=== PATIENT | female | born 1970 | race Caucasian/White ===

== ENCOUNTER 2017-07-04 11:46 | Inpatient (IN) | payer MEDICAID ==
[2017-07-04] MEDS ORDERED: HYDROmorphone 1 MG/ML Syringe IVPUSH ONE (12:55)
[2017-07-04] MEDS ORDERED: Lactated Ringers 1,000 ML IV ONE (12:56)
--- NOTE | 2017-07-04 12:59 | EDM.PDOC ---
ED HPI GENERAL MEDICAL PROBLEM - General Chief Complaint: General Stated Complaint: RAPID HEART RATE Time Seen by Provider: 07/04/17 12:45 Source of Information: Reports: Patient, Family, RN Notes Reviewed History Limitations: Reports: No Limitations - History of Present Illness INITIAL COMMENTS - FREE TEXT/NARRATIVE: 46-year-old female presents emergency department day complaint of fever and chills, she has a history of spinal cord injury T10 as well as suprapubic catheter colostomy bag and decubitus ulcer gluteal area, she was recently treated for urinary tract infection by report culture was sensitive to all medications except for Macrobid she completed a ten-day course. She states over the last 24-36 hrs. she's developed fever chills ill feeling Generalized Pain Score (Numeric/FACES): 10 - Related Data Allergies Allergy/AdvReac Type Severity Reaction Status Date / Time clindamycin Allergy Cannot Verified 07/04/17 12:24 Remember Penicillins Allergy Cannot Verified 07/04/17 12:24 Remember Home Meds: Home Meds Albuterol [Ventolin HFA] 1 puff IH QID 12/16/14 [History] Baclofen 20 mg PO TID 12/16/14 [History] Ibuprofen 200 mg PO Q4H PRN 12/16/14 [History] Levothyroxine 25 mcg PO QAM 12/16/14 [History] Methadone 15 mg PO BID 12/16/14 [History] Methadone 20 mg PO QAM 12/16/14 [History] Multivitamins/Iron/Folic Acid [Cerovite Advanced Formula] 1 tab PO DAILY [History] Pregabalin [Lyrica] 200 mg PO TID 12/16/14 [History] Triamcinolone Acetonide [Kenalog 0.1% Crm] 1 dose TOP ASDIRECTED 12/16/14 [ History] Venlafaxine [Effexor] 75 mg PO BID 12/16/14 [History] Budesonide/Formoterol [Symbicort 80-4.5 MCG] 1 puff INH DAILY 02/23/15 [History] oxyCODONE HCl/Acetaminophen [Endocet 7.5-325 mg Tablet] 2 tab PO Q8H PRN [History] Lisinopril [Lisinopril] 10 mg PO DAILY 07/04/17 [History] hydrOXYzine HCl [hydrOXYzine] 25 mg PO TID PRN 07/04/17 [History] Past Medical History Cardiovascular History: Reports: Hypertension Respiratory History: Reports: SOB Gastrointestinal History: Reports: Other (See Below) Other Gastrointestinal History: ostomy Genitourinary History: Reports: UTI, Recurrent Other Genitourinary History: Olivas Cath Musculoskeletal History: Reports: Other (See Below) Other Musculoskeletal History: spasms Psychiatric History: Reports: Depression Endocrine/Metabolic History: Reports: Hypothyroidism Dermatologic History: Reports: Decubitus Ulcer, Eczema Other Dermatologic History: rt buttock ulcer 2013 on going care by palliative care nurse - Infectious Disease History Infectious Disease History: Reports: MRSA Other Infectious Disease History: 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 and palliative care nurse state nolonger the case - Past Surgical History GI Surgical History: Reports: Small Bowel Female Surgical History: Reports: Suprapubic Catheter Placement Social & Family History - Family History Family Medical History: Noncontributory - Tobacco Use Smoking Status *Q: Current Every Day Smoker Years of Tobacco use: 18 Packs/Tins Daily: 0.3 Second Hand Smoke Exposure: Yes - Caffeine Use Caffeine Use: Reports: Coffee Other Caffeine Use: 1 cup a day - Alcohol Use Days Per Week of Alcohol Use: 0 - Recreational Drug Use Recreational Drug Use: No ED ROS GENERAL - Review of Systems Review Of Systems: See Below Constitutional: Reports: Fever, Chills HEENT: Reports: No Symptoms Respiratory: Reports: No Symptoms Cardiovascular: Reports: No Symptoms GI/Abdominal: Reports: No Symptoms : Reports: No Symptoms Musculoskeletal: Reports: Other (Spasms) Skin: Reports: No Symptoms Neurological: Reports: No Symptoms ED EXAM, GENERAL - Physical Exam Exam: See Below Free Text/Narrative:: General: Female moderate discomfort secondary to pain, alert and oriented x3 HEENT: head is atraumatic normocephalic, eyes pupils equal round reactive to light, sclera clear no conjunctivitis appreciated. Ears tympanic membranes clear and khan landmarks and light reflex are present bilaterally canals are clear. Nose no septal deviation, nares are clear, no blood present. Mouth mucosa is dry and pink no erythema or exudate noted in soft palate, tongue is midline uvula is midline, dentition is intact. Neck: Supple no thyromegaly no tracheal deviation. Nodes: Cervical nodes subclavicular nodes nontender no palpable lymphadenopathy noted. Lungs: clear to auscultation bilaterally with symmetrical respirations, no adventitious noise appreciated. CV: Regular rate and rhythm S1 and S2 appreciated no murmurs rubs or gallops noted. Abdomen: Soft, nontender, no palpable masses or organomegaly appreciated, no distention no guarding bowel sounds are present, . Neuro: Cranial nerves II through XII grossly intact Skin: Decubitus ulcer gluteal area Extremities: No lower extremity edema appreciated, atrophy and no movement of lower extremities Course - Vital Signs Last Recorded V/S: Last Vital Signs Temp 101.4 F H 07/04/17 14:31 Pulse 116 H 07/04/17 14:31 Resp 18 07/04/17 12:33 BP 149/87 H 07/04/17 14:31 Pulse Ox 93 L 07/04/17 14:31 - Orders/Labs/Meds Orders: Active Orders 24 hr Category Date Time Status Peripheral IV Care [RC] . DIRECTED Care 07/04/17 12:56 Active Vital Signs [RC] Q1H Care 07/04/17 12:54 Active CULTURE BLOOD [BC] Urgent Lab 07/04/17 13:00 Received CULTURE BLOOD [BC] Urgent Lab 07/04/17 13:05 Received CULTURE URINE [RM] Urgent Lab 07/04/17 14:32 Received Levofloxacin/Dextrose 5%-Water [Levaquin in D5W 750 MG/ Med 07/04/17 13:00 Active 150 ML] 750 mg Premix Bag 1 bag IV Q24H Sodium Chloride 0.9% [Saline Flush] Med 07/04/17 12:56 Active 10 ml FLUSH ASDIRECTED PRN Blood Culture x2 Reflex Set [OM.PC] Urgent Oth 07/04/17 12:54 Ordered Peripheral IV Insertion Adult [OM.PC] Urgent Oth 07/04/17 12:56 Ordered Medication Orders Levofloxacin/Dextrose 750 mg/ (Premix) 150 mls @ 100 mls/hr IV Q24H [facility] Last Admin: 07/04/17 13:17 Dose: 100 mls/hr Sodium Chloride (Saline Flush) 10 ml FLUSH ASDIRECTED PRN PRN Reason: Keep Vein Open Last Admin: 07/04/17 13:24 Dose: 10 ml Labs: Laboratory Tests 07/04/17 07/04/17 07/04/17 Range/Units 13:11 13:11 13:11 WBC 33.2 H* (4.5-11.0) K/uL RBC 5.37 (3.30-5.50) M/uL Hgb 15.7 H (12.0-15.0) g/dL Hct 48.3 H (36.0-48.0) % MCV 90 (80-98) fL MCH 29 (27-31) pg MCHC 33 (32-36) % Plt Count 336 (150-400) K/uL Add Manual Diff Yes Neutrophils % (Manual) 75 H (36-66) % Band Neutrophils % 9 (5-11) % Lymphocytes % (Manual) 13 L (24-44) % Monocytes % (Manual) 2 (2-6) % Eosinophils % (Manual) 1 L (2-4) % Sodium 140 (140-148) mmol/L Potassium 3.5 L (3.6-5.2) mmol/L Chloride 103 (100-108) mmol/L Carbon Dioxide 26 (21-32) mmol/L Anion Gap 14.5 H (5.0-14.0) mmol/L BUN 7 (7-18) mg/dL Creatinine 1.0 (0.6-1.0) mg/dL Est Cr Clr Drug Dosing 73.46 mL/min Estimated GFR (MDRD) 60 (>60) Glucose 103 (74-106) mg/dL Lactic Acid 1.7 (0.4-2.0) mmol/L Calcium 8.3 L (8.5-10.1) mg/dL Total Bilirubin 0.6 D (0.2-1.0) mg/dL AST 32 D (15-37) U/L ALT 20 (12-78) U/L Alkaline Phosphatase 126 H (46-116) U/L C-Reactive Protein 18.44 H (0.0-0.3) mg/dL Total Protein 8.0 (6.4-8.2) g/dL Albumin 2.7 L (3.4-5.0) g/dL Globulin 5.3 H (2.3-3.5) g/dL Albumin/Globulin Ratio 0.5 L (1.2-2.2) Urine Color Urine Appearance Urine pH (4.5-8.0) Ur Specific Alexis (1.008-1.030) Urine Protein (NEGATIVE) mg/dL Urine Glucose (UA) (NEGATIVE) mg/dL Urine Ketones (NEGATIVE) mg/dL Urine Occult Blood (NEGATIVE) Urine Nitrite (NEGATIVE) Urine Bilirubin (NEGATIVE) Urine Urobilinogen (NORMAL) mg/dL Ur Leukocyte Esterase (NEGATIVE) Urine RBC (0-5) Urine WBC (0-5) Ur Epithelial Cells Amorphous Sediment Urine Bacteria Urine Mucus 07/04/17 Range/Units 14:06 WBC (4.5-11.0) K/uL RBC (3.30-5.50) M/uL Hgb (12.0-15.0) g/dL Hct (36.0-48.0) % MCV (80-98) fL MCH (27-31) pg MCHC (32-36) % Plt Count (150-400) K/uL Add Manual Diff Neutrophils % (Manual) (36-66) % Band Neutrophils % (5-11) % Lymphocytes % (Manual) (24-44) % Monocytes % (Manual) (2-6) % Eosinophils % (Manual) (2-4) % Sodium (140-148) mmol/L Potassium (3.6-5.2) mmol/L Chloride (100-108) mmol/L Carbon Dioxide (21-32) mmol/L Anion Gap (5.0-14.0) mmol/L BUN (7-18) mg/dL Creatinine (0.6-1.0) mg/dL Est Cr Clr Drug Dosing mL/min Estimated GFR (MDRD) (>60) Glucose (74-106) mg/dL Lactic Acid (0.4-2.0) mmol/L Calcium (8.5-10.1) mg/dL Total Bilirubin (0.2-1.0) mg/dL AST (15-37) U/L ALT (12-78) U/L Alkaline Phosphatase (46-116) U/L C-Reactive Protein (0.0-0.3) mg/dL Total Protein (6.4-8.2) g/dL Albumin (3.4-5.0) g/dL Globulin (2.3-3.5) g/dL Albumin/Globulin Ratio (1.2-2.2) Urine Color Yellow Urine Appearance Slightly cloudy Urine pH 5.0 (4.5-8.0) Ur Specific Alexis 1.010 (1.008-1.030) Urine Protein 30 H (NEGATIVE) mg/dL Urine Glucose (UA) Normal (NEGATIVE) mg/dL Urine Ketones Negative (NEGATIVE) mg/dL Urine Occult Blood Moderate (NEGATIVE) Urine Nitrite Positive H (NEGATIVE) Urine Bilirubin Negative (NEGATIVE) Urine Urobilinogen Normal (NORMAL) mg/dL Ur Leukocyte Esterase Moderate (NEGATIVE) Urine RBC 5-10 H (0-5) Urine WBC 5-10 H (0-5) Ur Epithelial Cells Few Amorphous Sediment Many Urine Bacteria Moderate Urine Mucus Not seen Meds: Medications Generic Name Dose Route Start Last Admin Trade Name Freq PRN Reason Stop Dose Admin Levofloxacin/Dextrose 750 mg/ 150 mls @ 100 mls/hr 07/04/17 13:00 07/04/17 13 :17 Premix IV 100 mls/hr Q24H SANDI Administration Sodium Chloride 10 ml 07/04/17 12:56 07/04/17 13:24 Saline Flush FLUSH 10 ml ASDIRECTED PRN Administration Keep Vein Open Discontinued Medications Generic Name Dose Route Start Last Admin Trade Name Freq PRN Reason Stop Dose Admin Fentanyl 100 mcg 07/04/17 14:06 07/04/17 14:23 Sublimaze IVPUSH 07/04/17 14:07 100 mcg ONETIME ONE Administration Hydromorphone HCl 1 mg 07/04/17 12:55 07/04/17 13:10 Dilaudid IVPUSH 07/04/17 12:56 1 mg ONETIME ONE Administration Lactated Ringer's 1,000 mls @ 999 mls/hr 07/04/17 12:56 07/04/17 13:10 Ringers, Lactated IV 07/04/17 13:56 999 mls/hr BOLUS ONE Administration Departure - Departure Time of Disposition: 14:40 Disposition: Admitted As Inpatient 66 Condition: Fair Clinical Impression: Sacral decubitus ulcer, stage IV, Paraplegia following spinal cord injury, Sepsis due to urinary tract infection Bilateral pneumonia Qualifiers: Pneumonia type: due to unspecified organism Lung location: lower lobe of lung Qualified Code(s): J18.9 - Pneumonia, unspecified organism - Discharge Information Referrals: Brigitte Guy MD [Primary Care Provider] - Forms: ED Department Discharge - My Orders Last 24 Hours: My Active Orders 07/04/17 12:54 Vital Signs [RC] Q1H Blood Culture x2 Reflex Set [OM.PC] Urgent 07/04/17 12:56 Peripheral IV Care [RC] . DIRECTED Sodium Chloride 0.9% [Saline Flush] 10 ml FLUSH ASDIRECTED PRN Peripheral IV Insertion Adult [OM.PC] Urgent 07/04/17 13:00 CULTURE BLOOD [BC] Urgent Levofloxacin/Dextrose 5%-Water [Levaquin in D5W 750 MG/150 ML] 750 mg Premix Bag 1 bag IV Q24H 07/04/17 13:05 CULTURE BLOOD [BC] Urgent 07/04/17 14:32 CULTURE URINE [RM] Urgent - Assessment/Plan Last 24 Hours: My Active Orders 07/04/17 12:54 Vital Signs [RC] Q1H Blood Culture x2 Reflex Set [OM.PC] Urgent 07/04/17 12:56 Peripheral IV Care [RC] . DIRECTED Sodium Chloride 0.9% [Saline Flush] 10 ml FLUSH ASDIRECTED PRN Peripheral IV Insertion Adult [OM.PC] Urgent 07/04/17 13:00 CULTURE BLOOD [BC] Urgent Levofloxacin/Dextrose 5%-Water [Levaquin in D5W 750 MG/150 ML] 750 mg Premix Bag 1 bag IV Q24H 07/04/17 13:05 CULTURE BLOOD [BC] Urgent 07/04/17 14:32 CULTURE URINE [RM] Urgent Plan: Assessment Acuity = acute Site and laterality = sepsis with urinary tract infection and bilateral atypical pneumonia complicated in a patient with known history of T10 spinal cord disruption chronic spasm and chronic opioid use Etiology = suspicious for urinary source Manifestations = fever, tachycardia, hypoxia Location of injury = Home Lab values = WBC elevated 33.2 consistent with leukocytosis, potassium low at 3.5 consistent hypokalemia CRP elevated 18.4 albumin low at 2.7 consistent hypoalbuminemia urinalysis reveals 30 of protein consistent proteinuria positive for nitrates 5-10 rbc's and 5-10 WBCs consistent with a hematuria and a pyuria respectively chest x-ray reveals bilateral infiltrates consistent with atypical pneumonia Plan Called and discussed case with hospitalist bonding machine setter he agreed to come and evaluate the patient in the emergency department for admission Patient was in agreement with the plan all questions were answered. This note was dictated using [employer] voice recognition software please call with any questions.
[2017-07-04] MEDS: Levofloxacin/Dextrose 5%-Water 750 MG in Premix Bag 1 BAG IV SCH (13:17)
[2017-07-04] MEDS: Sodium Chloride 0.9% 10 ML Syringe FLUSH PRN (13:24)
--- NOTE | 2017-07-04 13:51 | CR ---
Portable chest Comparison: January 2015. There has been interval placement of a left central venous internal and catheter. The tip descends do wn into the SVC. There are diffuse interstitial nodular infiltrates. The heart and vascular structures are stable. The re are no pleural effusions. Impression: 1. Bilateral interstitial infiltrates. The findings are suggestive of a nontypical pneumonia. Follow- up recommended.
[2017-07-04] MEDS ORDERED: fentaNYL 100 MCG/2 ML SDV IVPUSH ONE (14:06)
[2017-07-04] MEDS ORDERED: Sodium Chloride 0.9% 1,000 ML IV SCH ×2 (15:30→16:43)
--- NOTE | 2017-07-04 15:47 | PCM.HP ---
H&P History of Present Illness - General Date of Service: 07/04/17 Admit Problem/Dx: Admission Diagnosis/Problem Admission Diagnosis/Problem Pneumonia Source of Information: Patient, Provider History Limitations: Reports: No Limitations - History of Present Illness Initial Comments - Free Text/Narative: Aaliyah presents today with several days of subjective fevers at home as well as in occasional dry cough and increased back pain and muscle spasms. She reports that she was treated for a urinary tract infection a couple weeks ago and felt better initially after treatment but has not felt well for the past few days. She has been weak and tired. She has noticed fairly frequent and intense spasms in her lower back. She reports that this is a common occurrence when she is sick area she has been coughing more than usual and has noticed green sputum. She does not feel short of breath but did require supplemental oxygen in the emergency room. She has not had much in the way of abdominal pain or nausea. She has not noticed a change in the color or odor of her urine. No drainage around her suprapubic catheter. No obvious sick contacts. Workup in the emergency room was suggestive of bilateral pneumonia and mild hypoxia as well as high fever. Her laboratory studies reveal a significant white count elevation at 33,000. She was initially mildly tachycardic but has been improving with IV fluids. She will be admitted for pneumonia management. Generalized Pain Score (Numeric/FACES): 10 - Related Data Allergies/Adverse Reactions: Allergies Allergy/AdvReac Type Severity Reaction Status Date / Time clindamycin Allergy Cannot Verified 07/04/17 12:24 Remember Penicillins Allergy Cannot Verified 07/04/17 12:24 Remember Home Medications: Home Meds Albuterol [Ventolin HFA] 1 puff IH QID 12/16/14 [History] Baclofen 20 mg PO TID 12/16/14 [History] Ibuprofen 200 mg PO Q4H PRN 12/16/14 [History] Levothyroxine 25 mcg PO QAM 12/16/14 [History] Methadone 15 mg PO BID 12/16/14 [History] Methadone 20 mg PO QAM 12/16/14 [History] Multivitamins/Iron/Folic Acid [Cerovite Advanced Formula] 1 tab PO DAILY [History] Pregabalin [Lyrica] 200 mg PO TID 12/16/14 [History] Triamcinolone Acetonide [Kenalog 0.1% Crm] 1 dose TOP ASDIRECTED 12/16/14 [ History] Venlafaxine [Effexor] 75 mg PO BID 12/16/14 [History] Budesonide/Formoterol [Symbicort 80-4.5 MCG] 1 puff INH DAILY 02/23/15 [History] oxyCODONE HCl/Acetaminophen [Endocet 7.5-325 mg Tablet] 2 tab PO Q8H PRN [History] Lisinopril [Lisinopril] 10 mg PO DAILY 07/04/17 [History] hydrOXYzine HCl [hydrOXYzine] 25 mg PO TID PRN 07/04/17 [History] Past Medical History Cardiovascular History: Reports: Hypertension Respiratory History: Reports: SOB Gastrointestinal History: Reports: Other (See Below) Other Gastrointestinal History: ostomy Genitourinary History: Reports: UTI, Recurrent Other Genitourinary History: Olivas Cath Musculoskeletal History: Reports: Other (See Below) Other Musculoskeletal History: spasms Psychiatric History: Reports: Depression Endocrine/Metabolic History: Reports: Hypothyroidism Dermatologic History: Reports: Decubitus Ulcer, Eczema Other Dermatologic History: rt buttock ulcer 2013 on going care by healthcare consultant - Infectious Disease History Infectious Disease History: Reports: MRSA Other Infectious Disease History: 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 and healthcare consultant state [place] the case - Past Surgical History GI Surgical History: Reports: Small Bowel Female Surgical History: Reports: Suprapubic Catheter Placement Social & Family History - Family History Family Medical History: Noncontributory - Tobacco Use Smoking Status *Q: Current Every Day Smoker Years of Tobacco use: 18 Packs/Tins Daily: 0.3 Second Hand Smoke Exposure: Yes - Caffeine Use Caffeine Use: Reports: Coffee Other Caffeine Use: 1 cup a day - Alcohol Use Days Per Week of Alcohol Use: 0 - Recreational Drug Use Recreational Drug Use: No H&P Review of Systems - Review of Systems: Review Of Systems: See Below Free Text/Narrative: A complete 12 point review of systems was obtained. Pertinent positives and negatives are noted in the history of present illness. All other systems were reviewed and were negative except as noted. Exam - Exam Exam: See Below - Vital Signs Vital Signs: Last Vital Signs Temp 38.6 C H 07/04/17 14:31 Pulse 116 H 07/04/17 14:31 Resp 18 07/04/17 12:33 BP 149/87 H 07/04/17 14:31 Pulse Ox 93 L 07/04/17 14:31 Weight: 83.915 kg - Exam Quality Assessment: Supplemental Oxygen General: Alert, Oriented, Cooperative. No: Mild Distress HEENT: Conjunctiva Clear. No: Mucosa Moist & [place] (dry), Scleral Icterus Neck: Supple, Trachea Midline. No: Lymphadenopathy Lungs: Normal Respiratory Effort, Rales (diffuse rales upper and lower lobes both lungs) Cardiovascular: Regular Rhythm, Tachycardia GI/Abdominal Exam: Soft, Non-Tender, No Distention, Other (colostomy left lower abdomen with small quantity brown stool. stoma pink) Extremities: No Pedal Edema. No: Increased Warmth Skin: Warm, Dry, Rash (mild excoriation right lower legs) Neuro Extensive - Mental Status: Alert, Oriented x3, Nl Response to Commands Neuro Extensive - Motor, Sensory, Reflexes: CN II-XII Intact. No: Dysarthria, Tremor Psychiatric: Alert, Normal Affect - Patient Data Lab Results Last 24 hrs: Laboratory Results - last 24 hr 07/04/17 07/04/17 07/04/17 Range/Units 13:11 13:11 13:11 WBC 33.2 H* (4.5-11.0) K/uL RBC 5.37 (3.30-5.50) M/uL Hgb 15.7 H (12.0-15.0) g/dL Hct 48.3 H (36.0-48.0) % MCV 90 (80-98) fL MCH 29 (27-31) pg MCHC 33 (32-36) % Plt Count 336 (150-400) K/uL Add Manual Diff Yes Neutrophils % (Manual) 75 H (36-66) % Band Neutrophils % 9 (5-11) % Lymphocytes % (Manual) 13 L (24-44) % Monocytes % (Manual) 2 (2-6) % Eosinophils % (Manual) 1 L (2-4) % Sodium 140 (140-148) mmol/L Potassium 3.5 L (3.6-5.2) mmol/L Chloride 103 (100-108) mmol/L Carbon Dioxide 26 (21-32) mmol/L Anion Gap 14.5 H (5.0-14.0) mmol/L BUN 7 (7-18) mg/dL Creatinine 1.0 (0.6-1.0) mg/dL Est Cr Clr Drug Dosing 73.46 mL/min Estimated GFR (MDRD) 60 (>60) Glucose 103 (74-106) mg/dL Lactic Acid 1.7 (0.4-2.0) mmol/L Calcium 8.3 L (8.5-10.1) mg/dL Total Bilirubin 0.6 D (0.2-1.0) mg/dL AST 32 D (15-37) U/L ALT 20 (12-78) U/L Alkaline Phosphatase 126 H (46-116) U/L C-Reactive Protein 18.44 H (0.0-0.3) mg/dL Total Protein 8.0 (6.4-8.2) g/dL Albumin 2.7 L (3.4-5.0) g/dL Globulin 5.3 H (2.3-3.5) g/dL Albumin/Globulin Ratio 0.5 L (1.2-2.2) Urine Color Urine Appearance Urine pH (4.5-8.0) Ur Specific [place] (1.008-1.030) Urine Protein (NEGATIVE) mg/dL Urine Glucose (UA) (NEGATIVE) mg/dL Urine Ketones (NEGATIVE) mg/dL Urine Occult Blood (NEGATIVE) Urine Nitrite (NEGATIVE) Urine Bilirubin (NEGATIVE) Urine Urobilinogen (NORMAL) mg/dL Ur Leukocyte Esterase (NEGATIVE) Urine RBC (0-5) Urine WBC (0-5) Ur Epithelial Cells Amorphous Sediment Urine Bacteria Urine Mucus 07/04/17 Range/Units 14:06 WBC (4.5-11.0) K/uL RBC (3.30-5.50) M/uL Hgb (12.0-15.0) g/dL Hct (36.0-48.0) % MCV (80-98) fL MCH (27-31) pg MCHC (32-36) % Plt Count (150-400) K/uL Add Manual Diff Neutrophils % (Manual) (36-66) % Band Neutrophils % (5-11) % Lymphocytes % (Manual) (24-44) % Monocytes % (Manual) (2-6) % Eosinophils % (Manual) (2-4) % Sodium (140-148) mmol/L Potassium (3.6-5.2) mmol/L Chloride (100-108) mmol/L Carbon Dioxide (21-32) mmol/L Anion Gap (5.0-14.0) mmol/L BUN (7-18) mg/dL Creatinine (0.6-1.0) mg/dL Est Cr Clr Drug Dosing mL/min Estimated GFR (MDRD) (>60) Glucose (74-106) mg/dL Lactic Acid (0.4-2.0) mmol/L Calcium (8.5-10.1) mg/dL Total Bilirubin (0.2-1.0) mg/dL AST (15-37) U/L ALT (12-78) U/L Alkaline Phosphatase (46-116) U/L C-Reactive Protein (0.0-0.3) mg/dL Total Protein (6.4-8.2) g/dL Albumin (3.4-5.0) g/dL Globulin (2.3-3.5) g/dL Albumin/Globulin Ratio (1.2-2.2) Urine Color Yellow Urine Appearance Slightly cloudy Urine pH 5.0 (4.5-8.0) Ur Specific [place] 1.010 (1.008-1.030) Urine Protein 30 H (NEGATIVE) mg/dL Urine Glucose (UA) Normal (NEGATIVE) mg/dL Urine Ketones Negative (NEGATIVE) mg/dL Urine Occult Blood Moderate (NEGATIVE) Urine Nitrite Positive H (NEGATIVE) Urine Bilirubin Negative (NEGATIVE) Urine Urobilinogen Normal (NORMAL) mg/dL Ur Leukocyte Esterase Moderate (NEGATIVE) Urine RBC 5-10 H (0-5) Urine WBC 5-10 H (0-5) Ur Epithelial Cells Few Amorphous Sediment Many Urine Bacteria Moderate Urine Mucus Not seen Result Diagrams: 07/04/17 13:11 07/04/17 13:11 Imaging Impressions Last 24 hrs: CXR - images personally reviewed - diffuse bilateral interstitial opacities noted. No mass or focal infiltrate. Heart size is normal. *Q Meaningful Use (ADM) - VTE *Q VTE Criteria *Q: - VTE Risk Assess *Q Each Risk Factor Represents 1 Point: Age 41 - 59 years, Abnormal Pulmonary Function (COPD) Total Score 1 Point Risk Factors: 2 Each Risk Factor Represents 2 Points: None Total Score 2 Point Risk Factors: 0 Each Risk Factor Represents 3 Points: None Total Score 3 Point Risk Factors: 0 Each Risk Factor Represents 5 Points: None Total Score 5 Point Risk Factors: 0 Venous Thromboembolism Risk Factor Score *Q: 2 - Stroke *Q Stroke Criteria *Q: - AMI *Q AMI Criteria *Q: - Problem List (1) Bilateral pneumonia SNOMED Code(s): 358102946 ICD Code: J18.9 - PNEUMONIA, UNSPECIFIED ORGANISM Status: Acute Current Visit: Yes Qualifiers: Pneumonia type: due to unspecified organism Lung location: lower lobe of lung Qualified Code(s): J18.9 - Pneumonia, unspecified organism (2) Decubitus ulcer SNOMED Code(s): 857404381 ICD Code: L89.90 - PRESSURE ULCER OF UNSPECIFIED SITE, UNSPECIFIED STAGE Status: Acute Current Visit: Yes Qualifiers: Pressure ulcer location: sacral region Pressure ulcer stage: unspecified pressure ulcer stage Qualified Code(s): L89.159 - Pressure ulcer of sacral region, unspecified stage (3) Paraplegia following spinal cord injury SNOMED Code(s): 55108614 ICD Code: G82.20 - PARAPLEGIA, UNSPECIFIED Status: Chronic Current Visit : Yes (4) Tobacco dependence SNOMED Code(s): 63338759 ICD Code: F17.200 - NICOTINE DEPENDENCE, UNSPECIFIED, UNCOMPLICATED Status : Chronic Current Visit: Yes Problem List Initiated/Reviewed/Updated: Yes Orders Last 24hrs: Active Orders 24 hr Category Date Time Status Patient Status Manage Transfer [TRANSFER] Routine ADT 07/04/17 15:27 Ordered Peripheral IV Care [RC] . DIRECTED Care 07/04/17 12:56 Active Vital Signs [RC] Q1H Care 07/04/17 12:54 Active CULTURE BLOOD [BC] Urgent Lab 07/04/17 13:00 Received CULTURE BLOOD [BC] Urgent Lab 07/04/17 13:05 Received CULTURE URINE [RM] Urgent Lab 07/04/17 14:32 Received Levofloxacin/Dextrose 5%-Water [Levaquin in D5W 750 MG/ Med 07/04/17 13:00 Active 150 ML] 750 mg Premix Bag 1 bag IV Q24H Sodium Chloride 0.9% [Normal Saline] 1,000 ml Med 07/04/17 15:30 Active IV ASDIRECTED Sodium Chloride 0.9% [Saline Flush] Med 07/04/17 12:56 Active 10 ml FLUSH ASDIRECTED PRN Blood Culture x2 Reflex Set [OM.PC] Urgent Oth 07/04/17 12:54 Ordered Peripheral IV Insertion Adult [OM.PC] Urgent Oth 07/04/17 12:56 Ordered Resuscitation Status Routine Resus Stat 07/04/17 15:30 Ordered Medication Orders Levofloxacin/Dextrose 750 mg/ (Premix) 150 mls @ 100 mls/hr IV Q24H SANDI Last Admin: 07/04/17 13:17 Dose: 100 mls/hr Sodium Chloride (Normal Saline) 1,000 mls @ 999 mls/hr IV ASDIRECTED SANDI Stop: 07/04/17 16:31 Last Admin: 07/04/17 15:42 Dose: 999 mls/hr Sodium Chloride (Saline Flush) 10 ml FLUSH ASDIRECTED PRN PRN Reason: Keep Vein Open Last Admin: 07/04/17 13:24 Dose: 10 ml Assessment/Plan Comment:: Assessment and plan - Bilateral pneumonia with mild hypoxic respiratory failure - atypical appearing pneumonia with diffuse interstitial infiltrates. Bedside examination very similar to appearance on chest x-ray with diffuse crackles. No obvious sick contacts. Significant white blood cell count elevation. She does have a history of MRSA. Urine culture mildly suggestive of infection but I suspect the pneumonia is the most likely source of infection. -Broad-spectrum antibiotic coverage with vancomycin, ceftazidime and levofloxacin -Follow-up blood cultures -Sputum culture if able -Follow-up urine culture -Fluid boluses until heart rate improves -Nebulizers History of spinal cord injury with paraplegia - Complicated by neurogenic bladder requiring a suprapubic catheter as well as a colostomy. She has increased pain from baseline as well as some muscle spasms. -Continue usual home medications -Diazepam as needed for spasms Tobacco dependence - Patient will be offered cessation recommendations once condition stabilizes during the hospital stay. -Nicotine patch as needed -Cessation recommendations Maintenance issues - - DVT prophylaxis - enoxaparin - GI prophylaxis - not indicated - Nutrition - regular - Olivas catheter - chronic suprapubic catheter CODE STATUS - full code Admission justification - This patient will be admitted for inpatient services and is medically appropriate meeting medical necessity for inpatient admission as outlined in my documentation. I reasonably expect the patient will require inpatient services that span a period time over 2 midnights. I reasonably expect this patient to be discharged or transferred within 96 hours after admission to the [facility]. Disposition - anticipate discharge to home after the hospital stay Primary care physician - NICO Sahu M.D.
[2017-07-04] MEDS ORDERED: Acetaminophen 325 MG Tab PO PRN (16:43)
[2017-07-04] MEDS ORDERED: Albuterol 0.083% 2.5 MG/3 ML Neb Soln NEB PRN (16:43)
[2017-07-04] MEDS ORDERED: Ondansetron 4 MG Tab.DIS PO PRN (16:43)
[2017-07-04] MEDS ORDERED: Nicotine 14 MG/24 Hr Patch TRDERM PRN (16:43)
[2017-07-04] MEDS ORDERED: Polyethylene Glycol 3350 Powder 17 GM Packet PO PRN (16:43)
[2017-07-04] MEDS ORDERED: Magnesium Hydroxide 400 MG/5 ML Susp 30 ML Cup PO PRN (16:43)
[2017-07-04] MEDS ORDERED: Diazepam 5 MG Tab PO PRN (16:55)
[2017-07-04] MEDS ORDERED: Albuterol/Ipratropium 3.0-0.5 MG/3 ML Neb Soln NEB ONE (17:00)
[2017-07-04] MEDS: Pregabalin 100 MG Cap PO SCH ×2 (17:11→20:32)
[2017-07-04] MEDS: Baclofen 10 MG Tab PO SCH ×2 (17:11→20:31)
[2017-07-04] MEDS: Acetaminophen/oxyCODONE 325-7.5 MG Tab PO PRN (17:11)
[2017-07-04] MEDS: HYDROmorphone 1 MG/ML Syringe IVPUSH PRN ×2 (18:21→20:24)
[2017-07-04] MEDS: Ibuprofen 600 MG Tab PO PRN (19:35)
[2017-07-04] MEDS: Venlafaxine 75 MG Tab PO SCH (20:31)
[2017-07-04] MEDS: Albuterol/Ipratropium 3.0-0.5 MG/3 ML Neb Soln NEB SCH (20:31)
[2017-07-04] MEDS ORDERED: Methadone 5 MG Tab PO SCH (21:00)
[2017-07-04] MEDS: Diazepam 5 MG Tab PO PRN (21:04)
[2017-07-04] MEDS: cefTAZidime 1 GM in Sodium Chloride 0.9% 50 ML IV SCH (22:34)
[2017-07-04] MEDS: Nystatin Crm 30 GM Tube TOP SCH (22:40)
[2017-07-05] MEDS: Acetaminophen/oxyCODONE 325-7.5 MG Tab PO PRN ×5 (01:02→21:02)
[2017-07-05] MEDS: Diazepam 5 MG Tab PO PRN ×3 (01:35→09:18)
[2017-07-05] MEDS: HYDROmorphone 1 MG/ML Syringe IVPUSH PRN ×6 (02:53→13:44)
[2017-07-05] MEDS: Ibuprofen 600 MG Tab PO PRN ×3 (03:41→19:23)
[2017-07-05] MEDS: hydrOXYzine HCl 25 MG Tab PO PRN ×3 (04:22→23:16)
[2017-07-05] MEDS: cefTAZidime 1 GM in Sodium Chloride 0.9% 50 ML IV SCH ×3 (06:09→21:40)
[2017-07-05] MEDS: Formoterol/Mometasone 100-5 MCG 8.8 GM Inhaler IH SCH (07:28)
[2017-07-05] MEDS: Albuterol/Ipratropium 3.0-0.5 MG/3 ML Neb Soln NEB SCH ×4 (07:29→20:49)
[2017-07-05] MEDS: Levothyroxine 25 MCG Tab PO SCH (07:33)
[2017-07-05] MEDS: Pregabalin 100 MG Cap PO SCH ×2 (08:48→13:41)
[2017-07-05] MEDS: Baclofen 10 MG Tab PO SCH ×3 (08:49→20:51)
[2017-07-05] MEDS: Lisinopril 10 MG Tab PO SCH (08:49)
[2017-07-05] MEDS: Enoxaparin 40 MG/0.4 ML Syringe SUBCUT SCH (08:49)
[2017-07-05] MEDS: Venlafaxine 75 MG Tab PO SCH ×2 (08:50→20:51)
[2017-07-05] MEDS ORDERED: Methadone 10 MG Tab PO SCH (09:00)
[2017-07-05] MEDS: Nystatin Crm 30 GM Tube TOP SCH ×2 (09:19→20:51)
[2017-07-05] MEDS ORDERED: fentaNYL 100 MCG/2 ML SDV IVPUSH ONE (12:49)
[2017-07-05] MEDS: Levofloxacin/Dextrose 5%-Water 750 MG in Premix Bag 1 BAG IV SCH (13:05)
[2017-07-05] MEDS ORDERED: Sodium Chloride 0.9% 1,000 ML IV SCH (14:00)
[2017-07-05] MEDS: fentaNYL 100 MCG/2 ML SDV IVPUSH PRN ×4 (14:31→23:16)
[2017-07-05] MEDS: LORazepam 2 MG/ML MDV IVPUSH PRN ×2 (14:39→19:25)
--- NOTE | 2017-07-05 15:05 | PCM.PN ---
- General Info Date of Service: 07/05/17 Functional Status: Reports: Tolerating Diet. Denies: Pain Controlled - Review of Systems General: Reports: Weakness. Denies: Fever Pulmonary: Reports: Shortness of Breath Systems Review Comment:: No acute events overnight but she she has had some difficulty with spasms in both of her legs. Initially were okay early this morning but have worsened as the day has progressed. She reports severe 10 out of 10 pain that starts in the buttocks area and then radiates down the leg and up into her lower back. Minimal pain relief from pain medications and muscle relaxers at this time. Fever curve has improved. White blood cell count is trending down. She does not feel short of breath but does continue to require supplemental oxygen. - Patient Data Vitals - Most Recent: Last Vital Signs Temp 36.4 C 07/05/17 10:57 Pulse 80 07/05/17 11:13 Resp 18 07/05/17 10:57 BP 90/65 07/05/17 10:57 Pulse Ox 93 L 07/05/17 10:57 Weight - Most Recent: 83.915 kg I&O - Last 24 Hours: Intake & Output 07/05/17 07/05/17 07/05/17 06:59 14:59 22:59 Intake Total 3352 510 Output Total 950 Balance 2402 510 Lab Results Last 24 Hours: Laboratory Results - last 24 hr 07/05/17 07/05/17 Range/Units 05:11 05:11 WBC 25.0 H (4.5-11.0) K/uL RBC 4.89 (3.30-5.50) M/uL Hgb 14.2 (12.0-15.0) g/dL Hct 45.0 (36.0-48.0) % MCV 92 (80-98) fL MCH 29 (27-31) pg MCHC 32 (32-36) % Plt Count 250 (150-400) K/uL Sodium 140 (140-148) mmol/L Potassium 3.3 L (3.6-5.2) mmol/L Chloride 106 (100-108) mmol/L Carbon Dioxide 27 (21-32) mmol/L Anion Gap 10.3 (5.0-14.0) mmol/L BUN 7 (7-18) mg/dL Creatinine 0.9 (0.6-1.0) mg/dL Est Cr Clr Drug Dosing 81.63 mL/min Estimated GFR (MDRD) > 60 (>60) Glucose 98 (74-106) mg/dL Calcium 8.0 L (8.5-10.1) mg/dL Ignacio Results Last 24 Hours: Microbiology 07/05/17 01:39 Gram Stain - Final Sputum - Expectorated Med Orders - Current: Current Medications Acetaminophen (Tylenol) 650 mg PO Q4H PRN PRN Reason: Pain (Mild 1-3)/fever Albuterol (Proventil Neb Soln) 2.5 mg NEB Q4H PRN PRN Reason: Shortness Of Breath/wheezing Albuterol/Ipratropium (Duoneb 3.0-0.5 Mg/3 Ml) 3 ml NEB QIDRT [facility] Last Admin: 07/05/17 11:13 Dose: 3 ml Baclofen (Lioresal) 20 mg PO TID [facility] Last Admin: 07/05/17 13:42 Dose: 20 mg Enoxaparin Sodium (Lovenox) 40 mg SUBCUT DAILY [facility] Last Admin: 07/05/17 08:49 Dose: 40 mg Fentanyl (Sublimaze) 50 - 100 mcg IVPUSH Q2H PRN PRN Reason: Pain (severe 7-10) Last Admin: 07/05/17 14:31 Dose: 100 mcg Hydroxyzine HCl (Atarax) 25 mg PO TID PRN PRN Reason: Anxiety Last Admin: 07/05/17 10:47 Dose: 25 mg Levofloxacin/Dextrose 750 mg/ (Premix) 150 mls @ 100 mls/hr IV Q24H [facility] Last Admin: 07/05/17 13:05 Dose: 100 mls/hr Ceftazidime 1 gm/ Sodium (Chloride) 50 mls @ 100 mls/hr IV Q8HR [facility] Last Admin: 07/05/17 14:32 Dose: 100 mls/hr Vancomycin HCl 1.25 gm/ Sodium (Chloride) 250 mls @ 167 mls/hr IV Q12H [facility] Last Admin: 07/05/17 03:02 Dose: 167 mls/hr Sodium Chloride (Normal Saline) 1,000 mls @ 25 mls/hr IV ASDIRECTED [facility] Ibuprofen (Motrin) 600 mg PO Q4H PRN PRN Reason: Pain/Fever Last Admin: 07/05/17 10:47 Dose: 600 mg Levothyroxine Sodium (Levothyroxine) 25 mcg PO DAILY@0730 [facility] Last Admin: 07/05/17 07:33 Dose: 25 mcg Lisinopril (Prinivil) 10 mg PO DAILY [facility] Last Admin: 07/05/17 08:49 Dose: 10 mg Lorazepam (Ativan) 1 mg IVPUSH Q4H PRN PRN Reason: Muscle Spasm Last Admin: 07/05/17 14:39 Dose: 1 mg Magnesium Hydroxide (Milk Of Magnesia) 30 ml PO Q12H PRN PRN Reason: Constipation Methadone HCl (Methadone) 20 mg PO DAILY@0500 [facility] Methadone HCl 10 mg/ Methadone (HCl 5 mg) 15 mg PO BID@1000,1700 [facility] Mometasone Furoate/Formoterol Fumar (Dulera 100-5 Mcg) 1 puff IH DAILY@0700 [facility] Last Admin: 07/05/17 07:28 Dose: 1 puff Nicotine (Habitrol) 14 mg TRDERM DAILY PRN PRN Reason: Nicotine craving Nystatin (Nystatin Crm) 1 gm TOP BID [facility] Last Admin: 07/05/17 09:19 Dose: 1 gm Ondansetron HCl (Zofran Odt) 4 mg PO Q6H PRN PRN Reason: Nausea able to take PO Oxycodone/Acetaminophen (Percocet 325-7.5 Mg) 1 - 2 tab PO Q4H PRN PRN Reason: Pain Last Admin: 07/05/17 13:04 Dose: 2 tab Polyethylene Glycol (Miralax) 17 gm PO DAILY PRN PRN Reason: Constipation Pregabalin (Lyrica) 400 mg PO DAILY@1400 [facility] Pregabalin (Lyrica) 200 mg PO DAILY@0600 [facility] Sodium Chloride (Saline Flush) 10 ml FLUSH ASDIRECTED PRN PRN Reason: Keep Vein Open Last Admin: 07/04/17 13:24 Dose: 10 ml Venlafaxine HCl (Effexor) 75 mg PO BID [facility] Last Admin: 07/05/17 08:50 Dose: 75 mg Discontinued Medications Albuterol/Ipratropium (Duoneb 3.0-0.5 Mg/3 Ml) 3 ml NEB ONETIME ONE Stop: 07/04/17 17:01 Last Admin: 07/04/17 17:15 Dose: 3 ml Diazepam (Valium) 5 mg IVPUSH Q4H PRN PRN Reason: Muscle Spasm Stop: 07/04/17 17:15 Last Admin: 07/04/17 16:58 Dose: 5 mg Diazepam (Valium.) 5 mg PO Q4H PRN PRN Reason: Muscle Spasm Diazepam (Valium.) 10 mg PO Q4H PRN PRN Reason: Muscle Spasm Last Admin: 07/05/17 09:18 Dose: 10 mg Fentanyl (Sublimaze) 100 mcg IVPUSH ONETIME ONE Stop: 07/04/17 14:07 Last Admin: 07/04/17 14:23 Dose: 100 mcg Fentanyl (Sublimaze) 50 mcg IVPUSH ONETIME ONE Stop: 07/05/17 12:50 Last Admin: 07/05/17 13:03 Dose: 50 mcg Hydromorphone HCl (Dilaudid) 1 mg IVPUSH ONETIME ONE Stop: 07/04/17 12:56 Last Admin: 07/04/17 13:10 Dose: 1 mg Hydromorphone HCl (Dilaudid) 1 mg IVPUSH Q2H PRN PRN Reason: Pain (severe 7-10) Last Admin: 07/05/17 13:44 Dose: 1 mg Lactated Ringer's (Ringers, Lactated) 1,000 mls @ 999 mls/hr IV BOLUS ONE Stop: 07/04/17 13:56 Last Admin: 07/04/17 13:10 Dose: 999 mls/hr Sodium Chloride (Normal Saline) 1,000 mls @ 999 mls/hr IV ASDIRECTED [facility] Stop: 07/04/17 16:31 Last Admin: 07/04/17 15:42 Dose: 999 mls/hr Sodium Chloride (Normal Saline) 1,000 mls @ 125 mls/hr IV ASDIRECTED [facility] Last Admin: 07/05/17 02:52 Dose: 125 mls/hr Vancomycin HCl 1.5 gm/ Sodium (Chloride) 250 mls @ 150 mls/hr IV ONETIME ONE Stop: 07/04/17 18:39 Last Admin: 07/04/17 17:37 Dose: 150 mls/hr Methadone HCl (Methadone) 20 mg PO DAILY [facility] Last Admin: 07/05/17 08:49 Dose: 20 mg Methadone HCl 10 mg/ Methadone (HCl 5 mg) 15 mg PO BID@1400,2100 [facility] Last Admin: 07/05/17 13:41 Dose: 15 mg Oxycodone/Acetaminophen (Percocet 325-7.5 Mg) 1 - 2 tab PO Q6H PRN PRN Reason: Pain Last Admin: 07/05/17 07:27 Dose: 2 tab Pregabalin (Lyrica) 200 mg PO TID [facility] Last Admin: 07/05/17 13:41 Dose: 200 mg - Exam Quality Assessment: Supplemental Oxygen General: Alert, Oriented, Cooperative, Mild Distress Neck: Supple Lungs: Normal Respiratory Effort, Crackles (Diffuse crackles in all lung chaparro , slightly improved) Cardiovascular: Regular Rate, Regular Rhythm GI/Abdominal Exam: Soft, No Distention Back Exam: Other (Large cratered mostly chronic decubitus ulcer with very mild drainage involving the right gluteus and sacral area. No significant erythema or induration to suggest infection.) Extremities: No Pedal Edema. No: Increased Warmth Skin: Warm, Dry Psy/Mental Status: Alert, Normal Affect - Problem List & Annotations (1) Bilateral pneumonia SNOMED Code(s): 185369219 Code(s): J18.9 - PNEUMONIA, UNSPECIFIED ORGANISM Status: Acute Current Visit: Yes Qualifiers: Pneumonia type: due to unspecified organism Lung location: lower lobe of lung Qualified Code(s): J18.9 - Pneumonia, unspecified organism (2) Decubitus ulcer SNOMED Code(s): 951711879 Code(s): L89.90 - PRESSURE ULCER OF UNSPECIFIED SITE, UNSPECIFIED STAGE Status: Acute Current Visit: Yes Qualifiers: Pressure ulcer location: sacral region Pressure ulcer stage: unspecified pressure ulcer stage Qualified Code(s): L89.159 - Pressure ulcer of sacral region, unspecified stage (3) Paraplegia following spinal cord injury SNOMED Code(s): 01738868 Code(s): G82.20 - PARAPLEGIA, UNSPECIFIED Status: Chronic Current Visit: Yes (4) Tobacco dependence SNOMED Code(s): 03534959 Code(s): F17.200 - NICOTINE DEPENDENCE, UNSPECIFIED, UNCOMPLICATED Status: Chronic Current Visit: Yes - Problem List Review Problem List Initiated/Reviewed/Updated: Yes - My Orders Last 24 Hours: My Active Orders 07/04/17 15:30 Resuscitation Status Routine 07/04/17 16:43 Patient Status [ADT] Routine Cardiac Monitoring [RC] CONTINUOUS Intake and Output [RC] QSHIFT Notify Provider Vital Signs [RC] ASDIRECTED Oxygen Therapy [RC] PRN RT Aerosol Therapy [RC] ASDIRECTED Up With Assistance [RC] ASDIRECTED VTE/DVT Education [RC] Per Unit Routine Vital Signs [RC] Q4H Acetaminophen [Tylenol] 650 mg PO Q4H PRN Albuterol [Proventil Neb Soln] 2.5 mg NEB Q4H PRN Magnesium Hydroxide [Milk of Magnesia] 30 ml PO Q12H PRN Nicotine [Habitrol] 14 mg TRDERM DAILY PRN Ondansetron [Zofran ODT] 4 mg PO Q6H PRN Polyethylene Glycol 3350 [MiraLAX] 17 gm PO DAILY PRN 07/04/17 21:00 Albuterol/Ipratropium [DuoNeb 3.0-0.5 MG/3 ML] 3 ml NEB QIDRT Nystatin [Nystatin Crm] 1 gm TOP BID 07/04/17 22:00 cefTAZidime [Fortaz] 1 gm Sodium Chloride 0.9% [Normal Saline] 50 ml IV Q8HR 07/04/17 Dinner Regular Diet [DIET] 07/05/17 01:39 CULTURE RESPIRATORY + SMEAR [RM] Routine 07/05/17 04:00 Vancomycin 1.25 gm Sodium Chloride 0.9% [Normal Saline] 250 ml IV Q12H 07/05/17 09:00 Enoxaparin [Lovenox] 40 mg SUBCUT DAILY 07/05/17 09:43 Consult to Physical Therapy [PT Evaluation and Treatment] [CONS] Routine 07/05/17 12:50 Acetaminophen/oxyCODONE [Percocet 325-7.5 MG] 1 - 2 tab PO Q4H PRN 07/05/17 13:34 Dietary Supplements [RC] BIDAC 07/05/17 13:49 fentaNYL [Sublimaze] 50 - 100 mcg IVPUSH Q2H PRN 07/05/17 13:57 LORazepam [Ativan] 1 mg IVPUSH Q4H PRN 07/05/17 14:00 Sodium Chloride 0.9% [Normal Saline] 1,000 ml IV ASDIRECTED 07/05/17 17:00 Methadone 15 mg PO BID@1000,1700 07/06/17 05:00 BASIC METABOLIC PANEL,BMP [CHEM] Timed CBC W/O DIFF,HEMOGRAM [HEME] Timed (1) Methadone 20 mg PO DAILY@0500 07/06/17 06:00 Pregabalin [Lyrica] 200 mg PO DAILY@0600 07/06/17 14:00 Pregabalin [Lyrica] 400 mg PO DAILY@1400 07/06/17 15:30 VANCOMYCIN TROUGH [CHEM] Routine - Plan Plan:: Assessment and plan - Bilateral pneumonia with mild hypoxic respiratory failure - atypical appearing pneumonia with diffuse interstitial infiltrates. Clinically better today but still requiring oxygen. Respiratory culture with gram-positive cocci and a few yeast noted on Gram stain and cultures pending. -Broad-spectrum antibiotic coverage with vancomycin, ceftazidime and levofloxacin -Follow-up cultures -Supplement oxygen as needed -Nebulizers Possible urinary tract infection - urine culture is growing a gram-negative viji but identification is pending. -Antibiotics as above -Follow-up urine culture History of spinal cord injury with paraplegia - Complicated by neurogenic bladder requiring a suprapubic catheter as well as a colostomy. She has increased pain with severe muscle spasms. -Continue usual home medications with increase in oxycodone dosing -As needed increased pain medication -Muscle relaxers Tobacco dependence - Patient will be offered cessation recommendations once condition stabilizes during the hospital stay. -Nicotine patch as needed -Cessation recommendations Maintenance issues - - DVT prophylaxis - enoxaparin - GI prophylaxis - not indicated - Nutrition - regular - Olivas catheter - chronic suprapubic catheter Disposition - anticipate discharge to home after the hospital stay Omari Fink M.D.
[2017-07-06] MEDS: LORazepam 2 MG/ML MDV IVPUSH PRN ×3 (01:05→16:07)
[2017-07-06] MEDS: Sodium Chloride 0.9% 10 ML Syringe FLUSH PRN ×2 (01:05→05:07)
[2017-07-06] MEDS: Acetaminophen/oxyCODONE 325-7.5 MG Tab PO PRN ×5 (02:38→20:42)
[2017-07-06] MEDS: Ibuprofen 600 MG Tab PO PRN ×5 (02:39→22:57)
[2017-07-06] MEDS: fentaNYL 100 MCG/2 ML SDV IVPUSH PRN ×3 (02:39→23:12)
[2017-07-06] MEDS: Methadone 10 MG Tab PO SCH (05:08)
[2017-07-06] MEDS: cefTAZidime 1 GM in Sodium Chloride 0.9% 50 ML IV SCH ×3 (05:09→22:58)
[2017-07-06] MEDS: Pregabalin 100 MG Cap PO SCH ×2 (05:09→14:37)
[2017-07-06] MEDS: Albuterol/Ipratropium 3.0-0.5 MG/3 ML Neb Soln NEB SCH ×4 (07:21→20:41)
[2017-07-06] MEDS: Formoterol/Mometasone 100-5 MCG 8.8 GM Inhaler IH SCH (07:21)
[2017-07-06] MEDS: Levothyroxine 25 MCG Tab PO SCH (08:04)
[2017-07-06] MEDS: hydrOXYzine HCl 25 MG Tab PO PRN ×2 (09:11→20:41)
[2017-07-06] MEDS: Lisinopril 10 MG Tab PO SCH (09:12)
[2017-07-06] MEDS: Nystatin Crm 30 GM Tube TOP SCH ×2 (09:13→20:41)
[2017-07-06] MEDS: Enoxaparin 40 MG/0.4 ML Syringe SUBCUT SCH (09:13)
[2017-07-06] MEDS: Baclofen 10 MG Tab PO SCH ×3 (09:14→20:41)
[2017-07-06] MEDS: Venlafaxine 75 MG Tab PO SCH ×2 (09:14→20:41)
[2017-07-06] MEDS: Potassium Chloride 20 MEQ Tab.ER PO SCH ×2 (09:16→18:20)
--- NOTE | 2017-07-06 11:01 | PCM.PN ---
- General Info Date of Service: 07/06/17 Functional Status: Reports: Pain Controlled, Tolerating Diet - Review of Systems Pulmonary: Reports: Cough Musculoskeletal: Reports: Other (muscle spasms) Systems Review Comment:: No acute events overnight. Gluteal and hamstring spasms have improved overnight but have not resolved. Still requiring supplemental oxygen requirement has decreased slightly. She has not been having any fevers. She has a loose cough and feels like she has been wheezing today. Pain control much better today. - Patient Data Vitals - Most Recent: Last Vital Signs Temp 33.3 C L 07/06/17 07:17 Pulse 78 07/06/17 10:57 Resp 16 07/06/17 07:17 BP 115/65 07/06/17 09:12 Pulse Ox 98 07/06/17 07:17 Weight - Most Recent: 83.915 kg I&O - Last 24 Hours: Intake & Output 07/05/17 07/06/17 07/06/17 22:59 06:59 14:59 Intake Total 1828 1558 Output Total 1000 900 Balance 828 658 Lab Results Last 24 Hours: Laboratory Results - last 24 hr 07/06/17 07/06/17 Range/Units 04:50 04:50 WBC 17.4 H (4.5-11.0) K/uL RBC 4.36 (3.30-5.50) M/uL Hgb 12.4 (12.0-15.0) g/dL Hct 39.9 (36.0-48.0) % MCV 92 (80-98) fL MCH 28 (27-31) pg MCHC 31 L (32-36) % Plt Count 242 (150-400) K/uL Sodium 143 (140-148) mmol/L Potassium 3.3 L (3.6-5.2) mmol/L Chloride 107 (100-108) mmol/L Carbon Dioxide 28 (21-32) mmol/L Anion Gap 11.3 (5.0-14.0) mmol/L BUN 7 (7-18) mg/dL Creatinine 0.7 (0.6-1.0) mg/dL Est Cr Clr Drug Dosing 104.57 mL/min Estimated GFR (MDRD) > 60 (>60) Glucose 89 (74-106) mg/dL Calcium 8.0 L (8.5-10.1) mg/dL Ignacio Results Last 24 Hours: Microbiology 07/05/17 01:39 Gram Stain - Final Sputum - Expectorated Respiratory Culture - Preliminary Med Orders - Current: Current Medications Acetaminophen (Tylenol) 650 mg PO Q4H PRN PRN Reason: Pain (Mild 1-3)/fever Albuterol (Proventil Neb Soln) 2.5 mg NEB Q4H PRN PRN Reason: Shortness Of Breath/wheezing Albuterol/Ipratropium (Duoneb 3.0-0.5 Mg/3 Ml) 3 ml NEB QIDRT [facility] Last Admin: 07/06/17 10:57 Dose: 3 ml Baclofen (Lioresal) 20 mg PO TID [facility] Last Admin: 07/06/17 09:14 Dose: 20 mg Enoxaparin Sodium (Lovenox) 40 mg SUBCUT DAILY [facility] Last Admin: 07/06/17 09:13 Dose: 40 mg Fentanyl (Sublimaze) 50 - 100 mcg IVPUSH Q2H PRN PRN Reason: Pain (severe 7-10) Last Admin: 07/06/17 02:39 Dose: 100 mcg Hydroxyzine HCl (Atarax) 25 mg PO TID PRN PRN Reason: Anxiety Last Admin: 07/06/17 09:11 Dose: 25 mg Levofloxacin/Dextrose 750 mg/ (Premix) 150 mls @ 100 mls/hr IV Q24H [facility] Last Admin: 07/05/17 13:05 Dose: 100 mls/hr Ceftazidime 1 gm/ Sodium (Chloride) 50 mls @ 100 mls/hr IV Q8HR [facility] Last Admin: 07/06/17 05:09 Dose: 100 mls/hr Vancomycin HCl 1.25 gm/ Sodium (Chloride) 250 mls @ 167 mls/hr IV Q12H [facility] Last Admin: 07/06/17 03:24 Dose: 167 mls/hr Sodium Chloride (Normal Saline) 1,000 mls @ 25 mls/hr IV ASDIRECTED [facility] Ibuprofen (Motrin) 600 mg PO Q4H PRN PRN Reason: Pain/Fever Last Admin: 07/06/17 09:11 Dose: 600 mg Influenza Virus Vaccine (Fluzone Quad 6002-5497) 60 mcg IM ONETIME ONE Stop: 07/07/17 09:01 Levothyroxine Sodium (Levothyroxine) 25 mcg PO DAILY@0730 [facility] Last Admin: 07/06/17 08:04 Dose: 25 mcg Lisinopril (Prinivil) 10 mg PO DAILY [facility] Last Admin: 07/06/17 09:12 Dose: 10 mg Lorazepam (Ativan) 1 mg IVPUSH Q4H PRN PRN Reason: Muscle Spasm Last Admin: 07/06/17 05:07 Dose: 1 mg Magnesium Hydroxide (Milk Of Magnesia) 30 ml PO Q12H PRN PRN Reason: Constipation Methadone HCl (Methadone) 20 mg PO DAILY@0500 [facility] Last Admin: 07/06/17 05:08 Dose: 20 mg Methadone HCl 10 mg/ Methadone (HCl 5 mg) 15 mg PO BID@1000,1700 [facility] Last Admin: 07/06/17 10:22 Dose: 15 mg Mometasone Furoate/Formoterol Fumar (Dulera 100-5 Mcg) 1 puff IH DAILY@0700 [facility] Last Admin: 07/06/17 07:21 Dose: 1 puff Nicotine (Habitrol) 14 mg TRDERM DAILY PRN PRN Reason: Nicotine craving Nystatin (Nystatin Crm) 1 gm TOP BID [facility] Last Admin: 07/06/17 09:13 Dose: 1 gm Ondansetron HCl (Zofran Odt) 4 mg PO Q6H PRN PRN Reason: Nausea able to take PO Oxycodone/Acetaminophen (Percocet 325-7.5 Mg) 1 - 2 tab PO Q4H PRN PRN Reason: Pain Last Admin: 07/06/17 08:03 Dose: 2 tab Polyethylene Glycol (Miralax) 17 gm PO DAILY PRN PRN Reason: Constipation Potassium Chloride (Klor-Con M20) 40 meq PO BIDMEALS [facility] Stop: 07/06/17 17:01 Last Admin: 07/06/17 09:16 Dose: 40 meq Prednisone (Prednisone) 40 mg PO ONETIME ONE Stop: 07/06/17 10:58 Pregabalin (Lyrica) 400 mg PO DAILY@1400 [facility] Pregabalin (Lyrica) 200 mg PO DAILY@0600 [facility] Last Admin: 07/06/17 05:09 Dose: 200 mg Sodium Chloride (Saline Flush) 10 ml FLUSH ASDIRECTED PRN PRN Reason: Keep Vein Open Last Admin: 07/06/17 05:07 Dose: 10 ml Venlafaxine HCl (Effexor) 75 mg PO BID [facility] Last Admin: 07/06/17 09:14 Dose: 75 mg Discontinued Medications Albuterol/Ipratropium (Duoneb 3.0-0.5 Mg/3 Ml) 3 ml NEB ONETIME ONE Stop: 07/04/17 17:01 Last Admin: 07/04/17 17:15 Dose: 3 ml Diazepam (Valium) 5 mg IVPUSH Q4H PRN PRN Reason: Muscle Spasm Stop: 07/04/17 17:15 Last Admin: 07/04/17 16:58 Dose: 5 mg Diazepam (Valium.) 5 mg PO Q4H PRN PRN Reason: Muscle Spasm Diazepam (Valium.) 10 mg PO Q4H PRN PRN Reason: Muscle Spasm Last Admin: 07/05/17 09:18 Dose: 10 mg Fentanyl (Sublimaze) 100 mcg IVPUSH ONETIME ONE Stop: 07/04/17 14:07 Last Admin: 07/04/17 14:23 Dose: 100 mcg Fentanyl (Sublimaze) 50 mcg IVPUSH ONETIME ONE Stop: 07/05/17 12:50 Last Admin: 07/05/17 13:03 Dose: 50 mcg Hydromorphone HCl (Dilaudid) 1 mg IVPUSH ONETIME ONE Stop: 07/04/17 12:56 Last Admin: 07/04/17 13:10 Dose: 1 mg Hydromorphone HCl (Dilaudid) 1 mg IVPUSH Q2H PRN PRN Reason: Pain (severe 7-10) Last Admin: 07/05/17 13:44 Dose: 1 mg Lactated Ringer's (Ringers, Lactated) 1,000 mls @ 999 mls/hr IV BOLUS ONE Stop: 07/04/17 13:56 Last Admin: 07/04/17 13:10 Dose: 999 mls/hr Sodium Chloride (Normal Saline) 1,000 mls @ 999 mls/hr IV ASDIRECTED [facility] Stop: 07/04/17 16:31 Last Admin: 07/04/17 15:42 Dose: 999 mls/hr Sodium Chloride (Normal Saline) 1,000 mls @ 125 mls/hr IV ASDIRECTED [facility] Last Admin: 07/05/17 02:52 Dose: 125 mls/hr Vancomycin HCl 1.5 gm/ Sodium (Chloride) 250 mls @ 150 mls/hr IV ONETIME ONE Stop: 07/04/17 18:39 Last Admin: 07/04/17 17:37 Dose: 150 mls/hr Methadone HCl (Methadone) 20 mg PO DAILY [facility] Last Admin: 07/05/17 08:49 Dose: 20 mg Methadone HCl 10 mg/ Methadone (HCl 5 mg) 15 mg PO BID@1400,2100 [facility] Last Admin: 07/05/17 13:41 Dose: 15 mg Oxycodone/Acetaminophen (Percocet 325-7.5 Mg) 1 - 2 tab PO Q6H PRN PRN Reason: Pain Last Admin: 07/05/17 07:27 Dose: 2 tab Pregabalin (Lyrica) 200 mg PO TID [facility] Last Admin: 07/05/17 13:41 Dose: 200 mg - Exam Quality Assessment: Supplemental Oxygen General: Alert, Oriented, Cooperative, No Acute Distress Neck: Supple Lungs: Rales (diffuse throughout upper and lower lung chaparro), Wheezing ( moderate exp wheezing ) Cardiovascular: Regular Rate, Regular Rhythm GI/Abdominal Exam: Soft, No Distention Extremities: No Pedal Edema. No: Increased Warmth Psy/Mental Status: Alert, Normal Affect - Problem List & Annotations (1) Bilateral pneumonia SNOMED Code(s): 400558698 Code(s): J18.9 - PNEUMONIA, UNSPECIFIED ORGANISM Status: Acute Current Visit: Yes Qualifiers: Pneumonia type: due to unspecified organism Lung location: lower lobe of lung Qualified Code(s): J18.9 - Pneumonia, unspecified organism (2) Decubitus ulcer SNOMED Code(s): 134716475 Code(s): L89.90 - PRESSURE ULCER OF UNSPECIFIED SITE, UNSPECIFIED STAGE Status: Acute Current Visit: Yes Qualifiers: Pressure ulcer location: sacral region Pressure ulcer stage: stage 4 Qualified Code(s): L89.154 - Pressure ulcer of sacral region, stage 4 Annotation/Comment:: Chronic (3) Paraplegia following spinal cord injury SNOMED Code(s): 95744443 Code(s): G82.20 - PARAPLEGIA, UNSPECIFIED Status: Chronic Current Visit: Yes (4) Tobacco dependence SNOMED Code(s): 01288905 Code(s): F17.200 - NICOTINE DEPENDENCE, UNSPECIFIED, UNCOMPLICATED Status: Chronic Current Visit: Yes (5) Hypokalemia SNOMED Code(s): 57745933 Code(s): E87.6 - HYPOKALEMIA Status: Acute Current Visit: Yes - Problem List Review Problem List Initiated/Reviewed/Updated: Yes - My Orders Last 24 Hours: My Active Orders 07/05/17 12:50 Acetaminophen/oxyCODONE [Percocet 325-7.5 MG] 1 - 2 tab PO Q4H PRN 07/05/17 13:34 Dietary Supplements [RC] BIDAC 07/05/17 13:49 fentaNYL [Sublimaze] 50 - 100 mcg IVPUSH Q2H PRN 07/05/17 13:57 LORazepam [Ativan] 1 mg IVPUSH Q4H PRN 07/05/17 14:00 Sodium Chloride 0.9% [Normal Saline] 1,000 ml IV ASDIRECTED 07/05/17 17:00 Methadone 15 mg PO BID@1000,1700 07/06/17 05:00 Methadone 20 mg PO DAILY@0500 07/06/17 06:00 Pregabalin [Lyrica] 200 mg PO DAILY@0600 07/06/17 09:00 Potassium Chloride [Klor-Con M20] 40 meq PO BIDMEALS 07/06/17 10:57 predniSONE 40 mg PO ONETIME ONE 07/06/17 14:00 Pregabalin [Lyrica] 400 mg PO DAILY@1400 07/06/17 15:30 VANCOMYCIN TROUGH [CHEM] Routine 07/07/17 05:00 BASIC METABOLIC PANEL,BMP [CHEM] Timed CBC W/O DIFF,HEMOGRAM [HEME] Timed (1) 07/07/17 07:30 predniSONE 20 mg PO BIDAC 07/07/17 09:00 FLU Vacc [id number] 36Mos UP/PF [Fluzone Quad [id number]] 60 mcg IM ONETIME ONE - Plan Plan:: Assessment and plan - Bilateral pneumonia with mild hypoxic respiratory failure - atypical appearing pneumonia with diffuse interstitial infiltrates. Ongoing improvement but still requiring oxygen. Respiratory culture growing a gram-positive cocci but identification is pending. Clinically better but still not safe for outpatient management. -Broad-spectrum antibiotic coverage with vancomycin, ceftazidime and levofloxacin -Follow-up cultures -Supplement oxygen as needed -Nebulizers Urinary tract infection - urine culture is growing moderately resistant Escherichia coli but fortunately the ceftazidime covers the bacteria. -Antibiotics as above, de-escalate tomorrow based on sputum culture results History of spinal cord injury with paraplegia - Complicated by neurogenic bladder requiring a suprapubic catheter as well as a colostomy. Her spasms have improved but not resolved. -Continue usual home medications with increase in oxycodone dosing -As needed increased pain medication -Muscle relaxers Tobacco dependence - Patient will be offered cessation recommendations once condition stabilizes during the hospital stay. -Nicotine patch as needed -Cessation recommendations Maintenance issues - - DVT prophylaxis - enoxaparin - GI prophylaxis - not indicated - Nutrition - regular - Olivas catheter - chronic suprapubic catheter Disposition - anticipate discharge to home after the hospital stay Omari Fink M.D.
[2017-07-06] MEDS ORDERED: predniSONE 20 MG Tab PO ONE (12:00)
[2017-07-06] MEDS: Levofloxacin/Dextrose 5%-Water 750 MG in Premix Bag 1 BAG IV SCH (13:10)
[2017-07-07] MEDS: Acetaminophen/oxyCODONE 325-7.5 MG Tab PO PRN ×5 (01:03→20:50)
[2017-07-07] MEDS: LORazepam 2 MG/ML MDV IVPUSH PRN ×5 (01:07→21:53)
[2017-07-07] MEDS: fentaNYL 100 MCG/2 ML SDV IVPUSH PRN ×6 (04:00→21:54)
[2017-07-07] MEDS: Methadone 10 MG Tab PO SCH (05:01)
[2017-07-07] MEDS: cefTAZidime 1 GM in Sodium Chloride 0.9% 50 ML IV SCH ×2 (05:03→07:45)
[2017-07-07] MEDS: Pregabalin 100 MG Cap PO SCH ×2 (05:56→13:32)
[2017-07-07] MEDS: Albuterol/Ipratropium 3.0-0.5 MG/3 ML Neb Soln NEB SCH ×4 (07:25→21:43)
[2017-07-07] MEDS: Formoterol/Mometasone 100-5 MCG 8.8 GM Inhaler IH SCH (07:26)
[2017-07-07] MEDS: predniSONE 20 MG Tab PO SCH ×2 (07:46→16:01)
[2017-07-07] MEDS: Levothyroxine 25 MCG Tab PO SCH (07:47)
[2017-07-07] MEDS ORDERED: FLU Vacc QS 2017-18 (36mos UP)/PF 60 MCG/0.5 ML Syringe IM ONE ×2 (08:00→09:00)
[2017-07-07] MEDS: Venlafaxine 75 MG Tab PO SCH ×2 (08:48→20:53)
[2017-07-07] MEDS: Baclofen 10 MG Tab PO SCH ×3 (08:48→20:53)
[2017-07-07] MEDS: Lisinopril 10 MG Tab PO SCH (08:48)
[2017-07-07] MEDS: Enoxaparin 40 MG/0.4 ML Syringe SUBCUT SCH (08:48)
[2017-07-07] MEDS: Nystatin Crm 30 GM Tube TOP SCH ×2 (08:49→20:51)
--- NOTE | 2017-07-07 10:09 | PCM.PN ---
- General Info Date of Service: 07/07/17 Functional Status: Reports: Pain Controlled, Tolerating Diet - Review of Systems General: Reports: Weakness Pulmonary: Reports: Cough Musculoskeletal: Reports: Other (muscle spasms) Systems Review Comment:: No acute events overnight. Some ongoing difficulty with muscle spasms but these have been improving. Still requiring supplemental oxygen but this appears to be improving some. No significant shortness of breath. She is not having any fevers. White count continues to trend down. Sputum culture growing MRSA. - Patient Data Vitals - Most Recent: Last Vital Signs Temp 36.4 C 07/07/17 08:00 Pulse 79 07/07/17 08:00 Resp 18 07/07/17 08:00 BP 104/66 07/07/17 08:48 Pulse Ox 96 07/07/17 08:00 Weight - Most Recent: 83.915 kg I&O - Last 24 Hours: Intake & Output 07/06/17 07/07/17 07/07/17 22:59 06:59 14:59 Intake Total 536 50 Output Total 1400 700 Balance -1400 536 -650 Lab Results Last 24 Hours: Laboratory Results - last 24 hr 07/06/17 07/07/17 07/07/17 Range/Units 15:32 05:25 05:25 WBC 15.2 H (4.5-11.0) K/uL RBC 4.33 (3.30-5.50) M/uL Hgb 12.5 (12.0-15.0) g/dL Hct 39.3 (36.0-48.0) % MCV 91 (80-98) fL MCH 29 (27-31) pg MCHC 32 (32-36) % Plt Count 273 (150-400) K/uL Sodium 143 (140-148) mmol/L Potassium 4.2 (3.6-5.2) mmol/L Chloride 108 (100-108) mmol/L Carbon Dioxide 28 (21-32) mmol/L Anion Gap 7.5 (5.0-14.0) mmol/L BUN 11 D (7-18) mg/dL Creatinine 0.8 (0.6-1.0) mg/dL Est Cr Clr Drug Dosing 91.50 mL/min Estimated GFR (MDRD) > 60 (>60) Glucose 104 (74-106) mg/dL Calcium 8.7 (8.5-10.1) mg/dL Vancomycin Trough 15.4 (10.0-20.0) ug/mL Ignacio Results Last 24 Hours: Microbiology 07/05/17 01:39 Gram Stain - Final Sputum - Expectorated Respiratory Culture - Final (Mrsa) Staphylococcus Aureus Med Orders - Current: Current Medications Acetaminophen (Tylenol) 650 mg PO Q4H PRN PRN Reason: Pain (Mild 1-3)/fever Albuterol (Proventil Neb Soln) 2.5 mg NEB Q4H PRN PRN Reason: Shortness Of Breath/wheezing Albuterol/Ipratropium (Duoneb 3.0-0.5 Mg/3 Ml) 3 ml NEB QIDRT [facility] Last Admin: 07/07/17 07:25 Dose: 3 ml Baclofen (Lioresal) 20 mg PO TID [facility] Last Admin: 07/07/17 08:48 Dose: 20 mg Cephalexin (Keflex) 500 mg PO TID [facility] Doxycycline Hyclate (Vibramycin) 100 mg PO Q12H [facility] Enoxaparin Sodium (Lovenox) 40 mg SUBCUT DAILY [facility] Last Admin: 07/07/17 08:48 Dose: 40 mg Fentanyl (Sublimaze) 50 - 100 mcg IVPUSH Q2H PRN PRN Reason: Pain (severe 7-10) Last Admin: 07/07/17 07:47 Dose: 100 mcg Hydroxyzine HCl (Atarax) 25 mg PO TID PRN PRN Reason: Anxiety Last Admin: 07/06/17 20:41 Dose: 25 mg Ibuprofen (Motrin) 600 mg PO Q4H PRN PRN Reason: Pain/Fever Last Admin: 07/06/17 22:57 Dose: 600 mg Levothyroxine Sodium (Levothyroxine) 25 mcg PO DAILY@0730 [facility] Last Admin: 07/07/17 07:47 Dose: 25 mcg Lisinopril (Prinivil) 10 mg PO DAILY [facility] Last Admin: 07/07/17 08:48 Dose: 10 mg Lorazepam (Ativan) 1 mg IVPUSH Q4H PRN PRN Reason: Muscle Spasm Last Admin: 07/07/17 09:52 Dose: 1 mg Magnesium Hydroxide (Milk Of Magnesia) 30 ml PO Q12H PRN PRN Reason: Constipation Methadone HCl (Methadone) 20 mg PO DAILY@0500 [facility] Last Admin: 07/07/17 05:01 Dose: 20 mg Methadone HCl 10 mg/ Methadone (HCl 5 mg) 15 mg PO BID@1000,1700 [facility] Last Admin: 07/07/17 09:03 Dose: 15 mg Mometasone Furoate/Formoterol Fumar (Dulera 100-5 Mcg) 1 puff IH DAILY@0700 [facility] Last Admin: 07/07/17 07:26 Dose: 1 puff Nicotine (Habitrol) 14 mg TRDERM DAILY PRN PRN Reason: Nicotine craving Nystatin (Nystatin Crm) 1 gm TOP BID [facility] Last Admin: 07/07/17 08:49 Dose: 1 gm Ondansetron HCl (Zofran Odt) 4 mg PO Q6H PRN PRN Reason: Nausea able to take PO Oxycodone/Acetaminophen (Percocet 325-7.5 Mg) 1 - 2 tab PO Q4H PRN PRN Reason: Pain Last Admin: 07/07/17 05:02 Dose: 2 tab Polyethylene Glycol (Miralax) 17 gm PO DAILY PRN PRN Reason: Constipation Prednisone (Prednisone) 20 mg PO BIDMEALS [facility] Last Admin: 07/07/17 07:46 Dose: 20 mg Pregabalin (Lyrica) 400 mg PO DAILY@1400 [facility] Last Admin: 07/06/17 14:37 Dose: 400 mg Pregabalin (Lyrica) 200 mg PO DAILY@0600 [facility] Last Admin: 07/07/17 05:56 Dose: 200 mg Sodium Chloride (Saline Flush) 10 ml FLUSH ASDIRECTED PRN PRN Reason: Keep Vein Open Last Admin: 07/06/17 05:07 Dose: 10 ml Venlafaxine HCl (Effexor) 75 mg PO BID [facility] Last Admin: 07/07/17 08:48 Dose: 75 mg Discontinued Medications Albuterol/Ipratropium (Duoneb 3.0-0.5 Mg/3 Ml) 3 ml NEB ONETIME ONE Stop: 07/04/17 17:01 Last Admin: 07/04/17 17:15 Dose: 3 ml Diazepam (Valium) 5 mg IVPUSH Q4H PRN PRN Reason: Muscle Spasm Stop: 07/04/17 17:15 Last Admin: 07/04/17 16:58 Dose: 5 mg Diazepam (Valium.) 5 mg PO Q4H PRN PRN Reason: Muscle Spasm Diazepam (Valium.) 10 mg PO Q4H PRN PRN Reason: Muscle Spasm Last Admin: 07/05/17 09:18 Dose: 10 mg Fentanyl (Sublimaze) 100 mcg IVPUSH ONETIME ONE Stop: 07/04/17 14:07 Last Admin: 07/04/17 14:23 Dose: 100 mcg Fentanyl (Sublimaze) 50 mcg IVPUSH ONETIME ONE Stop: 07/05/17 12:50 Last Admin: 07/05/17 13:03 Dose: 50 mcg Hydromorphone HCl (Dilaudid) 1 mg IVPUSH ONETIME ONE Stop: 07/04/17 12:56 Last Admin: 07/04/17 13:10 Dose: 1 mg Hydromorphone HCl (Dilaudid) 1 mg IVPUSH Q2H PRN PRN Reason: Pain (severe 7-10) Last Admin: 07/05/17 13:44 Dose: 1 mg Lactated Ringer's (Ringers, Lactated) 1,000 mls @ 999 mls/hr IV BOLUS ONE Stop: 07/04/17 13:56 Last Admin: 07/04/17 13:10 Dose: 999 mls/hr Levofloxacin/Dextrose 750 mg/ (Premix) 150 mls @ 100 mls/hr IV Q24H [facility] Last Admin: 07/06/17 13:10 Dose: 100 mls/hr Sodium Chloride (Normal Saline) 1,000 mls @ 999 mls/hr IV ASDIRECTED [facility] Stop: 07/04/17 16:31 Last Admin: 07/04/17 15:42 Dose: 999 mls/hr Ceftazidime 1 gm/ Sodium (Chloride) 50 mls @ 100 mls/hr IV Q8HR [facility] Last Admin: 07/07/17 07:45 Dose: 100 mls/hr Sodium Chloride (Normal Saline) 1,000 mls @ 125 mls/hr IV ASDIRECTED [facility] Last Admin: 07/05/17 02:52 Dose: 125 mls/hr Vancomycin HCl 1.5 gm/ Sodium (Chloride) 250 mls @ 150 mls/hr IV ONETIME ONE Stop: 07/04/17 18:39 Last Admin: 07/04/17 17:37 Dose: 150 mls/hr Vancomycin HCl 1.25 gm/ Sodium (Chloride) 250 mls @ 167 mls/hr IV Q12H [facility] Last Admin: 07/06/17 18:21 Dose: Not Given Sodium Chloride (Normal Saline) 1,000 mls @ 25 mls/hr IV ASDIRECTED [facility] Last Admin: 07/07/17 08:01 Dose: 25 mls/hr Vancomycin HCl 1.25 gm/ Sodium (Chloride) 250 mls @ 167 mls/hr IV Q12H [facility] Last Admin: 07/07/17 05:03 Dose: 167 mls/hr Influenza Virus Vaccine (Fluzone Quad [id number]) 60 mcg IM ONETIME ONE Stop: 07/07/17 09:01 Last Admin: 07/07/17 09:04 Dose: 60 mcg Methadone HCl (Methadone) 20 mg PO DAILY [facility] Last Admin: 07/05/17 08:49 Dose: 20 mg Methadone HCl 10 mg/ Methadone (HCl 5 mg) 15 mg PO BID@1400,2100 [facility] Last Admin: 07/05/17 13:41 Dose: 15 mg Oxycodone/Acetaminophen (Percocet 325-7.5 Mg) 1 - 2 tab PO Q6H PRN PRN Reason: Pain Last Admin: 07/05/17 07:27 Dose: 2 tab Potassium Chloride (Klor-Con M20) 40 meq PO BIDMEALS [facility] Stop: 07/06/17 17:01 Last Admin: 07/06/17 18:20 Dose: 40 meq Prednisone (Prednisone) 40 mg PO ONETIME ONE Stop: 07/06/17 12:01 Last Admin: 07/06/17 11:58 Dose: 40 mg Pregabalin (Lyrica) 200 mg PO TID [facility] Last Admin: 07/05/17 13:41 Dose: 200 mg - Exam Quality Assessment: Supplemental Oxygen General: Alert, Oriented, Cooperative, No Acute Distress Neck: Supple Lungs: Normal Respiratory Effort, Crackles (mild difffuse throughout all lung chaparro). No: Wheezing Cardiovascular: Regular Rate, Regular Rhythm GI/Abdominal Exam: Soft, No Distention Extremities: No Pedal Edema. No: Increased Warmth Skin: Warm, Dry Psy/Mental Status: Alert, Normal Affect - Problem List & Annotations (1) Bilateral pneumonia SNOMED Code(s): 033562390 Code(s): J18.9 - PNEUMONIA, UNSPECIFIED ORGANISM Status: Acute Current Visit: Yes Qualifiers: Pneumonia type: due to unspecified organism Lung location: lower lobe of lung Qualified Code(s): J18.9 - Pneumonia, unspecified organism (2) Decubitus ulcer SNOMED Code(s): 485755261 Code(s): L89.90 - PRESSURE ULCER OF UNSPECIFIED SITE, UNSPECIFIED STAGE Status: Acute Current Visit: Yes Qualifiers: Pressure ulcer location: sacral region Pressure ulcer stage: stage 4 Qualified Code(s): L89.154 - Pressure ulcer of sacral region, stage 4 Annotation/Comment:: Chronic (3) Paraplegia following spinal cord injury SNOMED Code(s): 39575689 Code(s): G82.20 - PARAPLEGIA, UNSPECIFIED Status: Chronic Current Visit: Yes (4) Tobacco dependence SNOMED Code(s): 67569339 Code(s): F17.200 - NICOTINE DEPENDENCE, UNSPECIFIED, UNCOMPLICATED Status: Chronic Current Visit: Yes (5) Hypokalemia SNOMED Code(s): 33103898 Code(s): E87.6 - HYPOKALEMIA Status: Acute Current Visit: Yes - Problem List Review Problem List Initiated/Reviewed/Updated: Yes - My Orders Last 24 Hours: My Active Orders 07/06/17 11:01 RT Acapella [RESPCARE] Routine 07/06/17 14:00 Pregabalin [Lyrica] 400 mg PO DAILY@1400 07/06/17 16:59 Suprapubic Catheter Management [OM.PC] Routine 07/07/17 08:00 predniSONE 20 mg PO BIDMEALS 07/07/17 08:13 Convert IV to Saline Lock [OM.PC] Routine 07/07/17 14:00 Cephalexin [Keflex] 500 mg PO TID 07/07/17 18:00 Doxycycline [Vibramycin] 100 mg PO Q12H 07/08/17 05:00 BASIC METABOLIC PANEL,BMP [CHEM] Timed CBC W/O DIFF,HEMOGRAM [HEME] Timed (1) - Plan Plan:: Assessment and plan - Bilateral pneumonia with mild hypoxic respiratory failure secondary to MRSA - atypical appearing pneumonia with diffuse interstitial infiltrates. Ongoing improvement but still requiring oxygen. Respiratory culture growing MRSA. -Transition antibiotics to doxycycline -Supplement oxygen as needed -Nebulizers Urinary tract infection - urine culture is growing moderately resistant Escherichia coli. -Transition antibiotics to cephalexin History of spinal cord injury with paraplegia - Complicated by neurogenic bladder requiring a suprapubic catheter as well as a colostomy. Her spasms continue to improve but have not resolved. -Continue usual home medications with increase in oxycodone dosing -As needed increased pain medication -Muscle relaxers Tobacco dependence - Patient will be offered cessation recommendations once condition stabilizes during the hospital stay. -Nicotine patch as needed -Cessation recommendations Maintenance issues - - DVT prophylaxis - enoxaparin - GI prophylaxis - not indicated - Nutrition - regular - Olivas catheter - chronic suprapubic catheter Disposition - anticipate discharge to home after the hospital stay, hopefully a day or 2 Omari Fink M.D.
[2017-07-07] MEDS: hydrOXYzine HCl 25 MG Tab PO PRN ×2 (11:38→20:50)
[2017-07-07] MEDS: Cephalexin 250 MG Cap PO SCH ×2 (13:32→20:54)
[2017-07-07] MEDS: Doxycycline 100 MG Cap PO SCH (17:54)
[2017-07-07] MEDS: Sodium Chloride 0.9% 10 ML Syringe FLUSH PRN (18:01)
[2017-07-08] MEDS: hydrOXYzine HCl 25 MG Tab PO PRN (02:50)
[2017-07-08] MEDS: Acetaminophen/oxyCODONE 325-7.5 MG Tab PO PRN ×3 (02:50→11:35)
[2017-07-08] MEDS: fentaNYL 100 MCG/2 ML SDV IVPUSH PRN ×2 (03:06→06:01)
[2017-07-08] MEDS: LORazepam 2 MG/ML MDV IVPUSH PRN (04:08)
[2017-07-08] MEDS: Doxycycline 100 MG Cap PO SCH (05:08)
[2017-07-08] MEDS: Methadone 10 MG Tab PO SCH (05:08)
[2017-07-08] MEDS: Pregabalin 100 MG Cap PO SCH (05:08)
[2017-07-08 07:29] VITALS: BP 155/83
[2017-07-08] MEDS: predniSONE 20 MG Tab PO SCH (07:29)
[2017-07-08] MEDS: Levothyroxine 25 MCG Tab PO SCH (07:29)
[2017-07-08] MEDS: Albuterol/Ipratropium 3.0-0.5 MG/3 ML Neb Soln NEB SCH ×2 (07:35→10:48)
[2017-07-08] MEDS: Formoterol/Mometasone 100-5 MCG 8.8 GM Inhaler IH SCH (07:36)
[2017-07-08] MEDS: Cephalexin 250 MG Cap PO SCH (08:54)
[2017-07-08] MEDS: Lisinopril 10 MG Tab PO SCH (08:55)
[2017-07-08] MEDS: Baclofen 10 MG Tab PO SCH (08:56)
[2017-07-08] MEDS: Venlafaxine 75 MG Tab PO SCH (08:56)
[2017-07-08] MEDS: Enoxaparin 40 MG/0.4 ML Syringe SUBCUT SCH (08:56)
[2017-07-08] MEDS: Nystatin Crm 30 GM Tube TOP SCH (08:57)
[2017-07-08] MEDS: Ibuprofen 600 MG Tab PO PRN (09:31)
--- NOTE | 2017-07-08 11:32 | PCM.DCSUM1 ---
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 She was admitted for management of community-acquired pneumonia and probable urinary tract infection. - Discharge Data Discharge Date: 07/08/17 Discharge Disposition: Home, [facility] [facility] Condition: Good - Discharge Diagnosis/Problem(s) (1) Bilateral pneumonia SNOMED Code(s): 785235375 ICD Code: J18.9 - PNEUMONIA, UNSPECIFIED ORGANISM Status: Acute Qualifiers: Pneumonia type: due to methicillin-resistant Staphylococcus aureus (MRSA) Lung location: lower lobe of lung Qualified Code(s): J15.212 - Pneumonia due to Methicillin resistant Staphylococcus aureus (2) Acute respiratory failure with hypoxia SNOMED Code(s): 61444481 ICD Code: J96.01 - ACUTE RESPIRATORY FAILURE WITH HYPOXIA Status: Acute (3) Complicated UTI (urinary tract infection) SNOMED Code(s): 85796058 ICD Code: N39.0 - URINARY TRACT INFECTION, SITE NOT SPECIFIED Status: Acute Problem Details: Moderately resistant E coli (4) Decubitus ulcer SNOMED Code(s): 776728405 ICD Code: L89.90 - PRESSURE ULCER OF UNSPECIFIED SITE, UNSPECIFIED STAGE Status: Chronic Problem Details: Chronic Qualifiers: Pressure ulcer location: sacral region Pressure ulcer stage: stage 4 Qualified Code(s): L89.154 - Pressure ulcer of sacral region, stage 4 (5) Paraplegia following spinal cord injury SNOMED Code(s): 08731874 ICD Code: G82.20 - PARAPLEGIA, UNSPECIFIED Status: Chronic (6) Tobacco dependence SNOMED Code(s): 98727797 ICD Code: F17.200 - NICOTINE DEPENDENCE, UNSPECIFIED, UNCOMPLICATED Status : Chronic (7) Hypokalemia SNOMED Code(s): 46462903 ICD Code: E87.6 - HYPOKALEMIA Status: Acute - Patient Summary/Data Consults: Consultations 07/05/17 09:43 Consult to Physical Therapy [PT Evaluation and Treatment] [CONS] Routine Please Evaluate and Treat. PT Reason for Consult: muscle spasms, hx parapalegic This query below is only for informational purposes and is not editable. Admission Diagnosis/Problem: Pneumonia Hospital Course: Aaliyah presented to the emergency room with fever and weakness as well as a cough. Workup in the emergency room suggested a diffuse bilateral pneumonia as well as possible urinary tract infection. She was admitted to the hospital and empirically started on broad-spectrum antibiotic coverage given her history of MRSA and previous resistant organisms. She was hypoxic and required supplemental oxygen because of the bilateral pneumonia. The early part of the hospital stay was complicated by severe spasms involving both lower extremities. She reported that because of her paraplegia when she gets sick she often has these. The spasms were severe and required quite heavy doses of medications to calm them down. Fortunately over the next couple of days we were able to make some improvements in the spasms before near resolution of prior to discharge. Her sputum culture did eventually grow out MRSA and at this point we elected to transition to oral doxycycline given she has been afebrile and respiratory status has been slowly improving. Her urine culture had grown out Escherichia coli that was moderately resistant and once the sputum culture was available antibiotics were transitioned to cephalexin to cover her complicated urinary tract infection in addition to the doxycycline. Because of the resistance patterns we were not able to utilize one antibiotic to cover both organisms. She continued to show slow but steady improvement throughout the course of the hospital stay. We were finally able to wean her off the supplemental oxygen the night before discharge. Her lower extremity spasms have improved significantly and have nearly resolved. She feels mildly weak but otherwise nearly back to her baseline. She feels safe for management at home at this time. She will need additional management for both the complicated urinary tract infection as well as the MRSA pneumonia. She will resume her previous home health care orders which include wound care and port flushing. She will follow-up if symptoms do not continue to get better or they get worse. - Patient Instructions Diet: Regular Diet as Tolerated Activity: As Tolerated Showering/Bathing: May Shower Notify Provider of: Fever, Increased Pain, Nausea and/or Vomiting Other/Special Instructions: 1. You were in the hospital for management of community-acquired pneumonia caused by methicillin-resistant staph aureus (MRSA) . Based on sensitivities from the laboratory culture I recommend 13 additional doses of doxycycline to be taken twice daily with food. Your next dose is due tonight. 2. We discovered that you had a urinary tract infection and we cultured Escherichia coli from the urine sample. I recommend 7 additional doses of cephalexin (Keflex) to be taken twice daily with food. Your next dose is due tonight. 3. Because of increased pain related to the infections I have provided a temporary prescription so that you can take your pain medications every 4 hours as needed rather than previously prescribed every 8 hours. 4. Resume previous home health services including wound care and routine flushing of the port. 5. Please seek medical attention if you develop fever greater than 101, you have sudden worsening of your breathing, you develop chest pain/ tightness or you have severe muscle spasms. - Discharge Plan Prescriptions/Med Rec: Cephalexin [Keflex] 500 mg PO BID #7 capsule Doxycycline Calcium [IMW: Doxycycline] 100 mg PO Q12H #13 capsule oxyCODONE HCl/Acetaminophen [Endocet 7.5-325 mg Tablet] 2 tab PO Q8H PRN #24 tablet PRN Reason: Pain Prednisone [IJD: predniSONE] 20 mg PO BIDMEALS #7 tablet Home Medications: Home Meds Albuterol [Ventolin HFA] 1 puff IH QID 12/16/14 [History] Baclofen 20 mg PO TID 12/16/14 [History] Ibuprofen 200 mg PO Q4H PRN 12/16/14 [History] Levothyroxine 25 mcg PO QAM 12/16/14 [History] Methadone 15 mg PO BID 12/16/14 [History] Methadone 20 mg PO QAM 12/16/14 [History] Multivitamins/Iron/Folic Acid [Cerovite Advanced Formula] 1 tab PO DAILY [History] Pregabalin [Lyrica] 200 mg PO TID 12/16/14 [History] Triamcinolone Acetonide [Kenalog 0.1% Crm] 1 dose TOP ASDIRECTED 12/16/14 [ History] Venlafaxine [Effexor] 75 mg PO BID 12/16/14 [History] Budesonide/Formoterol [Symbicort 80-4.5 MCG] 1 puff INH DAILY 02/23/15 [History] Lisinopril 10 mg PO DAILY 07/04/17 [History] hydrOXYzine HCl [hydrOXYzine] 25 mg PO TID PRN 07/04/17 [History] Cephalexin [Keflex] 500 mg PO BID #7 capsule 07/08/17 [Rx] Doxycycline Calcium [IMW: Doxycycline] 100 mg PO Q12H #13 capsule 10/13/17 [Rx] Prednisone [IJD: predniSONE] 20 mg PO BIDMEALS #7 tablet 07/08/17 [Rx] oxyCODONE HCl/Acetaminophen [Endocet 7.5-325 mg Tablet] 2 tab PO Q8H PRN #24 tablet 07/08/17 [Rx] Patient Handouts: Doxycycline tablets or capsules, Prednisone tablets, Community-Acquired Pneumonia, Adult Referrals: Brigitte Guy MD [Primary Care Provider] - (f/u as needed after the hospital stay ) - Discharge Summary/Plan Comment DC Time >30 min.: Yes (40 - coordinating home health care f/u) - Patient Data Vitals - Most Recent: Last Vital Signs Temp 36.8 C 07/08/17 07:28 Pulse 67 07/08/17 10:49 Resp 16 07/08/17 07:28 BP 155/83 H 07/08/17 08:55 Pulse Ox 95 07/08/17 10:49 Weight - Most Recent: 83.915 kg I&O - Last 24 hours: Intake & Output 07/07/17 07/08/17 07/08/17 22:59 06:59 14:59 Intake Total 1120 400 740 Output Total 1350 1000 550 Balance -230 -600 190 Lab Results - Last 24 hrs: Laboratory Results - last 24 hr 07/08/17 07/08/17 Range/Units 04:44 04:44 WBC 13.6 H (4.5-11.0) K/uL RBC 4.40 (3.30-5.50) M/uL Hgb 12.7 (12.0-15.0) g/dL Hct 40.0 (36.0-48.0) % MCV 91 (80-98) fL MCH 29 (27-31) pg MCHC 32 (32-36) % Plt Count 301 (150-400) K/uL Sodium 142 (140-148) mmol/L Potassium 3.8 (3.6-5.2) mmol/L Chloride 106 (100-108) mmol/L Carbon Dioxide 29 (21-32) mmol/L Anion Gap 7.0 (5.0-14.0) mmol/L BUN 14 (7-18) mg/dL Creatinine 0.8 (0.6-1.0) mg/dL Est Cr Clr Drug Dosing 91.50 mL/min Estimated GFR (MDRD) > 60 (>60) Glucose 134 H (74-106) mg/dL Calcium 8.6 (8.5-10.1) mg/dL Med Orders - Current: Current Medications Acetaminophen (Tylenol) 650 mg PO Q4H PRN PRN Reason: Pain (Mild 1-3)/fever Albuterol (Proventil Neb Soln) 2.5 mg NEB Q4H PRN PRN Reason: Shortness Of Breath/wheezing Albuterol/Ipratropium (Duoneb 3.0-0.5 Mg/3 Ml) 3 ml NEB QIDRT [facility] Last Admin: 07/08/17 10:48 Dose: 3 ml Baclofen (Lioresal) 20 mg PO TID [facility] Last Admin: 07/08/17 08:56 Dose: 20 mg Cephalexin (Keflex) 500 mg PO TID [facility] Last Admin: 07/08/17 08:54 Dose: 500 mg Doxycycline Hyclate (Vibramycin) 100 mg PO Q12H [facility] Last Admin: 07/08/17 05:08 Dose: 100 mg Enoxaparin Sodium (Lovenox) 40 mg SUBCUT DAILY [facility] Last Admin: 07/08/17 08:56 Dose: 40 mg Fentanyl (Sublimaze) 50 - 100 mcg IVPUSH Q2H PRN PRN Reason: Pain (severe 7-10) Last Admin: 07/08/17 06:01 Dose: 100 mcg Hydroxyzine HCl (Atarax) 25 mg PO TID PRN PRN Reason: Anxiety Last Admin: 07/08/17 02:50 Dose: 25 mg Ibuprofen (Motrin) 600 mg PO Q4H PRN PRN Reason: Pain/Fever Last Admin: 07/08/17 09:31 Dose: 600 mg Levothyroxine Sodium (Levothyroxine) 25 mcg PO DAILY@0730 [facility] Last Admin: 07/08/17 07:29 Dose: 25 mcg Lisinopril (Prinivil) 10 mg PO DAILY [facility] Last Admin: 07/08/17 08:55 Dose: 10 mg Lorazepam (Ativan) 1 mg IVPUSH Q4H PRN PRN Reason: Muscle Spasm Last Admin: 07/08/17 04:08 Dose: 1 mg Magnesium Hydroxide (Milk Of Magnesia) 30 ml PO Q12H PRN PRN Reason: Constipation Methadone HCl (Methadone) 20 mg PO DAILY@0500 [facility] Last Admin: 07/08/17 05:08 Dose: 20 mg Methadone HCl 10 mg/ Methadone (HCl 5 mg) 15 mg PO BID@1000,1700 [facility] Last Admin: 07/08/17 09:04 Dose: 15 mg Mometasone Furoate/Formoterol Fumar (Dulera 100-5 Mcg) 1 puff IH DAILY@0700 [facility] Last Admin: 07/08/17 07:36 Dose: 1 puff Nicotine (Habitrol) 14 mg TRDERM DAILY PRN PRN Reason: Nicotine craving Nystatin (Nystatin Crm) 1 gm TOP BID [facility] Last Admin: 07/08/17 08:57 Dose: 1 gm Ondansetron HCl (Zofran Odt) 4 mg PO Q6H PRN PRN Reason: Nausea able to take PO Oxycodone/Acetaminophen (Percocet 325-7.5 Mg) 1 - 2 tab PO Q4H PRN PRN Reason: Pain Last Admin: 07/08/17 07:29 Dose: 2 tab Polyethylene Glycol (Miralax) 17 gm PO DAILY PRN PRN Reason: Constipation Prednisone (Prednisone) 20 mg PO BIDMEALS [facility] Last Admin: 07/08/17 07:29 Dose: 20 mg Pregabalin (Lyrica) 400 mg PO DAILY@1400 [facility] Last Admin: 07/07/17 13:32 Dose: 400 mg Pregabalin (Lyrica) 200 mg PO DAILY@0600 [facility] Last Admin: 07/08/17 05:08 Dose: 200 mg Sodium Chloride (Saline Flush) 10 ml FLUSH ASDIRECTED PRN PRN Reason: Keep Vein Open Last Admin: 07/07/17 18:01 Dose: 10 ml Venlafaxine HCl (Effexor) 75 mg PO BID [facility] Last Admin: 07/08/17 08:56 Dose: 75 mg Discontinued Medications Albuterol/Ipratropium (Duoneb 3.0-0.5 Mg/3 Ml) 3 ml NEB ONETIME ONE Stop: 07/04/17 17:01 Last Admin: 07/04/17 17:15 Dose: 3 ml Diazepam (Valium) 5 mg IVPUSH Q4H PRN PRN Reason: Muscle Spasm Stop: 07/04/17 17:15 Last Admin: 07/04/17 16:58 Dose: 5 mg Diazepam (Valium.) 5 mg PO Q4H PRN PRN Reason: Muscle Spasm Diazepam (Valium.) 10 mg PO Q4H PRN PRN Reason: Muscle Spasm Last Admin: 07/05/17 09:18 Dose: 10 mg Fentanyl (Sublimaze) 100 mcg IVPUSH ONETIME ONE Stop: 07/04/17 14:07 Last Admin: 07/04/17 14:23 Dose: 100 mcg Fentanyl (Sublimaze) 50 mcg IVPUSH ONETIME ONE Stop: 07/05/17 12:50 Last Admin: 07/05/17 13:03 Dose: 50 mcg Hydromorphone HCl (Dilaudid) 1 mg IVPUSH ONETIME ONE Stop: 07/04/17 12:56 Last Admin: 07/04/17 13:10 Dose: 1 mg Hydromorphone HCl (Dilaudid) 1 mg IVPUSH Q2H PRN PRN Reason: Pain (severe 7-10) Last Admin: 07/05/17 13:44 Dose: 1 mg Lactated Ringer's (Ringers, Lactated) 1,000 mls @ 999 mls/hr IV BOLUS ONE Stop: 07/04/17 13:56 Last Admin: 07/04/17 13:10 Dose: 999 mls/hr Levofloxacin/Dextrose 750 mg/ (Premix) 150 mls @ 100 mls/hr IV Q24H [facility] Last Admin: 07/06/17 13:10 Dose: 100 mls/hr Sodium Chloride (Normal Saline) 1,000 mls @ 999 mls/hr IV ASDIRECTED [facility] Stop: 07/04/17 16:31 Last Admin: 07/04/17 15:42 Dose: 999 mls/hr Ceftazidime 1 gm/ Sodium (Chloride) 50 mls @ 100 mls/hr IV Q8HR [facility] Last Admin: 07/07/17 07:45 Dose: 100 mls/hr Sodium Chloride (Normal Saline) 1,000 mls @ 125 mls/hr IV ASDIRECTED [facility] Last Admin: 07/05/17 02:52 Dose: 125 mls/hr Vancomycin HCl 1.5 gm/ Sodium (Chloride) 250 mls @ 150 mls/hr IV ONETIME ONE Stop: 07/04/17 18:39 Last Admin: 07/04/17 17:37 Dose: 150 mls/hr Vancomycin HCl 1.25 gm/ Sodium (Chloride) 250 mls @ 167 mls/hr IV Q12H [facility] Last Admin: 07/06/17 18:21 Dose: Not Given Sodium Chloride (Normal Saline) 1,000 mls @ 25 mls/hr IV ASDIRECTED [facility] Last Admin: 07/07/17 08:01 Dose: 25 mls/hr Vancomycin HCl 1.25 gm/ Sodium (Chloride) 250 mls @ 167 mls/hr IV Q12H [facility] Last Admin: 07/07/17 05:03 Dose: 167 mls/hr Influenza Virus Vaccine (Fluzone Quad [id number]) 60 mcg IM ONETIME ONE Stop: 07/07/17 09:01 Last Admin: 07/07/17 09:04 Dose: 60 mcg Methadone HCl (Methadone) 20 mg PO DAILY [facility] Last Admin: 07/05/17 08:49 Dose: 20 mg Methadone HCl 10 mg/ Methadone (HCl 5 mg) 15 mg PO BID@1400,2100 [facility] Last Admin: 07/05/17 13:41 Dose: 15 mg Oxycodone/Acetaminophen (Percocet 325-7.5 Mg) 1 - 2 tab PO Q6H PRN PRN Reason: Pain Last Admin: 07/05/17 07:27 Dose: 2 tab Potassium Chloride (Klor-Con M20) 40 meq PO BIDMEALS [facility] Stop: 07/06/17 17:01 Last Admin: 07/06/17 18:20 Dose: 40 meq Prednisone (Prednisone) 40 mg PO ONETIME ONE Stop: 07/06/17 12:01 Last Admin: 07/06/17 11:58 Dose: 40 mg Pregabalin (Lyrica) 200 mg PO TID [facility] Last Admin: 07/05/17 13:41 Dose: 200 mg - Exam Quality Assessment: Denies: Supplemental Oxygen General: Reports: Alert, Oriented, Cooperative, No Acute Distress Lungs: Reports: Normal Respiratory Effort. Denies: Wheezing Cardiovascular: Reports: Regular Rate, Regular Rhythm GI/Abdominal Exam: Soft, No Distention Extremities: No Pedal Edema Psy/Mental Status: Reports: Alert, Normal Affect *Q Meaningful Use (DIS) - VTE *Q VTE Criteria *Q: - Stroke *Q Stroke Criteria *Q: - AMI *Q AMI Criteria *Q:
== END 2017-07-08 12:45 | disposition home health service (06) | DRG 871 ==
LOC: JP.ED 11:46 → JP.MS 15:27
PROVIDERS: ADMIT Internal Medicine; ATTEND Internal Medicine
DX: A41.9 Sepsis, unspecified organism (principal); J15.212 Pneumonia due to Methicillin resistant Staphylococcus aureus; J96.91 Respiratory failure, unspecified with hypoxia; L89.154 Pressure ulcer of sacral region, stage 4; N39.0 Urinary tract infection, site not specified; G82.20 Paraplegia, unspecified; F17.210 Nicotine dependence, cigarettes, uncomplicated; B96.20 Unspecified Escherichia coli [E. coli] as the cause of diseases classified elsewhere; I10 Essential (primary) hypertension; Z87.440 Personal history of urinary (tract) infections; Z93.3 Colostomy status; Z23 Encounter for immunization; E03.9 Hypothyroidism, unspecified; F32.9 Major depressive disorder, single episode, unspecified; Z86.14 Personal history of Methicillin resistant Staphylococcus aureus infection; S24.103S Unspecified injury at T7-T10 level of thoracic spinal cord, sequela; X58.XXXS Exposure to other specified factors, sequela; N31.9 Neuromuscular dysfunction of bladder, unspecified; M62.838 Other muscle spasm; Z79.52 Long term (current) use of systemic steroids; Z88.1 Allergy status to other antibiotic agents; Z88.0 Allergy status to penicillin; E87.6 Hypokalemia; Z79.2 Long term (current) use of antibiotics
CPT/HCPCS: 36415; 71010; 71010-26; 80048; 80053; 80202; 81001; 83605; 85025; 85027; 86140; 87040; 87070; 87086; 87088; 87186; 87205; 90686; 94640; 94640-76; 94664; 94667; 94668; 96361; 96365; 96372; 96375; 97110-GP; 97140-GP; 97162-GP; 97530-GP; 99285-25; A9270-GY; J0713; J1170; J1650; J1956; J2060; J3010; J3360; J3370; J7040; J7050; J7120; J7620

== ENCOUNTER 2018-02-05 09:00 | Emergency (ER) | payer MEDICAID ==
[2018-02-05] MEDS ORDERED: fentaNYL 100 MCG/2 ML SDV IM ONE (09:44)
[2018-02-05] MEDS ORDERED: Baclofen 10 MG Tab PO ONE ×2 (09:44→17:05)
--- NOTE | 2018-02-05 09:49 | EDM.PDOC ---
ED HPI GENERAL MEDICAL PROBLEM - General Chief Complaint: Back Pain or Injury Stated Complaint: BACK PAIN Time Seen by Provider: 02/05/18 09:39 Source of Information: Reports: Patient, RN Notes Reviewed History Limitations: Reports: No Limitations - History of Present Illness INITIAL COMMENTS - FREE TEXT/NARRATIVE: 47-year-old female presents emergency department today via EMS services, with complaint of increasing back spasms she has known history of spinal trauma lumbar region has a suprapubic catheter as well as a colostomy bag. She states the pain has been developing over the last 5 days mainly with spasms and has progressively gotten worse. Back Pain Score (Numeric/FACES): 10 - Related Data Allergies Allergy/AdvReac Type Severity Reaction Status Date / Time clindamycin Allergy Cannot Verified 02/05/18 09:06 Remember Penicillins Allergy Cannot Verified 02/05/18 09:06 Remember Home Meds: Home Meds Albuterol [Ventolin HFA] 1 puff IH QID 12/16/14 [History] Baclofen 20 mg PO TID 12/16/14 [History] Ibuprofen 200 mg PO Q4H PRN 12/16/14 [History] Levothyroxine 75 mcg PO QAM 12/16/14 [History] Methadone 15 mg PO BID 12/16/14 [History] Methadone 20 mg PO QAM 12/16/14 [History] Multivitamins/Iron/Folic Acid [Cerovite Advanced Formula] 1 tab PO DAILY [History] Pregabalin [Lyrica] 200 mg PO TID 12/16/14 [History] Triamcinolone Acetonide [Kenalog 0.1% Crm] 1 dose TOP ASDIRECTED 12/16/14 [ History] Venlafaxine [Effexor] 75 mg PO BID 12/16/14 [History] Budesonide/Formoterol [Symbicort 80-4.5 MCG] 1 puff INH DAILY 02/23/15 [History] Lisinopril 10 mg PO DAILY 07/04/17 [History] hydrOXYzine HCl [hydrOXYzine] 25 mg PO TID PRN 07/04/17 [History] Prednisone [IJD: predniSONE] 20 mg PO BIDMEALS #7 tablet 07/08/17 [Rx] Oxybutynin Chloride [Ditropan Xl] 10 mg PO DAILY 02/05/18 [History] buPROPion HCl [Zyban] 150 mg PO BID 02/05/18 [History] oxyCODONE HCl/Acetaminophen [Endocet 7.5-325 mg Tablet] 3 tab PO Q8H PRN [History] Past Medical History Cardiovascular History: Reports: Hypertension Respiratory History: Reports: SOB Gastrointestinal History: Reports: Other (See Below) Other Gastrointestinal History: ostomy Genitourinary History: Reports: UTI, Recurrent Other Genitourinary History: [place] Cath Musculoskeletal History: Reports: Other (See Below) Other Musculoskeletal History: spasms Neurological History: Reports: Other (See Below) Other Neuro History: L-4 spinal cord injury Psychiatric History: Reports: Depression, Suicide Attempt Endocrine/Metabolic History: Reports: Hypothyroidism Dermatologic History: Reports: Decubitus Ulcer, Eczema Other Dermatologic History: rt buttock ulcer 2013 on going care by intensive care unit registered nurse - Infectious Disease History Infectious Disease History: Reports: MRSA Other Infectious Disease History: 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 and intensive care unit registered nurse state nolonger the case - Past Surgical History GI Surgical History: Reports: Small Bowel Female Surgical History: Reports: Suprapubic Catheter Placement Musculoskeletal Surgical History: Reports: Other (See Below) Other Musculoskeletal Surgeries/Procedures:: ankle Social & Family History - Family History Family Medical History: Noncontributory - Tobacco Use Smoking Status *Q: Current Every Day Smoker Years of Tobacco use: 20 Packs/Tins Daily: 0.5 - Caffeine Use Caffeine Use: Reports: Coffee Other Caffeine Use: 1 cup a day - Recreational Drug Use Recreational Drug Use: No ED ROS GENERAL - Review of Systems Review Of Systems: See Below Constitutional: Denies: Fever, Chills HEENT: Reports: No Symptoms Respiratory: Reports: No Symptoms Cardiovascular: Reports: No Symptoms GI/Abdominal: Reports: No Symptoms : Reports: No Symptoms Musculoskeletal: Reports: Back Pain Skin: Reports: No Symptoms Neurological: Reports: No Symptoms ED EXAM,LOWER BACK PAIN/INJURY - Physical Exam Exam: See Below Exam Limited By: No Limitations General Appearance: Alert, Moderate Distress Head: Normocephalic, Facial Swelling, Facial Tenderness, Other (Has a healing abrasion over the right eyebrow) Neck: Normal Inspection, Supple, Non-Tender, Full Range of Motion Respiratory/Chest: No Respiratory Distress, Lungs Clear, Normal Breath Sounds, No Accessory Muscle Use Cardiovascular: Regular Rate, Rhythm, No Murmur GI/Abdominal: Soft, Non-Tender, Other (Ostomy bag in place suprapubic catheter in place) Back Exam: Decreased Range of Motion, Muscle Spasm, Paraspinal Tenderness. No: CVA Tenderness (R), CVA Tenderness (L), Vertebral Tenderness Extremities: Non-Tender, No Pedal Edema Course - Vital Signs Last Recorded V/S: Last Vital Signs Temp 98.2 F 02/05/18 15:22 Pulse 66 02/05/18 17:20 Resp 17 02/05/18 17:20 BP 117/69 02/05/18 17:20 Pulse Ox 97 02/05/18 17:20 - Orders/Labs/Meds Orders: Active Orders 24 hr Category Date Time Status Vital Signs [RC] Q1H Care 02/05/18 12:40 Active Abdomen Pelvis w Cont [CT] Stat Exams 02/05/18 13:56 Taken Chest 1V Frontal [CR] Urgent Exams 02/05/18 18:08 Taken CULTURE BLOOD [BC] Urgent Lab 02/05/18 12:55 Received CULTURE BLOOD [BC] Urgent Lab 02/05/18 13:05 Received CULTURE URINE [RM] Urgent Lab 02/05/18 13:41 Received DRUG SCREEN, URINE [URCHEM] Stat Lab 02/05/18 15:56 Ordered UA W/MICROSCOPIC [URIN] Urgent Lab 02/05/18 10:16 Ordered Acetaminophen/oxyCODONE [Percocet 325-7.5 MG] Med 02/05/18 16:54 Active 2 tab PO ONETIME PRN LORazepam [Ativan] Med 02/05/18 10:39 Active 2 mg IM ONETIME PRN Lactated Ringers [Ringers, Lactated] 1,000 ml Med 02/05/18 12:45 Active IV ASDIRECTED Sodium Chloride 0.9% [Normal Saline] 100 ml Med 02/05/18 14:00 Active IV ASDIRECTED Blood Culture x2 Reflex Set [OM.PC] Urgent Oth 02/05/18 12:40 Ordered Medication Orders Lactated Ringer's (Ringers, Lactated) 1,000 mls @ 999 mls/hr IV ASDIRECTED SANDI Last Admin: 02/05/18 13:25 Dose: 999 mls/hr Sodium Chloride (Normal Saline) 100 mls @ 3 mls/sec IV ASDIRECTED SANDI Last Admin: 02/05/18 14:45 Dose: 3 mls/sec Lorazepam (Ativan) 2 mg IM ONETIME PRN PRN Reason: Spasms Last Admin: 02/05/18 10:47 Dose: 2 mg Oxycodone/Acetaminophen (Percocet 325-7.5 Mg) 2 tab PO ONETIME PRN PRN Reason: Pain Last Admin: 02/05/18 17:06 Dose: 2 tab Labs: Laboratory Tests 02/05/18 02/05/18 02/05/18 Range/Units 10:16 13:05 13:05 WBC 21.5 H (4.5-11.0) K/uL RBC 5.14 (3.30-5.50) M/uL Hgb 14.7 D (12.0-15.0) g/dL Hct 45.5 (36.0-48.0) % MCV 89 (80-98) fL MCH 29 (27-31) pg MCHC 32 (32-36) % Plt Count 373 (150-400) K/uL Neut % (Auto) 79 H (36-66) % Lymph % (Auto) 16 L (24-44) % [place] % (Auto) 5 (2-6) % Eos % (Auto) 0 L (2-4) % Baso % (Auto) 0 (0-1) % Sodium 141 (140-148) mmol/L Potassium 3.7 (3.6-5.2) mmol/L Chloride 103 (100-108) mmol/L Carbon Dioxide 28 (21-32) mmol/L Anion Gap 10.0 (5.0-14.0) mmol/L BUN 11 (7-18) mg/dL Creatinine 0.9 (0.6-1.0) mg/dL Est Cr Clr Drug Dosing 77.95 mL/min Estimated GFR (MDRD) > 60 (>60) Glucose 99 (74-106) mg/dL Lactic Acid (0.4-2.0) mmol/L Calcium 8.5 (8.5-10.1) mg/dL Total Bilirubin 0.4 (0.2-1.0) mg/dL AST 21 (15-37) U/L ALT 14 (12-78) U/L Alkaline Phosphatase 122 H (46-116) U/L C-Reactive Protein 9.38 H (0.0-0.3) mg/dL Total Protein 7.6 (6.4-8.2) g/dL Albumin 2.8 L (3.4-5.0) g/dL Globulin 4.8 H (2.3-3.5) g/dL Albumin/Globulin Ratio 0.6 L (1.2-2.2) Urine Color Yellow Urine Appearance Cloudy Urine pH 5.0 (4.5-8.0) Ur Specific [place] 1.025 (1.008-1.030) Urine Protein Negative (NEGATIVE) mg/dL Urine Glucose (UA) Normal (NEGATIVE) mg/dL Urine Ketones Negative (NEGATIVE) mg/dL Urine Occult Blood Moderate (NEGATIVE) Urine Nitrite Negative (NEGATIVE) Urine Bilirubin Negative (NEGATIVE) Urine Urobilinogen Normal (NORMAL) mg/dL Ur Leukocyte Esterase Negative (NEGATIVE) Urine RBC 0-5 (0-5) Urine WBC Not seen (0-5) Ur Epithelial Cells Not seen Amorphous Sediment Packed Urine Bacteria Rare Urine Mucus Not seen Urine Opiates Screen (NEGATIVE) Ur Oxycodone Screen (NEGATIVE) Urine Methadone Screen (NEGATIVE) Ur Propoxyphene Screen (NEGATIVE) Ur Barbiturates Screen (NEGATIVE) Ur Tricyclics Screen (NEGATIVE) Ur Phencyclidine Scrn (NEGATIVE) Ur Amphetamine Screen (NEGATIVE) U Methamphetamines Scrn (NEGATIVE) Urine MDMA Screen (NEGATIVE) U Benzodiazepines Scrn (NEGATIVE) U Cocaine Metab Screen (NEGATIVE) U Marijuana (THC) Screen (NEGATIVE) 02/05/18 02/05/18 Range/Units 13:05 15:56 WBC (4.5-11.0) K/uL RBC (3.30-5.50) M/uL Hgb (12.0-15.0) g/dL Hct (36.0-48.0) % MCV (80-98) fL MCH (27-31) pg MCHC (32-36) % Plt Count (150-400) K/uL Neut % (Auto) (36-66) % Lymph % (Auto) (24-44) % [place] % (Auto) (2-6) % Eos % (Auto) (2-4) % Baso % (Auto) (0-1) % Sodium (140-148) mmol/L Potassium (3.6-5.2) mmol/L Chloride (100-108) mmol/L Carbon Dioxide (21-32) mmol/L Anion Gap (5.0-14.0) mmol/L BUN (7-18) mg/dL Creatinine (0.6-1.0) mg/dL Est Cr Clr Drug Dosing mL/min Estimated GFR (MDRD) (>60) Glucose (74-106) mg/dL Lactic Acid 1.3 (0.4-2.0) mmol/L Calcium (8.5-10.1) mg/dL Total Bilirubin (0.2-1.0) mg/dL AST (15-37) U/L ALT (12-78) U/L Alkaline Phosphatase (46-116) U/L C-Reactive Protein (0.0-0.3) mg/dL Total Protein (6.4-8.2) g/dL Albumin (3.4-5.0) g/dL Globulin (2.3-3.5) g/dL Albumin/Globulin Ratio (1.2-2.2) Urine Color Urine Appearance Urine pH (4.5-8.0) Ur Specific [place] (1.008-1.030) Urine Protein (NEGATIVE) mg/dL Urine Glucose (UA) (NEGATIVE) mg/dL Urine Ketones (NEGATIVE) mg/dL Urine Occult Blood (NEGATIVE) Urine Nitrite (NEGATIVE) Urine Bilirubin (NEGATIVE) Urine Urobilinogen (NORMAL) mg/dL Ur Leukocyte Esterase (NEGATIVE) Urine RBC (0-5) Urine WBC (0-5) Ur Epithelial Cells Amorphous Sediment Urine Bacteria Urine Mucus Urine Opiates Screen Negative (NEGATIVE) Ur Oxycodone Screen Positive H (NEGATIVE) Urine Methadone Screen Positive H (NEGATIVE) Ur Propoxyphene Screen Negative (NEGATIVE) Ur Barbiturates Screen Negative (NEGATIVE) Ur Tricyclics Screen Negative (NEGATIVE) Ur Phencyclidine Scrn Negative (NEGATIVE) Ur Amphetamine Screen Negative (NEGATIVE) U Methamphetamines Scrn Negative (NEGATIVE) Urine MDMA Screen Negative (NEGATIVE) U Benzodiazepines Scrn Negative (NEGATIVE) U Cocaine Metab Screen Negative (NEGATIVE) U Marijuana (THC) Screen Negative (NEGATIVE) Meds: Medications Generic Name Dose Route Start Last Admin Trade Name Freq PRN Reason Stop Dose Admin Lactated Ringer's 1,000 mls @ 999 mls/hr 02/05/18 12:45 02/05/18 13:25 Ringers, Lactated IV 999 mls/hr ASDIRECTED SANDI Administration Sodium Chloride 100 mls @ 3 mls/sec 02/05/18 14:00 02/05/18 14:45 Normal Saline IV 3 mls/sec ASDIRECTED SANDI Administration Lorazepam 2 mg 02/05/18 10:39 02/05/18 10:47 Ativan IM 2 mg ONETIME PRN Administration Spasms Oxycodone/Acetaminophen 2 tab 02/05/18 16:54 02/05/18 17:06 Percocet 325-7.5 Mg PO 2 tab ONETIME PRN Administration Pain Discontinued Medications Generic Name Dose Route Start Last Admin Trade Name Freq PRN Reason Stop Dose Admin Baclofen 10 mg 02/05/18 09:44 02/05/18 10:10 Lioresal PO 02/05/18 09:45 10 mg ONETIME ONE Administration Baclofen 10 mg 02/05/18 17:05 02/05/18 17:12 Lioresal PO 02/05/18 17:06 10 mg ONETIME ONE Administration Fentanyl 100 mcg 02/05/18 09:44 02/05/18 10:10 Sublimaze IM 02/05/18 09:45 100 mcg ONETIME ONE Administration Hydromorphone HCl 1 mg 02/05/18 11:11 02/05/18 11:21 Dilaudid IM 02/05/18 11:12 1 mg ONETIME ONE Administration Iopamidol 100 ml 02/05/18 14:00 Isovue-300 (61%) IV . DIRECTED SANDI Iopamidol 135 ml 02/05/18 14:45 02/05/18 14:45 Isovue-300 (61%) IV 150 ml . DIRECTED SANDI Administration Ketorolac Tromethamine 30 mg 02/05/18 13:56 02/05/18 15:56 Toradol IVPUSH 02/05/18 13:57 30 mg ONETIME ONE Administration Oxycodone/Acetaminophen 2 tab 02/05/18 11:35 02/05/18 12:02 Percocet 325-7.5 Mg PO 02/05/18 11:36 2 tab NOW ONE Administration Tizanidine HCl 4 mg 02/05/18 15:39 02/05/18 15:56 Zanaflex PO 02/05/18 15:40 4 mg NOW STA Administration Departure - Departure Time of Disposition: 18:35 Disposition: Home, Self-Care 01 Condition: Fair Clinical Impression: Back spasm - Discharge Information Referrals: PCP,None [Primary Care Provider] - Forms: ED Department Discharge Additional Instructions: Resume your regular medications, please follow-up with your primary care provider in the next 3-5 days for reevaluation - My Orders Last 24 Hours: My Active Orders 02/05/18 10:16 UA W/MICROSCOPIC [URIN] Urgent 02/05/18 10:39 LORazepam [Ativan] 2 mg IM ONETIME PRN 02/05/18 12:40 Vital Signs [RC] Q1H Blood Culture x2 Reflex Set [OM.PC] Urgent 02/05/18 12:45 Lactated Ringers [Ringers, Lactated] 1,000 ml IV ASDIRECTED 02/05/18 12:55 CULTURE BLOOD [BC] Urgent 02/05/18 13:05 CULTURE BLOOD [BC] Urgent 02/05/18 13:41 CULTURE URINE [RM] Urgent 02/05/18 13:56 Abdomen Pelvis w Cont [CT] Stat 02/05/18 14:00 Sodium Chloride 0.9% [Normal Saline] 100 ml IV ASDIRECTED 02/05/18 15:56 DRUG SCREEN, URINE [URCHEM] Stat 02/05/18 16:54 Acetaminophen/oxyCODONE [Percocet 325-7.5 MG] 2 tab PO ONETIME PRN 02/05/18 18:08 Chest 1V Frontal [CR] Urgent - Assessment/Plan Last 24 Hours: My Active Orders 02/05/18 10:16 UA W/MICROSCOPIC [URIN] Urgent 02/05/18 10:39 LORazepam [Ativan] 2 mg IM ONETIME PRN 02/05/18 12:40 Vital Signs [RC] Q1H Blood Culture x2 Reflex Set [OM.PC] Urgent 02/05/18 12:45 Lactated Ringers [Ringers, Lactated] 1,000 ml IV ASDIRECTED 02/05/18 12:55 CULTURE BLOOD [BC] Urgent 02/05/18 13:05 CULTURE BLOOD [BC] Urgent 02/05/18 13:41 CULTURE URINE [RM] Urgent 02/05/18 13:56 Abdomen Pelvis w Cont [CT] Stat 02/05/18 14:00 Sodium Chloride 0.9% [Normal Saline] 100 ml IV ASDIRECTED 02/05/18 15:56 DRUG SCREEN, URINE [URCHEM] Stat 02/05/18 16:54 Acetaminophen/oxyCODONE [Percocet 325-7.5 MG] 2 tab PO ONETIME PRN 02/05/18 18:08 Chest 1V Frontal [CR] Urgent Plan: Assessment Acuity = acute Site and laterality = back spasms complicated in a patient with known history of lumbar fusion Etiology = unclear etiology Manifestations = none Location of injury = Home Lab values = WBC elevated 21.5 consistent leukocytosis unclear etiology CRP elevated 9.38, urinalysis unremarkable CMP unremarkable urine drug screen positive for methadone and opiates, chest x-ray I did review films myself I cannot appreciate any acute process, the official read from radiology is pending , CT scan of the abdomen shows no acute process Plan I did review lab work and x-ray results with her she finally was able to get some improvement in her back spasms of the variety medications reviewed provide to her she will be discharged home resume her regular medications follow-up with primary care in 3-5 days for reevaluation This note was dictated using [employer] voice recognition software please call with any questions on syntax or grammar.
[2018-02-05] MEDS ORDERED: LORazepam 2 MG/ML SDV IM PRN (10:39)
[2018-02-05] MEDS ORDERED: HYDROmorphone 1 MG/ML Syringe IM ONE (11:11)
[2018-02-05] MEDS ORDERED: Acetaminophen/oxyCODONE 325-7.5 MG Tab PO ONE (11:35)
[2018-02-05] MEDS ORDERED: Lactated Ringers 1,000 ML IV SCH (12:45)
[2018-02-05] MEDS ORDERED: Ketorolac 30 MG/ML SDV IVPUSH ONE (13:56)
[2018-02-05] MEDS ORDERED: Iopamidol 612 MG/ML 100 ML Bottle IV SCH (14:00)
[2018-02-05] MEDS ORDERED: Sodium Chloride 0.9% 100 ML IV SCH (14:00)
[2018-02-05] MEDS ORDERED: Iopamidol 612 MG/ML 150 ML Bottle IV SCH (14:45)
[2018-02-05] MEDS ORDERED: tiZANidine 4 MG Tab PO STA (15:39)
[2018-02-05] MEDS ORDERED: Acetaminophen/oxyCODONE 325-7.5 MG Tab PO PRN (16:54)
[2018-02-05 17:22] VITALS: BP 117/69
--- NOTE | 2018-02-06 09:10 | CR ---
Portable chest Comparison: June 2017. Findings: There is a left [id number]-[id number] catheter unchanged. There is improved aeration since the prio r exam. There continues to be prominence of interstitial markings bilaterally. The finding may reflec t fibrosis. The interstitial markings appear mildly diminished. There are no alveolar infiltrates or effusions. Impression: 1. Chronic bilateral increased interstitial markings consistent with fibrosis or ongoing interstitial pneumonitis. Clinical correlation recommended.
== END 2018-02-05 19:00 | disposition home or self-care (01) ==
LOC: JP.ED 09:00
DX: M62.830 Muscle spasm of back (principal); F17.210 Nicotine dependence, cigarettes, uncomplicated; E03.9 Hypothyroidism, unspecified; I10 Essential (primary) hypertension; Z88.1 Allergy status to other antibiotic agents; Z88.0 Allergy status to penicillin
CPT/HCPCS: 36415; 71045; 74177; 80053; 80305; 81001; 83605; 85025; 86140; 87040; 87086; 87088; 87186; 96361; 96372; 96374; 99284; A9270; J1170; J1885; J2060; J3010; J7030; J7120

== ENCOUNTER 2018-10-23 22:49 | Inpatient (IN) | payer MEDICAID ==
--- NOTE | 2018-10-23 23:15 | EDM.PDOC ---
ED HPI GENERAL MEDICAL PROBLEM - General Chief Complaint: General Stated Complaint: ILLNESS Time Seen by Provider: 10/23/18 23:00 Source of Information: Reports: EMS, Old Records, RN History Limitations: Reports: Uncooperative, Other (patient not able to provide any useful information.) - History of Present Illness INITIAL COMMENTS - FREE TEXT/NARRATIVE: 47 yo female with many serious mental and physical problems was sent into the ER via EMS from the home where she lives with her mother who is her primary care provider. Apparently Aaliyah fell out of bed tonight without any apparent injuries, but was noted at that time by family not to be acting normally and there was possibly acetaminophen/oxycodone pills missing. A bottle of #180 7.5/ 325 was filled last on 10/12/18 and there are 2.5 tablets left. Has a colostomy and an indwelling moreno catheter. Reportedly saw her provider, Dr. Moscoso, earlier today and was given azithromycin for "pharyngitis". Onset: Today Onset Date: 10/23/18 Duration: Hour(s): Location: Reports: Generalized Severity: Moderate Improves with: Reports: None Worsens with: Reports: Other (uncertain, ? overdose) Context: Reports: Other (See HPI) Associated Symptoms: Reports: Other (decreased LOC) Treatments ONLINE JOURNALIST: Reports: Other (see below) (none) - Related Data Allergies Allergy/AdvReac Type Severity Reaction Status Date / Time clindamycin Allergy Cannot Verified 08/20/18 20:22 Remember Penicillins Allergy Cannot Verified 08/20/18 20:22 Remember Home Meds: Home Meds Albuterol [Ventolin HFA] 1 puff IH QID 12/16/14 [History] Baclofen 20 mg PO TID 12/16/14 [History] Ibuprofen 200 mg PO Q4H PRN 12/16/14 [History] Levothyroxine 75 mcg PO QAM 12/16/14 [History] Methadone 15 mg PO BID 12/16/14 [History] Methadone 20 mg PO QAM 12/16/14 [History] Multivitamins/Iron/Folic Acid [Cerovite Advanced Formula] 1 tab PO DAILY [History] Pregabalin [Lyrica] 200 mg PO TID 12/16/14 [History] Triamcinolone Acetonide [Kenalog 0.1% Crm] 1 dose TOP ASDIRECTED 12/16/14 [ History] Venlafaxine [Effexor] 75 - 150 mg PO BID 12/16/14 [History] Budesonide/Formoterol [Symbicort 80-4.5 MCG] 1 puff INH DAILY 02/23/15 [History] Lisinopril 20 mg PO DAILY 07/04/17 [History] hydrOXYzine HCl [hydrOXYzine] 25 mg PO TID PRN 07/04/17 [History] Oxybutynin Chloride [Ditropan Xl] 10 mg PO DAILY 02/05/18 [History] oxyCODONE HCl/Acetaminophen [Endocet 7.5-325 mg Tablet] 2 tab PO Q6H PRN [History] Lactobacillus Rhamnosus GG [Culturelle] 1 cap PO BID #60 cap 08/24/18 [Rx] predniSONE 40 mg PO WITHBREAKFAST #4 tablet 08/24/18 [Rx] buPROPion [Wellbutrin SR] 1 tab PO BID 10/23/18 [History] Past Medical History HEENT History: Reports: Impaired Vision Cardiovascular History: Reports: Hypertension Respiratory History: Reports: SOB Other Respiratory History: PNA 6 months ago Gastrointestinal History: Reports: Other (See Below) Other Gastrointestinal History: ostomy Genitourinary History: Reports: UTI, Recurrent Other Genitourinary History: Moreno Cath STUDENT COUNSELLOR History: Reports: Musculoskeletal History: Reports: Other (See Below) Other Musculoskeletal History: spasms Neurological History: Reports: Other (See Below) Other Neuro History: L-4 spinal cord injury Psychiatric History: Reports: Depression, Suicide Attempt Endocrine/Metabolic History: Reports: Hypothyroidism Hematologic History: Reports: Blood Transfusion(s) Dermatologic History: Reports: Decubitus Ulcer, Eczema Other Dermatologic History: rt buttock ulcer 2013 on going care by care tech - Infectious Disease History Infectious Disease History: Reports: MRSA Other Infectious Disease History: 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 and care tech state nolonger the case - Past Surgical History GI Surgical History: Reports: Small Bowel Female Surgical History: Reports: Suprapubic Catheter Placement Musculoskeletal Surgical History: Reports: Other (See Below) Other Musculoskeletal Surgeries/Procedures:: ankle Social & Family History - Family History Family Medical History: Noncontributory - Caffeine Use Caffeine Use: Reports: Coffee Other Caffeine Use: 1 cup a day ED ROS GENERAL - Review of Systems Review Of Systems: Unable To Obtain ED EXAM, GENERAL - Physical Exam Exam: See Below Exam Limited By: Uncooperative General Appearance: WD/WN, No Apparent Distress, Lethargic Eye Exam: Bilateral Eye: Normal Inspection, PERRL, Other (pupils do not appear to be constricted excessively) Ears: Normal External Exam, Normal Canal, Hearing Grossly Normal, Normal TMs Ear Exam: Bilateral Ear: Auricle Normal, Canal Normal, TM normal Nose: Normal Inspection, Normal Mucosa, No Blood Throat/Mouth: Normal Inspection, Normal Lips, Normal Voice, No Airway Compromise Head: Atraumatic, Normocephalic. No: Facial Swelling, Facial Tenderness Neck: Normal Inspection Respiratory/Chest: No Respiratory Distress, Lungs Clear, Normal Breath Sounds, No Accessory Muscle Use Cardiovascular: Regular Rate, Rhythm, No Edema GI/Abdominal: Normal Bowel Sounds, Soft, Other (colostomy present) Rectal (Female) Exam: Other (entire buttocks area if red, chronic, and scarred. Looks more chronic than acute. ) Back Exam: Normal Inspection Extremities: Normal Inspection, Normal Range of Motion, Non-Tender, No Pedal Edema. No: Arm Pain, Leg Pain, Limited Range of Motion, Increased Warmth Neurological: CN II-XII Intact, No Motor/Sensory Deficits. No: Normal Cognition Skin Exam: Warm, Dry, Intact, Normal Color, No Rash Course - Vital Signs Last Recorded V/S: Last Vital Signs Temp 36.8 C 10/23/18 23:50 Pulse 95 10/24/18 00:58 Resp 18 10/24/18 00:58 BP 94/55 L 10/24/18 00:58 Pulse Ox 95 10/24/18 00:58 - Orders/Labs/Meds Orders: Active Orders 24 hr Category Date Time Status Dietary Supplements [RC] BIDMEALS Care 10/24/18 01:13 Ordered Abdomen 1V Decubitis [CR] Stat Exams 10/24/18 00:20 Taken Chest 1V Frontal [CR] Stat Exams 10/23/18 23:20 Taken Head wo Cont [CT] Stat Exams 10/24/18 00:16 Taken CULTURE BLOOD [BC] Stat Lab 10/23/18 23:25 Received CULTURE BLOOD [BC] Stat Lab 10/23/18 23:30 Received CULTURE URINE [RM] Stat Lab 10/24/18 00:01 Received NS + KCl 20mEq/L [Normal Saline with 20 mEq KCl] 1,000 Med 10/24/18 00:00 Active ml IV ASDIRECTED cefTRIAXone [Rocephin] 1 gm Med 10/24/18 01:12 Ordered Sodium Chloride 0.9% [Normal Saline] 50 ml IV ONETIME Medication Orders Potassium Chloride/Sodium Chloride (Normal Saline With 20 Meq Kcl) 1,000 mls @ 150 mls/hr IV ASDIRECTED SANDI Last Admin: 10/24/18 00:16 Dose: 150 mls/hr Ceftriaxone Sodium 1 gm/ (Sodium Chloride) 50 mls @ 100 mls/hr IV ONETIME ONE Stop: 10/24/18 01:41 Last Admin: 10/24/18 01:22 Dose: 100 mls/hr Labs: Laboratory Tests 10/23/18 10/23/18 10/23/18 Range/Units 23:10 23:10 23:10 WBC 27.4 H (4.5-11.0) K/uL RBC 4.97 (3.30-5.50) M/uL Hgb 12.3 (12.0-15.0) g/dL Hct 39.8 (36.0-48.0) % MCV 80 (80-98) fL MCH 25 L (27-31) pg MCHC 31 L (32-36) % Plt Count 502 H (150-400) K/uL Sodium 140 (140-148) mmol/L Potassium 3.4 L (3.6-5.2) mmol/L Chloride 102 (100-108) mmol/L Carbon Dioxide 25 (21-32) mmol/L Anion Gap 16.4 H (5.0-14.0) mmol/L BUN 9 (7-18) mg/dL Creatinine 1.5 H (0.6-1.0) mg/dL Est Cr Clr Drug Dosing 43.40 mL/min Estimated GFR (MDRD) 37 L (>60) Glucose 102 (74-106) mg/dL Lactic Acid (0.4-2.0) mmol/L Calcium 9.3 (8.5-10.1) mg/dL Troponin I (0.000-0.056) ng/mL Urine Color Urine Appearance Urine pH (4.5-8.0) Ur Specific [place] (1.008-1.030) Urine Protein (NEGATIVE) mg/dL Urine Glucose (UA) (NEGATIVE) mg/dL Urine Ketones (NEGATIVE) mg/dL Urine Occult Blood (NEGATIVE) Urine Nitrite (NEGATIVE) Urine Bilirubin (NEGATIVE) Urine Urobilinogen (NORMAL) mg/dL Ur Leukocyte Esterase (NEGATIVE) Urine RBC (0-5) Urine WBC (0-5) Ur Epithelial Cells Amorphous Sediment Urine Bacteria Urine Mucus Urine Other Acetaminophen < 2.0 L (10.0-30.0) ug/mL 10/23/18 10/23/18 10/23/18 Range/Units 23:13 23:19 23:30 WBC (4.5-11.0) K/uL RBC (3.30-5.50) M/uL Hgb (12.0-15.0) g/dL Hct (36.0-48.0) % MCV (80-98) fL MCH (27-31) pg MCHC (32-36) % Plt Count (150-400) K/uL Sodium (140-148) mmol/L Potassium (3.6-5.2) mmol/L Chloride (100-108) mmol/L Carbon Dioxide (21-32) mmol/L Anion Gap (5.0-14.0) mmol/L BUN (7-18) mg/dL Creatinine (0.6-1.0) mg/dL Est Cr Clr Drug Dosing mL/min Estimated GFR (MDRD) (>60) Glucose (74-106) mg/dL Lactic Acid 1.6 (0.4-2.0) mmol/L Calcium (8.5-10.1) mg/dL Troponin I < 0.017 (0.000-0.056) ng/mL Urine Color Yellow Urine Appearance Cloudy Urine pH 5.0 (4.5-8.0) Ur Specific [place] 1.020 (1.008-1.030) Urine Protein 30 H (NEGATIVE) mg/dL Urine Glucose (UA) Normal (NEGATIVE) mg/dL Urine Ketones Negative (NEGATIVE) mg/dL Urine Occult Blood Moderate (NEGATIVE) Urine Nitrite Negative (NEGATIVE) Urine Bilirubin Negative (NEGATIVE) Urine Urobilinogen Normal (NORMAL) mg/dL Ur Leukocyte Esterase Moderate (NEGATIVE) Urine RBC 10-20 H (0-5) Urine WBC 20-30 H (0-5) Ur Epithelial Cells Moderate Amorphous Sediment Many Urine Bacteria Many Urine Mucus Not seen Urine Other Acetaminophen (10.0-30.0) ug/mL Meds: Medications Generic Name Dose Route Start Last Admin Trade Name Freq PRN Reason Stop Dose Admin Potassium Chloride/Sodium Chloride 1,000 mls @ 150 mls/hr 10/24/18 00:00 00:16 Normal Saline With 20 Meq Kcl IV 150 mls/hr ASDIRECTED SANDI Administration Ceftriaxone Sodium 1 gm/ 50 mls @ 100 mls/hr 10/24/18 01:12 10/24/18 01:22 Sodium Chloride IV 10/24/18 01:41 100 mls/hr ONETIME ONE Administration - Radiology Interpretation Free Text/Narrative:: CXR-blurring of L heart border Head CT- lateral decubitus abd X-ray-neg CT Results Date: 10/24/18 Departure - Departure Time of Disposition: 01:45 Disposition: Refer to Observation Condition: Fair Clinical Impression: Altered level of consciousness, Hypokalemia Elevated WBC count Qualifiers: Leukocytosis type: other Qualified Code(s): D72.828 - Other elevated white blood cell count UTI (urinary tract infection) Qualifiers: Urinary tract infection type: catheter-associated UTI Indwelling urinary catheter type: indwelling urethral catheter Encounter type: initial encounter Qualified Code(s): T83.511A - Infection and inflammatory reaction due to indwelling urethral catheter, initial encounter; N39.0 - Urinary tract infection , site not specified Decubitus skin ulcer Qualifiers: Pressure injury location: buttock Pressure injury stage: unspecified pressure injury stage Laterality: unspecified laterality Qualified Code(s): L89.309 - Pressure ulcer of unspecified buttock, unspecified stage - Discharge Information *PRESCRIPTION DRUG MONITORING PROGRAM REVIEWED*: No *COPY OF PRESCRIPTION DRUG MONITORING REPORT IN PATIENT VICTOR MANUEL: No Referrals: PCP,None [Primary Care Provider] - Forms: ED Department Discharge - My Orders Last 24 Hours: My Active Orders 10/23/18 23:20 Chest 1V Frontal [CR] Stat 10/23/18 23:25 CULTURE BLOOD [BC] Stat 10/23/18 23:30 CULTURE BLOOD [BC] Stat 10/24/18 00:00 NS + KCl 20mEq/L [Normal Saline with 20 mEq KCl] 1,000 ml IV ASDIRECTED 10/24/18 00:01 CULTURE URINE [RM] Stat 10/24/18 00:16 Head wo Cont [CT] Stat 10/24/18 00:20 Abdomen 1V Decubitis [CR] Stat 10/24/18 01:12 cefTRIAXone [Rocephin] 1 gm Sodium Chloride 0.9% [Normal Saline] 50 ml IV ONETIME 10/24/18 01:13 Dietary Supplements [RC] BIDMEALS - Assessment/Plan Last 24 Hours: My Active Orders 10/23/18 23:20 Chest 1V Frontal [CR] Stat 10/23/18 23:25 CULTURE BLOOD [BC] Stat 10/23/18 23:30 CULTURE BLOOD [BC] Stat 10/24/18 00:00 NS + KCl 20mEq/L [Normal Saline with 20 mEq KCl] 1,000 ml IV ASDIRECTED 10/24/18 00:01 CULTURE URINE [RM] Stat 10/24/18 00:16 Head wo Cont [CT] Stat 10/24/18 00:20 Abdomen 1V Decubitis [CR] Stat 10/24/18 01:12 cefTRIAXone [Rocephin] 1 gm Sodium Chloride 0.9% [Normal Saline] 50 ml IV ONETIME 10/24/18 01:13 Dietary Supplements [RC] BIDMEALS
[2018-10-24] MEDS ORDERED: NS + KCl 20mEq/L 1,000 ML IV SCH
[2018-10-24] MEDS ORDERED: cefTRIAXone 1 GM in Sodium Chloride 0.9% 50 ML IV ONE (01:12)
[2018-10-24] MEDS ORDERED: HYDROmorphone 0.5 MG/0.5 ML Syringe IVPUSH ONE ×2 (01:42→02:03)
[2018-10-24] MEDS ORDERED: Sodium Chloride 0.9% 1,000 ML IV SCH ×2 (02:15→06:30)
[2018-10-24] MEDS ORDERED: Methadone 10 MG Tab PO STA (02:16)
[2018-10-24] MEDS: Acetaminophen/oxyCODONE 325-7.5 MG Tab PO PRN ×4 (03:12→17:42)
--- NOTE | 2018-10-24 03:25 | HP ---
CHIEF COMPLAINT: Lethargy. HISTORY OF PRESENT ILLNESS: A 47-year-old who apparently has had a previous L4 spinal injury. She has an ostomy and also suprapubic catheter long-term. Apparently, fell out of bed this evening and was found by a family member. Apparently, they called the police to try to get her back into bed, but apparently she was more lethargic than she normally is. She had lethargy with hypoxia this last fall and was admitted for pneumonia. The patient was brought in by ambulance for further evaluation. The patient really not responding initially, no family members came with. Workup in the ER, CT scan of the head apparently was unremarkable. Abdominal x-ray was unremarkable. Urinalysis did show some white cells, but she does have the chronic indwelling Olivas catheter. White count was elevated, but otherwise really no other specific findings were identified and I was asked to admit the patient for further evaluation and treatment. By the time I arrived, she started to wake up a little bit more, but was writhing in pain with her legs, which apparently she has had in the past from her spinal cord injury and is on chronic narcotics for this. Urine drug screen was positive for her narcotics, but there was no pain medicine in her pill bottles. Apparently, she hides them from other people. Apparently, she was seen by Dr. Moscoso today in the clinic for pharyngitis and was started on azithromycin. I could not look at her mouth. PAST MEDICAL HISTORY: L4 spinal injury. Apparently, there was some bridge injury. Since then, has had bowel surgery with ostomy. She has suprapubic Olivas catheter chronically. She has chronic decubitus ulcers, history of eczema, history of MRSA, history of essential hypertension. She has had a history of pneumonia. She has a history of depression with suicide, history of hypothyroidism. CURRENT MEDICATIONS: There is a lot of confusion as far as what medicines she is on between med list and her pill bottles that she had present today. She has albuterol inhaler one puff q.i.d., bupropion 150 mg b.i.d., ibuprofen 200 mg q.4 hours p.r.n., levothyroxine 75 mcg daily, lisinopril 20 mg daily, methadone 15 mg b.i.d. and 20 mg in the morning, multivitamin, iron, folic acid, oxybutynin 10 mg daily extended release, Endocet 7.5/325 two tablets q.6 hours p.r.n., Lyrica 200 mg t.i.d., Effexor 75 to 150 mg p.o. b.i.d. and we will need to clarify that. ALLERGIES: CLINDAMYCIN AND PENICILLINS. SOCIAL HISTORY: I believe she lives with her mother, but other than that I do not know. FAMILY HISTORY: Unknown. Unable to obtain from her. REVIEW OF SYSTEMS: Other than her leg pain, no report of any other complaints. OBJECTIVE: VITAL SIGNS: Temp 36.5, pulse 102, blood pressure 143/123, now it is 94/55, respirations 15 to 22, O2 saturation 95% on room air. NECK: Supple. No adenopathy or thyromegaly. LUNGS: Sound clear. HEART: Regular without murmurs. ABDOMEN: Seemed to be a little bit bloated, not overly distended. There is no mass or organomegaly palpated and denied any pain in her abdomen with palpation. Her ostomy in the left side of her abdomen looked unremarkable. There was no stool in her bag. She does have a suprapubic catheter. EXTREMITIES: No edema. Did writhe in pain with even just light touch. There was no erythema there. She does have chronic significant decubitus ulcers to her bottom. LABORATORY DATA: White count 75527, hemoglobin 12.3, platelets 502,000. Sodium 140, potassium 3.4, BUN is 9, creatinine 1.5, glucose 102. Urine showed 20-30 white cells, 10-20 red cells. Cultures pending. Urine drug screen presumed positive to opiates, oxycodone, methadone, which she does take. CMS level was less than 2, that was done because of her Endocet bottle being empty and I thought that she would take an extra. We will check another one a few hours just to make sure that it does go up. Chest x-ray revealed definite pneumonia, but await radiology interpretation. CT scan of her head, preliminary report was unremarkable and abdominal x-ray was unremarkable. ASSESSMENT: 1. Lethargy. Although she has awakened slightly, she is now writhing in pain with leg cramps. We do not know if she had her methadone or not. Nursing did attempt to get a hold of her mother, whom she lives with, but there was no answer. They did already give her Dilaudid, so the ER doctor did order for 10 mg of methadone. Apparently, she has had these leg spasms in the past with her spinal cord injury. We will admit her to inpatient, anticipate more than 2 midnight stays. 2. History of pneumonia in the past, but I do not see any sign of it. 3. Possible urinary tract infection. The patient has been started on IV Rocephin already in the emergency room. 4. Severe decubitus ulcers, which she has had in the past. We will transfer care to the hospitalist service and Dr. Fink has actually seen these when she was in for pneumonia in July. 5. Spinal cord injury. 6. Depression, suicide ideation in the past. 7. Hypothyroidism. 8. Essential hypertension. Otherwise, we will continue with her current medications. Jerad Alegre MD /[id number]
[2018-10-24] MEDS: HYDROmorphone 1 MG/ML Syringe IVPUSH PRN ×3 (05:51→12:23)
[2018-10-24] MEDS: Ibuprofen 200 MG Tab PO PRN (07:42)
[2018-10-24] MEDS ORDERED: Non-Formulary Medication 1 Each (Oxybutynin Chloride [Ditropan Xl] 10 MG) PO SCH (09:00)
[2018-10-24] MEDS ORDERED: Venlafaxine 75 MG Tab PO SCH ×2 (09:00→21:00)
--- NOTE | 2018-10-24 09:04 | CR ---
CHEST: Vertebral CLINICAL HISTORY:Leukocytosis, loss of consciousness COMPARISON:08/20/2018 FINDINGS: Left subclavian [id number] catheter remains in place. There is diffuse bilateral predominantly interstitial infiltrate or fibrosis. There is some superimposed nodularity. This is similar or slightly diminished when compared to prior study. Impression: Persistent diffuse bilateral predominantly interstitial pulmonary infiltrates with some decrease in nodularity when compared to prior study
[2018-10-24] MEDS: Albuterol 8 GM Inhaler INH SCH ×4 (09:09→22:08)
[2018-10-24] MEDS: Levothyroxine 25 MCG Tab PO SCH (09:10)
[2018-10-24] MEDS: Multivitamins with Iron/Calcium/Folic Acid/Minerals Tab PO SCH (09:11)
[2018-10-24] MEDS: buPROPion 150 MG Tab.SR PO SCH ×2 (09:12→22:07)
[2018-10-24] MEDS: Oxybutynin 5 MG Tab PO SCH ×2 (09:12→22:06)
[2018-10-24] MEDS: Lisinopril 20 MG Tab PO SCH (09:12)
[2018-10-24] MEDS: Venlafaxine 75 MG Tab PO SCH (09:12)
[2018-10-24] MEDS: Pregabalin 100 MG Cap PO SCH ×3 (09:14→22:06)
[2018-10-24] MEDS: Methadone 10 MG Tab PO SCH (09:14)
--- NOTE | 2018-10-24 10:55 | CR ---
Abdomen 1V Decubitis CLINICAL HISTORY: Abdominal distention FINDINGS: Left lateral decubitus views of the abdomen show no free intraperitoneal air. There is some gaseous distention of small bowel. Patient has had previous lumbar fixation IMPRESSION: Limited study No free air. Small bowel distention in a nonspecific pattern
--- NOTE | 2018-10-24 12:09 | PCM.PN ---
- General Info Date of Service: 10/24/18 Subjective Update: No acute events overnight following admission. Patient did have increased pain in her lower extremities this morning but it has improved with the use of pain medications. She is much more alert and interactive and seems to be back to her baseline. She does not complain of any abdominal pain. She did have a low-grade fever overnight. Vital signs are otherwise stable. White blood cell count is trending down. Functional Status: Reports: Pain Controlled, Tolerating Diet - Review of Systems General: Reports: Fever - Patient Data Vitals - Most Recent: Last Vital Signs Temp 36.7 C 10/24/18 11:29 Pulse 86 10/24/18 11:29 Resp 16 10/24/18 11:29 BP 109/62 10/24/18 11:29 Pulse Ox 92 L 10/24/18 11:29 Weight - Most Recent: 72.03 kg I&O - Last 24 Hours: Intake & Output 10/23/18 10/24/18 10/24/18 22:59 06:59 14:59 Intake Total 600 Output Total 250 250 Balance -250 350 Lab Results Last 24 Hours: Laboratory Results - last 24 hr 10/23/18 10/23/18 10/23/18 Range/Units 23:10 23:10 23:10 WBC 27.4 H (4.5-11.0) K/uL RBC 4.97 (3.30-5.50) M/uL Hgb 12.3 (12.0-15.0) g/dL Hct 39.8 (36.0-48.0) % MCV 80 (80-98) fL MCH 25 L (27-31) pg MCHC 31 L (32-36) % Plt Count 502 H (150-400) K/uL Sodium 140 (140-148) mmol/L Potassium 3.4 L (3.6-5.2) mmol/L Chloride 102 (100-108) mmol/L Carbon Dioxide 25 (21-32) mmol/L Anion Gap 16.4 H (5.0-14.0) mmol/L BUN 9 (7-18) mg/dL Creatinine 1.5 H (0.6-1.0) mg/dL Est Cr Clr Drug Dosing 43.40 mL/min Estimated GFR (MDRD) 37 L (>60) Glucose 102 (74-106) mg/dL Lactic Acid (0.4-2.0) mmol/L Calcium 9.3 (8.5-10.1) mg/dL Troponin I (0.000-0.056) ng/mL Urine Color Urine Appearance Urine pH (4.5-8.0) Ur Specific [place] (1.008-1.030) Urine Protein (NEGATIVE) mg/dL Urine Glucose (UA) (NEGATIVE) mg/dL Urine Ketones (NEGATIVE) mg/dL Urine Occult Blood (NEGATIVE) Urine Nitrite (NEGATIVE) Urine Bilirubin (NEGATIVE) Urine Urobilinogen (NORMAL) mg/dL Ur Leukocyte Esterase (NEGATIVE) Urine RBC (0-5) Urine WBC (0-5) Ur Epithelial Cells Amorphous Sediment Urine Bacteria Urine Mucus Urine Other Urine Opiates Screen (NEGATIVE) Ur Oxycodone Screen (NEGATIVE) Urine Methadone Screen (NEGATIVE) Ur Propoxyphene Screen (NEGATIVE) Acetaminophen < 2.0 L (10.0-30.0) ug/mL Ur Barbiturates Screen (NEGATIVE) Ur Tricyclics Screen (NEGATIVE) Ur Phencyclidine Scrn (NEGATIVE) Ur Amphetamine Screen (NEGATIVE) U Methamphetamines Scrn (NEGATIVE) Urine MDMA Screen (NEGATIVE) U Benzodiazepines Scrn (NEGATIVE) U Cocaine Metab Screen (NEGATIVE) U Marijuana (THC) Screen (NEGATIVE) 10/23/18 10/23/18 10/23/18 Range/Units 23:13 23:19 23:30 WBC (4.5-11.0) K/uL RBC (3.30-5.50) M/uL Hgb (12.0-15.0) g/dL Hct (36.0-48.0) % MCV (80-98) fL MCH (27-31) pg MCHC (32-36) % Plt Count (150-400) K/uL Sodium (140-148) mmol/L Potassium (3.6-5.2) mmol/L Chloride (100-108) mmol/L Carbon Dioxide (21-32) mmol/L Anion Gap (5.0-14.0) mmol/L BUN (7-18) mg/dL Creatinine (0.6-1.0) mg/dL Est Cr Clr Drug Dosing mL/min Estimated GFR (MDRD) (>60) Glucose (74-106) mg/dL Lactic Acid 1.6 (0.4-2.0) mmol/L Calcium (8.5-10.1) mg/dL Troponin I < 0.017 (0.000-0.056) ng/mL Urine Color Yellow Urine Appearance Cloudy Urine pH 5.0 (4.5-8.0) Ur Specific [place] 1.020 (1.008-1.030) Urine Protein 30 H (NEGATIVE) mg/dL Urine Glucose (UA) Normal (NEGATIVE) mg/dL Urine Ketones Negative (NEGATIVE) mg/dL Urine Occult Blood Moderate (NEGATIVE) Urine Nitrite Negative (NEGATIVE) Urine Bilirubin Negative (NEGATIVE) Urine Urobilinogen Normal (NORMAL) mg/dL Ur Leukocyte Esterase Moderate (NEGATIVE) Urine RBC 10-20 H (0-5) Urine WBC 20-30 H (0-5) Ur Epithelial Cells Moderate Amorphous Sediment Many Urine Bacteria Many Urine Mucus Not seen Urine Other Urine Opiates Screen (NEGATIVE) Ur Oxycodone Screen (NEGATIVE) Urine Methadone Screen (NEGATIVE) Ur Propoxyphene Screen (NEGATIVE) Acetaminophen (10.0-30.0) ug/mL Ur Barbiturates Screen (NEGATIVE) Ur Tricyclics Screen (NEGATIVE) Ur Phencyclidine Scrn (NEGATIVE) Ur Amphetamine Screen (NEGATIVE) U Methamphetamines Scrn (NEGATIVE) Urine MDMA Screen (NEGATIVE) U Benzodiazepines Scrn (NEGATIVE) U Cocaine Metab Screen (NEGATIVE) U Marijuana (THC) Screen (NEGATIVE) 10/24/18 10/24/18 10/24/18 Range/Units 01:00 05:15 05:15 WBC 21.5 H (4.5-11.0) K/uL RBC 4.71 (3.30-5.50) M/uL Hgb 11.6 L (12.0-15.0) g/dL Hct 37.4 (36.0-48.0) % MCV 79 L (80-98) fL MCH 25 L (27-31) pg MCHC 31 L (32-36) % Plt Count 489 H (150-400) K/uL Sodium 140 (140-148) mmol/L Potassium 3.4 L (3.6-5.2) mmol/L Chloride 105 (100-108) mmol/L Carbon Dioxide 24 (21-32) mmol/L Anion Gap 14.4 H (5.0-14.0) mmol/L BUN 10 (7-18) mg/dL Creatinine 1.2 H (0.6-1.0) mg/dL Est Cr Clr Drug Dosing 54.25 mL/min Estimated GFR (MDRD) 48 L (>60) Glucose 99 (74-106) mg/dL Lactic Acid (0.4-2.0) mmol/L Calcium 8.7 (8.5-10.1) mg/dL Troponin I (0.000-0.056) ng/mL Urine Color Urine Appearance Urine pH (4.5-8.0) Ur Specific [place] (1.008-1.030) Urine Protein (NEGATIVE) mg/dL Urine Glucose (UA) (NEGATIVE) mg/dL Urine Ketones (NEGATIVE) mg/dL Urine Occult Blood (NEGATIVE) Urine Nitrite (NEGATIVE) Urine Bilirubin (NEGATIVE) Urine Urobilinogen (NORMAL) mg/dL Ur Leukocyte Esterase (NEGATIVE) Urine RBC (0-5) Urine WBC (0-5) Ur Epithelial Cells Amorphous Sediment Urine Bacteria Urine Mucus Urine Other Urine Opiates Screen Presumptive positive H (NEGATIVE) Ur Oxycodone Screen Presumptive positive H (NEGATIVE) Urine Methadone Screen Presumptive positive H (NEGATIVE) Ur Propoxyphene Screen Negative (NEGATIVE) Acetaminophen (10.0-30.0) ug/mL Ur Barbiturates Screen Negative (NEGATIVE) Ur Tricyclics Screen Negative (NEGATIVE) Ur Phencyclidine Scrn Negative (NEGATIVE) Ur Amphetamine Screen Negative (NEGATIVE) U Methamphetamines Scrn Negative (NEGATIVE) Urine MDMA Screen Negative (NEGATIVE) U Benzodiazepines Scrn Negative (NEGATIVE) U Cocaine Metab Screen Negative (NEGATIVE) U Marijuana (THC) Screen Negative (NEGATIVE) 10/24/18 Range/Units 05:15 WBC (4.5-11.0) K/uL RBC (3.30-5.50) M/uL Hgb (12.0-15.0) g/dL Hct (36.0-48.0) % MCV (80-98) fL MCH (27-31) pg MCHC (32-36) % Plt Count (150-400) K/uL Sodium (140-148) mmol/L Potassium (3.6-5.2) mmol/L Chloride (100-108) mmol/L Carbon Dioxide (21-32) mmol/L Anion Gap (5.0-14.0) mmol/L BUN (7-18) mg/dL Creatinine (0.6-1.0) mg/dL Est Cr Clr Drug Dosing mL/min Estimated GFR (MDRD) (>60) Glucose (74-106) mg/dL Lactic Acid (0.4-2.0) mmol/L Calcium (8.5-10.1) mg/dL Troponin I (0.000-0.056) ng/mL Urine Color Urine Appearance Urine pH (4.5-8.0) Ur Specific [place] (1.008-1.030) Urine Protein (NEGATIVE) mg/dL Urine Glucose (UA) (NEGATIVE) mg/dL Urine Ketones (NEGATIVE) mg/dL Urine Occult Blood (NEGATIVE) Urine Nitrite (NEGATIVE) Urine Bilirubin (NEGATIVE) Urine Urobilinogen (NORMAL) mg/dL Ur Leukocyte Esterase (NEGATIVE) Urine RBC (0-5) Urine WBC (0-5) Ur Epithelial Cells Amorphous Sediment Urine Bacteria Urine Mucus Urine Other Urine Opiates Screen (NEGATIVE) Ur Oxycodone Screen (NEGATIVE) Urine Methadone Screen (NEGATIVE) Ur Propoxyphene Screen (NEGATIVE) Acetaminophen < 2.0 L (10.0-30.0) ug/mL Ur Barbiturates Screen (NEGATIVE) Ur Tricyclics Screen (NEGATIVE) Ur Phencyclidine Scrn (NEGATIVE) Ur Amphetamine Screen (NEGATIVE) U Methamphetamines Scrn (NEGATIVE) Urine MDMA Screen (NEGATIVE) U Benzodiazepines Scrn (NEGATIVE) U Cocaine Metab Screen (NEGATIVE) U Marijuana (THC) Screen (NEGATIVE) Med Orders - Current: Current Medications Albuterol (Ventolin Hfa) 0 gm INH QIDRT [facility] Last Admin: 10/24/18 11:55 Dose: 1 puff Bupropion HCl (Wellbutrin Sr) 150 mg PO BID [facility] Last Admin: 10/24/18 09:12 Dose: 150 mg Hydromorphone HCl (Dilaudid) 1 mg IVPUSH Q1H PRN PRN Reason: Pain Last Admin: 10/24/18 07:43 Dose: 1 mg Ibuprofen (Motrin) 200 mg PO Q4H PRN PRN Reason: Pain Last Admin: 10/24/18 07:42 Dose: 200 mg Levothyroxine Sodium (Levothyroxine) 75 mcg PO ACBREAKFAST [facility] Last Admin: 10/24/18 09:10 Dose: 75 mcg Lisinopril (Prinivil) 20 mg PO DAILY [facility] Last Admin: 10/24/18 09:12 Dose: 20 mg Methadone HCl (Methadone) 15 mg PO BID@1300,2100 [facility] Methadone HCl (Methadone) 20 mg PO QAM [facility] Last Admin: 10/24/18 09:14 Dose: 20 mg Multivitamins/Minerals (Thera M Plus) 1 tab PO DAILY [facility] Last Admin: 10/24/18 09:11 Dose: 1 tab Oxybutynin Chloride (Oxybutynin) 5 mg PO BID [facility] Last Admin: 10/24/18 09:12 Dose: 5 mg Pregabalin (Lyrica) 200 mg PO TID [facility] Last Admin: 10/24/18 09:14 Dose: 200 mg Venlafaxine HCl (Effexor) 150 mg PO DAILY [facility] Last Admin: 10/24/18 09:12 Dose: 150 mg Venlafaxine HCl (Effexor) 75 mg PO BEDTIME [facility] Discontinued Medications Hydromorphone HCl (Dilaudid) 0.5 mg IVPUSH ONETIME ONE Stop: 10/24/18 01:43 Last Admin: 10/24/18 01:49 Dose: 0.5 mg Hydromorphone HCl (Dilaudid) 0.5 mg IVPUSH ONETIME ONE Stop: 10/24/18 02:04 Last Admin: 10/24/18 02:09 Dose: 0.5 mg Potassium Chloride/Sodium Chloride (Normal Saline With 20 Meq Kcl) 1,000 mls @ 150 mls/hr IV ASDIRECTED [facility] Stop: 10/24/18 06:30 Last Admin: 10/24/18 00:16 Dose: 150 mls/hr Ceftriaxone Sodium 1 gm/ (Sodium Chloride) 50 mls @ 100 mls/hr IV ONETIME ONE Stop: 10/24/18 01:41 Last Admin: 10/24/18 01:22 Dose: 100 mls/hr Sodium Chloride (Normal Saline) 1,000 mls @ 125 mls/hr IV ASDIRECTED SANDI Sodium Chloride (Normal Saline) 1,000 mls @ 125 mls/hr IV ASDIRECTED [facility] Last Admin: 10/24/18 08:24 Dose: 125 mls/hr Methadone HCl (Methadone) 10 mg PO NOW STA Stop: 10/24/18 02:17 Last Admin: 10/24/18 02:21 Dose: 10 mg Oxycodone/Acetaminophen (Percocet 325-7.5 Mg) 2 tab PO Q6H PRN PRN Reason: Pain Last Admin: 10/24/18 09:13 Dose: 2 tab - Exam Quality Assessment: No: Supplemental Oxygen General: Alert, Oriented, Cooperative, No Acute Distress Lungs: Normal Respiratory Effort GI/Abdominal Exam: Soft, No Distention Extremities: No Pedal Edema Psy/Mental Status: Alert, Normal Affect - Problem List Review Problem List Initiated/Reviewed/Updated: Yes - My Orders Last 24 Hours: My Active Orders 10/24/18 12:07 Communication Order [RC] ROUTINE 10/24/18 12:15 Acetaminophen/oxyCODONE [Percocet 325-7.5 MG] 2 tab PO Q4H PRN 10/24/18 12:30 Sodium Chloride 0.9% [Normal Saline] 1,000 ml IV ASDIRECTED 10/24/18 21:00 cefTRIAXone [Rocephin] 2 gm Sodium Chloride 0.9% [Normal Saline] 50 ml IV Q24H 10/25/18 05:00 BASIC METABOLIC PANEL,BMP [CHEM] Timed CBC W/O DIFF,HEMOGRAM [HEME] Timed (1) - Plan Plan:: ASSESSMENT AND PLAN - Complicated urinary tract infection - chronic suprapubic catheter. I suspect this infection which seems to be in early stages led to her confusion and lethargy. Much more alert and interactive today. She is having some spasms in her legs which is normal when she has an infection. -Continue ceftriaxone -Follow-up urine culture -Gentle IV fluids to further flush the bladder -Pain control Hypokalemia - mild and will be replaced this morning. History of spinal cord injury with paraplegia - seems to be back to baseline at this time. She does have a colostomy as well as a chronic indwelling catheter. -Continue home medications Stage IV decubitus ulcer - long history with slow healing process. Her mother has been doing dressing changes at home for some time. -Continue dressing changes per home schedule Tobacco dependence - encourage cessation Maintenance issues - - DVT prophylaxis - SCD - GI prophylaxis - not indicated - Nutrition - regular diet - Olivas catheter - chronic suprapubic catheter Disposition - I would anticipate discharged home tomorrow if she is stable overnight Omari Fink M.D.
[2018-10-24] MEDS: Methadone 5 MG Tab PO SCH ×2 (13:15→22:11)
--- NOTE | 2018-10-24 14:49 | CONS ---
DATE OF SERVICE: 10/24/2018 REFERRING PHYSICIAN: CONSULTING PHYSICIAN: Roel Weems MD REASON FOR CONSULTATION: Decubitus ulcer. HISTORY OF PRESENT ILLNESS: This is a pleasant 47-year-old female who was admitted to the hospital due to a traumatic fall. This is all related to an L4 spinal injury. She also has some concerns for pneumonia. In addition, the patient had a positive drug screen for narcotics. PAST MEDICAL HISTORY: Notable for spinal injury, as described above; anemia, urinary tract infections, depression, hypothyroidism, recurrent pneumonia, hypertension, vision changes, shortness of breath, and ongoing wound issues. SOCIAL HISTORY: She does not smoke. FAMILY HISTORY: Noncontributory. REVIEW OF SYSTEMS: GENERAL: No specific changes. HEENT: No symptoms. RESPIRATORY: Recurrent pneumonia symptoms, which is being worked up by the hospitalist service. CARDIOVASCULAR: No current chest pain. MUSCULOSKELETAL: Paraplegia as described above. NEUROLOGIC: No changes. PSYCH: No changes. PHYSICAL EXAMINATION: VITAL SIGNS: Temperature 98.1, blood pressure 109/62, pulse 86, respirations 16, and 92% on room air. GENERAL: The patient is resting comfortably. HEENT: Pupils are equal. NECK: Supple. LUNGS: Poor inspiratory effort bilaterally. SKIN: Shows a healing decubitus ulcer, right buttocks, improved since last reported visit. EXTREMITIES: Upper shows debridement. NEUROLOGIC: She is oriented. PSYCH: No gross depression. LABORATORY STUDIES: White blood cell count of 21,000 and hemoglobin of 11.6. IMAGING: I did review the chest x-ray, which shows pulmonary infiltrates. ASSESSMENT: Decubitus ulcer. PLAN: The patient and family have essentially pretty good cleansed with DuoDerm and Aquacel Ag. It is recommended that they add Cavilon skin barrier to this and then decrease the frequency from t.i.d. to every 3 to 4 days p.r.n. for saturation. We did offer them to follow up with our [facility] as needed. The patient understands and wishes to proceed. This was all explained to the family members present in the room. Roel Weems MD /[phone]
[2018-10-24] MEDS ORDERED: cefTRIAXone 2 GM in Sodium Chloride 0.9% 50 ML IV SCH (21:00)
[2018-10-24] MEDS: Sodium Chloride 0.9% 1,000 ML IV SCH (22:06)
[2018-10-24] MEDS ORDERED: Benzocaine/Cetylpyridinium/Menthol Lozenge MUCMEM PRN (23:21)
[2018-10-25] MEDS: Acetaminophen/oxyCODONE 325-7.5 MG Tab PO PRN ×3 (01:13→11:05)
[2018-10-25] MEDS: Levothyroxine 25 MCG Tab PO SCH (07:25)
[2018-10-25] MEDS: buPROPion 150 MG Tab.SR PO SCH (09:06)
[2018-10-25] MEDS: Albuterol 8 GM Inhaler INH SCH ×3 (09:06→14:46)
[2018-10-25] MEDS: Multivitamins with Iron/Calcium/Folic Acid/Minerals Tab PO SCH (09:06)
[2018-10-25] MEDS: Venlafaxine 75 MG Tab PO SCH (09:07)
[2018-10-25] MEDS: Oxybutynin 5 MG Tab PO SCH (09:07)
[2018-10-25] MEDS: Methadone 10 MG Tab PO SCH (09:11)
[2018-10-25] MEDS: Pregabalin 100 MG Cap PO SCH ×2 (09:12→13:30)
[2018-10-25] MEDS: Lisinopril 20 MG Tab PO SCH (09:13)
[2018-10-25] MEDS: Sodium Chloride 0.9% 1,000 ML IV SCH (09:13)
[2018-10-25] MEDS ORDERED: Potassium Chloride 20 MEQ Tab.ER PO SCH (11:00)
--- NOTE | 2018-10-25 11:49 | PCM.PN ---
- General Info Date of Service: 10/25/18 Functional Status: Reports: Pain Controlled, Tolerating Diet - Review of Systems General: Denies: Fever Gastrointestinal: Denies: Abdominal Pain - Patient Data Vitals - Most Recent: Last Vital Signs Temp 36.5 C 10/25/18 11:00 Pulse 82 10/25/18 11:00 Resp 18 10/25/18 11:00 BP 122/66 10/25/18 11:00 Pulse Ox 94 L 10/25/18 11:00 Weight - Most Recent: 72.03 kg I&O - Last 24 Hours: Intake & Output 10/24/18 10/25/18 10/25/18 22:59 06:59 14:59 Intake Total 751 800 Output Total 360 600 550 Balance 391 200 -550 Lab Results Last 24 Hours: Laboratory Results - last 24 hr 10/25/18 10/25/18 Range/Units 05:07 05:07 WBC 11.5 H (4.5-11.0) K/uL RBC 3.36 (3.30-5.50) M/uL Hgb 10.0 L (12.0-15.0) g/dL Hct 30.6 L (36.0-48.0) % MCV 91 (80-98) fL MCH 30 (27-31) pg MCHC 33 (32-36) % Plt Count 233 (150-400) K/uL Sodium 141 (140-148) mmol/L Potassium 3.1 L (3.6-5.2) mmol/L Chloride 106 (100-108) mmol/L Carbon Dioxide 27 (21-32) mmol/L Anion Gap 11.1 (5.0-14.0) mmol/L BUN 9 (7-18) mg/dL Creatinine 0.9 (0.6-1.0) mg/dL Est Cr Clr Drug Dosing 72.74 mL/min Estimated GFR (MDRD) > 60 (>60) Glucose 77 (74-106) mg/dL Calcium 8.5 (8.5-10.1) mg/dL Ignacio Results Last 24 Hours: Microbiology 10/23/18 23:25 Aerobic Blood Culture - Preliminary Blood - Arm, Right NO GROWTH AFTER 1 DAY Anaerobic Blood Culture - Preliminary 10/24/18 00:01 Urine Culture - Preliminary Urine, Olivas Cath (Indwelling) 10/23/18 23:30 Aerobic Blood Culture - Preliminary Blood - Arm, Right NO GROWTH AFTER 1 DAY Anaerobic Blood Culture - Preliminary NO GROWTH AFTER 1 DAY Med Orders - Current: Current Medications Albuterol (Ventolin Hfa) 0 gm INH QIDRT [facility] Last Admin: 10/25/18 10:56 Dose: 1 puff Benzocaine/Menthol (Cepacol Sore Throat) 1 lozenge MUCMEM ASDIRECTED PRN PRN Reason: Sore Throat Bupropion HCl (Wellbutrin Sr) 150 mg PO BID [facility] Last Admin: 10/25/18 09:06 Dose: 150 mg Hydromorphone HCl (Dilaudid) 1 mg IVPUSH Q1H PRN PRN Reason: Pain Last Admin: 10/24/18 12:23 Dose: 1 mg Ceftriaxone Sodium 2 gm/ (Sodium Chloride) 50 mls @ 100 mls/hr IV Q24H [facility] Last Admin: 10/24/18 22:06 Dose: 100 mls/hr Sodium Chloride (Normal Saline) 1,000 mls @ 75 mls/hr IV ASDIRECTED [facility] Last Admin: 10/25/18 09:13 Dose: 75 mls/hr Ibuprofen (Motrin) 200 mg PO Q4H PRN PRN Reason: Pain Last Admin: 10/24/18 07:42 Dose: 200 mg Levothyroxine Sodium (Levothyroxine) 75 mcg PO ACBREAKFAST [facility] Last Admin: 10/25/18 07:25 Dose: 75 mcg Lisinopril (Prinivil) 20 mg PO DAILY [facility] Last Admin: 10/25/18 09:13 Dose: 20 mg Methadone HCl (Methadone) 15 mg PO BID@1300,2100 [facility] Last Admin: 10/24/18 22:11 Dose: 15 mg Methadone HCl (Methadone) 20 mg PO QAM [facility] Last Admin: 10/25/18 09:11 Dose: 20 mg Multivitamins/Minerals (Thera M Plus) 1 tab PO DAILY [facility] Last Admin: 10/25/18 09:06 Dose: 1 tab Oxybutynin Chloride (Oxybutynin) 5 mg PO BID [facility] Last Admin: 10/25/18 09:07 Dose: 5 mg Oxycodone/Acetaminophen (Percocet 325-7.5 Mg) 2 tab PO Q4H PRN PRN Reason: Pain (moderate 4-6) Last Admin: 10/25/18 11:05 Dose: 2 tab Potassium Chloride (Klor-Con M20) 40 meq PO BID [facility] Stop: 10/25/18 21:01 Pregabalin (Lyrica) 200 mg PO TID [facility] Last Admin: 10/25/18 09:12 Dose: 200 mg Venlafaxine HCl (Effexor) 150 mg PO DAILY [facility] Last Admin: 10/25/18 09:07 Dose: 150 mg Venlafaxine HCl (Effexor) 75 mg PO BEDTIME [facility] Last Admin: 10/24/18 22:07 Dose: 75 mg Discontinued Medications Hydromorphone HCl (Dilaudid) 0.5 mg IVPUSH ONETIME ONE Stop: 10/24/18 01:43 Last Admin: 10/24/18 01:49 Dose: 0.5 mg Hydromorphone HCl (Dilaudid) 0.5 mg IVPUSH ONETIME ONE Stop: 10/24/18 02:04 Last Admin: 10/24/18 02:09 Dose: 0.5 mg Potassium Chloride/Sodium Chloride (Normal Saline With 20 Meq Kcl) 1,000 mls @ 150 mls/hr IV ASDIRECTED [facility] Stop: 10/24/18 06:30 Last Admin: 10/24/18 00:16 Dose: 150 mls/hr Ceftriaxone Sodium 1 gm/ (Sodium Chloride) 50 mls @ 100 mls/hr IV ONETIME ONE Stop: 10/24/18 01:41 Last Admin: 10/24/18 01:22 Dose: 100 mls/hr Sodium Chloride (Normal Saline) 1,000 mls @ 125 mls/hr IV ASDIRECTED [facility] Sodium Chloride (Normal Saline) 1,000 mls @ 125 mls/hr IV ASDIRECTED [facility] Last Admin: 10/24/18 08:24 Dose: 125 mls/hr Methadone HCl (Methadone) 10 mg PO NOW STA Stop: 10/24/18 02:17 Last Admin: 10/24/18 02:21 Dose: 10 mg Oxycodone/Acetaminophen (Percocet 325-7.5 Mg) 2 tab PO Q6H PRN PRN Reason: Pain Last Admin: 10/24/18 09:13 Dose: 2 tab - Exam Quality Assessment: No: Supplemental Oxygen General: Alert, Oriented, Cooperative, No Acute Distress Lungs: Normal Respiratory Effort GI/Abdominal Exam: Soft, No Distention (Female) Exam: Other (clear urine in the leg bag) Extremities: No Pedal Edema Psy/Mental Status: Alert, Normal Affect - My Orders Last 24 Hours: My Active Orders 10/24/18 12:07 Communication Order [RC] ROUTINE 10/24/18 12:15 Acetaminophen/oxyCODONE [Percocet 325-7.5 MG] 2 tab PO Q4H PRN 10/24/18 12:30 Sodium Chloride 0.9% [Normal Saline] 1,000 ml IV ASDIRECTED 10/24/18 21:00 cefTRIAXone [Rocephin] 2 gm Sodium Chloride 0.9% [Normal Saline] 50 ml IV Q24H 10/24/18 23:21 Benzocaine/Cetylpyrd/Menthol [Cepacol Sore Throat] 1 lozenge MUCMEM ASDIRECTED PRN 10/25/18 11:00 Potassium Chloride [Klor-Con M20] 40 meq PO BID 10/25/18 11:47 Convert IV to Saline Lock [OM.PC] Routine 10/26/18 05:00 BASIC METABOLIC PANEL,BMP [CHEM] Timed CBC W/O DIFF,HEMOGRAM [HEME] Timed (1) - Plan Plan:: ASSESSMENT AND PLAN - Complicated urinary tract infection - chronic suprapubic catheter. I suspect this infection which seems to be in early stages led to her confusion and lethargy. Much more alert and interactive today. She is having some spasms in her legs which is normal when she has an infection. -Continue ceftriaxone -Follow-up urine culture -Gentle IV fluids to further flush the bladder -Pain control Hypokalemia - mild and will be replaced this morning. History of spinal cord injury with paraplegia - seems to be back to baseline at this time. She does have a colostomy as well as a chronic indwelling catheter. -Continue home medications Stage IV decubitus ulcer - long history with slow healing process. Her mother has been doing dressing changes at home for some time. -Continue dressing changes per home schedule Tobacco dependence - encourage cessation Maintenance issues - - DVT prophylaxis - SCD - GI prophylaxis - not indicated - Nutrition - regular diet - Olivas catheter - chronic suprapubic catheter Disposition - I would anticipate discharged home tomorrow if she is stable overnight Omari Fink M.D.
[2018-10-25] MEDS: Ibuprofen 200 MG Tab PO PRN (12:45)
[2018-10-25] MEDS: Methadone 5 MG Tab PO SCH (12:52)
--- NOTE | 2018-10-25 14:00 | PCM.DCSUM1 ---
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 She was admitted for management of a complicated urinary tract infection. Diagnosis: Stroke: No - Discharge Data Discharge Date: 10/25/18 Discharge Disposition: Home, [facility] Condition: Good - Discharge Diagnosis/Problem(s) (1) Complicated urinary tract infection SNOMED Code(s): 27113204 ICD Code: N39.0 - URINARY TRACT INFECTION, SITE NOT SPECIFIED Status: Acute Current Visit: Yes Problem Details: chronic suprapubic catheter in place (2) Decubitus skin ulcer SNOMED Code(s): 786298479 ICD Code: L89.90 - PRESSURE ULCER OF UNSPECIFIED SITE, UNSPECIFIED STAGE Status: Acute Current Visit: No Qualifiers: Pressure injury location: buttock Pressure injury stage: stage 4 Laterality: unspecified laterality Qualified Code(s): L89.304 - Pressure ulcer of unspecified buttock, stage 4 (3) Hypokalemia SNOMED Code(s): 15942957 ICD Code: E87.6 - HYPOKALEMIA Status: Acute Current Visit: Yes (4) Paraplegia following spinal cord injury SNOMED Code(s): 77904438, 55577241 ICD Code: G82.20 - PARAPLEGIA, UNSPECIFIED Status: Chronic Current Visit : No (5) Tobacco dependence SNOMED Code(s): 47360405 ICD Code: F17.200 - NICOTINE DEPENDENCE, UNSPECIFIED, UNCOMPLICATED Status : Chronic Current Visit: No - Patient Summary/Data Hospital Course: Aaliyah presented to the emergency room with weakness and lethargy. She had an extensive workup in the emergency room with the most impressive findings being leukocytosis of 27,000 and possible urinary tract infection. She was mildly tachycardic but blood pressure was stable. Chest x-ray did not suggest significant pneumonia. Her large a chronic decubitus ulcer was not thought to be infected. She had seen her primary care earlier in the day and was diagnosed with strep pharyngitis and started on a azithromycin. After some fluids and a dose of antibiotics in the emergency room she did start to perk up and mental status improved. She was admitted to the hospital for management of probable urinary tract infection. Ceftriaxone was continued along with IV fluids overnight. By the morning after admission she was feeling a fair amount better. She had some mild spastic pain in her lower extremities but in general was feeling better. Antibiotics and IV fluids were continued throughout the next 24 hours of the hospital stay. By the morning of discharge she was feeling pretty much back to her usual self. No significant difficulties with spasticity. her white blood cell count has nearly normalized. She has not had any fevers. Urine culture is growing a gram-positive cocci but identification is pending. She has one anaerobic bottle from the blood cultures growing a gram-positive cocci which I suspect will be contamination. Initially she was planning on staying one more day but in the afternoon of discharge felt well and wanted to go home. She has done very well with ceftriaxone and I suspect the transition to cefdinir will go just fine. She will have oral antibiotic to complete an eight day course. I will contact her tomorrow if the urine culture returns with a resistant organism or if the blood culture is significant. - Patient Instructions Diet: Regular Diet as Tolerated Activity: As Tolerated Showering/Bathing: May Shower Notify Provider of: Fever, Increased Pain, Nausea and/or Vomiting Other/Special Instructions: 1. You were in the hospital for management of a complicated urinary tract infection. We have not yet identified the specific bacteria causing the trouble but you have been improving with current antibiotic therapy. I would recommend that you take cefdinir ( Omnicef ) 300 mg twice daily for 12 more doses. Your next dose is due tonight at bedtime. I will contact you tomorrow if the urine culture returns with an organism that is resistant to the prescribed antibiotics. 2. Continue your other home medications as previously prescribed including the azithromycin which was prescribed by Dr. Moscoso on Tuesday. This will provide additional antibiotic coverage for pneumonia and strep throat. 3. Please call the [facility] clinic in [place] tomorrow to schedule an appointment for a one-week follow-up after your hospital stay. You may call the clinic in [place] and schedule an appointment with Dr. Weems if you have wound care needs. 4. Resume previous home health care orders. 5. Seek medical attention if you have fever greater than 101, severe abdominal pain or significant weakness/lethargy. - Discharge Plan *PRESCRIPTION DRUG MONITORING PROGRAM REVIEWED*: No *COPY OF PRESCRIPTION DRUG MONITORING REPORT IN PATIENT VICTOR MANUEL: No Prescriptions/Med Rec: Cefdinir 300 mg PO BID #12 capsule Home Medications: Home Meds Albuterol [Ventolin HFA] 1 puff IH QID 12/16/14 [History] Ibuprofen 200 mg PO Q4H PRN 12/16/14 [History] Levothyroxine 75 mcg PO QAM 12/16/14 [History] Methadone 15 mg PO BID 12/16/14 [History] Methadone 20 mg PO QAM 12/16/14 [History] Multivitamins/Iron/Folic Acid [Cerovite Advanced Formula] 1 tab PO DAILY [History] Pregabalin [Lyrica] 200 mg PO TID 12/16/14 [History] Venlafaxine [Effexor] 75 - 150 mg PO BID 12/16/14 [History] Lisinopril 20 mg PO DAILY 07/04/17 [History] Oxybutynin Chloride [Ditropan Xl] 10 mg PO DAILY 02/05/18 [History] oxyCODONE HCl/Acetaminophen [Endocet 7.5-325 mg Tablet] 2 tab PO Q6H PRN [History] buPROPion [Wellbutrin SR] 1 tab PO BID 10/23/18 [History] Cefdinir 300 mg PO BID #12 capsule 10/25/18 [Rx] Oxygen Therapy Mode: Room Air Patient Handouts: Cefdinir capsules, Protein Content in Foods, Protein Supplement Powders-SportsMed, Urinary Tract Infection, Adult Referrals: Juan Moscoso MD [Physician] - (f/u in 1 week - f/u hospital stay for UTI and f/u strep throat) - Discharge Summary/Plan Comment DC Time >30 min.: No - Patient Data Vitals - Most Recent: Last Vital Signs Temp 36.5 C 10/25/18 11:00 Pulse 82 10/25/18 11:00 Resp 18 10/25/18 11:00 BP 122/66 10/25/18 11:00 Pulse Ox 94 L 10/25/18 11:00 Weight - Most Recent: 72.03 kg I&O - Last 24 hours: Intake & Output 10/24/18 10/25/18 10/25/18 22:59 06:59 14:59 Intake Total 751 800 Output Total 973 042 3490 Balance 391 200 -1150 Lab Results - Last 24 hrs: Laboratory Results - last 24 hr 10/25/18 10/25/18 Range/Units 05:07 05:07 WBC 11.5 H (4.5-11.0) K/uL RBC 3.36 (3.30-5.50) M/uL Hgb 10.0 L (12.0-15.0) g/dL Hct 30.6 L (36.0-48.0) % MCV 91 (80-98) fL MCH 30 (27-31) pg MCHC 33 (32-36) % Plt Count 233 (150-400) K/uL Sodium 141 (140-148) mmol/L Potassium 3.1 L (3.6-5.2) mmol/L Chloride 106 (100-108) mmol/L Carbon Dioxide 27 (21-32) mmol/L Anion Gap 11.1 (5.0-14.0) mmol/L BUN 9 (7-18) mg/dL Creatinine 0.9 (0.6-1.0) mg/dL Est Cr Clr Drug Dosing 72.74 mL/min Estimated GFR (MDRD) > 60 (>60) Glucose 77 (74-106) mg/dL Calcium 8.5 (8.5-10.1) mg/dL [id number] Results - Last 24 hrs: Microbiology 10/23/18 23:25 Aerobic Blood Culture - Preliminary Blood - Arm, Right NO GROWTH AFTER 1 DAY Anaerobic Blood Culture - Preliminary 10/24/18 00:01 Urine Culture - Preliminary Urine, Olivas Cath (Indwelling) 10/23/18 23:30 Aerobic Blood Culture - Preliminary Blood - Arm, Right NO GROWTH AFTER 1 DAY Anaerobic Blood Culture - Preliminary NO GROWTH AFTER 1 DAY Med Orders - Current: Current Medications Albuterol (Ventolin Hfa) 0 gm INH QIDRT [facility] Last Admin: 10/25/18 10:56 Dose: 1 puff Benzocaine/Menthol (Cepacol Sore Throat) 1 lozenge MUCMEM ASDIRECTED PRN PRN Reason: Sore Throat Bupropion HCl (Wellbutrin Sr) 150 mg PO BID [facility] Last Admin: 10/25/18 09:06 Dose: 150 mg Hydromorphone HCl (Dilaudid) 1 mg IVPUSH Q1H PRN PRN Reason: Pain Last Admin: 10/24/18 12:23 Dose: 1 mg Ceftriaxone Sodium 2 gm/ (Sodium Chloride) 50 mls @ 100 mls/hr IV Q24H [facility] Last Admin: 10/24/18 22:06 Dose: 100 mls/hr Ibuprofen (Motrin) 200 mg PO Q4H PRN PRN Reason: Pain Last Admin: 10/25/18 12:45 Dose: 200 mg Levothyroxine Sodium (Levothyroxine) 75 mcg PO ACBREAKFAST [facility] Last Admin: 10/25/18 07:25 Dose: 75 mcg Lisinopril (Prinivil) 20 mg PO DAILY [facility] Last Admin: 10/25/18 09:13 Dose: 20 mg Methadone HCl (Methadone) 15 mg PO BID@1300,2100 [facility] Last Admin: 10/25/18 12:52 Dose: 15 mg Methadone HCl (Methadone) 20 mg PO QAM [facility] Last Admin: 10/25/18 09:11 Dose: 20 mg Multivitamins/Minerals (Thera M Plus) 1 tab PO DAILY [facility] Last Admin: 10/25/18 09:06 Dose: 1 tab Oxybutynin Chloride (Oxybutynin) 5 mg PO BID [facility] Last Admin: 10/25/18 09:07 Dose: 5 mg Oxycodone/Acetaminophen (Percocet 325-7.5 Mg) 2 tab PO Q4H PRN PRN Reason: Pain (moderate 4-6) Last Admin: 10/25/18 11:05 Dose: 2 tab Potassium Chloride (Klor-Con M20) 40 meq PO BID [facility] Stop: 10/25/18 21:01 Last Admin: 10/25/18 12:45 Dose: 40 meq Pregabalin (Lyrica) 200 mg PO TID [facility] Last Admin: 10/25/18 13:30 Dose: 200 mg Venlafaxine HCl (Effexor) 150 mg PO DAILY [facility] Last Admin: 10/25/18 09:07 Dose: 150 mg Venlafaxine HCl (Effexor) 75 mg PO BEDTIME [facility] Last Admin: 10/24/18 22:07 Dose: 75 mg Discontinued Medications Hydromorphone HCl (Dilaudid) 0.5 mg IVPUSH ONETIME ONE Stop: 10/24/18 01:43 Last Admin: 10/24/18 01:49 Dose: 0.5 mg Hydromorphone HCl (Dilaudid) 0.5 mg IVPUSH ONETIME ONE Stop: 10/24/18 02:04 Last Admin: 10/24/18 02:09 Dose: 0.5 mg Potassium Chloride/Sodium Chloride (Normal Saline With 20 Meq Kcl) 1,000 mls @ 150 mls/hr IV ASDIRECTED SANDI Stop: 10/24/18 06:30 Last Admin: 10/24/18 00:16 Dose: 150 mls/hr Ceftriaxone Sodium 1 gm/ (Sodium Chloride) 50 mls @ 100 mls/hr IV ONETIME ONE Stop: 10/24/18 01:41 Last Admin: 10/24/18 01:22 Dose: 100 mls/hr Sodium Chloride (Normal Saline) 1,000 mls @ 125 mls/hr IV ASDIRECTED SANDI Sodium Chloride (Normal Saline) 1,000 mls @ 125 mls/hr IV ASDIRECTED SANDI Last Admin: 10/24/18 08:24 Dose: 125 mls/hr Sodium Chloride (Normal Saline) 1,000 mls @ 75 mls/hr IV ASDIRECTED SANDI Last Admin: 10/25/18 09:13 Dose: 75 mls/hr Methadone HCl (Methadone) 10 mg PO NOW STA Stop: 10/24/18 02:17 Last Admin: 10/24/18 02:21 Dose: 10 mg Oxycodone/Acetaminophen (Percocet 325-7.5 Mg) 2 tab PO Q6H PRN PRN Reason: Pain Last Admin: 10/24/18 09:13 Dose: 2 tab - Exam Quality Assessment: Denies: Supplemental Oxygen General: Reports: Alert, Oriented, Cooperative, No Acute Distress Lungs: Reports: Normal Respiratory Effort GI/Abdominal Exam: Soft, No Distention Extremities: No Pedal Edema Psy/Mental Status: Reports: Alert, Normal Affect
[2018-10-25 14:36] VITALS: BP 117/79
[2018-10-25] MEDS ORDERED: Baclofen 10 MG Tab PO ONE (16:04)
== END 2018-10-25 16:10 | disposition home health service (06) | DRG 698 ==
LOC: JP.ED 22:49 → JP.MS 10-24 02:13
PROVIDERS: ADMIT Family Medicine; ATTEND Internal Medicine
DX: T83.511A Infection and inflammatory reaction due to indwelling urethral catheter, initial encounter (principal); L89.314 Pressure ulcer of right buttock, stage 4; G82.20 Paraplegia, unspecified; N34.2 Other urethritis; N31.8 Other neuromuscular dysfunction of bladder; S34.104S Unspecified injury to L4 level of lumbar spinal cord, sequela; F17.200 Nicotine dependence, unspecified, uncomplicated; E03.9 Hypothyroidism, unspecified; I10 Essential (primary) hypertension; F32.9 Major depressive disorder, single episode, unspecified; J02.0 Streptococcal pharyngitis; E87.6 Hypokalemia; R25.2 Cramp and spasm; Z79.891 Long term (current) use of opiate analgesic; Z86.14 Personal history of Methicillin resistant Staphylococcus aureus infection; Z87.440 Personal history of urinary (tract) infections; Z87.01 Personal history of pneumonia (recurrent); H54.7 Unspecified visual loss; W06.XXXA Fall from bed, initial encounter; Y92.003 Bedroom of unspecified non-institutional (private) residence as the place of occurrence of the external cause; Z93.3 Colostomy status; Z87.828 Personal history of other (healed) physical injury and trauma; Z91.5 Personal history of self-harm; Z79.52 Long term (current) use of systemic steroids; Z88.1 Allergy status to other antibiotic agents; Z88.0 Allergy status to penicillin
CPT/HCPCS: 36415; 70450; 71045; 71045-26; 74018; 74018-26; 80048; 80305-QW; 81001; 83605; 84484; 85027; 87040; 87077; 87086; 87088; 87186; 94640; 96365; 96366; 96368; 96375; 99285-25; A9270-GY; G0480; J0696; J1170; J3480; J7030; J7050

== ENCOUNTER 2019-01-02 08:22 | Inpatient (IN) | payer MEDICAID ==
[2019-01-02] MEDS ORDERED: Sodium Chloride 0.9% 1,000 ML IV SCH ×2 (08:45→10:00)
--- NOTE | 2019-01-02 09:56 | EDM.PDOC ---
ED HPI GENERAL MEDICAL PROBLEM - General Chief Complaint: General Stated Complaint: MEDICAL COMING WITH [facility] Time Seen by Provider: 01/02/19 08:50 Source of Information: Reports: Patient History Limitations: Reports: No Limitations - History of Present Illness INITIAL COMMENTS - FREE TEXT/NARRATIVE: pt arrived by ambulance from home. Her mother who is her rn care manager noted that she was more lethargic combined with being restless last nite. She did not spike a temp. She normally takes care of her own meds and this am her meds were scattered all over the bed. Her mother could not be sure what she had taken. Onset: Other ( started last nite. ) Duration: Hour(s): Location: Reports: Generalized Associated Symptoms: Reports: Other (lethargic and poor coordination. ) - Related Data Allergies Allergy/AdvReac Type Severity Reaction Status Date / Time clindamycin Allergy Cannot Verified 08/20/18 20:22 Remember Penicillins Allergy Cannot Verified 08/20/18 20:22 Remember Home Meds: Home Meds Albuterol [Ventolin HFA] 1 puff IH QID 12/16/14 [History] Ibuprofen 200 mg PO Q4H PRN 12/16/14 [History] Methadone 15 mg PO BID 12/16/14 [History] Methadone 20 mg PO QAM 12/16/14 [History] Multivitamins/Iron/Folic Acid [Cerovite Advanced Formula] 1 tab PO DAILY [History] Pregabalin [Lyrica] 200 mg PO TID 12/16/14 [History] Venlafaxine [Effexor] 75 - 150 mg PO BID 12/16/14 [History] Lisinopril 20 mg PO DAILY 07/04/17 [History] Oxybutynin Chloride [Ditropan Xl] 10 mg PO DAILY 02/05/18 [History] oxyCODONE HCl/Acetaminophen [Endocet 7.5-325 mg Tablet] 1 tab PO Q6H PRN [History] buPROPion [Wellbutrin SR] 1 tab PO BID 10/23/18 [History] Baclofen 20 mg PO TID 01/02/19 [History] Levothyroxine 75 mcg PO ACBREAKFAST 01/02/19 [History] Naloxone HCl [Narcan] 4 mg MIGUEL ASDIRECTED PRN 01/02/19 [History] Pregabalin [Lyrica] 200 mg PO TID 01/02/19 [History] hydrOXYzine pamoate [Hydroxyzine Pamoate] 25 mg PO Q6HR PRN 01/02/19 [History] Past Medical History HEENT History: Reports: Impaired Vision Cardiovascular History: Reports: Hypertension Respiratory History: Reports: SOB Other Respiratory History: PNA 6 months ago Gastrointestinal History: Reports: Other (See Below) Other Gastrointestinal History: ostomy Genitourinary History: Reports: UTI, Recurrent Other Genitourinary History: 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: Musculoskeletal History: Reports: Other (See Below) Other Musculoskeletal History: spasms Neurological History: Reports: Other (See Below) Other Neuro History: L-4 spinal cord injury Psychiatric History: Reports: Depression, Suicide Attempt Endocrine/Metabolic History: Reports: Hypothyroidism Hematologic History: Reports: Blood Transfusion(s) Dermatologic History: Reports: Decubitus Ulcer, Eczema Other Dermatologic History: rt buttock ulcer 2012 on going care by rn care manager - Infectious Disease History Infectious Disease History: Reports: MRSA Other Infectious Disease History: 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 and rn care manager state nolonger the case - Past Surgical History GI Surgical History: Reports: Small Bowel Female Surgical History: Reports: Suprapubic Catheter Placement Musculoskeletal Surgical History: Reports: Other (See Below) Other Musculoskeletal Surgeries/Procedures:: ankle Social & Family History - Family History Family Medical History: Noncontributory - Tobacco Use Smoking Status *Q: Current Every Day Smoker Years of Tobacco use: 28 Packs/Tins Daily: 1 - Caffeine Use Caffeine Use: Reports: Soda Other Caffeine Use: 1 cup a day Caffeine Use Comment: unknown - Recreational Drug Use Recreational Drug Use: No ED ROS GENERAL - Review of Systems Review Of Systems: See Below Constitutional: Reports: Malaise, Weakness HEENT: Reports: No Symptoms Respiratory: Reports: No Symptoms Cardiovascular: Reports: No Symptoms Endocrine: Reports: No Symptoms GI/Abdominal: Reports: No Symptoms : Reports: No Symptoms Musculoskeletal: Reports: No Symptoms ED EXAM, GENERAL - Physical Exam Exam: See Below Free Text/Narrative:: Pt appeared poorly coordinated and more lethargic this AM. She had a very restless nite. Exam Limited By: No Limitations General Appearance: Alert, Anxious, Other ( very restless. ) Ears: Normal TMs Nose: Normal Inspection Throat/Mouth: Normal Inspection Head: Atraumatic Neck: Normal Inspection Respiratory/Chest: No Respiratory Distress Cardiovascular: Regular Rate, Rhythm, Tachycardia (Female) Exam: Other (pt has a supra pubic cath.) Rectal (Female) Exam: Deferred Extremities: Other (pt has a massive decubus ulcer which does look fairly clean ) Neurological: Alert, Oriented Psychiatric: Anxious Course - Vital Signs Last Recorded V/S: Last Vital Signs Temp 36 C 01/02/19 09:56 Pulse 73 01/02/19 09:56 Resp 14 01/02/19 09:56 BP 125/69 01/02/19 09:56 Pulse Ox 96 01/02/19 09:56 - Orders/Labs/Meds Orders: Active Orders 24 hr Category Date Time Status CULTURE BLOOD [BC] Urgent Lab 01/02/19 08:40 Received CULTURE BLOOD [BC] Urgent Lab 01/02/19 08:50 Received CULTURE URINE [RM] Stat Lab 01/02/19 09:58 Received Sodium Chloride 0.9% [Normal Saline] 1,000 ml Med 01/02/19 08:45 Active IV ASDIRECTED Sodium Chloride 0.9% [Normal Saline] 1,000 ml Med 01/02/19 10:00 Active IV ASDIRECTED Blood Culture x2 Reflex Set [OM.PC] Urgent Oth 01/02/19 08:32 Ordered Medication Orders Sodium Chloride (Normal Saline) 1,000 mls @ 999 mls/hr IV ASDIRECTED SANDI Last Admin: 01/02/19 09:08 Dose: 999 mls/hr Sodium Chloride (Normal Saline) 1,000 mls @ 999 mls/hr IV ASDIRECTED SANDI Last Admin: 01/02/19 10:06 Dose: 999 mls/hr Labs: Laboratory Tests 01/02/19 01/02/19 01/02/19 Range/Units 08:45 08:45 08:45 WBC 15.8 H (4.5-11.0) K/uL RBC 5.79 H (3.30-5.50) M/uL Hgb 14.9 D (12.0-15.0) g/dL Hct 47.0 (36.0-48.0) % MCV 81 (80-98) fL MCH 26 L (27-31) pg MCHC 32 (32-36) % Plt Count 413 H (150-400) K/uL Neut % (Auto) 73 H (36-66) % Lymph % (Auto) 21 L (24-44) % Nolan % (Auto) 4 (2-6) % Eos % (Auto) 1 L (2-4) % Baso % (Auto) 1 (0-1) % Sodium 134 L (140-148) mmol/L Potassium 5.1 (3.6-5.2) mmol/L Chloride 98 L (100-108) mmol/L Carbon Dioxide 28 (21-32) mmol/L Anion Gap 13.1 (5.0-14.0) mmol/L BUN 12 (7-18) mg/dL Creatinine 0.9 (0.6-1.0) mg/dL Est Cr Clr Drug Dosing 66.01 mL/min Estimated GFR (MDRD) > 60 (>60) Glucose 100 (74-106) mg/dL Lactic Acid 1.6 (0.4-2.0) mmol/L Calcium 9.4 (8.5-10.1) mg/dL Total Bilirubin 0.3 (0.2-1.0) mg/dL AST 18 (15-37) U/L ALT 20 (12-78) U/L Alkaline Phosphatase 182 H (46-116) U/L Total Protein 8.3 H (6.4-8.2) g/dL Albumin 2.7 L (3.4-5.0) g/dL Globulin 5.6 H (2.3-3.5) g/dL Albumin/Globulin Ratio 0.5 L (1.2-2.2) Urine Color Urine Appearance Urine pH (4.5-8.0) Ur Specific [place] (1.008-1.030) Urine Protein (NEGATIVE) mg/dL Urine Glucose (UA) (NEGATIVE) mg/dL Urine Ketones (NEGATIVE) mg/dL Urine Occult Blood (NEGATIVE) Urine Nitrite (NEGATIVE) Urine Bilirubin (NEGATIVE) Urine Urobilinogen (NORMAL) mg/dL Ur Leukocyte Esterase (NEGATIVE) Urine RBC (0-5) Urine WBC (0-5) Ur Epithelial Cells Amorphous Sediment Urine Bacteria Urine Mucus 01/02/19 Range/Units 09:25 WBC (4.5-11.0) K/uL RBC (3.30-5.50) M/uL Hgb (12.0-15.0) g/dL Hct (36.0-48.0) % MCV (80-98) fL MCH (27-31) pg MCHC (32-36) % Plt Count (150-400) K/uL Neut % (Auto) (36-66) % Lymph % (Auto) (24-44) % Nolan % (Auto) (2-6) % Eos % (Auto) (2-4) % Baso % (Auto) (0-1) % Sodium (140-148) mmol/L Potassium (3.6-5.2) mmol/L Chloride (100-108) mmol/L Carbon Dioxide (21-32) mmol/L Anion Gap (5.0-14.0) mmol/L BUN (7-18) mg/dL Creatinine (0.6-1.0) mg/dL Est Cr Clr Drug Dosing mL/min Estimated GFR (MDRD) (>60) Glucose (74-106) mg/dL Lactic Acid (0.4-2.0) mmol/L Calcium (8.5-10.1) mg/dL Total Bilirubin (0.2-1.0) mg/dL AST (15-37) U/L ALT (12-78) U/L Alkaline Phosphatase (46-116) U/L Total Protein (6.4-8.2) g/dL Albumin (3.4-5.0) g/dL Globulin (2.3-3.5) g/dL Albumin/Globulin Ratio (1.2-2.2) Urine Color Yellow Urine Appearance Clear Urine pH 6.0 (4.5-8.0) Ur Specific [place] 1.010 (1.008-1.030) Urine Protein Negative (NEGATIVE) mg/dL Urine Glucose (UA) Normal (NEGATIVE) mg/dL Urine Ketones Negative (NEGATIVE) mg/dL Urine Occult Blood Trace (NEGATIVE) Urine Nitrite Positive H (NEGATIVE) Urine Bilirubin Negative (NEGATIVE) Urine Urobilinogen Normal (NORMAL) mg/dL Ur Leukocyte Esterase Moderate (NEGATIVE) Urine RBC 0-5 (0-5) Urine WBC 5-10 H (0-5) Ur Epithelial Cells Not seen Amorphous Sediment Not seen Urine Bacteria Few Urine Mucus Not seen Meds: Medications Generic Name Dose Route Start Last Admin Trade Name Freq PRN Reason Stop Dose Admin Sodium Chloride 1,000 mls @ 999 mls/hr 01/02/19 08:45 01/02/19 09:08 Normal Saline IV 999 mls/hr ASDIRECTED SANDI Administration Sodium Chloride 1,000 mls @ 999 mls/hr 01/02/19 10:00 01/02/19 10:06 Normal Saline IV 999 mls/hr ASDIRECTED SANDI Administration - Re-Assessments/Exams Free Text/Narrative Re-Assessment/Exam: 01/02/19 10:21 wbc is elevated at 15,000. Her urine is definitely infected. She has a normal lactic acid. 01/02/19 10:41 19 10:41 Departure - Departure Time of Disposition: 10:22 Disposition: Admitted As Inpatient 66 Condition: Fair Clinical Impression: UTI (urinary tract infection) - Discharge Information Referrals: PCP,None [Primary Care Provider] - Forms: ED Department Discharge Care Plan Goals: admit to Dr Fink - My Orders Last 24 Hours: My Active Orders 01/02/19 08:32 Blood Culture x2 Reflex Set [OM.PC] Urgent 01/02/19 08:40 CULTURE BLOOD [BC] Urgent 01/02/19 08:45 Sodium Chloride 0.9% [Normal Saline] 1,000 ml IV ASDIRECTED 01/02/19 08:50 CULTURE BLOOD [BC] Urgent 01/02/19 09:58 CULTURE URINE [RM] Stat 01/02/19 10:00 Sodium Chloride 0.9% [Normal Saline] 1,000 ml IV ASDIRECTED - Assessment/Plan Last 24 Hours: My Active Orders 01/02/19 08:32 Blood Culture x2 Reflex Set [OM.PC] Urgent 01/02/19 08:40 CULTURE BLOOD [BC] Urgent 01/02/19 08:45 Sodium Chloride 0.9% [Normal Saline] 1,000 ml IV ASDIRECTED 01/02/19 08:50 CULTURE BLOOD [BC] Urgent 01/02/19 09:58 CULTURE URINE [RM] Stat 01/02/19 10:00 Sodium Chloride 0.9% [Normal Saline] 1,000 ml IV ASDIRECTED
[2019-01-02] MEDS ORDERED: Doxycycline 100 MG in Sodium Chloride 0.9% 100 ML IV ONE (10:59)
--- NOTE | 2019-01-02 11:37 | PCM.HP ---
H&P History of Present Illness - General Date of Service: 01/02/19 Admit Problem/Dx: Admission Diagnosis/Problem Admission Diagnosis/Problem Complicated urinary tract infection Source of Information: Family. No: Patient History Limitations: Reports: Altered Mental Status - History of Present Illness Initial Comments - Free Text/Narative: Aaliyah presents to the emergency room today by ambulance after her mother noted increased lethargy and confusion. Aaliyah is very somnolent and does not answer most of the questions. History is gathered from her mother. Per report the patient was weaker and had a slight change in her mental status that raised concern for infection yesterday. She seemed a little bit confused and was clumsy when trying take her medications. She did not have an appetite yesterday and did not eat any supper last night. Her mother was worried about her but she seemed to be stable throughout the night. This morning she was very lethargic and difficult to arouse. She was not able to get out of bed like usual for breakfast. Her mom has not noticed any fevers. She has not noticed any change in bowel habits. She does think maybe her urine looks a little darker than usual in the catheter bag. They have been doing daily dressing changes on her large decubitus ulcer and it has been slowly healing. She has not noticed any drainage or had any concerns. She is not taking any new medications. Workup in the emergency room was concerning for urinary tract infection. She is lethargic but there is no other evidence for sepsis at this time. Cultures have been obtained. Antibiotics were initiated in the emergency room. She will be admitted for further management. General All over pain Pain Score (Numeric/FACES): 5 - Related Data Allergies/Adverse Reactions: Allergies Allergy/AdvReac Type Severity Reaction Status Date / Time clindamycin Allergy Cannot Verified 08/20/18 20:22 Remember Penicillins Allergy Cannot Verified 08/20/18 20:22 Remember Home Medications: Home Meds Albuterol [Ventolin HFA] 1 puff IH QID 12/16/14 [History] Ibuprofen 200 mg PO Q4H PRN 12/16/14 [History] Methadone 15 mg PO BID 12/16/14 [History] Methadone 20 mg PO QAM 12/16/14 [History] Multivitamins/Iron/Folic Acid [Cerovite Advanced Formula] 1 tab PO DAILY [History] Pregabalin [Lyrica] 200 mg PO TID 12/16/14 [History] Venlafaxine [Effexor] 75 mg PO BEDTIME 12/16/14 [History] Lisinopril 20 mg PO DAILY 07/04/17 [History] Oxybutynin Chloride [Ditropan Xl] 10 mg PO DAILY 02/05/18 [History] oxyCODONE HCl/Acetaminophen [Endocet 7.5-325 mg Tablet] 1 tab PO Q6H PRN [History] buPROPion [Wellbutrin SR] 1 tab PO BID 10/23/18 [History] Baclofen 20 mg PO TID 01/02/19 [History] Levothyroxine 75 mcg PO ACBREAKFAST 01/02/19 [History] Naloxone HCl [Narcan] 4 mg MIGUEL ASDIRECTED PRN 01/02/19 [History] Pregabalin [Lyrica] 200 mg PO TID 01/02/19 [History] Venlafaxine [Effexor] 150 mg PO DAILY 01/02/19 [History] hydrOXYzine pamoate [Hydroxyzine Pamoate] 25 mg PO Q6HR PRN 01/02/19 [History] Past Medical History HEENT History: Reports: Impaired Vision Cardiovascular History: Reports: Hypertension Respiratory History: Reports: SOB Other Respiratory History: PNA 6 months ago Gastrointestinal History: Reports: Other (See Below) Other Gastrointestinal History: ostomy Genitourinary History: Reports: UTI, Recurrent Other Genitourinary History: suprapubic Cath 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: Musculoskeletal History: Reports: Other (See Below) Other Musculoskeletal History: spasms Neurological History: Reports: Other (See Below) Other Neuro History: L-4 spinal cord injury Psychiatric History: Reports: Depression, Suicide Attempt Endocrine/Metabolic History: Reports: Hypothyroidism Hematologic History: Reports: Blood Transfusion(s) Dermatologic History: Reports: Decubitus Ulcer, Eczema Other Dermatologic History: rt buttock ulcer 2013 on going care by childcare center director - Infectious Disease History Infectious Disease History: Reports: MRSA Other Infectious Disease History: 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 and childcare center director state nolonger the case - Past Surgical History GI Surgical History: Reports: Small Bowel Female Surgical History: Reports: Suprapubic Catheter Placement Musculoskeletal Surgical History: Reports: Other (See Below) Other Musculoskeletal Surgeries/Procedures:: ankle Social & Family History - Family History Family Medical History: Noncontributory - Tobacco Use Smoking Status *Q: Current Every Day Smoker Years of Tobacco use: 28 Packs/Tins Daily: 1 - Caffeine Use Caffeine Use: Reports: Soda Other Caffeine Use: 1 cup a day Caffeine Use Comment: unknown - Alcohol Use Alcohol Use History: No - Recreational Drug Use Recreational Drug Use: No H&P Review of Systems - Review of Systems: Review Of Systems: See Below Free Text/Narrative: A complete 12 point review of systems was obtained. Pertinent positives and negatives are noted in the history of present illness. All other systems were reviewed and were negative except as noted. Exam - Exam Exam: See Below - Vital Signs Vital Signs: Last Vital Signs Temp 36 C 01/02/19 09:56 Pulse 73 01/02/19 09:56 Resp 14 01/02/19 09:56 BP 125/69 01/02/19 09:56 Pulse Ox 96 01/02/19 09:56 Weight: 78 kg - Exam Quality Assessment: No: Supplemental Oxygen General: Alert, Cooperative, Mild Distress, Lethargic. No: Oriented HEENT: No: Mucosa Moist & [place] (dry), Scleral Icterus Neck: Supple, Trachea Midline. No: Lymphadenopathy Lungs: Clear to Auscultation, Normal Respiratory Effort Cardiovascular: Regular Rate, Regular Rhythm. No: Systolic Murmur GI/Abdominal Exam: Normal Bowel Sounds, Soft, Non-Tender, No Distention, Other ( colostomy with green/brown stool RLQ. Suprapubic cathteter with clean insertion site ) Back Exam: Other (Large reddened area of sacrum and buttocks. There are two open areas, one is 1 cm and just superior to the sacrum. There other is about 10 cm and is on the right lower buttocks. No drainage from either) Extremities: No Pedal Edema. No: Increased Warmth Peripheral Pulses: 2+: Dorsalis Pedis (L), Dorsalis Pedis (R) Skin: Warm, Dry Neuro Extensive - Mental Status: Alert, Slow Response to Commands. No: Oriented x3 Neuro Extensive - Motor, Sensory, Reflexes: No: Dysarthria, Abnormal Motor, Tremor Psychiatric: Alert, Anxious - Patient Data Lab Results Last 24 hrs: Laboratory Results - last 24 hr 01/02/19 01/02/19 01/02/19 Range/Units 08:45 08:45 08:45 WBC 15.8 H (4.5-11.0) K/uL RBC 5.79 H (3.30-5.50) M/uL Hgb 14.9 D (12.0-15.0) g/dL Hct 47.0 (36.0-48.0) % MCV 81 (80-98) fL MCH 26 L (27-31) pg MCHC 32 (32-36) % Plt Count 413 H (150-400) K/uL Neut % (Auto) 73 H (36-66) % Lymph % (Auto) 21 L (24-44) % [place] % (Auto) 4 (2-6) % Eos % (Auto) 1 L (2-4) % Baso % (Auto) 1 (0-1) % Sodium 134 L (140-148) mmol/L Potassium 5.1 (3.6-5.2) mmol/L Chloride 98 L (100-108) mmol/L Carbon Dioxide 28 (21-32) mmol/L Anion Gap 13.1 (5.0-14.0) mmol/L BUN 12 (7-18) mg/dL Creatinine 0.9 (0.6-1.0) mg/dL Est Cr Clr Drug Dosing 66.01 mL/min Estimated GFR (MDRD) > 60 (>60) Glucose 100 (74-106) mg/dL Lactic Acid 1.6 (0.4-2.0) mmol/L Calcium 9.4 (8.5-10.1) mg/dL Total Bilirubin 0.3 (0.2-1.0) mg/dL AST 18 (15-37) U/L ALT 20 (12-78) U/L Alkaline Phosphatase 182 H (46-116) U/L Total Protein 8.3 H (6.4-8.2) g/dL Albumin 2.7 L (3.4-5.0) g/dL Globulin 5.6 H (2.3-3.5) g/dL Albumin/Globulin Ratio 0.5 L (1.2-2.2) Urine Color Urine Appearance Urine pH (4.5-8.0) Ur Specific Chelsea (1.008-1.030) Urine Protein (NEGATIVE) mg/dL Urine Glucose (UA) (NEGATIVE) mg/dL Urine Ketones (NEGATIVE) mg/dL Urine Occult Blood (NEGATIVE) Urine Nitrite (NEGATIVE) Urine Bilirubin (NEGATIVE) Urine Urobilinogen (NORMAL) mg/dL Ur Leukocyte Esterase (NEGATIVE) Urine RBC (0-5) Urine WBC (0-5) Ur Epithelial Cells Amorphous Sediment Urine Bacteria Urine Mucus 01/02/19 Range/Units 09:25 WBC (4.5-11.0) K/uL RBC (3.30-5.50) M/uL Hgb (12.0-15.0) g/dL Hct (36.0-48.0) % MCV (80-98) fL MCH (27-31) pg MCHC (32-36) % Plt Count (150-400) K/uL Neut % (Auto) (36-66) % Lymph % (Auto) (24-44) % [place] % (Auto) (2-6) % Eos % (Auto) (2-4) % Baso % (Auto) (0-1) % Sodium (140-148) mmol/L Potassium (3.6-5.2) mmol/L Chloride (100-108) mmol/L Carbon Dioxide (21-32) mmol/L Anion Gap (5.0-14.0) mmol/L BUN (7-18) mg/dL Creatinine (0.6-1.0) mg/dL Est Cr Clr Drug Dosing mL/min Estimated GFR (MDRD) (>60) Glucose (74-106) mg/dL Lactic Acid (0.4-2.0) mmol/L Calcium (8.5-10.1) mg/dL Total Bilirubin (0.2-1.0) mg/dL AST (15-37) U/L ALT (12-78) U/L Alkaline Phosphatase (46-116) U/L Total Protein (6.4-8.2) g/dL Albumin (3.4-5.0) g/dL Globulin (2.3-3.5) g/dL Albumin/Globulin Ratio (1.2-2.2) Urine Color Yellow Urine Appearance Clear Urine pH 6.0 (4.5-8.0) Ur Specific [place] 1.010 (1.008-1.030) Urine Protein Negative (NEGATIVE) mg/dL Urine Glucose (UA) Normal (NEGATIVE) mg/dL Urine Ketones Negative (NEGATIVE) mg/dL Urine Occult Blood Trace (NEGATIVE) Urine Nitrite Positive H (NEGATIVE) Urine Bilirubin Negative (NEGATIVE) Urine Urobilinogen Normal (NORMAL) mg/dL Ur Leukocyte Esterase Moderate (NEGATIVE) Urine RBC 0-5 (0-5) Urine WBC 5-10 H (0-5) Ur Epithelial Cells Not seen Amorphous Sediment Not seen Urine Bacteria Few Urine Mucus Not seen Result Diagrams: 01/02/19 08:45 01/02/19 08:45 *Q Meaningful Use (ADM) - VTE Risk Assess *Q Each Risk Factor Represents 1 Point: Age 41 - 59 years, Obesity ( BMI > 25 kg/m2 ) Total Score 1 Point Risk Factors: 2 Each Risk Factor Represents 2 Points: None Total Score 2 Point Risk Factors: 0 Each Risk Factor Represents 3 Points: None Total Score 3 Point Risk Factors: 0 Each Risk Factor Represents 5 Points: None Total Score 5 Point Risk Factors: 0 Venous Thromboembolism Risk Factor Score *Q: 2 - Problem List (1) Complicated urinary tract infection SNOMED Code(s): 18362431 ICD Code: N39.0 - URINARY TRACT INFECTION, SITE NOT SPECIFIED Status: Acute Current Visit: No Problem Details: chronic suprapubic catheter in place (2) Altered level of consciousness SNOMED Code(s): 4149874 ICD Code: R40.4 - TRANSIENT ALTERATION OF AWARENESS Status: Acute Current Visit: No (3) Decubitus skin ulcer SNOMED Code(s): 016237059 ICD Code: L89.90 - PRESSURE ULCER OF UNSPECIFIED SITE, UNSPECIFIED STAGE Status: Acute Current Visit: No Qualifiers: Pressure injury location: buttock Pressure injury stage: stage 4 Laterality: unspecified laterality Qualified Code(s): L89.304 - Pressure ulcer of unspecified buttock, stage 4 (4) Paraplegia following spinal cord injury SNOMED Code(s): 00020388, 66082630 ICD Code: G82.20 - PARAPLEGIA, UNSPECIFIED Status: Chronic Current Visit : No (5) Tobacco dependence SNOMED Code(s): 81450053 ICD Code: F17.200 - NICOTINE DEPENDENCE, UNSPECIFIED, UNCOMPLICATED Status : Chronic Current Visit: No Problem List Initiated/Reviewed/Updated: Yes Orders Last 24hrs: Active Orders 24 hr Category Date Time Status Patient Status Manage Transfer [TRANSFER] Routine ADT 01/02/19 11:23 Active CULTURE BLOOD [BC] Urgent Lab 01/02/19 08:40 Received CULTURE BLOOD [BC] Urgent Lab 01/02/19 08:50 Received CULTURE URINE [RM] Stat Lab 01/02/19 09:58 Received Doxycycline [Vibramycin] 100 mg Med 01/02/19 10:59 Active Sodium Chloride 0.9% [Normal Saline] 100 ml IV ONETIME Sodium Chloride 0.9% [Normal Saline] 1,000 ml Med 01/02/19 08:45 Active IV ASDIRECTED Sodium Chloride 0.9% [Normal Saline] 1,000 ml Med 01/02/19 10:00 Active IV ASDIRECTED Blood Culture x2 Reflex Set [OM.PC] Urgent Oth 01/02/19 08:32 Ordered Resuscitation Status Routine Resus Stat 01/02/19 11:26 Ordered Medication Orders Sodium Chloride (Normal Saline) 1,000 mls @ 999 mls/hr IV ASDIRECTED [facility] Last Admin: 01/02/19 09:08 Dose: 999 mls/hr Sodium Chloride (Normal Saline) 1,000 mls @ 999 mls/hr IV ASDIRECTED [facility] Last Admin: 01/02/19 10:06 Dose: 999 mls/hr Doxycycline Hyclate 100 mg/ (Sodium Chloride) 100 mls @ 100 mls/hr IV ONETIME ONE Stop: 01/02/19 11:58 Last Admin: 01/02/19 11:08 Dose: 100 mls/hr Assessment/Plan Comment:: ASSESSMENT AND PLAN - Compensated urinary tract infection - she has a suprapubic catheter because of a neurogenic bladder. She has had several infections, most recently with MRSA. She is not septic at this time but is lethargic. Vital signs are currently stable. Cultures have been obtained. -IV fluids -Doxycycline and ceftriaxone -Isolation status with history of MRSA -Follow-up cultures Paraplegia secondary to spinal cord injury - no progression of symptoms. She often has difficulty with increased spasticity during infections. -Continue home medications -Pain control Stage IV decubitus ulcer - slowly healing and appears better than last time evaluated at. She has regular dressing changes performed by her mom. She has regular wound care follow-up with Dr. Weems. No current evidence for infection. -Continue daily dressing changes Tobacco dependence - encourage cessation, offered nicotine replacement as needed. Maintenance issues - - DVT prophylaxis - enoxaparin - GI prophylaxis - not indicated - Nutrition - regular - Olivas catheter - chronic suprapubic catheter CODE STATUS - full code Admission justification - This patient will be admitted for inpatient services and is medically appropriate meeting medical necessity for inpatient admission as outlined in my documentation. I reasonably expect the patient will require inpatient services that span a period time over 2 midnights. I reasonably expect this patient to be discharged or transferred within 96 hours after admission to the [facility]. Disposition - I would anticipate discharge home with her mom after the hospital stay Primary care physician - Dr Brooks Fink M.D.
[2019-01-02] MEDS ORDERED: Nicotine 14 MG/24 Hr Patch TRDERM PRN (12:23)
[2019-01-02] MEDS ORDERED: Acetaminophen 325 MG Tab PO PRN (12:23)
[2019-01-02] MEDS ORDERED: Albuterol 0.083% 2.5 MG/3 ML Neb Soln NEB PRN (12:23)
[2019-01-02] MEDS ORDERED: Ondansetron 4 MG/2 ML SDV IV PRN (12:23)
[2019-01-02] MEDS ORDERED: Ondansetron 4 MG Tab.DIS PO PRN (12:23)
[2019-01-02] MEDS ORDERED: hydrOXYzine HCl 25 MG Tab PO PRN (12:23)
[2019-01-02] MEDS ORDERED: Polyethylene Glycol 3350 Powder 17 GM Packet PO PRN (12:23)
[2019-01-02] MEDS: Acetaminophen/oxyCODONE 325-7.5 MG Tab PO PRN ×2 (12:55→17:01)
[2019-01-02] MEDS ORDERED: cefTRIAXone 2 GM in Sodium Chloride 0.9% 50 ML IV SCH (13:00)
[2019-01-02] MEDS: Baclofen 10 MG Tab PO SCH ×2 (13:23→20:04)
[2019-01-02] MEDS: Pregabalin 100 MG Cap PO SCH ×2 (13:23→20:04)
[2019-01-02] MEDS: Sodium Chloride 0.9% 1,000 ML IV SCH (20:03)
[2019-01-02] MEDS: Methadone 5 MG Tab PO SCH (20:04)
[2019-01-02] MEDS: buPROPion 150 MG Tab.SR PO SCH (20:08)
[2019-01-02] MEDS ORDERED: Venlafaxine 75 MG Tab PO SCH (21:00)
[2019-01-03] MEDS: Acetaminophen/oxyCODONE 325-7.5 MG Tab PO PRN ×2 (01:56→07:45)
[2019-01-03] MEDS: HYDROmorphone 1 MG/ML Syringe IVPUSH PRN ×2 (02:33→09:10)
[2019-01-03] MEDS: Sodium Chloride 0.9% 1,000 ML IV SCH (04:36)
[2019-01-03] MEDS: Venlafaxine 75 MG Tab PO SCH ×2 (07:28→08:03)
[2019-01-03] MEDS: Baclofen 10 MG Tab PO SCH ×2 (07:28→08:04)
[2019-01-03] MEDS: Oxybutynin 5 MG Tab PO SCH ×2 (07:29→08:04)
[2019-01-03] MEDS: buPROPion 150 MG Tab.SR PO SCH ×2 (07:29→08:04)
[2019-01-03] MEDS ORDERED: Levothyroxine 25 MCG Tab PO SCH (07:30)
[2019-01-03] MEDS: Methadone 10 MG Tab PO SCH ×2 (07:32→09:04)
[2019-01-03] MEDS: Pregabalin 100 MG Cap PO SCH ×2 (07:33→08:04)
[2019-01-03] MEDS: Lisinopril 20 MG Tab PO SCH ×2 (07:34→09:04)
[2019-01-03 07:59] VITALS: BP 119/64
[2019-01-03] MEDS ORDERED: Enoxaparin 40 MG/0.4 ML Syringe SUBCUT SCH (09:00)
[2019-01-03] MEDS: Methadone 5 MG Tab PO SCH (09:10)
[2019-01-03] MEDS ORDERED: Acetaminophen/oxyCODONE 325-7.5 MG Tab PO PRN (09:25)
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
== END 2019-01-03 11:32 | disposition home or self-care (01) | DRG 689 ==
LOC: JP.ED 08:22 → JP.MS 11:23
PROVIDERS: ADMIT Internal Medicine; ATTEND Internal Medicine
DX: N39.0 Urinary tract infection, site not specified (principal); L89.314 Pressure ulcer of right buttock, stage 4; G82.20 Paraplegia, unspecified; S34.104S Unspecified injury to L4 level of lumbar spinal cord, sequela; Z93.50 Unspecified cystostomy status; R40.4 Transient alteration of awareness; I10 Essential (primary) hypertension; E03.9 Hypothyroidism, unspecified; F32.9 Major depressive disorder, single episode, unspecified; F17.210 Nicotine dependence, cigarettes, uncomplicated; Z86.14 Personal history of Methicillin resistant Staphylococcus aureus infection; Z87.440 Personal history of urinary (tract) infections; H54.7 Unspecified visual loss; Z91.5 Personal history of self-harm; N31.9 Neuromuscular dysfunction of bladder, unspecified; Z88.1 Allergy status to other antibiotic agents; Z88.0 Allergy status to penicillin
CPT/HCPCS: 36415; 80048; 80053; 81001; 83605; 85025; 85027; 87040; 87077; 87086; 87186; 96361; 96365; 99285-25; A9270-GY; C1751; J0696; J1170; J1650; J3490; J7030; J7050

== ENCOUNTER 2019-02-08 13:55 | Emergency (ER) | payer MEDICAID ==
[2019-02-08 14:23] VITALS: BP 124/67
--- NOTE | 2019-02-08 15:05 | EDM.PDOC ---
ED HPI GENERAL MEDICAL PROBLEM - General Chief Complaint: Gastrointestinal Problem Stated Complaint: COLOSTOMY ISSUES Time Seen by Provider: 02/08/19 14:30 Source of Information: Reports: Patient, Family History Limitations: Reports: No Limitations - History of Present Illness INITIAL COMMENTS - FREE TEXT/NARRATIVE: 48-year-old female concerned that she's had decreased production through her colostomy over the past several days with some abdominal distention. No fevers or chills, no nausea or vomiting, she is not on a stool softener. Onset: Unknown/Unsure Duration: Day(s): (At least several days) Associated Symptoms: Reports: No Other Symptoms (Her mother is concerned she is not eating well) genera Pain Score (Numeric/FACES): 4 - Related Data Allergies Allergy/AdvReac Type Severity Reaction Status Date / Time clindamycin Allergy Cannot Verified 02/08/19 14:22 Remember Penicillins Allergy Cannot Verified 02/08/19 14:22 Remember Home Meds: Home Meds Albuterol [Ventolin HFA] 1 puff IH QID 12/16/14 [History] Ibuprofen 200 mg PO Q4H PRN 12/16/14 [History] Methadone 15 mg PO BID 12/16/14 [History] Methadone 20 mg PO QAM 12/16/14 [History] Multivitamins/Iron/Folic Acid [Cerovite Advanced Formula] 1 tab PO DAILY [History] Pregabalin [Lyrica] 200 mg PO TID 12/16/14 [History] Venlafaxine [Effexor] 75 mg PO BEDTIME 12/16/14 [History] Lisinopril 20 mg PO DAILY 07/04/17 [History] Oxybutynin Chloride [Ditropan Xl] 10 mg PO DAILY 02/05/18 [History] oxyCODONE HCl/Acetaminophen [Endocet 7.5-325 mg Tablet] 2 tab PO Q6H PRN [History] buPROPion [Wellbutrin SR] 1 tab PO BID 10/23/18 [History] Baclofen 20 mg PO TID 01/02/19 [History] Levothyroxine 75 mcg PO ACBREAKFAST 01/02/19 [History] Naloxone HCl [Narcan] 4 mg MIGUEL ASDIRECTED PRN 01/02/19 [History] Pregabalin [Lyrica] 200 mg PO TID 01/02/19 [History] Venlafaxine [Effexor] 150 mg PO DAILY 01/02/19 [History] hydrOXYzine pamoate [Hydroxyzine Pamoate] 25 mg PO Q6HR PRN 01/02/19 [History] Sulfamethoxazole/Trimethoprim [Bactrim 400-80 MG] 1 each PO BID #9 tablet [Rx] Past Medical History HEENT History: Reports: Impaired Vision Cardiovascular History: Reports: Hypertension Respiratory History: Reports: SOB Other Respiratory History: PNA 6 months ago Gastrointestinal History: Reports: Other (See Below) Other Gastrointestinal History: ostomy Genitourinary History: Reports: UTI, Recurrent Other Genitourinary History: 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: Musculoskeletal History: Reports: Other (See Below) Other Musculoskeletal History: spasms Neurological History: Reports: Other (See Below) Other Neuro History: L-4 spinal cord injury Psychiatric History: Reports: Depression, Suicide Attempt Endocrine/Metabolic History: Reports: Hypothyroidism Hematologic History: Reports: Blood Transfusion(s) Dermatologic History: Reports: Decubitus Ulcer, Eczema Other Dermatologic History: rt buttock ulcer 2013 on going care by healthcare recruiter - Infectious Disease History Infectious Disease History: Reports: MRSA Other Infectious Disease History: 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 and healthcare recruiter state nolonger the case - Past Surgical History GI Surgical History: Reports: Small Bowel Female Surgical History: Reports: Suprapubic Catheter Placement Musculoskeletal Surgical History: Reports: Other (See Below) Other Musculoskeletal Surgeries/Procedures:: ankle Social & Family History - Family History Family Medical History: Noncontributory - Tobacco Use Smoking Status *Q: Current Every Day Smoker Years of Tobacco use: 15 Packs/Tins Daily: 0.5 - Caffeine Use Caffeine Use: Reports: Soda Other Caffeine Use: 1 cup a day Caffeine Use Comment: unknown - Recreational Drug Use Recreational Drug Use: No ED ROS GENERAL - Review of Systems Review Of Systems: See Below Constitutional: Denies: Fever, Chills Respiratory: Denies: Shortness of Breath GI/Abdominal: Denies: Abdominal Pain, Nausea, Vomiting : Reports: No Symptoms ED EXAM, GI/ABD - Physical Exam Exam: See Below Exam Limited By: No Limitations General Appearance: Alert, No Apparent Distress Eyes: Bilateral: Normal Appearance Respiratory/Chest: No Respiratory Distress, Lungs Clear Cardiovascular: Regular Rate, Rhythm GI/Abdominal Exam: Normal Bowel Sounds, Soft, Other (I do not appreciate distention or soreness to the abdomen. Stool is emptying into the colostomy while in the emergency room.) Course - Vital Signs Last Recorded V/S: Last Vital Signs Temp 96.6 F 02/08/19 14:20 Pulse 92 02/08/19 14:20 Resp 16 02/08/19 14:20 BP 124/67 02/08/19 14:20 Pulse Ox 93 L 02/08/19 14:20 - Re-Assessments/Exams Free Text/Narrative Re-Assessment/Exam: 02/08/19 15:03 Because of the stool production while in the emergency room, the patient decided no workup was needed and she wanted to give it a few days. She'll return if symptoms worsen. I encouraged water and stool softeners on a regular basis. Departure - Departure Time of Disposition: 15:17 Disposition: Home, Self-Care 01 Clinical Impression: Constipation by delayed colonic transit - Discharge Information Instructions: Constipation, Adult, [id number] Referrals: Brigitte Guy MD [Primary Care Provider] - Forms: ED Department Discharge Care Plan Goals: Continue with lots of water and a stool softener would be beneficial. Return in the next 1-2 days if not improving satisfactorily.
== END 2019-02-08 15:17 | disposition home or self-care (01) ==
LOC: JP.ED 13:55
DX: K59.01 Slow transit constipation (principal); F17.210 Nicotine dependence, cigarettes, uncomplicated; I10 Essential (primary) hypertension; E03.9 Hypothyroidism, unspecified; F32.9 Major depressive disorder, single episode, unspecified; Z79.899 Other long term (current) drug therapy
CPT/HCPCS: 99283

== ENCOUNTER 2019-05-08 21:59 | Emergency (ER) | payer MEDICAID ==
--- NOTE | 2019-05-08 22:15 | EDM.PDOC ---
ED HPI GENERAL MEDICAL PROBLEM - General Chief Complaint: Neurological Problem Stated Complaint: MEDICAL Time Seen by Provider: 05/08/19 22:14 Source of Information: Reports: Patient, EMS, Family History Limitations: Reports: Altered Mental Status - History of Present Illness INITIAL COMMENTS - FREE TEXT/NARRATIVE: 48 years old female patient brought in by ambulance for unresponsiveness. History collected from EMS and the patient mother because patient altered mental status. She was difficult to arouse this evening. They called ambulance. She was responsive to painful stimuli. Patient is a chronic pain patient, on methadone and [place]. She was given 0.5 of Narcan and she became responsive. No report of fever or cough. Mother stated that she has a history of recurrent sepsis. No report of head injury. No chest pain shortness breath. No cough. No abdominal pain diarrhea or constipation. No report of any urinary symptom however mother stated that she gets recurrent sepsis from UTI. Patient now is alert she know she is in [facility]. Report per EMS she had pinpoint pupil, hypoxic 88 on room air and blood pressure 120/80, respiratory 16 - Related Data Allergies Allergy/AdvReac Type Severity Reaction Status Date / Time clindamycin Allergy Cannot Verified 05/08/19 22:50 Remember Penicillins Allergy Cannot Verified 05/08/19 22:50 Remember Home Meds: Home Meds Albuterol [Ventolin HFA] 1 puff IH QID 12/16/14 [History] Ibuprofen 200 mg PO Q4H PRN 12/16/14 [History] Methadone 15 mg PO BID 12/16/14 [History] Methadone 20 mg PO QAM 12/16/14 [History] Multivitamins/Iron/Folic Acid [Cerovite Advanced Formula] 1 tab PO DAILY [History] Pregabalin [Lyrica] 200 mg PO TID 12/16/14 [History] Venlafaxine [Effexor] 75 mg PO BEDTIME 12/16/14 [History] Lisinopril 20 mg PO DAILY 07/04/17 [History] Oxybutynin Chloride [Ditropan Xl] 10 mg PO DAILY 02/05/18 [History] oxyCODONE HCl/Acetaminophen [Endocet 7.5-325 mg Tablet] 2 tab PO Q6H PRN [History] buPROPion [Wellbutrin SR] 1 tab PO BID 10/23/18 [History] Baclofen 20 mg PO TID 01/02/19 [History] Levothyroxine 75 mcg PO ACBREAKFAST 01/02/19 [History] Naloxone HCl [Narcan] 4 mg MIGUEL ASDIRECTED PRN 01/02/19 [History] Pregabalin [Lyrica] 200 mg PO TID 01/02/19 [History] Venlafaxine [Effexor] 150 mg PO DAILY 01/02/19 [History] hydrOXYzine pamoate [Hydroxyzine Pamoate] 25 mg PO Q6HR PRN 01/02/19 [History] Sulfamethoxazole/Trimethoprim [Bactrim 400-80 MG] 1 each PO BID #9 tablet [Rx] Past Medical History HEENT History: Reports: Impaired Vision Cardiovascular History: Reports: Hypertension Respiratory History: Reports: SOB Other Respiratory History: PNA 6 months ago Gastrointestinal History: Reports: Other (See Below) Other Gastrointestinal History: ostomy Genitourinary History: Reports: UTI, Recurrent Other Genitourinary History: 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: Musculoskeletal History: Reports: Other (See Below) Other Musculoskeletal History: spasms Neurological History: Reports: Other (See Below) Other Neuro History: L-4 spinal cord injury Psychiatric History: Reports: Depression, Suicide Attempt Endocrine/Metabolic History: Reports: Hypothyroidism Hematologic History: Reports: Blood Transfusion(s) Dermatologic History: Reports: Decubitus Ulcer, Eczema Other Dermatologic History: rt buttock ulcer 2013 on going care by care assistant - Infectious Disease History Infectious Disease History: Reports: MRSA Other Infectious Disease History: 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 and care assistant state nolonger the case - Past Surgical History GI Surgical History: Reports: Small Bowel Female Surgical History: Reports: Suprapubic Catheter Placement Musculoskeletal Surgical History: Reports: Other (See Below) Other Musculoskeletal Surgeries/Procedures:: ankle Social & Family History - Family History Family Medical History: Noncontributory - Caffeine Use Caffeine Use: Reports: Soda Other Caffeine Use: 1 cup a day Caffeine Use Comment: unknown ED ROS GENERAL - Review of Systems Review Of Systems: Unable To Obtain - Physical Exam Exam: See Below Exam Limited By: Altered Mental Status General Appearance: Alert, Mild Distress Ears: Normal External Exam Nose: Normal Inspection Head Exam: Atraumatic, Normocephalic Neck: Normal Inspection, Supple, Non-Tender, Full Range of Motion Respiratory/Chest: No Respiratory Distress, Lungs Clear, Normal Breath Sounds, No Accessory Muscle Use, Chest Non-Tender Cardiovascular: Normal Peripheral Pulses, Regular Rate, Rhythm, No Edema, No Gallop, No JVD, No Murmur, No Rub GI/Abdominal: Normal Bowel Sounds, Soft, Non-Tender, No Organomegaly, No Distention, No Abnormal Bruit, No Mass Neuro Exam (Abbreviated): Alert, Oriented, CN II-XII Intact, Normal Cognition, Normal Gait, Normal Reflexes, No Motor/Sensory Deficits Extremities: Normal Inspection, Normal Range of Motion, Non-Tender, No Pedal Edema, Normal Capillary Refill Skin Exam: Warm, Dry, Intact, Normal Color, No Rash Course - Vital Signs Last Recorded V/S: Last Vital Signs Temp 37.6 C 05/08/19 22:41 Pulse 86 05/08/19 23:26 Resp 15 05/08/19 23:26 BP 108/53 L 05/08/19 23:26 Pulse Ox 96 05/08/19 23:26 - Orders/Labs/Meds Orders: Active Orders 24 hr Category Date Time Status Cardiac Monitoring [RC] .As Directed Care 05/08/19 22:10 Active Head wo Cont [CT] Stat Exams 05/09/19 00:01 Ordered ABG [BLOOD GAS ARTERIAL] [BG] Stat Lab 05/09/19 00:11 Ordered CULTURE BLOOD [BC] Stat Lab 05/08/19 22:40 Received CULTURE BLOOD [BC] Urgent Lab 05/08/19 22:55 Received Levofloxacin/Dextrose 5%-Water [Levaquin in D5W 750 MG/ Med 05/08/19 23:44 Active 150 ML] 750 mg Premix Bag 1 bag IV ONETIME Vancomycin 1 gm Med 05/08/19 23:43 Active Sodium Chloride 0.9% [Normal Saline] 250 ml IV ONETIME Blood Culture x2 Reflex Set [OM.PC] Urgent Oth 05/08/19 22:37 Ordered Medication Orders Vancomycin HCl 1 gm/ Sodium (Chloride) 250 mls @ 150 mls/hr IV ONETIME ONE Stop: 05/09/19 01:22 Levofloxacin/Dextrose 750 mg/ (Premix) 150 mls @ 100 mls/hr IV ONETIME ONE Stop: 05/09/19 01:13 Last Admin: 05/09/19 00:09 Dose: 100 mls/hr Labs: Laboratory Tests 05/08/19 05/08/19 05/08/19 Range/Units 22:20 22:20 22:20 WBC 42.9 H* (4.5-11.0) K/uL RBC 5.40 (3.30-5.50) M/uL Hgb 13.7 (12.0-15.0) g/dL Hct 44.1 (36.0-48.0) % MCV 82 (80-98) fL MCH 25 L (27-31) pg MCHC 31 L (32-36) % Plt Count 499 H (150-400) K/uL Neut % (Auto) 89 H (36-66) % Lymph % (Auto) 8 L (24-44) % [place] % (Auto) 2 (2-6) % Eos % (Auto) 0 L (2-4) % Baso % (Auto) 0 (0-1) % PT 10.7 (9.5-12.0) sec INR 0.99 (0.80-1.20) Sodium 137 L (140-148) mmol/L Potassium 4.2 (3.6-5.2) mmol/L Chloride 99 L (100-108) mmol/L Carbon Dioxide 25 (21-32) mmol/L Anion Gap 17.2 H (5.0-14.0) mmol/L BUN 15 D (7-18) mg/dL Creatinine 1.9 H D (0.6-1.0) mg/dL Est Cr Clr Drug Dosing 36.53 mL/min Estimated GFR (MDRD) 28 L (>60) Glucose 103 (74-106) mg/dL Lactic Acid (0.4-2.0) mmol/L Calcium 9.1 (8.5-10.1) mg/dL Total Bilirubin 0.6 D (0.2-1.0) mg/dL AST 56 H D (15-37) U/L ALT 31 (12-78) U/L Alkaline Phosphatase 163 H (46-116) U/L Troponin I < 0.017 (0.000-0.056) ng/mL C-Reactive Protein 16.70 H (0.0-0.3) mg/dL Total Protein 7.9 (6.4-8.2) g/dL Albumin 2.5 L (3.4-5.0) g/dL Globulin 5.4 H (2.3-3.5) g/dL Albumin/Globulin Ratio 0.5 L (1.2-2.2) Lipase 83 (73-393) U/L Urine Color (YELLOW) Urine Appearance (CLEAR) Urine pH (5.0-8.0) Ur Specific [place] (1.008-1.030) Urine Protein (NEGATIVE) mg/dL Urine Glucose (UA) (NEGATIVE) mg/dL Urine Ketones (NEGATIVE) mg/dL Urine Occult Blood (NEGATIVE) Urine Nitrite (NEGATIVE) Urine Bilirubin (NEGATIVE) Urine Urobilinogen (0.2-1.0) EU/dL Ur Leukocyte Esterase (NEGATIVE) Urine RBC (0-5) Urine WBC (0-5) Ur Epithelial Cells Amorphous Sediment Urine Bacteria Urine Mucus Urine Other Urine HCG, Qual Salicylates (2.0-20.0) mg/dL Urine Opiates Screen (NEGATIVE) Ur Oxycodone Screen (NEGATIVE) Urine Methadone Screen (NEGATIVE) Ur Propoxyphene Screen (NEGATIVE) Acetaminophen (10.0-30.0) ug/mL Ur Barbiturates Screen (NEGATIVE) Ur Tricyclics Screen (NEGATIVE) Ur Phencyclidine Scrn (NEGATIVE) Ur Amphetamine Screen (NEGATIVE) U Methamphetamines Scrn (NEGATIVE) Urine MDMA Screen (NEGATIVE) U Benzodiazepines Scrn (NEGATIVE) U Cocaine Metab Screen (NEGATIVE) U Marijuana (THC) Screen (NEGATIVE) Ethyl Alcohol mg/dL 05/08/19 05/08/19 05/08/19 Range/Units 22:20 22:20 22:20 WBC (4.5-11.0) K/uL RBC (3.30-5.50) M/uL Hgb (12.0-15.0) g/dL Hct (36.0-48.0) % MCV (80-98) fL MCH (27-31) pg MCHC (32-36) % Plt Count (150-400) K/uL Neut % (Auto) (36-66) % Lymph % (Auto) (24-44) % [place] % (Auto) (2-6) % Eos % (Auto) (2-4) % Baso % (Auto) (0-1) % PT (9.5-12.0) sec INR (0.80-1.20) Sodium (140-148) mmol/L Potassium (3.6-5.2) mmol/L Chloride (100-108) mmol/L Carbon Dioxide (21-32) mmol/L Anion Gap (5.0-14.0) mmol/L BUN (7-18) mg/dL Creatinine (0.6-1.0) mg/dL Est Cr Clr Drug Dosing mL/min Estimated GFR (MDRD) (>60) Glucose (74-106) mg/dL Lactic Acid 4.3 H (0.4-2.0) mmol/L Calcium (8.5-10.1) mg/dL Total Bilirubin (0.2-1.0) mg/dL AST (15-37) U/L ALT (12-78) U/L Alkaline Phosphatase (46-116) U/L Troponin I (0.000-0.056) ng/mL C-Reactive Protein (0.0-0.3) mg/dL Total Protein (6.4-8.2) g/dL Albumin (3.4-5.0) g/dL Globulin (2.3-3.5) g/dL Albumin/Globulin Ratio (1.2-2.2) Lipase (73-393) U/L Urine Color (YELLOW) Urine Appearance (CLEAR) Urine pH (5.0-8.0) Ur Specific [place] (1.008-1.030) Urine Protein (NEGATIVE) mg/dL Urine Glucose (UA) (NEGATIVE) mg/dL Urine Ketones (NEGATIVE) mg/dL Urine Occult Blood (NEGATIVE) Urine Nitrite (NEGATIVE) Urine Bilirubin (NEGATIVE) Urine Urobilinogen (0.2-1.0) EU/dL Ur Leukocyte Esterase (NEGATIVE) Urine RBC (0-5) Urine WBC (0-5) Ur Epithelial Cells Amorphous Sediment Urine Bacteria Urine Mucus Urine Other Urine HCG, Qual Salicylates (2.0-20.0) mg/dL Urine Opiates Screen (NEGATIVE) Ur Oxycodone Screen (NEGATIVE) Urine Methadone Screen (NEGATIVE) Ur Propoxyphene Screen (NEGATIVE) Acetaminophen < 2.0 L (10.0-30.0) ug/mL Ur Barbiturates Screen (NEGATIVE) Ur Tricyclics Screen (NEGATIVE) Ur Phencyclidine Scrn (NEGATIVE) Ur Amphetamine Screen (NEGATIVE) U Methamphetamines Scrn (NEGATIVE) Urine MDMA Screen (NEGATIVE) U Benzodiazepines Scrn (NEGATIVE) U Cocaine Metab Screen (NEGATIVE) U Marijuana (THC) Screen (NEGATIVE) Ethyl Alcohol < 3 mg/dL 05/08/19 05/08/19 05/08/19 Range/Units 22:20 23:46 23:46 WBC (4.5-11.0) K/uL RBC (3.30-5.50) M/uL Hgb (12.0-15.0) g/dL Hct (36.0-48.0) % MCV (80-98) fL MCH (27-31) pg MCHC (32-36) % Plt Count (150-400) K/uL Neut % (Auto) (36-66) % Lymph % (Auto) (24-44) % [place] % (Auto) (2-6) % Eos % (Auto) (2-4) % Baso % (Auto) (0-1) % PT (9.5-12.0) sec INR (0.80-1.20) Sodium (140-148) mmol/L Potassium (3.6-5.2) mmol/L Chloride (100-108) mmol/L Carbon Dioxide (21-32) mmol/L Anion Gap (5.0-14.0) mmol/L BUN (7-18) mg/dL Creatinine (0.6-1.0) mg/dL Est Cr Clr Drug Dosing mL/min Estimated GFR (MDRD) (>60) Glucose (74-106) mg/dL Lactic Acid (0.4-2.0) mmol/L Calcium (8.5-10.1) mg/dL Total Bilirubin (0.2-1.0) mg/dL AST (15-37) U/L ALT (12-78) U/L Alkaline Phosphatase (46-116) U/L Troponin I (0.000-0.056) ng/mL C-Reactive Protein (0.0-0.3) mg/dL Total Protein (6.4-8.2) g/dL Albumin (3.4-5.0) g/dL Globulin (2.3-3.5) g/dL Albumin/Globulin Ratio (1.2-2.2) Lipase (73-393) U/L Urine Color Yellow (YELLOW) Urine Appearance Clear (CLEAR) Urine pH 5.5 (5.0-8.0) Ur Specific [place] 1.010 (1.008-1.030) Urine Protein 30 H (NEGATIVE) mg/dL Urine Glucose (UA) Negative (NEGATIVE) mg/dL Urine Ketones Negative (NEGATIVE) mg/dL Urine Occult Blood Trace-lysed H (NEGATIVE) Urine Nitrite Negative (NEGATIVE) Urine Bilirubin Negative (NEGATIVE) Urine Urobilinogen Normal (0.2-1.0) EU/dL Ur Leukocyte Esterase Negative (NEGATIVE) Urine RBC 0-5 (0-5) Urine WBC 0-5 (0-5) Ur Epithelial Cells Few Amorphous Sediment Moderate Urine Bacteria Rare Urine Mucus Few Urine Other See note Urine HCG, Qual Negative Salicylates 7.4 (2.0-20.0) mg/dL Urine Opiates Screen (NEGATIVE) Ur Oxycodone Screen (NEGATIVE) Urine Methadone Screen (NEGATIVE) Ur Propoxyphene Screen (NEGATIVE) Acetaminophen (10.0-30.0) ug/mL Ur Barbiturates Screen (NEGATIVE) Ur Tricyclics Screen (NEGATIVE) Ur Phencyclidine Scrn (NEGATIVE) Ur Amphetamine Screen (NEGATIVE) U Methamphetamines Scrn (NEGATIVE) Urine MDMA Screen (NEGATIVE) U Benzodiazepines Scrn (NEGATIVE) U Cocaine Metab Screen (NEGATIVE) U Marijuana (THC) Screen (NEGATIVE) Ethyl Alcohol mg/dL 05/08/19 Range/Units 23:46 WBC (4.5-11.0) K/uL RBC (3.30-5.50) M/uL Hgb (12.0-15.0) g/dL Hct (36.0-48.0) % MCV (80-98) fL MCH (27-31) pg MCHC (32-36) % Plt Count (150-400) K/uL Neut % (Auto) (36-66) % Lymph % (Auto) (24-44) % [place] % (Auto) (2-6) % Eos % (Auto) (2-4) % Baso % (Auto) (0-1) % PT (9.5-12.0) sec INR (0.80-1.20) Sodium (140-148) mmol/L Potassium (3.6-5.2) mmol/L Chloride (100-108) mmol/L Carbon Dioxide (21-32) mmol/L Anion Gap (5.0-14.0) mmol/L BUN (7-18) mg/dL Creatinine (0.6-1.0) mg/dL Est Cr Clr Drug Dosing mL/min Estimated GFR (MDRD) (>60) Glucose (74-106) mg/dL Lactic Acid (0.4-2.0) mmol/L Calcium (8.5-10.1) mg/dL Total Bilirubin (0.2-1.0) mg/dL AST (15-37) U/L ALT (12-78) U/L Alkaline Phosphatase (46-116) U/L Troponin I (0.000-0.056) ng/mL C-Reactive Protein (0.0-0.3) mg/dL Total Protein (6.4-8.2) g/dL Albumin (3.4-5.0) g/dL Globulin (2.3-3.5) g/dL Albumin/Globulin Ratio (1.2-2.2) Lipase (73-393) U/L Urine Color (YELLOW) Urine Appearance (CLEAR) Urine pH (5.0-8.0) Ur Specific [place] (1.008-1.030) Urine Protein (NEGATIVE) mg/dL Urine Glucose (UA) (NEGATIVE) mg/dL Urine Ketones (NEGATIVE) mg/dL Urine Occult Blood (NEGATIVE) Urine Nitrite (NEGATIVE) Urine Bilirubin (NEGATIVE) Urine Urobilinogen (0.2-1.0) EU/dL Ur Leukocyte Esterase (NEGATIVE) Urine RBC (0-5) Urine WBC (0-5) Ur Epithelial Cells Amorphous Sediment Urine Bacteria Urine Mucus Urine Other Urine HCG, Qual Salicylates (2.0-20.0) mg/dL Urine Opiates Screen Negative (NEGATIVE) Ur Oxycodone Screen Presumptive positive H (NEGATIVE) Urine Methadone Screen Presumptive positive H (NEGATIVE) Ur Propoxyphene Screen Negative (NEGATIVE) Acetaminophen (10.0-30.0) ug/mL Ur Barbiturates Screen Negative (NEGATIVE) Ur Tricyclics Screen Negative (NEGATIVE) Ur Phencyclidine Scrn Negative (NEGATIVE) Ur Amphetamine Screen Negative (NEGATIVE) U Methamphetamines Scrn Negative (NEGATIVE) Urine MDMA Screen Negative (NEGATIVE) U Benzodiazepines Scrn Negative (NEGATIVE) U Cocaine Metab Screen Negative (NEGATIVE) U Marijuana (THC) Screen Negative (NEGATIVE) Ethyl Alcohol mg/dL Meds: Medications Generic Name Dose Route Start Last Admin Trade Name Freq PRN Reason Stop Dose Admin Vancomycin HCl 1 gm/ Sodium 250 mls @ 150 mls/hr 05/08/19 23:43 Chloride IV 05/09/19 01:22 ONETIME ONE Levofloxacin/Dextrose 750 mg/ 150 mls @ 100 mls/hr 05/08/19 23:44 05/09/19 00 :09 Premix IV 05/09/19 01:13 100 mls/hr ONETIME ONE Administration Discontinued Medications Generic Name Dose Route Start Last Admin Trade Name Freq PRN Reason Stop Dose Admin Sodium Chloride 1,000 mls @ 999 mls/hr 05/08/19 22:34 05/08/19 22:44 Normal Saline IV 05/08/19 23:34 999 mls/hr .BOLUS STA Administration Sodium Chloride 1,000 mls @ 999 mls/hr 05/08/19 23:18 05/08/19 23:39 Normal Saline IV 05/09/19 00:18 999 mls/hr .BOLUS STA Administration - Re-Assessments/Exams Free Text/Narrative Re-Assessment/Exam: 05/08/19 22:30 Patient was seen and examined shortly after arrival. Stable. She is now awake, alert and oriented. Started on monitoring specialist. Requiring 6 liter O2 by nasal cannula. Given 1 L normal saline bolus 2. Lab and imaging reviewed. Consistent with sepsis most likely secondary to pneumonia. She received 2 L normal saline bolus, and she will be given the third liter shortly. blood culture drawn, urine is still pending, started on vancomycin and Levaquin. Spoke was our hospitalist Dr. Holguin and he recommended transferring the patient because we do not have ICU.. I did consulted with Dr. Burnette ER physician at [facility] and he accepted the transfer for further management. Patient and her mother agrees with the plan. She is hemodynamically stable. No sign of septic shock. Tachycardia resolved. Blood pressure stable all the time. She is requiring only 6 L of oxygen at this point. Stable for transfer. 05/09/19 00:22 Departure - Departure Time of Disposition: 00:21 Disposition: DC/Tfer to [facility] 02 Condition: Fair Clinical Impression: Sepsis, Pneumonia, DIMAS (acute kidney injury), Lactic acidosis - Discharge Information *PRESCRIPTION DRUG MONITORING PROGRAM REVIEWED*: Not Applicable *COPY OF PRESCRIPTION DRUG MONITORING REPORT IN PATIENT VICTOR MANUEL: Not Applicable Referrals: Brigitte Guy MD [Primary Care Provider] - Forms: ED Department Discharge - My Orders Last 24 Hours: My Active Orders 05/08/19 22:10 Cardiac Monitoring [RC] .As Directed 05/08/19 22:37 Blood Culture x2 Reflex Set [OM.PC] Urgent 05/08/19 22:40 CULTURE BLOOD [BC] Stat 05/08/19 22:55 CULTURE BLOOD [BC] Urgent 05/08/19 23:43 Vancomycin 1 gm Sodium Chloride 0.9% [Normal Saline] 250 ml IV ONETIME 05/08/19 23:44 Levofloxacin/Dextrose 5%-Water [Levaquin in D5W 750 MG/150 ML] 750 mg Premix Bag 1 bag IV ONETIME 05/09/19 00:01 Head wo Cont [CT] Stat 05/09/19 00:11 ABG [BLOOD GAS ARTERIAL] [BG] Stat - Assessment/Plan Last 24 Hours: My Active Orders 05/08/19 22:10 Cardiac Monitoring [RC] .As Directed 05/08/19 22:37 Blood Culture x2 Reflex Set [OM.PC] Urgent 05/08/19 22:40 CULTURE BLOOD [BC] Stat 05/08/19 22:55 CULTURE BLOOD [BC] Urgent 05/08/19 23:43 Vancomycin 1 gm Sodium Chloride 0.9% [Normal Saline] 250 ml IV ONETIME 05/08/19 23:44 Levofloxacin/Dextrose 5%-Water [Levaquin in D5W 750 MG/150 ML] 750 mg Premix Bag 1 bag IV ONETIME 05/09/19 00:01 Head wo Cont [CT] Stat 05/09/19 00:11 ABG [BLOOD GAS ARTERIAL] [BG] Stat Plan: Transferred to [facility]
[2019-05-08] MEDS ORDERED: Sodium Chloride 0.9% 1,000 ML IV STA ×2 (22:34→23:18)
[2019-05-08] MEDS ORDERED: Levofloxacin/Dextrose 5%-Water 750 MG in Premix Bag 1 BAG IV ONE (23:44)
--- NOTE | 2019-05-08 23:46 | CRLCR ---
Indication: Chest pain Technique: Chest 1 view Comparison: October 23, 2018 Findings: Cardiovascular and mediastinum: Heart size and vasculature are normal in caliber and appearance. Mediastinum is within normal limits. Left subclavian Port-A-Cath tip terminates at the level of the distal superior vena cava. Lungs and pleural space: Increased interstitial markings throughout the lungs are unchanged. No sign of pleural effusion. No pneumothorax. Bones and soft tissues: No significant findings. Impression: : Stable increased interstitial markings throughout the lungs. No new focal infiltrate. Dictated by Rebecca Travis MD @ May 08 2019 11:45PM Signed by Dr. Rebecca Travis @ May 08 2019 11:45PM
[2019-05-09 00:43] VITALS: BP 100/65; PULSE 78
== END 2019-05-09 02:00 ==
LOC: JP.ED 21:59
DX: A41.9 Sepsis, unspecified organism (principal); J18.9 Pneumonia, unspecified organism; R65.20 Severe sepsis without septic shock; N17.9 Acute kidney failure, unspecified; E87.2 Acidosis; I10 Essential (primary) hypertension; F32.9 Major depressive disorder, single episode, unspecified; E03.9 Hypothyroidism, unspecified; Z79.899 Other long term (current) drug therapy; Z88.0 Allergy status to penicillin; Z88.1 Allergy status to other antibiotic agents
CPT/HCPCS: 36415; 36600; 71045; 80053; 80305; 81001; 81025; 82803; 83605; 83690; 84484; 85025; 85610; 86140; 87040; 96361; 96365; 96366; 96368; 99285; G0480; J1956; J3370; J7030; J7050

== ENCOUNTER 2019-09-04 17:26 | Inpatient (IN) | payer MEDICAID ==
[2019-09-04] MEDS ORDERED: Levofloxacin/Dextrose 5%-Water 750 MG in Premix Bag 1 BAG IV ONE (17:34)
[2019-09-04] MEDS ORDERED: Sodium Chloride 0.9% 10 ML Syringe FLUSH PRN ×2 (17:35→20:31)
[2019-09-04] MEDS ORDERED: LORazepam 2 MG/ML SDV IVPUSH ONE (17:39)
--- NOTE | 2019-09-04 17:41 | EDM.PDOC ---
ED HPI GENERAL MEDICAL PROBLEM - General Chief Complaint: Fever Stated Complaint: MEDICAL VIA [facility] Time Seen by Provider: 09/04/19 17:30 Source of Information: Reports: Patient, EMS, RN Notes Reviewed History Limitations: Reports: No Limitations - History of Present Illness INITIAL COMMENTS - FREE TEXT/NARRATIVE: 48-year-old female presents to the emergency department with a complaint of fever and increased confusion. She arrives via EMS services. EMS reports initially GCS of 13 was some confusion and combativeness initially had pulled out first IV placement. She has had a fever at home around 102 does have a history of sepsis in the past secondary to urinary tract infection. 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 cha area as well as neurogenic bladder and a colostomy Right Leg Pain Score (Numeric/FACES): 6 - Related Data Allergies Allergy/AdvReac Type Severity Reaction Status Date / Time clindamycin Allergy Cannot Verified 09/04/19 17:33 Remember Penicillins Allergy Cannot Verified 09/04/19 17:33 Remember Home Meds: Home Meds Albuterol [Ventolin HFA] 1 puff IH QID 12/16/14 [History] Ibuprofen 200 mg PO Q4H PRN 12/16/14 [History] Methadone 15 mg PO BID 12/16/14 [History] Methadone 20 mg PO QAM 12/16/14 [History] Multivitamins/Iron/Folic Acid [Cerovite Advanced Formula] 1 tab PO DAILY [History] Venlafaxine [Effexor] 75 mg PO BEDTIME 12/16/14 [History] Lisinopril 20 mg PO DAILY 07/04/17 [History] Oxybutynin Chloride [Ditropan Xl] 10 mg PO DAILY 02/05/18 [History] oxyCODONE HCl/Acetaminophen [Endocet 7.5-325 mg Tablet] 2 tab PO Q6H PRN [History] buPROPion [Wellbutrin SR] 1 tab PO BID 10/23/18 [History] Baclofen 20 mg PO TID 01/02/19 [History] Levothyroxine 75 mcg PO ACBREAKFAST 01/02/19 [History] Naloxone HCl [Narcan] 4 mg MIGUEL ASDIRECTED PRN 01/02/19 [History] Pregabalin [Lyrica] 200 mg PO TID 01/02/19 [History] Venlafaxine [Effexor] 150 mg PO DAILY 01/02/19 [History] hydrOXYzine pamoate [Hydroxyzine Pamoate] 25 mg PO Q6HR PRN 01/02/19 [History] Sulfamethoxazole/Trimethoprim [Bactrim 400-80 MG] 1 each PO BID #9 tablet [Rx] levETIRAcetam [Levetiracetam] 750 mg PO ASDIRECTED 09/04/19 [History] Past Medical History HEENT History: Reports: Impaired Vision Cardiovascular History: Reports: Hypertension Respiratory History: Reports: SOB Other Respiratory History: PNA 6 months ago Gastrointestinal History: Reports: Other (See Below) Other Gastrointestinal History: ostomy Genitourinary History: Reports: UTI, Recurrent Other Genitourinary History: 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: Musculoskeletal History: Reports: Other (See Below) Other Musculoskeletal History: spasms Neurological History: Reports: Other (See Below) Other Neuro History: L-4 spinal cord injury Psychiatric History: Reports: Depression, Suicide Attempt Endocrine/Metabolic History: Reports: Hypothyroidism Hematologic History: Reports: Blood Transfusion(s) Dermatologic History: Reports: Decubitus Ulcer, Eczema Other Dermatologic History: rt buttock ulcer 2013 on going care by healthcare administration intern - Infectious Disease History Infectious Disease History: Reports: MRSA Other Infectious Disease History: 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 and healthcare administration intern state [place] the case - Past Surgical History GI Surgical History: Reports: Small Bowel Female Surgical History: Reports: Suprapubic Catheter Placement Musculoskeletal Surgical History: Reports: Other (See Below) Other Musculoskeletal Surgeries/Procedures:: ankle Social & Family History - Family History Family Medical History: Noncontributory - Caffeine Use Caffeine Use: Reports: Soda Other Caffeine Use: 1 cup a day Caffeine Use Comment: unknown ED ROS GENERAL - Review of Systems Review Of Systems: See Below Constitutional: Reports: Fever, Chills HEENT: Reports: No Symptoms Respiratory: Reports: Cough Cardiovascular: Reports: No Symptoms GI/Abdominal: Reports: No Symptoms : Reports: No Symptoms Musculoskeletal: Reports: Other Skin: Reports: No Symptoms Neurological: Reports: No Symptoms ED EXAM, SEPSIS - Physical Exam Exam: See Below Text/Narrative:: General: Female, moderate discomfort secondary to spasms easily arousable GCS 14 , alert and oriented x3 HEENT: head is atraumatic normocephalic, eyes pupils equal round reactive to light, sclera clear no conjunctivitis appreciated. Ears tympanic membranes clear and khan landmarks and light reflex are present bilaterally canals are clear. Nose no septal deviation, nares are clear, no blood present. Mouth mucosa is dry and pink no erythema or exudate noted in soft palate, tongue is midline uvula is midline, dentition is intact. Neck: Supple no thyromegaly no tracheal deviation. Nodes: Cervical nodes subclavicular nodes nontender no palpable lymphadenopathy noted. Lungs: Coarse breath sounds bilaterally. CV: Regular rate and rhythm S1 and S2 appreciated no murmurs rubs or gallops noted. Abdomen: Soft, nontender, no palpable masses or organomegaly appreciated, no distention no guarding bowel sounds ostomy bag and suprapubic catheter in place Neuro: GCS 14 Skin: Warm and dry, intact Extremities: No lower extremity edema appreciated, Course - Vital Signs Last Recorded V/S: Last Vital Signs Temp 98.8 F 09/04/19 18:25 Pulse 85 09/04/19 18:28 Resp 20 09/04/19 17:28 BP 85/46 L 09/04/19 18:28 Pulse Ox 94 L 09/04/19 17:28 - Orders/Labs/Meds Orders: Active Orders 24 hr Category Date Time Status Peripheral IV Care [RC] . DIRECTED Care 09/04/19 17:35 Active CULTURE BLOOD [BC] Urgent Lab 09/04/19 17:40 Received CULTURE BLOOD [BC] Urgent Lab 09/04/19 17:46 Received CULTURE URINE [RM] Stat Lab 09/04/19 17:52 Received Lactated Ringers [Ringers, Lactated] 1,000 ml Med 09/04/19 17:45 Active IV ASDIRECTED Levofloxacin/Dextrose 5%-Water [Levaquin in D5W 750 MG/ Med 09/04/19 17:34 Active 150 ML] 750 mg Premix Bag 1 bag IV ONETIME Sodium Chloride 0.9% [Saline Flush] Med 09/04/19 17:35 Active 10 ml FLUSH ASDIRECTED PRN Blood Culture x2 Reflex Set [OM.PC] Urgent Oth 09/04/19 17:31 Ordered Peripheral IV Insertion Adult [OM.PC] Urgent Oth 09/04/19 17:35 Ordered Severe Sepsis Onset Time [OM.PC] Stat Oth 09/04/19 17:31 Ordered Medication Orders Lactated Ringer's (Ringers, Lactated) 1,000 mls @ 999 mls/hr IV ASDIRECTED SANDI Last Admin: 09/04/19 18:17 Dose: 999 mls/hr Levofloxacin/Dextrose 750 mg/ (Premix) 150 mls @ 100 mls/hr IV ONETIME ONE Stop: 09/04/19 19:03 Last Admin: 09/04/19 18:18 Dose: 100 mls/hr Sodium Chloride (Saline Flush) 10 ml FLUSH ASDIRECTED PRN PRN Reason: Keep Vein Open Labs: Laboratory Tests 09/04/19 09/04/19 09/04/19 Range/Units 17:40 17:40 17:40 WBC 17.1 H (4.5-11.0) K/uL RBC 5.10 (3.30-5.50) M/uL Hgb 13.1 (12.0-15.0) g/dL Hct 42.6 (36.0-48.0) % MCV 84 (80-98) fL MCH 26 L (27-31) pg MCHC 31 L (32-36) % Plt Count 335 (150-400) K/uL Neut % (Auto) 79 H (36-66) % Lymph % (Auto) 14 L (24-44) % Mclean % (Auto) 6 (2-6) % Eos % (Auto) 1 L (2-4) % Baso % (Auto) 1 (0-1) % Sodium 137 L (140-148) mmol/L Potassium 3.9 (3.6-5.2) mmol/L Chloride 102 (100-108) mmol/L Carbon Dioxide 23 (21-32) mmol/L Anion Gap 15.9 H (5.0-14.0) mmol/L BUN 18 (7-18) mg/dL Creatinine 1.8 H D (0.6-1.0) mg/dL Est Cr Clr Drug Dosing 38.56 mL/min Estimated GFR (MDRD) 30 L (>60) Glucose 117 H (74-106) mg/dL Lactic Acid 1.6 (0.4-2.0) mmol/L Calcium 8.7 (8.5-10.1) mg/dL Total Bilirubin 0.2 D (0.2-1.0) mg/dL AST 15 (15-37) U/L ALT 17 (12-78) U/L Alkaline Phosphatase 136 H (46-116) U/L C-Reactive Protein 12.62 H (0.0-0.3) mg/dL Total Protein 7.7 (6.4-8.2) g/dL Albumin 2.5 L (3.4-5.0) g/dL Globulin 5.2 H (2.3-3.5) g/dL Albumin/Globulin Ratio 0.5 L (1.2-2.2) Procalcitonin ng/mL Urine Color (YELLOW) Urine Appearance (CLEAR) Urine pH (5.0-8.0) Ur Specific [place] (1.008-1.030) Urine Protein (NEGATIVE) mg/dL Urine Glucose (UA) (NEGATIVE) mg/dL Urine Ketones (NEGATIVE) mg/dL Urine Occult Blood (NEGATIVE) Urine Nitrite (NEGATIVE) Urine Bilirubin (NEGATIVE) Urine Urobilinogen (0.2-1.0) EU/dL Ur Leukocyte Esterase (NEGATIVE) Urine RBC (0-5) Urine WBC (0-5) Ur Epithelial Cells Amorphous Sediment Urine Bacteria Urine Mucus Urine Other Urine Opiates Screen (NEGATIVE) Ur Oxycodone Screen (NEGATIVE) Urine Methadone Screen (NEGATIVE) Ur Propoxyphene Screen (NEGATIVE) Ur Barbiturates Screen (NEGATIVE) Ur Tricyclics Screen (NEGATIVE) Ur Phencyclidine Scrn (NEGATIVE) Ur Amphetamine Screen (NEGATIVE) U Methamphetamines Scrn (NEGATIVE) Urine MDMA Screen (NEGATIVE) U Benzodiazepines Scrn (NEGATIVE) U Cocaine Metab Screen (NEGATIVE) U Marijuana (THC) Screen (NEGATIVE) 09/04/19 09/04/19 09/04/19 Range/Units 17:40 17:51 17:52 WBC (4.5-11.0) K/uL RBC (3.30-5.50) M/uL Hgb (12.0-15.0) g/dL Hct (36.0-48.0) % MCV (80-98) fL MCH (27-31) pg MCHC (32-36) % Plt Count (150-400) K/uL Neut % (Auto) (36-66) % Lymph % (Auto) (24-44) % Mclean % (Auto) (2-6) % Eos % (Auto) (2-4) % Baso % (Auto) (0-1) % Sodium (140-148) mmol/L Potassium (3.6-5.2) mmol/L Chloride (100-108) mmol/L Carbon Dioxide (21-32) mmol/L Anion Gap (5.0-14.0) mmol/L BUN (7-18) mg/dL Creatinine (0.6-1.0) mg/dL Est Cr Clr Drug Dosing mL/min Estimated GFR (MDRD) (>60) Glucose (74-106) mg/dL Lactic Acid (0.4-2.0) mmol/L Calcium (8.5-10.1) mg/dL Total Bilirubin (0.2-1.0) mg/dL AST (15-37) U/L ALT (12-78) U/L Alkaline Phosphatase (46-116) U/L C-Reactive Protein (0.0-0.3) mg/dL Total Protein (6.4-8.2) g/dL Albumin (3.4-5.0) g/dL Globulin (2.3-3.5) g/dL Albumin/Globulin Ratio (1.2-2.2) Procalcitonin 0.17 ng/mL Urine Color Yellow (YELLOW) Urine Appearance Slightly cloudy A (CLEAR) Urine pH 5.5 (5.0-8.0) Ur Specific [place] 1.020 (1.008-1.030) Urine Protein 30 H (NEGATIVE) mg/dL Urine Glucose (UA) Negative (NEGATIVE) mg/dL Urine Ketones Negative (NEGATIVE) mg/dL Urine Occult Blood Negative (NEGATIVE) Urine Nitrite Negative (NEGATIVE) Urine Bilirubin Negative (NEGATIVE) Urine Urobilinogen 0.2 (0.2-1.0) EU/dL Ur Leukocyte Esterase Small H (NEGATIVE) Urine RBC 0-5 (0-5) Urine WBC 50-75 H (0-5) Ur Epithelial Cells Few Amorphous Sediment Not seen Urine Bacteria Moderate Urine Mucus Rare Urine Other Urine Opiates Screen Negative (NEGATIVE) Ur Oxycodone Screen Presumptive positive H (NEGATIVE) Urine Methadone Screen Presumptive positive H (NEGATIVE) Ur Propoxyphene Screen Negative (NEGATIVE) Ur Barbiturates Screen Negative (NEGATIVE) Ur Tricyclics Screen Negative (NEGATIVE) Ur Phencyclidine Scrn Negative (NEGATIVE) Ur Amphetamine Screen Negative (NEGATIVE) U Methamphetamines Scrn Negative (NEGATIVE) Urine MDMA Screen Negative (NEGATIVE) U Benzodiazepines Scrn Negative (NEGATIVE) U Cocaine Metab Screen Negative (NEGATIVE) U Marijuana (THC) Screen Negative (NEGATIVE) Meds: Medications Generic Name Dose Route Start Last Admin Trade Name Freq PRN Reason Stop Dose Admin Lactated Ringer's 1,000 mls @ 999 mls/hr 09/04/19 17:45 09/04/19 18:17 Ringers, Lactated IV 999 mls/hr ASDIRECTED SANDI Administration Levofloxacin/Dextrose 750 mg/ 150 mls @ 100 mls/hr 09/04/19 17:34 09/04/19 18 :18 Premix IV 09/04/19 19:03 100 mls/hr ONETIME ONE Administration Sodium Chloride 10 ml 09/04/19 17:35 Saline Flush FLUSH ASDIRECTED PRN Keep Vein Open Discontinued Medications Generic Name Dose Route Start Last Admin Trade Name Freq PRN Reason Stop Dose Admin Acetaminophen 650 mg 09/04/19 17:35 09/04/19 18:25 Tylenol PO 09/04/19 17:36 650 mg NOW ONE Administration Lorazepam 1 mg 09/04/19 17:39 09/04/19 18:19 Ativan IVPUSH 09/04/19 17:40 1 mg ONETIME ONE Administration Departure - Departure Time of Disposition: 18:34 Disposition: Admitted As Inpatient 66 Condition: Poor Clinical Impression: UTI (urinary tract infection) Qualifiers: Urinary tract infection type: acute cystitis Hematuria presence: without hematuria Qualified Code(s): N30.00 - Acute cystitis without hematuria - Discharge Information Referrals: PCP,None [Primary Care Provider] - Forms: ED Department Discharge Sepsis Event Note - Evaluation Sepsis Screening Result: Possible Severe Sepsis Risk - Focused Exam Vital Signs: Vital Signs Temp Temp Pulse Resp BP Pulse Ox 09/04/19 18:28 85 85/46 L 09/04/19 18:25 98.8 F 09/04/19 17:57 80 78/34 L 09/04/19 17:28 98.8 F 96 20 103/61 94 L Date Exam was Performed: 09/04/19 Time Exam was Performed: 18:32 - My Orders Last 24 Hours: My Active Orders 09/04/19 17:31 Blood Culture x2 Reflex Set [OM.PC] Urgent Severe Sepsis Onset Time [OM.PC] Stat 09/04/19 17:34 Levofloxacin/Dextrose 5%-Water [Levaquin in D5W 750 MG/150 ML] 750 mg Premix Bag 1 bag IV ONETIME 09/04/19 17:35 Peripheral IV Care [RC] . DIRECTED Sodium Chloride 0.9% [Saline Flush] 10 ml FLUSH ASDIRECTED PRN Peripheral IV Insertion Adult [OM.PC] Urgent 09/04/19 17:40 CULTURE BLOOD [BC] Urgent 09/04/19 17:45 Lactated Ringers [Ringers, Lactated] 1,000 ml IV ASDIRECTED 09/04/19 17:46 CULTURE BLOOD [BC] Urgent 09/04/19 17:52 CULTURE URINE [RM] Stat - Assessment/Plan Last 24 Hours: My Active Orders 09/04/19 17:31 Blood Culture x2 Reflex Set [OM.PC] Urgent Severe Sepsis Onset Time [OM.PC] Stat 09/04/19 17:34 Levofloxacin/Dextrose 5%-Water [Levaquin in D5W 750 MG/150 ML] 750 mg Premix Bag 1 bag IV ONETIME 09/04/19 17:35 Peripheral IV Care [RC] . DIRECTED Sodium Chloride 0.9% [Saline Flush] 10 ml FLUSH ASDIRECTED PRN Peripheral IV Insertion Adult [OM.PC] Urgent 09/04/19 17:40 CULTURE BLOOD [BC] Urgent 09/04/19 17:45 Lactated Ringers [Ringers, Lactated] 1,000 ml IV ASDIRECTED 09/04/19 17:46 CULTURE BLOOD [BC] Urgent 09/04/19 17:52 CULTURE URINE [RM] Stat Plan: Assessment Acuity = acute Site and laterality = urinary tract infection complicating the patient with known history of spinal cord injury suprapubic catheter and colostomy bag as well as chronic wound Etiology = probable bacteria urinary source Manifestations = fever Location of injury = Home Lab values = WBC elevated 17.1 consistent leukocytosis, creatinine elevated 1.8 consistent with acute renal failure stage G3 B CRP elevated 12.6 procalcitonin 0.17 urinalysis reveals 50-75 WBCs consistent with pyuria and moderate bacteria urine drug screen positive for methamphetamine and opiates both prescription medications urine culture blood culture pending, chest x-ray reveals no acute process Plan Call discussed case with hospitalist on-call at 1830 currently agreed to come evaluate the patient emergency department for admission thus far been given 1 L lactated Ringer's and levofloxacin 750 mg dose initiated in ED This note was dictated using [employer] voice recognition software please call with any questions on syntax or grammar.
[2019-09-04] MEDS ORDERED: Lactated Ringers 1,000 ML IV SCH ×3 (17:45→22:00)
--- NOTE | 2019-09-04 18:18 | CRLCR ---
INDICATION: Fever TECHNIQUE: Chest 1 view. COMPARISON: FINDINGS: Cardiovascular and mediastinum: Heart size and vasculature are normal in caliber and appearance. Mediastinum is within normal limits. Left-sided [id number] tip in the proximal SVC. Lungs and pleural space: Lungs are clear. No sign of infiltrate or mass. No sign of pleural effusion. No pneumothorax. Bones and soft tissues: No significant findings. IMPRESSION: Unremarkable chest. No evidence for pneumonia. Dictated by Jerad Taylor MD @ 09/04/2019 6:16:13 PM Dictated by: Jerad Taylor MD @ 09/04/2019 18:16:19 (Electronically Signed)
[2019-09-04] MEDS: Acetaminophen 325 MG Tab PO ONE ×2 (18:25→19:30)
[2019-09-04] MEDS ORDERED: Norepinephrine 4 MG in Dextrose 5% in Water 246 ML IV SCH ×2 (18:45)
[2019-09-04] MEDS ORDERED: Naloxone 0.4 MG/ML SDV IVPUSH ONE (18:51)
[2019-09-04] MEDS ORDERED: Naloxone 0.4 MG/ML SDV ONE (18:55)
--- NOTE | 2019-09-04 19:26 | PCM.HP.2 ---
H&P History of Present Illness - General Date of Service: 09/04/19 Admit Problem/Dx: Admission Diagnosis/Problem Admission Diagnosis/Problem UTI, Urinary tract infectious disease Source of Information: Family, Old Records, Provider, RN Notes Reviewed History Limitations: Reports: Altered Mental Status (Decreased level of consciousness) - History of Present Illness Initial Comments - Free Text/Narative: Ms. Wilde is a 48-year-old woman who was admitted through the emergency department with urinary tract infection and sepsis. She is experienced decreased level of consciousness and is unable to provide a meaningful history concerning recent symptoms or review of systems. Her mother who was present reports that she was well this morning and ate a good breakfast, after that slept much of the morning. Appetite was not as good for her noon meal and she again slept much of the afternoon and was very difficult to arouse. She was also noted to be weak with a temperature elevation. She was brought into the emergency department and on evaluation was noted to have evidence of urinary tract infection with elevation in her white blood cell count. After arriving in the emergency department she received lorazepam for muscle spasms. Shortly thereafter she developed significant hypotension and required IV fluid boluses. She improved with fluid boluses and also a dose of Narcan. She has a history of chronic pain and is currently treated with methadone as well as oxycodone. Right Leg Pain Score (Numeric/FACES): 6 - Related Data Allergies/Adverse Reactions: Allergies Allergy/AdvReac Type Severity Reaction Status Date / Time clindamycin Allergy Cannot Verified 09/04/19 17:33 Remember Penicillins Allergy Cannot Verified 09/04/19 17:33 Remember Home Medications: Home Meds Albuterol [Ventolin HFA] 1 puff IH QID 12/16/14 [History] Ibuprofen 200 mg PO Q4H PRN 12/16/14 [History] Methadone 15 mg PO BID 12/16/14 [History] Methadone 20 mg PO QAM 12/16/14 [History] Multivitamins/Iron/Folic Acid [Cerovite Advanced Formula] 1 tab PO DAILY [History] Venlafaxine [Effexor] 75 mg PO BEDTIME 12/16/14 [History] Lisinopril 20 mg PO DAILY 07/04/17 [History] Oxybutynin Chloride [Ditropan Xl] 10 mg PO DAILY 02/05/18 [History] oxyCODONE HCl/Acetaminophen [Endocet 7.5-325 mg Tablet] 2 tab PO Q6H PRN [History] buPROPion [Wellbutrin SR] 1 tab PO BID 10/23/18 [History] Baclofen 20 mg PO TID 01/02/19 [History] Levothyroxine 75 mcg PO ACBREAKFAST 01/02/19 [History] Naloxone HCl [Narcan] 4 mg MIGUEL ASDIRECTED PRN 01/02/19 [History] Pregabalin [Lyrica] 200 mg PO TID 01/02/19 [History] Venlafaxine [Effexor] 150 mg PO DAILY 01/02/19 [History] hydrOXYzine pamoate [Hydroxyzine Pamoate] 25 mg PO Q6HR PRN 01/02/19 [History] levETIRAcetam [Levetiracetam] 750 mg PO ASDIRECTED 09/04/19 [History] Past Medical History HEENT History: Reports: Impaired Vision Cardiovascular History: Reports: Hypertension Respiratory History: Reports: SOB Other Respiratory History: PNA 6 months ago Gastrointestinal History: Reports: Other (See Below) Other Gastrointestinal History: ostomy Genitourinary History: Reports: UTI, Recurrent Other Genitourinary History: 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: Musculoskeletal History: Reports: Other (See Below) Other Musculoskeletal History: spasms Neurological History: Reports: Other (See Below) Other Neuro History: L-4 spinal cord injury Psychiatric History: Reports: Depression, Suicide Attempt Endocrine/Metabolic History: Reports: Hypothyroidism Hematologic History: Reports: Blood Transfusion(s) Dermatologic History: Reports: Decubitus Ulcer, Eczema Other Dermatologic History: rt buttock ulcer 2013 on going care by home care liaison - Infectious Disease History Infectious Disease History: Reports: MRSA Other Infectious Disease History: 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 and home care liaison state nolonger the case - Past Surgical History GI Surgical History: Reports: Small Bowel Female Surgical History: Reports: Suprapubic Catheter Placement Musculoskeletal Surgical History: Reports: Other (See Below) Other Musculoskeletal Surgeries/Procedures:: ankle Social & Family History - Family History Family Medical History: Noncontributory - Tobacco Use Smoking Status *Q: Current Every Day Smoker Tobacco Use Comment: current smoker - Caffeine Use Caffeine Use: Reports: Soda Other Caffeine Use: 1 cup a day Caffeine Use Comment: unknown - Recreational Drug Use Recreational Drug Use: No H&P Review of Systems - Review of Systems: Review Of Systems: See Below General: Reports: ROS unobtainable (Patient is currently lethargic and sedated, unable to provide meaningful information) Exam - Exam Exam: See Below - Vital Signs Vital Signs: Last Vital Signs Temp 98.8 F 09/04/19 17:28 Pulse 83 09/04/19 18:55 Resp 20 09/04/19 17:28 BP 103/61 09/04/19 18:55 Pulse Ox 94 L 09/04/19 17:28 Weight: 165 lb - Exam Quality Assessment: Urinary Catheter (Suprapubic catheter), DVT Prophylaxis General: Sedated, Lethargic HEENT: Conjunctiva Clear, Hearing Intact, Mucosa Moist & [place], Normal Nasal Septum, Posterior Pharynx Clear, Pupils Equal Neck: Supple, Trachea Midline, +2 Carotid Pulse wo Bruit Lungs: Clear to Auscultation, Normal Respiratory Effort Cardiovascular: Regular Rate, Regular Rhythm, Normal S1, Normal S2. No: Systolic Murmur, Diastolic Murmur GI/Abdominal Exam: Soft, Non-Tender, No Organomegaly, No Distention Extremities: Non-Tender, No Pedal Edema Skin: Warm, Dry, Intact Neurological: Other (Incomplete paraplegia) - Patient Data Lab Results Last 24 hrs: Laboratory Results - last 24 hr 09/04/19 09/04/19 09/04/19 Range/Units 17:40 17:40 17:40 WBC 17.1 H (4.5-11.0) K/uL RBC 5.10 (3.30-5.50) M/uL Hgb 13.1 (12.0-15.0) g/dL Hct 42.6 (36.0-48.0) % MCV 84 (80-98) fL MCH 26 L (27-31) pg MCHC 31 L (32-36) % Plt Count 335 (150-400) K/uL Neut % (Auto) 79 H (36-66) % Lymph % (Auto) 14 L (24-44) % [place] % (Auto) 6 (2-6) % Eos % (Auto) 1 L (2-4) % Baso % (Auto) 1 (0-1) % Sodium 137 L (140-148) mmol/L Potassium 3.9 (3.6-5.2) mmol/L Chloride 102 (100-108) mmol/L Carbon Dioxide 23 (21-32) mmol/L Anion Gap 15.9 H (5.0-14.0) mmol/L BUN 18 (7-18) mg/dL Creatinine 1.8 H D (0.6-1.0) mg/dL Est Cr Clr Drug Dosing 38.56 mL/min Estimated GFR (MDRD) 30 L (>60) Glucose 117 H (74-106) mg/dL Lactic Acid 1.6 (0.4-2.0) mmol/L Calcium 8.7 (8.5-10.1) mg/dL Total Bilirubin 0.2 D (0.2-1.0) mg/dL AST 15 (15-37) U/L ALT 17 (12-78) U/L Alkaline Phosphatase 136 H (46-116) U/L C-Reactive Protein 12.62 H (0.0-0.3) mg/dL Total Protein 7.7 (6.4-8.2) g/dL Albumin 2.5 L (3.4-5.0) g/dL Globulin 5.2 H (2.3-3.5) g/dL Albumin/Globulin Ratio 0.5 L (1.2-2.2) Procalcitonin ng/mL Urine Color (YELLOW) Urine Appearance (CLEAR) Urine pH (5.0-8.0) Ur Specific Thayer (1.008-1.030) Urine Protein (NEGATIVE) mg/dL Urine Glucose (UA) (NEGATIVE) mg/dL Urine Ketones (NEGATIVE) mg/dL Urine Occult Blood (NEGATIVE) Urine Nitrite (NEGATIVE) Urine Bilirubin (NEGATIVE) Urine Urobilinogen (0.2-1.0) EU/dL Ur Leukocyte Esterase (NEGATIVE) Urine RBC (0-5) Urine WBC (0-5) Ur Epithelial Cells Amorphous Sediment Urine Bacteria Urine Mucus Urine Other Urine Opiates Screen (NEGATIVE) Ur Oxycodone Screen (NEGATIVE) Urine Methadone Screen (NEGATIVE) Ur Propoxyphene Screen (NEGATIVE) Ur Barbiturates Screen (NEGATIVE) Ur Tricyclics Screen (NEGATIVE) Ur Phencyclidine Scrn (NEGATIVE) Ur Amphetamine Screen (NEGATIVE) U Methamphetamines Scrn (NEGATIVE) Urine MDMA Screen (NEGATIVE) U Benzodiazepines Scrn (NEGATIVE) U Cocaine Metab Screen (NEGATIVE) U Marijuana (THC) Screen (NEGATIVE) 09/04/19 09/04/19 09/04/19 Range/Units 17:40 17:51 17:52 WBC (4.5-11.0) K/uL RBC (3.30-5.50) M/uL Hgb (12.0-15.0) g/dL Hct (36.0-48.0) % MCV (80-98) fL MCH (27-31) pg MCHC (32-36) % Plt Count (150-400) K/uL Neut % (Auto) (36-66) % Lymph % (Auto) (24-44) % [place] % (Auto) (2-6) % Eos % (Auto) (2-4) % Baso % (Auto) (0-1) % Sodium (140-148) mmol/L Potassium (3.6-5.2) mmol/L Chloride (100-108) mmol/L Carbon Dioxide (21-32) mmol/L Anion Gap (5.0-14.0) mmol/L BUN (7-18) mg/dL Creatinine (0.6-1.0) mg/dL Est Cr Clr Drug Dosing mL/min Estimated GFR (MDRD) (>60) Glucose (74-106) mg/dL Lactic Acid (0.4-2.0) mmol/L Calcium (8.5-10.1) mg/dL Total Bilirubin (0.2-1.0) mg/dL AST (15-37) U/L ALT (12-78) U/L Alkaline Phosphatase (46-116) U/L C-Reactive Protein (0.0-0.3) mg/dL Total Protein (6.4-8.2) g/dL Albumin (3.4-5.0) g/dL Globulin (2.3-3.5) g/dL Albumin/Globulin Ratio (1.2-2.2) Procalcitonin 0.17 ng/mL Urine Color Yellow (YELLOW) Urine Appearance Slightly cloudy A (CLEAR) Urine pH 5.5 (5.0-8.0) Ur Specific [place]ayer 1.020 (1.008-1.030) Urine Protein 30 H (NEGATIVE) mg/dL Urine Glucose (UA) Negative (NEGATIVE) mg/dL Urine Ketones Negative (NEGATIVE) mg/dL Urine Occult Blood Negative (NEGATIVE) Urine Nitrite Negative (NEGATIVE) Urine Bilirubin Negative (NEGATIVE) Urine Urobilinogen 0.2 (0.2-1.0) EU/dL Ur Leukocyte Esterase Small H (NEGATIVE) Urine RBC 0-5 (0-5) Urine WBC 50-75 H (0-5) Ur Epithelial Cells Few Amorphous Sediment Not seen Urine Bacteria Moderate Urine Mucus Rare Urine Other Urine Opiates Screen Negative (NEGATIVE) Ur Oxycodone Screen Presumptive positive H (NEGATIVE) Urine Methadone Screen Presumptive positive H (NEGATIVE) Ur Propoxyphene Screen Negative (NEGATIVE) Ur Barbiturates Screen Negative (NEGATIVE) Ur Tricyclics Screen Negative (NEGATIVE) Ur Phencyclidine Scrn Negative (NEGATIVE) Ur Amphetamine Screen Negative (NEGATIVE) U Methamphetamines Scrn Negative (NEGATIVE) Urine MDMA Screen Negative (NEGATIVE) U Benzodiazepines Scrn Negative (NEGATIVE) U Cocaine Metab Screen Negative (NEGATIVE) U Marijuana (THC) Screen Negative (NEGATIVE) Result Diagrams: 09/04/19 17:40 09/04/19 17:40 Ignacio Results Last 24 hrs: Microbiology 09/04/19 17:52 Influenza Type A Antigen Screen - Final Nasal Aspirate, Unspecified NEGATIVE INFLUENZA A VIRUS AG REFERENCE RANGE: NEGATIVE Influenza Type B Antigen Screen - Final NEGATIVE INFLUENZA B VIRUS AG REFERENCE RANGE: NEGATIVE Sepsis Event Note - Evaluation Sepsis Screening Result: Possible Severe Sepsis Risk - Focused Exam Vital Signs: Vital Signs Temp Pulse Resp BP Pulse Ox 09/04/19 18:55 83 103/61 09/04/19 18:28 85 85/46 L 09/04/19 17:57 80 78/34 L 09/04/19 17:28 98.8 F 96 20 103/61 94 L Respiratory Effort Without Exertion: Snoring Date Exam was Performed: 09/04/19 Time Exam was Performed: 20:12 Problem List Initiated/Reviewed/Updated: Yes Orders Last 24hrs: Active Orders 24 hr Category Date Time Status Patient Status Manage Transfer [TRANSFER] Routine ADT 09/04/19 19:17 Ordered Peripheral IV Care [RC] . DIRECTED Care 09/04/19 17:35 Active CULTURE BLOOD [BC] Urgent Lab 09/04/19 17:40 Received CULTURE BLOOD [BC] Urgent Lab 09/04/19 17:46 Received CULTURE URINE [RM] Stat Lab 09/04/19 17:52 Received Lactated Ringers [Ringers, Lactated] 1,000 ml Med 09/04/19 17:45 Active IV ASDIRECTED Sodium Chloride 0.9% [Saline Flush] Med 09/04/19 17:35 Active 10 ml FLUSH ASDIRECTED PRN Blood Culture x2 Reflex Set [OM.PC] Urgent Oth 09/04/19 17:31 Ordered Peripheral IV Insertion Adult [OM.PC] Urgent Oth 09/04/19 17:35 Ordered Severe Sepsis Onset Time [OM.PC] Stat Oth 09/04/19 17:31 Ordered Resuscitation Status Routine Resus Stat 09/04/19 19:19 Ordered Medication Orders Lactated Ringer's (Ringers, Lactated) 1,000 mls @ 999 mls/hr IV ASDIRECTED SANDI Last Admin: 09/04/19 18:17 Dose: 999 mls/hr Sodium Chloride (Saline Flush) 10 ml FLUSH ASDIRECTED PRN PRN Reason: Keep Vein Open Assessment/Plan Comment:: ASSESSMENT AND PLAN URINARY TRACT INFECTION/SEPSIS-she has incomplete paraplegia as well as a neurogenic bladder with a suprapubic catheter. The onset of symptoms today with increased lethargy and fever. Evidence of sepsis in the emergency department with hypotension. She has responded to IV fluid boluses and will be admitted to the ICU for monitoring and treatment. -Blood and urine cultures pending -Complete fluid bolus for sepsis -IV norepinephrine as needed for further hypotension -IV levofloxacin and meropenum DECREASED LEVEL OF CONSCIOUSNESS-likely secondary to current infection with sepsis as well as pain medication and lorazepam -Hold pain medications -Monitor in ICU INCOMPLETE PARAPLEGIA-complicated by chronic pain syndrome and muscle spasms ACUTE KIDNEY INJURY-secondary to current infection and sepsis -Closely monitor urine output and renal function MAINTENANCE ISSUES -DVT prophylaxis; Lovenox 30 mg subcutaneous daily -GI prophylaxis; not indicated -Olivas catheter; chronic indwelling suprapubic catheter -Nutrition; regular diet -Nicotine dependence; not required CODE STATUS-FULL CODE ADMISSION STATUS-patient will be admitted to inpatient status, expect at least a 2 night hospital stay for evaluation and management of problems as outlined above. At the time of this admission I do not reasonably expected evaluation and management of this problem will require more than a 96 hour hospital stay. DISPOSITION-anticipate discharge to home after the hospital stay. PRIMARY CARE PROVIDER- - Mortality Measure Prognosis:: Good
[2019-09-04] MEDS ORDERED: levETIRAcetam 250 MG Tab PO SCH (20:00)
[2019-09-04] MEDS ORDERED: Albuterol 0.083% 2.5 MG/3 ML Neb Soln NEB PRN ×2 (20:31)
[2019-09-04] MEDS ORDERED: Ondansetron 4 MG/2 ML SDV IV PRN (20:31)
[2019-09-04] MEDS ORDERED: Polyethylene Glycol 3350 Powder 17 GM Packet PO PRN (20:31)
[2019-09-04] MEDS ORDERED: Enoxaparin 40 MG/0.4 ML Syringe SUBCUT SCH (20:45)
[2019-09-04] MEDS: buPROPion 150 MG Tab.SR PO SCH ×2 (22:24→23:32)
[2019-09-04] MEDS: Pregabalin 100 MG Cap PO SCH ×2 (22:24→23:33)
[2019-09-04] MEDS: Baclofen 10 MG Tab PO SCH ×2 (22:24→23:32)
[2019-09-04] MEDS: Venlafaxine 75 MG Tab PO SCH ×2 (22:24→23:33)
[2019-09-04] MEDS: Acetaminophen 325 MG Tab PO PRN (23:33)
[2019-09-05] MEDS: Acetaminophen 325 MG Tab PO PRN ×2 (03:33→09:16)
[2019-09-05] MEDS: Meropenem 1 GM in Sodium Chloride 0.9% 100 ML IV SCH ×2 (07:56→20:19)
[2019-09-05] MEDS: Levothyroxine 25 MCG Tab PO SCH (08:03)
[2019-09-05] MEDS: Venlafaxine 75 MG Tab PO SCH ×2 (08:04→20:26)
[2019-09-05] MEDS: levETIRAcetam 250 MG Tab PO SCH ×2 (08:04→20:26)
[2019-09-05] MEDS: Baclofen 10 MG Tab PO SCH ×3 (08:05→20:27)
[2019-09-05] MEDS: buPROPion 150 MG Tab.SR PO SCH ×2 (08:05→20:28)
[2019-09-05] MEDS: Oxybutynin 5 MG Tab PO SCH ×2 (08:08→20:27)
[2019-09-05] MEDS: Pregabalin 100 MG Cap PO SCH ×3 (08:08→20:29)
[2019-09-05] MEDS: Magnesium Oxide 400 MG Tab PO SCH ×2 (09:16→20:27)
[2019-09-05] MEDS: Magnesium Sulfate/Water 2 GM in Premix Bag 1 BAG IV SCH ×3 (09:16→20:19)
--- NOTE | 2019-09-05 09:39 | PCM.PN ---
- General Info Date of Service: 09/05/19 Subjective Update: Ms. Wilde stable through the night, maintaining a mean arterial pressure of greater than 65, with IV fluids. This morning she is alert and interactive, no respiratory compromise and she has been afebrile during most of the night. Functional Status: Reports: Tolerating Diet - Review of Systems General: Reports: Fever, Weakness, Chills Pulmonary: Reports: No Symptoms Cardiovascular: Reports: No Symptoms Gastrointestinal: Reports: No Symptoms Musculoskeletal: Reports: Other (Muscle spasms) - Patient Data Vitals - Most Recent: Last Vital Signs Temp 97.8 F 09/05/19 08:00 Pulse 77 09/05/19 08:00 Resp 13 09/05/19 09:00 BP 107/64 09/05/19 09:00 Pulse Ox 96 09/05/19 09:00 Weight - Most Recent: 170 lb 14.4 oz I&O - Last 24 Hours: Intake & Output 09/04/19 09/05/19 09/05/19 22:59 06:59 14:59 Intake Total 1419 Output Total 950 Balance 469 Lab Results Last 24 Hours: Laboratory Results - last 24 hr 09/04/19 09/04/19 09/04/19 Range/Units 17:40 17:40 17:40 WBC 17.1 H (4.5-11.0) K/uL RBC 5.10 (3.30-5.50) M/uL Hgb 13.1 (12.0-15.0) g/dL Hct 42.6 (36.0-48.0) % MCV 84 (80-98) fL MCH 26 L (27-31) pg MCHC 31 L (32-36) % Plt Count 335 (150-400) K/uL Neut % (Auto) 79 H (36-66) % Lymph % (Auto) 14 L (24-44) % [place] % (Auto) 6 (2-6) % Eos % (Auto) 1 L (2-4) % Baso % (Auto) 1 (0-1) % Sodium 137 L (140-148) mmol/L Potassium 3.9 (3.6-5.2) mmol/L Chloride 102 (100-108) mmol/L Carbon Dioxide 23 (21-32) mmol/L Anion Gap 15.9 H (5.0-14.0) mmol/L BUN 18 (7-18) mg/dL Creatinine 1.8 H D (0.6-1.0) mg/dL Est Cr Clr Drug Dosing 38.56 mL/min Estimated GFR (MDRD) 30 L (>60) Glucose 117 H (74-106) mg/dL Lactic Acid 1.6 (0.4-2.0) mmol/L Calcium 8.7 (8.5-10.1) mg/dL Magnesium (1.8-2.4) mg/dL Total Bilirubin 0.2 D (0.2-1.0) mg/dL AST 15 (15-37) U/L ALT 17 (12-78) U/L Alkaline Phosphatase 136 H (46-116) U/L C-Reactive Protein 12.62 H (0.0-0.3) mg/dL Total Protein 7.7 (6.4-8.2) g/dL Albumin 2.5 L (3.4-5.0) g/dL Globulin 5.2 H (2.3-3.5) g/dL Albumin/Globulin Ratio 0.5 L (1.2-2.2) Procalcitonin ng/mL Urine Color (YELLOW) Urine Appearance (CLEAR) Urine pH (5.0-8.0) Ur Specific [place] (1.008-1.030) Urine Protein (NEGATIVE) mg/dL Urine Glucose (UA) (NEGATIVE) mg/dL Urine Ketones (NEGATIVE) mg/dL Urine Occult Blood (NEGATIVE) Urine Nitrite (NEGATIVE) Urine Bilirubin (NEGATIVE) Urine Urobilinogen (0.2-1.0) EU/dL Ur Leukocyte Esterase (NEGATIVE) Urine RBC (0-5) Urine WBC (0-5) Ur Epithelial Cells Amorphous Sediment Urine Bacteria Urine Mucus Urine Other Urine Opiates Screen (NEGATIVE) Ur Oxycodone Screen (NEGATIVE) Urine Methadone Screen (NEGATIVE) Ur Propoxyphene Screen (NEGATIVE) Ur Barbiturates Screen (NEGATIVE) Ur Tricyclics Screen (NEGATIVE) Ur Phencyclidine Scrn (NEGATIVE) Ur Amphetamine Screen (NEGATIVE) U Methamphetamines Scrn (NEGATIVE) Urine MDMA Screen (NEGATIVE) U Benzodiazepines Scrn (NEGATIVE) U Cocaine Metab Screen (NEGATIVE) U Marijuana (THC) Screen (NEGATIVE) 09/04/19 09/04/19 09/04/19 Range/Units 17:40 17:51 17:52 WBC (4.5-11.0) K/uL RBC (3.30-5.50) M/uL Hgb (12.0-15.0) g/dL Hct (36.0-48.0) % MCV (80-98) fL MCH (27-31) pg MCHC (32-36) % Plt Count (150-400) K/uL Neut % (Auto) (36-66) % Lymph % (Auto) (24-44) % [place] % (Auto) (2-6) % Eos % (Auto) (2-4) % Baso % (Auto) (0-1) % Sodium (140-148) mmol/L Potassium (3.6-5.2) mmol/L Chloride (100-108) mmol/L Carbon Dioxide (21-32) mmol/L Anion Gap (5.0-14.0) mmol/L BUN (7-18) mg/dL Creatinine (0.6-1.0) mg/dL Est Cr Clr Drug Dosing mL/min Estimated GFR (MDRD) (>60) Glucose (74-106) mg/dL Lactic Acid (0.4-2.0) mmol/L Calcium (8.5-10.1) mg/dL Magnesium (1.8-2.4) mg/dL Total Bilirubin (0.2-1.0) mg/dL AST (15-37) U/L ALT (12-78) U/L Alkaline Phosphatase (46-116) U/L C-Reactive Protein (0.0-0.3) mg/dL Total Protein (6.4-8.2) g/dL Albumin (3.4-5.0) g/dL Globulin (2.3-3.5) g/dL Albumin/Globulin Ratio (1.2-2.2) Procalcitonin 0.17 ng/mL Urine Color Yellow (YELLOW) Urine Appearance Slightly cloudy A (CLEAR) Urine pH 5.5 (5.0-8.0) Ur Specific [place] 1.020 (1.008-1.030) Urine Protein 30 H (NEGATIVE) mg/dL Urine Glucose (UA) Negative (NEGATIVE) mg/dL Urine Ketones Negative (NEGATIVE) mg/dL Urine Occult Blood Negative (NEGATIVE) Urine Nitrite Negative (NEGATIVE) Urine Bilirubin Negative (NEGATIVE) Urine Urobilinogen 0.2 (0.2-1.0) EU/dL Ur Leukocyte Esterase Small H (NEGATIVE) Urine RBC 0-5 (0-5) Urine WBC 50-75 H (0-5) Ur Epithelial Cells Few Amorphous Sediment Not seen Urine Bacteria Moderate Urine Mucus Rare Urine Other Urine Opiates Screen Negative (NEGATIVE) Ur Oxycodone Screen Presumptive positive H (NEGATIVE) Urine Methadone Screen Presumptive positive H (NEGATIVE) Ur Propoxyphene Screen Negative (NEGATIVE) Ur Barbiturates Screen Negative (NEGATIVE) Ur Tricyclics Screen Negative (NEGATIVE) Ur Phencyclidine Scrn Negative (NEGATIVE) Ur Amphetamine Screen Negative (NEGATIVE) U Methamphetamines Scrn Negative (NEGATIVE) Urine MDMA Screen Negative (NEGATIVE) U Benzodiazepines Scrn Negative (NEGATIVE) U Cocaine Metab Screen Negative (NEGATIVE) U Marijuana (THC) Screen Negative (NEGATIVE) 09/05/19 09/05/19 Range/Units 04:54 05:11 WBC 16.5 H (4.5-11.0) K/uL RBC 4.35 (3.30-5.50) M/uL Hgb 11.5 L (12.0-15.0) g/dL Hct 35.6 L (36.0-48.0) % MCV 82 (80-98) fL MCH 26 L (27-31) pg MCHC 32 (32-36) % Plt Count 311 (150-400) K/uL Neut % (Auto) 78 H (36-66) % Lymph % (Auto) 15 L (24-44) % [place] % (Auto) 7 H (2-6) % Eos % (Auto) 0 L (2-4) % Baso % (Auto) 0 (0-1) % Sodium 137 L (140-148) mmol/L Potassium 4.1 (3.6-5.2) mmol/L Chloride 103 (100-108) mmol/L Carbon Dioxide 23 (21-32) mmol/L Anion Gap 15.1 H (5.0-14.0) mmol/L BUN 15 (7-18) mg/dL Creatinine 1.3 H (0.6-1.0) mg/dL Est Cr Clr Drug Dosing 53.60 mL/min Estimated GFR (MDRD) 44 L (>60) Glucose 107 H (74-106) mg/dL Lactic Acid (0.4-2.0) mmol/L Calcium 8.2 L (8.5-10.1) mg/dL Magnesium 1.6 L D (1.8-2.4) mg/dL Total Bilirubin (0.2-1.0) mg/dL AST (15-37) U/L ALT (12-78) U/L Alkaline Phosphatase (46-116) U/L C-Reactive Protein (0.0-0.3) mg/dL Total Protein (6.4-8.2) g/dL Albumin (3.4-5.0) g/dL Globulin (2.3-3.5) g/dL Albumin/Globulin Ratio (1.2-2.2) Procalcitonin ng/mL Urine Color (YELLOW) Urine Appearance (CLEAR) Urine pH (5.0-8.0) Ur Specific [place] (1.008-1.030) Urine Protein (NEGATIVE) mg/dL Urine Glucose (UA) (NEGATIVE) mg/dL Urine Ketones (NEGATIVE) mg/dL Urine Occult Blood (NEGATIVE) Urine Nitrite (NEGATIVE) Urine Bilirubin (NEGATIVE) Urine Urobilinogen (0.2-1.0) EU/dL Ur Leukocyte Esterase (NEGATIVE) Urine RBC (0-5) Urine WBC (0-5) Ur Epithelial Cells Amorphous Sediment Urine Bacteria Urine Mucus Urine Other Urine Opiates Screen (NEGATIVE) Ur Oxycodone Screen (NEGATIVE) Urine Methadone Screen (NEGATIVE) Ur Propoxyphene Screen (NEGATIVE) Ur Barbiturates Screen (NEGATIVE) Ur Tricyclics Screen (NEGATIVE) Ur Phencyclidine Scrn (NEGATIVE) Ur Amphetamine Screen (NEGATIVE) U Methamphetamines Scrn (NEGATIVE) Urine MDMA Screen (NEGATIVE) U Benzodiazepines Scrn (NEGATIVE) U Cocaine Metab Screen (NEGATIVE) U Marijuana (THC) Screen (NEGATIVE) Ignacio Results Last 24 Hours: Microbiology 09/04/19 17:52 Influenza Type A Antigen Screen - Final Nasal Aspirate, Unspecified NEGATIVE INFLUENZA A VIRUS AG REFERENCE RANGE: NEGATIVE Influenza Type B Antigen Screen - Final NEGATIVE INFLUENZA B VIRUS AG REFERENCE RANGE: NEGATIVE Med Orders - Current: Current Medications Acetaminophen (Tylenol) 650 mg PO Q4H PRN PRN Reason: Pain (Mild 1-3)/fever Last Admin: 09/05/19 09:16 Dose: 650 mg Albuterol (Proventil Neb Soln) 2.5 mg NEB Q4H PRN PRN Reason: Shortness Of Breath/wheezing Albuterol (Proventil Neb Soln) 2.5 mg NEB Q4HRRT PRN PRN Reason: Dyspnea Baclofen (Lioresal) 20 mg PO TID [facility] Last Admin: 09/05/19 08:05 Dose: 20 mg Bupropion HCl (Wellbutrin Sr) 150 mg PO BID [facility] Last Admin: 09/05/19 08:05 Dose: 150 mg Enoxaparin Sodium (Lovenox) 40 mg SUBCUT BEDTIME [facility] Meropenem 1 gm/ Sodium (Chloride) 100 mls @ 200 mls/hr IV Q12H [facility] Last Admin: 09/05/19 07:56 Dose: 200 mls/hr Magnesium Sulfate 2 gm/ Premix 50 mls @ 25 mls/hr IV Q6H [facility] Stop: 09/05/19 22:59 Last Admin: 09/05/19 09:16 Dose: 25 mls/hr Levetiracetam (Keppra) 750 mg PO BID [facility] Last Admin: 09/05/19 08:04 Dose: 750 mg Levothyroxine Sodium (Levothyroxine) 75 mcg PO ACBREAKFAST [facility] Last Admin: 09/05/19 08:03 Dose: 75 mcg Magnesium Oxide (Magnesium Oxide) 400 mg PO BID [facility] Last Admin: 09/05/19 09:16 Dose: 400 mg Methadone HCl (Methadone) 15 mg PO BEDTIME [facility] Methadone HCl (Methadone) 15 mg PO PCLUNCH [facility] Methadone HCl (Methadone) 20 mg PO QAM [facility] Non-Formulary Medication (Aspirin [Aspirin]) 325 mg PO DAILY [facility] Non-Formulary Medication (Budesonide/Formoterol [Symbicort 80-4.5 Mcg]) 6.9 gm INH ASDIRECTED [facility] Ondansetron HCl (Zofran) 4 mg IV Q4H PRN PRN Reason: Nausea/Vomiting Oxybutynin Chloride (Oxybutynin) 5 mg PO BID [facility] Last Admin: 09/05/19 08:08 Dose: Not Given Oxycodone/Acetaminophen (Percocet 325-7.5 Mg) 2 tab PO Q6H PRN PRN Reason: Pain Polyethylene Glycol (Miralax) 17 gm PO DAILY PRN PRN Reason: Constipation Pregabalin (Lyrica) 200 mg PO TID [facility] Last Admin: 09/05/19 08:08 Dose: 200 mg Sodium Chloride (Saline Flush) 10 ml FLUSH ASDIRECTED PRN PRN Reason: Keep Vein Open Venlafaxine HCl (Effexor) 75 mg PO BEDTIME [facility] Last Admin: 09/04/19 23:33 Dose: 75 mg Venlafaxine HCl (Effexor) 150 mg PO DAILY [facility] Last Admin: 09/05/19 08:04 Dose: 150 mg Discontinued Medications Acetaminophen (Tylenol) 650 mg PO NOW ONE Stop: 09/04/19 17:36 Last Admin: 09/04/19 19:30 Dose: Not Given Enoxaparin Sodium (Lovenox) 40 mg SUBCUT DAILY [facility] Last Admin: 09/04/19 22:23 Dose: 40 mg Lactated Ringer's (Ringers, Lactated) 1,000 mls @ 999 mls/hr IV ASDIRECTED [facility] Last Admin: 09/04/19 18:17 Dose: 999 mls/hr Levofloxacin/Dextrose 750 mg/ (Premix) 150 mls @ 100 mls/hr IV ONETIME ONE Stop: 09/04/19 19:03 Last Admin: 09/04/19 18:18 Dose: 100 mls/hr Norepinephrine Bitartrate 4 mg (/ Dextrose/Water) 250 mls @ 7.5 mls/hr IV TITRATE [facility]; Protocol Meropenem 1 gm/ Sodium (Chloride) 50 mls @ 100 mls/hr IV ONETIME ONE Stop: 09/04/19 19:12 Last Admin: 09/04/19 19:10 Dose: 100 mls/hr Lactated Ringer's (Ringers, Lactated) 1,000 mls @ 125 mls/hr IV ASDIRECTED [facility] Last Admin: 09/04/19 22:42 Dose: 125 mls/hr Lactated Ringer's (Ringers, Lactated) 1,000 mls @ 500 mls/hr IV ASDIRECTED [facility] Stop: 09/04/19 22:32 Last Admin: 09/04/19 20:45 Dose: 500 mls/hr Levetiracetam (Keppra) 750 mg PO ASDIRECTED [facility] Lorazepam (Ativan) 1 mg IVPUSH ONETIME ONE Stop: 09/04/19 17:40 Last Admin: 09/04/19 18:19 Dose: 1 mg Naloxone HCl (Narcan) Confirm Administered Dose 0.4 mg .ROUTE .STK-MED ONE Stop: 09/04/19 18:56 Last Admin: 09/04/19 19:30 Dose: Not Given Naloxone HCl (Narcan) 0.4 mg IVPUSH ONETIME ONE Stop: 09/04/19 18:52 Last Admin: 09/04/19 19:09 Dose: 0.4 mg Sodium Chloride (Saline Flush) 10 ml FLUSH ASDIRECTED PRN PRN Reason: Keep Vein Open - Exam Quality Assessment: Urine Catheter, DVT Prophylaxis General: Alert, Oriented, Cooperative, Moderate Distress Lungs: Clear to Auscultation, Normal Respiratory Effort Cardiovascular: Regular Rate, Regular Rhythm, No Murmurs GI/Abdominal Exam: Soft, Non-Tender, No Organomegaly, No Distention Extremities: Normal Range of Motion, Non-Tender Sepsis Event Note - Evaluation Sepsis Screening Result: Severe Sepsis Risk - Focused Exam Vital Signs: Vital Signs Temp Pulse Resp BP Pulse Ox 09/05/19 09:00 13 107/64 96 09/05/19 08:00 97.8 F 77 13 106/61 96 09/05/19 07:00 11 L 94/51 L 97 09/05/19 06:00 73 14 91/48 L 97 09/05/19 05:00 76 12 104/58 L 97 09/05/19 04:00 97.8 F 85 12 100/56 L 97 09/05/19 03:00 97.1 F 81 12 95/54 L 96 09/05/19 02:00 97.9 F 87 15 105/64 95 09/05/19 01:00 88 12 96/53 L 97 09/05/19 00:00 100.1 F 103 H 12 107/56 L 96 09/04/19 23:00 100.1 F 95 18 106/55 L 95 09/04/19 22:00 101.6 F H 94 12 106/59 L 96 Date Exam was Performed: 09/05/19 Time Exam was Performed: 09:33 - Problem List Review Problem List Initiated/Reviewed/Updated: Yes - My Orders Last 24 Hours: My Active Orders 09/04/19 19:19 Resuscitation Status Routine 09/04/19 20:31 Patient Status [ADT] Routine Cardiac Monitoring [RC] .As Directed Height and Weight [RC] DAILY Intake and Output [RC] Q12H Notify Provider Vital Signs [RC] ASDIRECTED Oxygen Therapy [RC] PRN Peripheral IV Care [RC] . DIRECTED Pulse Oximetry [RC] CONTINUOUS RT Aerosol Therapy [RC] ASDIRECTED RT Aerosol Therapy [RC] ASDIRECTED Up With Assistance [RC] ASDIRECTED Up to Chair [RC] QID VTE/DVT Education [RC] Per Unit Routine Vital Signs [RC] Q1H Acetaminophen [Tylenol] 650 mg PO Q4H PRN Albuterol [Proventil Neb Soln] 2.5 mg NEB Q4H PRN Albuterol [Proventil Neb Soln] 2.5 mg NEB Q4HRRT PRN Ondansetron [Zofran] 4 mg IV Q4H PRN Polyethylene Glycol 3350 [MiraLAX] 17 gm PO DAILY PRN Sodium Chloride 0.9% [Saline Flush] 10 ml FLUSH ASDIRECTED PRN Peripheral IV Insertion Adult [OM.PC] Routine 09/04/19 21:00 Baclofen [Lioresal] 20 mg PO TID Pregabalin [Lyrica] 200 mg PO TID Venlafaxine [Effexor] 75 mg PO BEDTIME buPROPion [Wellbutrin SR] 150 mg PO BID 09/04/19 Dinner Regular Diet [DIET] 09/05/19 07:30 Levothyroxine 75 mcg PO ACBREAKFAST 09/05/19 08:00 Meropenem [Merrem] 1 gm Sodium Chloride 0.9% [Normal Saline] 100 ml IV Q12H 09/05/19 09:00 Magnesium Oxide 400 mg PO BID Magnesium Sulfate/Water [Magnesium Sulfate in Water Premix] 2 gm Premix Bag 1 bag IV Q6H Oxybutynin 5 mg PO BID Venlafaxine [Effexor] 150 mg PO DAILY levETIRAcetam [Keppra] 750 mg PO BID 09/05/19 09:30 Convert IV to Saline Lock [OM.PC] Routine 09/05/19 09:31 Acetaminophen/oxyCODONE [Percocet 325-7.5 MG] 2 tab PO Q6H PRN 09/05/19 09:45 Budesonide/Formoterol [Symbicort 80-4.5 MCG] 6.9 gm INH ASDIRECTED 09/05/19 13:00 Methadone 15 mg PO PCLUNCH 09/05/19 21:00 Enoxaparin [Lovenox] 40 mg SUBCUT BEDTIME Methadone 15 mg PO BEDTIME 09/06/19 05:00 BASIC METABOLIC PANEL,BMP [CHEM] Timed CBC WITH AUTO DIFF [HEME] Timed 09/06/19 09:00 Aspirin [Aspirin] 325 mg PO DAILY Methadone 20 mg PO QAM - Plan Plan:: ASSESSMENT AND PLAN URINARY TRACT INFECTION/SEPSIS-she has incomplete paraplegia as well as a neurogenic bladder with a suprapubic catheter. Improved through the night, hemodynamically stable. -Blood and urine cultures pending -Saline lock IV -IV meropenum pending culture results DECREASED LEVEL OF CONSCIOUSNESS-alert and interactive this morning -Resume pain medications -Monitor in ICU INCOMPLETE PARAPLEGIA-complicated by chronic pain syndrome and muscle spasms ACUTE KIDNEY INJURY-renal function improved with fluid replacement -Closely monitor urine output and renal function MAINTENANCE ISSUES -DVT prophylaxis; Lovenox 30 mg subcutaneous daily -GI prophylaxis; not indicated -Olivas catheter; chronic indwelling suprapubic catheter -Nutrition; regular diet -Nicotine dependence; not required CODE STATUS-FULL CODE ADMISSION STATUS-patient will be admitted to inpatient status, expect at least a 2 night hospital stay for evaluation and management of problems as outlined above. At the time of this admission I do not reasonably expected evaluation and management of this problem will require more than a 96 hour hospital stay. DISPOSITION-anticipate discharge to home after the hospital stay. PRIMARY CARE PROVIDER-
[2019-09-05] MEDS ORDERED: BUDESONIDE INH SCH (09:45)
[2019-09-05] MEDS ORDERED: FORMOTEROL INH SCH (09:45)
[2019-09-05] MEDS ORDERED: Methadone 10 MG Tab PO ONE (11:00)
[2019-09-05] MEDS: Acetaminophen/oxyCODONE 325-7.5 MG Tab PO PRN ×3 (11:17→23:25)
[2019-09-05] MEDS ORDERED: Methadone 5 MG Tab PO SCH ×2 (13:00→21:00)
[2019-09-05] MEDS ORDERED: Lactated Ringers 1,000 ML IV SCH (17:00)
[2019-09-05] MEDS: Lactated Ringers 1,000 ML IV SCH (19:00)
[2019-09-05] MEDS ORDERED: Enoxaparin 40 MG/0.4 ML Syringe SUBCUT SCH (21:00)
[2019-09-06] MEDS: Acetaminophen 325 MG Tab PO PRN ×2 (02:47→10:03)
[2019-09-06] MEDS: Lactated Ringers 1,000 ML IV SCH (04:58)
[2019-09-06] MEDS: Acetaminophen/oxyCODONE 325-7.5 MG Tab PO PRN (07:00)
[2019-09-06] MEDS: Levothyroxine 25 MCG Tab PO SCH (07:27)
[2019-09-06] MEDS: Meropenem 1 GM in Sodium Chloride 0.9% 100 ML IV SCH (07:33)
[2019-09-06] MEDS: Venlafaxine 75 MG Tab PO SCH (08:20)
[2019-09-06] MEDS: levETIRAcetam 250 MG Tab PO SCH (08:20)
[2019-09-06] MEDS: Baclofen 10 MG Tab PO SCH (08:20)
[2019-09-06] MEDS: Oxybutynin 5 MG Tab PO SCH (08:20)
[2019-09-06] MEDS: buPROPion 150 MG Tab.SR PO SCH (08:21)
[2019-09-06] MEDS: Magnesium Oxide 400 MG Tab PO SCH (08:21)
[2019-09-06] MEDS: Pregabalin 100 MG Cap PO SCH (08:28)
[2019-09-06] MEDS ORDERED: Methadone 5 MG Tab PO SCH (09:00)
[2019-09-06] MEDS ORDERED: Non-Formulary Medication 1 Each (Aspirin [Aspirin] 325 MG) PO SCH (09:00)
[2019-09-06] MEDS ORDERED: Methadone 10 MG Tab PO SCH ×3 (09:00→21:00)
[2019-09-06] MEDS ORDERED: Aspirin 325 MG Tab.EC PO SCH (09:00)
[2019-09-06 10:39] VITALS: BP 107/64
--- NOTE | 2019-09-06 11:45 | PCM.DCSUM1 ---
Discharge Summary - Hospital Course Brief History: Ms. Wilde is a 48-year-old woman who was admitted through the emergency department with decreased level of consciousness, weakness, fever, secondary to urinary tract infection and sepsis. - Discharge Data Discharge Date: 09/06/19 Discharge Disposition: Home, W Home Health Agency 06 Condition: Fair - Referral to Home Health Date of Face to Face Encounter: 09/06/19 Reason for Homebound Status: Paraplegia Primary Care Physician: PCP None Skilled Need: Weakness - Discharge Diagnosis/Problem(s) (1) UTI (urinary tract infection) SNOMED Code(s): 85638229 ICD Code: N39.0 - URINARY TRACT INFECTION, SITE NOT SPECIFIED Status: Acute Current Visit: Yes Qualifiers: Urinary tract infection type: acute cystitis Hematuria presence: without hematuria Qualified Code(s): N30.00 - Acute cystitis without hematuria (2) Altered level of consciousness SNOMED Code(s): 4540916 ICD Code: R40.4 - TRANSIENT ALTERATION OF AWARENESS Status: Acute Current Visit: No (3) Elevated WBC count SNOMED Code(s): 728988921, 891959352 ICD Code: D72.829 - ELEVATED WHITE BLOOD CELL COUNT, UNSPECIFIED Status: Acute Current Visit: No Qualifiers: Leukocytosis type: other Qualified Code(s): D72.828 - Other elevated white blood cell count (4) Sepsis SNOMED Code(s): 10124559 ICD Code: A41.9 - SEPSIS, UNSPECIFIED ORGANISM Status: Acute Current Visit: No (5) Decubitus ulcer SNOMED Code(s): 716899605 ICD Code: L89.90 - PRESSURE ULCER OF UNSPECIFIED SITE, UNSPECIFIED STAGE Status: Chronic Current Visit: No Problem Details: Chronic, present on admission - Patient Summary/Data Hospital Course: Ms. Wilde is a 48-year-old woman who was admitted through the emergency department with urinary tract infection and sepsis. She is experienced decreased level of consciousness and is unable to provide a meaningful history concerning recent symptoms or review of systems. Her mother who was present reports that she was well this morning and ate a good breakfast, after that slept much of the morning. Appetite was not as good for her noon meal and she again slept much of the afternoon and was very difficult to arouse. She was also noted to be weak with a temperature elevation. She was brought into the emergency department and on evaluation was noted to have evidence of urinary tract infection with elevation in her white blood cell count. After arriving in the emergency department she received lorazepam for muscle spasms. Shortly thereafter she developed significant hypotension and required IV fluid boluses. She improved with fluid boluses and also a dose of Narcan. She has a history of chronic pain and is currently treated with methadone as well as oxycodone. On admission and in the emergency department received vigorous IV fluid replacement for management of sepsis and associated hypotension. Blood and urine cultures were obtained and she was started on broad-spectrum IV antibiotic therapy with meropenem, pending culture results. Proved significantly and by the following morning was hemodynamically stable, alert and interactive. Pain medication including the methadone and oxycodone were held throughout the night. That day she did receive her usual dose of methadone and was very sleepy with borderline blood pressures and decreased respiratory rate. It was felt likely that this was secondary to too much of the pain medication and the following day prior to discharge methadone was decreased to 15 mg in the morning 10 mg at noon and 10 mg at bedtime. Did review these changes with the patient and explained the reasoning for the decrease doses of medication. She will be discharged home on same medications. Blood cultures remain negative throughout her hospital stay, white blood cell count normalized. Urine culture grew out 10,000 100,000 colony units, felt to represent overgrowth and not true infection. She will be discharged home on additional 5 days of oral antibiotic therapy with Omnicef. Activity will be as tolerated and she will resume her usual diet. Home care services will be arranged for ongoing management of her chronic decubitus ulcer with wound VAC. She will continue to follow with Dr. Weems for management of her decubitus ulcer. Follow-up appointment will be scheduled with her primary care provider within one week. - Patient Instructions Diet: Usual Diet as Tolerated Activity: As Tolerated Other/Special Instructions: Home care FU after DC. SHELDON w/ Dr. Alegre w/in 1 week - Discharge Plan *PRESCRIPTION DRUG MONITORING PROGRAM REVIEWED*: No *COPY OF PRESCRIPTION DRUG MONITORING REPORT IN PATIENT VICTOR MANUEL: No Prescriptions/Med Rec: Cefdinir [Omnicef] 300 mg PO BID #10 cap Home Medications: Home Meds Albuterol [Ventolin HFA] 1 puff IH QID 12/16/14 [History] Ibuprofen 200 mg PO Q4H PRN 12/16/14 [History] Multivitamins/Iron/Folic Acid [Cerovite Advanced Formula] 1 tab PO DAILY [History] Venlafaxine [Effexor] 75 mg PO BEDTIME 12/16/14 [History] Lisinopril 20 mg PO DAILY 07/04/17 [History] oxyCODONE HCl/Acetaminophen [Endocet 7.5-325 mg Tablet] 2 tab PO Q6H PRN [History] buPROPion [Wellbutrin SR] 150 tab PO BID 10/23/18 [History] Baclofen 20 mg PO TID 01/02/19 [History] Levothyroxine 75 mcg PO ACBREAKFAST 01/02/19 [History] Naloxone HCl [Narcan] 4 mg MIGUEL ASDIRECTED PRN 01/02/19 [History] Pregabalin [Lyrica] 200 mg PO TID 01/02/19 [History] Venlafaxine [Effexor] 150 mg PO DAILY 01/02/19 [History] hydrOXYzine pamoate [Hydroxyzine Pamoate] 25 mg PO TID PRN 01/02/19 [History] Aspirin 325 mg PO DAILY 09/04/19 [History] Mometasone/Formoterol [Dulera 200 MCG/5 MCG] 1 puff INH ASDIRECTED 09/04/19 [ History] Multivit-Min/FA/Lycopen/Lutein [Certavite Sr-Antioxidant Tab] 1 tab PO DAILY 07/14 [History] levETIRAcetam [Levetiracetam] 750 mg PO BID 09/04/19 [History] Cefdinir [Omnicef] 300 mg PO BID #10 cap 09/06/19 [Rx] Methadone 10 mg PO BEDTIME #0 09/06/19 [Rx] Methadone 10 mg PO PCLUNCH #0 09/06/19 [Rx] Methadone 15 mg PO QAM #0 09/06/19 [Rx] - Discharge Summary/Plan Comment DC Time >30 min.: No - Patient Data Vitals - Most Recent: Last Vital Signs Temp 96.9 F 09/06/19 08:00 Pulse 72 09/06/19 10:00 Resp 12 09/06/19 09:00 BP 107/64 09/06/19 10:00 Pulse Ox 95 09/06/19 09:00 Weight - Most Recent: 185 lb I&O - Last 24 hours: Intake & Output 09/05/19 09/06/19 09/06/19 22:59 06:59 14:59 Intake Total 1387 2759 100 Output Total 1300 1600 Balance 87 1159 100 Lab Results - Last 24 hrs: Laboratory Results - last 24 hr 09/06/19 09/06/19 Range/Units 05:30 05:30 WBC 10.1 (4.5-11.0) K/uL RBC 3.77 (3.30-5.50) M/uL Hgb 9.6 L (12.0-15.0) g/dL Hct 32.0 L (36.0-48.0) % MCV 85 (80-98) fL MCH 26 L (27-31) pg MCHC 30 L (32-36) % Plt Count 300 (150-400) K/uL Neut % (Auto) 55 (36-66) % Lymph % (Auto) 31 (24-44) % Curry % (Auto) 12 H (2-6) % Eos % (Auto) 2 (2-4) % Baso % (Auto) 1 (0-1) % Sodium 137 L (140-148) mmol/L Potassium 4.0 (3.6-5.2) mmol/L Chloride 103 (100-108) mmol/L Carbon Dioxide 28 (21-32) mmol/L Anion Gap 10.0 (5.0-14.0) mmol/L BUN 8 (7-18) mg/dL Creatinine 0.8 (0.6-1.0) mg/dL Est Cr Clr Drug Dosing 86.75 mL/min Estimated GFR (MDRD) > 60 (>60) Glucose 88 (74-106) mg/dL Calcium 8.0 L (8.5-10.1) mg/dL [id number] Results - Last 24 hrs: Microbiology 09/04/19 17:52 Urine Culture - Preliminary Urine, Catheterized YEAST 09/04/19 17:46 Aerobic Blood Culture - Preliminary Blood - Venous - Lab Draw NO GROWTH AFTER 1 DAY Anaerobic Blood Culture - Preliminary NO GROWTH AFTER 1 DAY 09/04/19 17:40 Aerobic Blood Culture - Preliminary Blood - Venous - Iv Start NO GROWTH AFTER 1 DAY Anaerobic Blood Culture - Preliminary NO GROWTH AFTER 1 DAY Med Orders - Current: Current Medications Acetaminophen (Tylenol) 650 mg PO Q4H PRN PRN Reason: Pain (Mild 1-3)/fever Last Admin: 09/06/19 10:03 Dose: 650 mg Albuterol (Proventil Neb Soln) 2.5 mg NEB Q4H PRN PRN Reason: Shortness Of Breath/wheezing Aspirin (Ecotrin) 325 mg PO DAILY [facility] Last Admin: 09/06/19 08:21 Dose: 325 mg Baclofen (Lioresal) 20 mg PO TID [facility] Last Admin: 09/06/19 08:20 Dose: 20 mg Bupropion HCl (Wellbutrin Sr) 150 mg PO BID [facility] Last Admin: 09/06/19 08:21 Dose: 150 mg Enoxaparin Sodium (Lovenox) 40 mg SUBCUT BEDTIME [facility] Last Admin: 09/05/19 20:27 Dose: 40 mg Lactated Ringer's (Ringers, Lactated) 1,000 mls @ 125 mls/hr IV ASDIRECTED [facility] Last Admin: 09/06/19 04:58 Dose: 125 mls/hr Meropenem 1 gm/ Sodium (Chloride) 100 mls @ 200 mls/hr IV Q8H [facility] Levetiracetam (Keppra) 750 mg PO BID [facility] Last Admin: 09/06/19 08:20 Dose: 750 mg Levothyroxine Sodium (Levothyroxine) 75 mcg PO ACBREAKFAST [facility] Last Admin: 09/06/19 07:27 Dose: 75 mcg Magnesium Oxide (Magnesium Oxide) 400 mg PO BID [facility] Last Admin: 09/06/19 08:21 Dose: 400 mg Methadone HCl (Methadone) 15 mg PO QAM [facility] Last Admin: 09/06/19 08:28 Dose: 15 mg Methadone HCl (Methadone) 10 mg PO PCLUNCH [facility] Methadone HCl (Methadone) 10 mg PO BEDTIME [facility] Ondansetron HCl (Zofran) 4 mg IV Q4H PRN PRN Reason: Nausea/Vomiting Oxybutynin Chloride (Oxybutynin) 5 mg PO BID [facility] Last Admin: 09/06/19 08:20 Dose: 5 mg Oxycodone/Acetaminophen (Percocet 325-7.5 Mg) 2 tab PO Q6H PRN PRN Reason: Pain Last Admin: 09/06/19 07:00 Dose: 2 tab Polyethylene Glycol (Miralax) 17 gm PO DAILY PRN PRN Reason: Constipation Pregabalin (Lyrica) 200 mg PO TID [facility] Last Admin: 09/06/19 08:28 Dose: 200 mg Sodium Chloride (Saline Flush) 10 ml FLUSH ASDIRECTED PRN PRN Reason: Keep Vein Open Venlafaxine HCl (Effexor) 75 mg PO BEDTIME [facility] Last Admin: 09/05/19 20:26 Dose: 75 mg Venlafaxine HCl (Effexor) 150 mg PO DAILY [facility] Last Admin: 09/06/19 08:20 Dose: 150 mg Discontinued Medications Acetaminophen (Tylenol) 650 mg PO NOW ONE Stop: 09/04/19 17:36 Last Admin: 09/04/19 19:30 Dose: Not Given Enoxaparin Sodium (Lovenox) 40 mg SUBCUT DAILY [facility] Last Admin: 09/04/19 22:23 Dose: 40 mg Lactated Ringer's (Ringers, Lactated) 1,000 mls @ 999 mls/hr IV ASDIRECTED [facility] Last Admin: 09/04/19 18:17 Dose: 999 mls/hr Levofloxacin/Dextrose 750 mg/ (Premix) 150 mls @ 100 mls/hr IV ONETIME ONE Stop: 09/04/19 19:03 Last Admin: 09/04/19 18:18 Dose: 100 mls/hr Norepinephrine Bitartrate 4 mg (/ Dextrose/Water) 250 mls @ 7.5 mls/hr IV TITRATE [facility]; Protocol Meropenem 1 gm/ Sodium (Chloride) 50 mls @ 100 mls/hr IV ONETIME ONE Stop: 09/04/19 19:12 Last Admin: 09/04/19 19:10 Dose: 100 mls/hr Lactated Ringer's (Ringers, Lactated) 1,000 mls @ 125 mls/hr IV ASDIRECTED [facility] Last Admin: 09/04/19 22:42 Dose: 125 mls/hr Lactated Ringer's (Ringers, Lactated) 1,000 mls @ 500 mls/hr IV ASDIRECTED [facility] Stop: 09/04/19 22:32 Last Admin: 09/04/19 20:45 Dose: 500 mls/hr Meropenem 1 gm/ Sodium (Chloride) 100 mls @ 200 mls/hr IV Q12H [facility] Last Admin: 09/06/19 07:33 Dose: 200 mls/hr Magnesium Sulfate 2 gm/ Premix 50 mls @ 25 mls/hr IV Q6H [facility] Stop: 09/05/19 22:59 Last Admin: 09/05/19 20:19 Dose: 25 mls/hr Lactated Ringer's (Ringers, Lactated) 1,000 mls @ 500 mls/hr IV ASDIRECTED [facility] Stop: 09/05/19 18:59 Last Admin: 09/05/19 17:08 Dose: 500 mls/hr Levetiracetam (Keppra) 750 mg PO ASDIRECTED [facility] Lorazepam (Ativan) 1 mg IVPUSH ONETIME ONE Stop: 09/04/19 17:40 Last Admin: 09/04/19 18:19 Dose: 1 mg Methadone HCl (Methadone) 15 mg PO BEDTIME [facility] Last Admin: 09/05/19 20:25 Dose: 15 mg Methadone HCl (Methadone) 15 mg PO PCLUNCH [facility] Last Admin: 09/05/19 12:52 Dose: 15 mg Methadone HCl (Methadone) 20 mg PO QAM [facility] Methadone HCl (Methadone) 20 mg PO ONETIME ONE Stop: 09/05/19 11:01 Last Admin: 09/05/19 10:21 Dose: 20 mg Naloxone HCl (Narcan) Confirm Administered Dose 0.4 mg .ROUTE .STK-MED ONE Stop: 09/04/19 18:56 Last Admin: 09/04/19 19:30 Dose: Not Given Naloxone HCl (Narcan) 0.4 mg IVPUSH ONETIME ONE Stop: 09/04/19 18:52 Last Admin: 09/04/19 19:09 Dose: 0.4 mg Sodium Chloride (Saline Flush) 10 ml FLUSH ASDIRECTED PRN PRN Reason: Keep Vein Open - Exam General: Reports: Alert, Oriented, Cooperative, No Acute Distress Lungs: Reports: Clear to Auscultation, Normal Respiratory Effort Cardiovascular: Reports: Regular Rate, Regular Rhythm, No Murmurs GI/Abdominal Exam: Soft, Non-Tender, No Organomegaly, No Distention
[2019-09-06 12:00] VITALS: PULSE 60
[2019-09-06] MEDS ORDERED: Meropenem 1 GM in Sodium Chloride 0.9% 100 ML IV SCH (16:00)
== END 2019-09-06 12:35 | disposition home health service (06) | DRG 872 ==
LOC: JP.ED 17:26 → JP.ICU 19:17
PROVIDERS: ADMIT Hospitalist; ATTEND Hospitalist
DX: A41.9 Sepsis, unspecified organism (principal); N30.00 Acute cystitis without hematuria; G82.22 Paraplegia, incomplete; N17.9 Acute kidney failure, unspecified; I10 Essential (primary) hypertension; E03.9 Hypothyroidism, unspecified; F17.200 Nicotine dependence, unspecified, uncomplicated; N31.9 Neuromuscular dysfunction of bladder, unspecified; R40.2412 Glasgow coma scale score 13-15, at arrival to emergency department; G89.29 Other chronic pain; M62.838 Other muscle spasm; Z88.1 Allergy status to other antibiotic agents; Z88.0 Allergy status to penicillin; Z79.890 Hormone replacement therapy; Z79.899 Other long term (current) drug therapy; Z87.01 Personal history of pneumonia (recurrent)
CPT/HCPCS: 36415; 71045; 80048; 80053; 80305-QW; 81001; 83605; 83735; 84145; 85025; 86140; 87040; 87086; 87088; 87804; 87804-59; 96365; 96366; 96368; 96375; 97605; 99284; 99285-25; A9270-GY; J1642; J1650; J1956; J2060; J2185; J2310; J3475; J7050; J7120

== ENCOUNTER 2019-09-22 08:40 | Inpatient (IN) | payer MEDICAID ==
[2019-09-22] MEDS ORDERED: Acetaminophen 500 MG Tab PO ONE (09:10)
[2019-09-22] MEDS ORDERED: Methadone 5 MG Tab PO STA (09:24)
[2019-09-22] MEDS ORDERED: levETIRAcetam 250 MG Tab PO STA (09:25)
[2019-09-22] MEDS ORDERED: buPROPion 150 MG Tab.SR PO ONE (09:26)
--- NOTE | 2019-09-22 09:32 | EDM.PDOC ---
ED HPI GENERAL MEDICAL PROBLEM - General Chief Complaint: General Stated Complaint: MEDICAL VIA TRI Time Seen by Provider: 09/22/19 09:15 Source of Information: Reports: EMS, Old Records, RN History Limitations: Reports: Uncooperative - History of Present Illness INITIAL COMMENTS - FREE TEXT/NARRATIVE: 48 yo female here from her home via EMS for not feeling well. Has had some, but not all her morning meds so far. Has a suprapubic catheter and a colostomy. Lives with her mother in [place], [place]. Dr. Moscoso is her provider. Has a pHx of recurrent UTI's. Is having some apparent muscle spasms. Is not offering any history herself here in the ER but cries out as if in pain intermittently. Onset: Today Onset Date: 09/22/19 Duration: Hour(s):, Constant Location: Reports: Other (? legs) Quality: Reports: Other (? cramping) Severity: Severe Improves with: Reports: Other (unknown, patient not able to tell me or refuses?) Worsens with: Reports: Other (? 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: Reports: Other (see below) (none) - Related Data Allergies Allergy/AdvReac Type Severity Reaction Status Date / Time clindamycin Allergy Cannot Verified 09/04/19 17:33 Remember Penicillins Allergy Cannot Verified 09/04/19 17:33 Remember Home Meds: Home Meds Albuterol [Ventolin HFA] 1 puff IH QID 12/16/14 [History] Ibuprofen 200 mg PO Q4H PRN 12/16/14 [History] Multivitamins/Iron/Folic Acid [Cerovite Advanced Formula] 1 tab PO DAILY [History] Venlafaxine [Effexor] 75 mg PO BEDTIME 12/16/14 [History] Lisinopril 20 mg PO DAILY 07/04/17 [History] oxyCODONE HCl/Acetaminophen [Endocet 7.5-325 mg Tablet] 2 tab PO Q6H PRN [History] buPROPion [Wellbutrin SR] 150 tab PO BID 10/23/18 [History] Baclofen 20 mg PO TID 01/02/19 [History] Levothyroxine 75 mcg PO ACBREAKFAST 01/02/19 [History] Naloxone HCl [Narcan] 4 mg MIGUEL ASDIRECTED PRN 01/02/19 [History] Pregabalin [Lyrica] 200 mg PO TID 01/02/19 [History] Venlafaxine [Effexor] 150 mg PO DAILY 01/02/19 [History] hydrOXYzine pamoate [Hydroxyzine Pamoate] 25 mg PO TID PRN 01/02/19 [History] Aspirin 325 mg PO DAILY 09/04/19 [History] Mometasone/Formoterol [Dulera 200 MCG/5 MCG] 1 puff INH ASDIRECTED 09/04/19 [ History] Multivit-Min/FA/Lycopen/Lutein [Certavite Sr-Antioxidant Tab] 1 tab PO DAILY 07/14 [History] levETIRAcetam [Levetiracetam] 750 mg PO BID 09/04/19 [History] Cefdinir [Omnicef] 300 mg PO BID #10 cap 09/06/19 [Rx] Methadone 10 mg PO BEDTIME #0 09/06/19 [Rx] Methadone 10 mg PO PCLUNCH #0 09/06/19 [Rx] Methadone 15 mg PO QAM #0 09/06/19 [Rx] Past Medical History HEENT History: Reports: Impaired Vision Cardiovascular History: Reports: Hypertension Respiratory History: Reports: SOB Other Respiratory History: PNA 6 months ago Gastrointestinal History: Reports: Other (See Below) Other Gastrointestinal History: ostomy Genitourinary History: Reports: UTI, Recurrent Other Genitourinary History: suprapubic Cath CLINICAL SUPPORT TECH History: Reports: Musculoskeletal History: Reports: Other (See Below) Other Musculoskeletal History: spasms Neurological History: Reports: Other (See Below) Other Neuro History: L-4 spinal cord injury Psychiatric History: Reports: Depression, Suicide Attempt Endocrine/Metabolic History: Reports: Hypothyroidism Hematologic History: Reports: Blood Transfusion(s) Dermatologic History: Reports: Decubitus Ulcer, Eczema Other Dermatologic History: rt buttock ulcer 2013 on going care by healthcare prof - Infectious Disease History Infectious Disease History: Reports: Chicken Pox Other Infectious Disease History: 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 and healthcare prof state nolonger the case - Past Surgical History GI Surgical History: Reports: Small Bowel Female Surgical History: Reports: Suprapubic Catheter Placement Musculoskeletal Surgical History: Reports: Other (See Below) Other Musculoskeletal Surgeries/Procedures:: ankle Social & Family History - Family History Family Medical History: Noncontributory - Tobacco Use Smoking Status *Q: Current Every Day Smoker Years of Tobacco use: 20 Packs/Tins Daily: 0.5 - Caffeine Use Caffeine Use: Reports: Soda Other Caffeine Use: 1 cup a day Caffeine Use Comment: unknown - Recreational Drug Use Recreational Drug Use: No ED ROS GENERAL - Review of Systems Review Of Systems: Unable To Obtain (patient is not communicating with me at this point) Reason Not Obtained: Patient not cooperative Constitutional: Reports: Fever (per ER vitals, not reported to EMS ) ED EXAM, GENERAL - Physical Exam Exam: See Below Exam Limited By: Uncooperative General Appearance: Alert, WD/WN, Mild Distress Eye Exam: Bilateral Eye: Normal Inspection Ears: Normal External Exam, Normal Canal, Hearing Grossly Normal Ear Exam: Bilateral Ear: Auricle Normal, Canal Normal Nose: Normal Inspection, No Blood Throat/Mouth: Normal Inspection, Normal Lips, Normal Oropharynx, Normal Voice, No Airway Compromise Head: Atraumatic, Normocephalic Neck: Normal Inspection Respiratory/Chest: No Respiratory Distress, Lungs Clear, Normal Breath Sounds, No Accessory Muscle Use Cardiovascular: Regular Rate, Rhythm, No Edema, Tachycardia GI/Abdominal: Normal Bowel Sounds, Soft, Non-Tender, No Distention, Other ( colostomy and suprapubic catheters present) Extremities: Normal Inspection, Normal Range of Motion, Non-Tender, No Pedal Edema Neurological: Alert, Oriented, CN II-XII Intact, Normal Cognition, No Motor/ Sensory Deficits Psychiatric: Normal Affect, Normal Mood Skin Exam: Warm, Dry, Intact, Normal Color, No Rash Course - Vital Signs Text/Narrative:: Dr. Russo called @ 1012h Last Recorded V/S: Last Vital Signs Temp 38.2 C H 09/22/19 09:09 Pulse 103 H 09/22/19 09:09 Resp 19 09/22/19 09:09 BP 131/63 09/22/19 09:32 Pulse Ox 90 L 09/22/19 09:09 - Orders/Labs/Meds Orders: Active Orders 24 hr Category Date Time Status CULTURE BLOOD [BC] Stat Lab 09/22/19 09:46 Received Sodium Chloride 0.9% [Normal Saline] 1,000 ml Med 09/22/19 09:38 Active IV .BOLUS Medication Orders Sodium Chloride (Normal Saline) 1,000 mls @ 1,000 mls/hr IV .BOLUS ONE Stop: 09/22/19 10:37 Last Admin: 09/22/19 09:48 Dose: 1,000 mls/hr Labs: Laboratory Tests 09/22/19 09/22/19 09/22/19 Range/Units 09:07 09:14 09:14 WBC 15.2 H (4.5-11.0) K/uL RBC 5.07 (3.30-5.50) M/uL Hgb 13.1 D (12.0-15.0) g/dL Hct 42.2 (36.0-48.0) % MCV 83 (80-98) fL MCH 26 L (27-31) pg MCHC 31 L (32-36) % Plt Count 367 (150-400) K/uL Sodium 125 L (140-148) mmol/L Potassium 4.4 (3.6-5.2) mmol/L Chloride 96 L (100-108) mmol/L Carbon Dioxide 24 (21-32) mmol/L Anion Gap 9.4 (5.0-14.0) mmol/L BUN 10 (7-18) mg/dL Creatinine 0.8 (0.6-1.0) mg/dL Est Cr Clr Drug Dosing 80.51 mL/min Estimated GFR (MDRD) > 60 (>60) Glucose 109 H (74-106) mg/dL Lactic Acid (0.4-2.0) mmol/L Calcium 8.8 (8.5-10.1) mg/dL Urine Color Yellow (YELLOW) Urine Appearance Clear (CLEAR) Urine pH 5.5 (5.0-8.0) Ur Specific [place] 1.025 (1.008-1.030) Urine Protein 100 H (NEGATIVE) mg/dL Urine Glucose (UA) Negative (NEGATIVE) mg/dL Urine Ketones Negative (NEGATIVE) mg/dL Urine Occult Blood Small H (NEGATIVE) Urine Nitrite Negative (NEGATIVE) Urine Bilirubin Negative (NEGATIVE) Urine Urobilinogen 0.2 (0.2-1.0) EU/dL Ur Leukocyte Esterase Negative (NEGATIVE) Urine RBC Not seen (0-5) Urine WBC Not seen (0-5) Ur Epithelial Cells Rare Amorphous Sediment Rare Urine Bacteria Not seen Urine Mucus Rare Urine Other See note 09/22/19 Range/Units 09:14 WBC (4.5-11.0) K/uL RBC (3.30-5.50) M/uL Hgb (12.0-15.0) g/dL Hct (36.0-48.0) % MCV (80-98) fL MCH (27-31) pg MCHC (32-36) % Plt Count (150-400) K/uL Sodium (140-148) mmol/L Potassium (3.6-5.2) mmol/L Chloride (100-108) mmol/L Carbon Dioxide (21-32) mmol/L Anion Gap (5.0-14.0) mmol/L BUN (7-18) mg/dL Creatinine (0.6-1.0) mg/dL Est Cr Clr Drug Dosing mL/min Estimated GFR (MDRD) (>60) Glucose (74-106) mg/dL Lactic Acid 1.1 (0.4-2.0) mmol/L Calcium (8.5-10.1) mg/dL Urine Color (YELLOW) Urine Appearance (CLEAR) Urine pH (5.0-8.0) Ur Specific [place] (1.008-1.030) Urine Protein (NEGATIVE) mg/dL Urine Glucose (UA) (NEGATIVE) mg/dL Urine Ketones (NEGATIVE) mg/dL Urine Occult Blood (NEGATIVE) Urine Nitrite (NEGATIVE) Urine Bilirubin (NEGATIVE) Urine Urobilinogen (0.2-1.0) EU/dL Ur Leukocyte Esterase (NEGATIVE) Urine RBC (0-5) Urine WBC (0-5) Ur Epithelial Cells Amorphous Sediment Urine Bacteria Urine Mucus Urine Other Meds: Medications Generic Name Dose Route Start Last Admin Trade Name Freq PRN Reason Stop Dose Admin Sodium Chloride 1,000 mls @ 1,000 mls/hr 09/22/19 09:38 09/22/19 09:48 Normal Saline IV 09/22/19 10:37 1,000 mls/hr .BOLUS ONE Administration Discontinued Medications Generic Name Dose Route Start Last Admin Trade Name Freq PRN Reason Stop Dose Admin Acetaminophen 1,000 mg 09/22/19 09:10 09/22/19 09:16 Tylenol Extra Strength PO 09/22/19 09:11 1,000 mg ONETIME ONE Administration Bupropion HCl 150 mg 09/22/19 09:26 09/22/19 09:38 Wellbutrin Sr PO 09/22/19 09:27 150 mg ONETIME ONE Administration Levetiracetam 750 mg 09/22/19 09:25 09/22/19 09:38 Keppra PO 09/22/19 09:26 750 mg NOW STA Administration Methadone HCl 15 mg 09/22/19 09:24 09/22/19 09:38 Methadone PO 09/22/19 09:25 15 mg NOW STA Administration - Radiology Interpretation Free Text/Narrative:: CXR- Impression: Bilateral patchy opacities, worrisome for bilateral infiltrates Dictated by Paola Pink MD @ Sep 22 2019 9:54AM Departure - Departure Time of Disposition: 10:25 Disposition: Admitted As Inpatient 66 Condition: Poor Clinical Impression: Hyponatremia Pneumonia Qualifiers: Pneumonia type: due to unspecified organism Laterality: bilateral Lung location : unspecified part of lung Qualified Code(s): J18.9 - Pneumonia, unspecified organism - Discharge Information *PRESCRIPTION DRUG MONITORING PROGRAM REVIEWED*: No *COPY OF PRESCRIPTION DRUG MONITORING REPORT IN PATIENT VICTOR MANUEL: No Referrals: PCP,None [Primary Care Provider] - Forms: ED Department Discharge Sepsis Event Note - Evaluation Sepsis Screening Result: No Definite Risk - Focused Exam Vital Signs: Vital Signs Temp Pulse Resp BP Pulse Ox 09/22/19 09:32 131/63 09/22/19 09:09 38.2 C H 103 H 19 135/80 90 L 09/22/19 08:52 102 H 137/93 H 93 L 09/22/19 08:50 38.2 C H 103 H 19 135/80 90 L Date Exam was Performed: 09/22/19 Time Exam was Performed: 10:09 - My Orders Last 24 Hours: My Active Orders 09/22/19 09:38 Sodium Chloride 0.9% [Normal Saline] 1,000 ml IV .BOLUS 09/22/19 09:46 CULTURE BLOOD [BC] Stat - Assessment/Plan Last 24 Hours: My Active Orders 09/22/19 09:38 Sodium Chloride 0.9% [Normal Saline] 1,000 ml IV .BOLUS 09/22/19 09:46 CULTURE BLOOD [BC] Stat
[2019-09-22] MEDS ORDERED: Sodium Chloride 0.9% 1,000 ML IV ONE (09:38)
--- NOTE | 2019-09-22 09:57 | CRLCR ---
Indication: Hypoxia. Fever. Technique: A single AP portable view of the chest was obtained. Comparison: September 04, 2019. Findings: A left-sided Port-A-Cath is identified. Heart is normal in size. Bilateral patchy opacities are identified. No pleural effusion or pneumothorax is identified. Impression: Bilateral patchy opacities, worrisome for bilateral infiltrates Dictated by Paola Pink MD @ Sep 22 2019 9:54AM Signed by Dr. Paola Pink @ Sep 22 2019 9:54AM
[2019-09-22] MEDS ORDERED: Levofloxacin/Dextrose 5%-Water 750 MG in Premix Bag 1 BAG IV ONE (10:10)
--- NOTE | 2019-09-22 10:35 | PCM.HP.2 ---
H&P History of Present Illness - General Date of Service: 09/22/19 Admit Problem/Dx: Admission Diagnosis/Problem Admission Diagnosis/Problem Pneumonia Source of Information: Old Records, Provider, RN Notes Reviewed. No: Patient, Family History Limitations: Reports: Altered Mental Status (Decreased level of consciousness) - History of Present Illness Initial Comments - Free Text/Narative: Ms. Wilde is a 48-year-old woman who was admitted through the emergency department with weakness, fever, hypoxia, decreased level of consciousness, secondary to bilateral pneumonia. She has a history of partial paraplegia with ongoing pain secondary to muscle spasms and is treated with methadone 3 times daily. She was hospitalized at this facility earlier this month with urinary tract infection and sepsis. Unfortunately her family is not currently available and the patient is experiencing decreased level of consciousness, unable to provide a meaningful history concerning her recent symptoms, events, or review of systems. By history from emergency department staff she was found to be very weak with decreased level of consciousness today by family and was brought into the emergency department by EMS. - Related Data Allergies/Adverse Reactions: Allergies Allergy/AdvReac Type Severity Reaction Status Date / Time clindamycin Allergy Cannot Verified 09/04/19 17:33 Remember Penicillins Allergy Cannot Verified 09/04/19 17:33 Remember Home Medications: Home Meds Albuterol [Ventolin HFA] 1 puff IH QID 12/16/14 [History] Ibuprofen 200 mg PO Q4H PRN 12/16/14 [History] Multivitamins/Iron/Folic Acid [Cerovite Advanced Formula] 1 tab PO DAILY [History] Venlafaxine [Effexor] 75 mg PO BEDTIME 12/16/14 [History] Lisinopril 20 mg PO DAILY 07/04/17 [History] oxyCODONE HCl/Acetaminophen [Endocet 7.5-325 mg Tablet] 2 tab PO Q6H PRN [History] buPROPion [Wellbutrin SR] 150 tab PO BID 10/23/18 [History] Baclofen 20 mg PO TID 01/02/19 [History] Levothyroxine 75 mcg PO ACBREAKFAST 01/02/19 [History] Naloxone HCl [Narcan] 4 mg MIGUEL ASDIRECTED PRN 01/02/19 [History] Pregabalin [Lyrica] 200 mg PO TID 01/02/19 [History] Venlafaxine [Effexor] 150 mg PO DAILY 01/02/19 [History] hydrOXYzine pamoate [Hydroxyzine Pamoate] 25 mg PO TID PRN 01/02/19 [History] Aspirin 325 mg PO DAILY 09/04/19 [History] Mometasone/Formoterol [Dulera 200 MCG/5 MCG] 1 puff INH ASDIRECTED 09/04/19 [ History] Multivit-Min/FA/Lycopen/Lutein [Certavite Sr-Antioxidant Tab] 1 tab PO DAILY 07/14 [History] levETIRAcetam [Levetiracetam] 750 mg PO BID 09/04/19 [History] Cefdinir [Omnicef] 300 mg PO BID #10 cap 09/06/19 [Rx] Methadone 10 mg PO BEDTIME #0 09/06/19 [Rx] Methadone 10 mg PO PCLUNCH #0 09/06/19 [Rx] Methadone 15 mg PO QAM #0 09/06/19 [Rx] Past Medical History HEENT History: Reports: Impaired Vision Cardiovascular History: Reports: Hypertension Respiratory History: Reports: SOB Other Respiratory History: PNA 6 months ago Gastrointestinal History: Reports: Other (See Below) Other Gastrointestinal History: ostomy Genitourinary History: Reports: UTI, Recurrent Other Genitourinary History: suprapubic 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: Musculoskeletal History: Reports: Other (See Below) Other Musculoskeletal History: spasms Neurological History: Reports: Other (See Below) Other Neuro History: L-4 spinal cord injury Psychiatric History: Reports: Depression, Suicide Attempt Endocrine/Metabolic History: Reports: Hypothyroidism Hematologic History: Reports: Blood Transfusion(s) Dermatologic History: Reports: Decubitus Ulcer, Eczema Other Dermatologic History: rt buttock ulcer 2013 on going care by manager of care - Infectious Disease History Infectious Disease History: Reports: Chicken Pox Other Infectious Disease History: 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 and manager of care [place] the case - Past Surgical History GI Surgical History: Reports: Small Bowel Female Surgical History: Reports: Suprapubic Catheter Placement Musculoskeletal Surgical History: Reports: Other (See Below) Other Musculoskeletal Surgeries/Procedures:: ankle Social & Family History - Family History Family Medical History: Noncontributory - Tobacco Use Smoking Status *Q: Current Every Day Smoker Years of Tobacco use: 20 Packs/Tins Daily: 0.5 - Caffeine Use Caffeine Use: Reports: Soda Other Caffeine Use: 1 cup a day Caffeine Use Comment: unknown - Recreational Drug Use Recreational Drug Use: No H&P Review of Systems - Review of Systems: Review Of Systems: See Below General: Reports: ROS unobtainable (Decreased level of consciousness) Exam - Exam Exam: See Below - Vital Signs Vital Signs: Last Vital Signs Temp 100.8 F H 09/22/19 09:09 Pulse 103 H 09/22/19 09:09 Resp 19 09/22/19 09:09 BP 131/63 09/22/19 09:32 Pulse Ox 90 L 09/22/19 09:09 Weight: 150 lb - Exam Quality Assessment: Supplemental Oxygen, DVT Prophylaxis General: Moderate Distress. No: Alert, Oriented, Cooperative HEENT: Conjunctiva Clear, Hearing Intact, Normal Nasal Septum, Posterior Pharynx Clear, Pupils Equal. No: Mucosa Moist & [place] Neck: Supple, Trachea Midline, +2 Carotid Pulse wo Bruit Lungs: Decreased Breath Sounds. No: Rales, Rhonchi, Rub, Wheezing Cardiovascular: Regular Rhythm, Normal S1, Normal S2, Tachycardia. No: Systolic Murmur, Diastolic Murmur GI/Abdominal Exam: Soft, Non-Tender, No Organomegaly, No Distention, Other ( Colostomy present lower abdominal wall) Back Exam: Normal Inspection, Full Range of Motion Extremities: Non-Tender, No Pedal Edema Skin: Warm, Dry, Decubitis (Long standing ulcer present on admission) Neurological: Other (Partial paraplegia) Neuro Extensive - Mental Status: Disorientation to Place, Disorientation to Time , Inattentive, Opens Eyes to Commands, Slow Response to Commands. No: Alert - Patient Data Lab Results Last 24 hrs: Laboratory Results - last 24 hr 09/22/19 09/22/19 09/22/19 Range/Units 09:07 09:14 09:14 WBC 15.2 H (4.5-11.0) K/uL RBC 5.07 (3.30-5.50) M/uL Hgb 13.1 D (12.0-15.0) g/dL Hct 42.2 (36.0-48.0) % MCV 83 (80-98) fL MCH 26 L (27-31) pg MCHC 31 L (32-36) % Plt Count 367 (150-400) K/uL Sodium 125 L (140-148) mmol/L Potassium 4.4 (3.6-5.2) mmol/L Chloride 96 L (100-108) mmol/L Carbon Dioxide 24 (21-32) mmol/L Anion Gap 9.4 (5.0-14.0) mmol/L BUN 10 (7-18) mg/dL Creatinine 0.8 (0.6-1.0) mg/dL Est Cr Clr Drug Dosing 80.51 mL/min Estimated GFR (MDRD) > 60 (>60) Glucose 109 H (74-106) mg/dL Lactic Acid (0.4-2.0) mmol/L Calcium 8.8 (8.5-10.1) mg/dL Urine Color Yellow (YELLOW) Urine Appearance Clear (CLEAR) Urine pH 5.5 (5.0-8.0) Ur Specific [place] 1.025 (1.008-1.030) Urine Protein 100 H (NEGATIVE) mg/dL Urine Glucose (UA) Negative (NEGATIVE) mg/dL Urine Ketones Negative (NEGATIVE) mg/dL Urine Occult Blood Small H (NEGATIVE) Urine Nitrite Negative (NEGATIVE) Urine Bilirubin Negative (NEGATIVE) Urine Urobilinogen 0.2 (0.2-1.0) EU/dL Ur Leukocyte Esterase Negative (NEGATIVE) Urine RBC Not seen (0-5) Urine WBC Not seen (0-5) Ur Epithelial Cells Rare Amorphous Sediment Rare Urine Bacteria Not seen Urine Mucus Rare Urine Other See note 09/22/19 Range/Units 09:14 WBC (4.5-11.0) K/uL RBC (3.30-5.50) M/uL Hgb (12.0-15.0) g/dL Hct (36.0-48.0) % MCV (80-98) fL MCH (27-31) pg MCHC (32-36) % Plt Count (150-400) K/uL Sodium (140-148) mmol/L Potassium (3.6-5.2) mmol/L Chloride (100-108) mmol/L Carbon Dioxide (21-32) mmol/L Anion Gap (5.0-14.0) mmol/L BUN (7-18) mg/dL Creatinine (0.6-1.0) mg/dL Est Cr Clr Drug Dosing mL/min Estimated GFR (MDRD) (>60) Glucose (74-106) mg/dL Lactic Acid 1.1 (0.4-2.0) mmol/L Calcium (8.5-10.1) mg/dL Urine Color (YELLOW) Urine Appearance (CLEAR) Urine pH (5.0-8.0) Ur Specific [place] (1.008-1.030) Urine Protein (NEGATIVE) mg/dL Urine Glucose (UA) (NEGATIVE) mg/dL Urine Ketones (NEGATIVE) mg/dL Urine Occult Blood (NEGATIVE) Urine Nitrite (NEGATIVE) Urine Bilirubin (NEGATIVE) Urine Urobilinogen (0.2-1.0) EU/dL Ur Leukocyte Esterase (NEGATIVE) Urine RBC (0-5) Urine WBC (0-5) Ur Epithelial Cells Amorphous Sediment Urine Bacteria Urine Mucus Urine Other Result Diagrams: 09/22/19 09:14 09/22/19 09:14 Sepsis Event Note - Evaluation Sepsis Screening Result: No Definite Risk - Focused Exam Vital Signs: Vital Signs Temp Pulse Resp BP Pulse Ox 09/22/19 09:32 131/63 09/22/19 09:09 100.8 F H 103 H 19 135/80 90 L 09/22/19 08:52 102 H 137/93 H 93 L 09/22/19 08:50 100.8 F H 103 H 19 135/80 90 L Date Exam was Performed: 09/22/19 Time Exam was Performed: 11:10 *Q Meaningful Use (ADM) - VTE Risk Assess *Q Each Risk Factor Represents 1 Point: Age 41 - 59 years, Serious lung disease including pneumonia Total Score 1 Point Risk Factors: 2 Each Risk Factor Represents 2 Points: None Total Score 2 Point Risk Factors: 0 Each Risk Factor Represents 3 Points: None Total Score 3 Point Risk Factors: 0 Each Risk Factor Represents 5 Points: None Total Score 5 Point Risk Factors: 0 Venous Thromboembolism Risk Factor Score *Q: 2 Problem List Initiated/Reviewed/Updated: Yes Orders Last 24hrs: Active Orders 24 hr Category Date Time Status Patient Status Manage Transfer [TRANSFER] Routine ADT 09/22/19 10:26 Ordered CULTURE BLOOD [BC] Stat Lab 09/22/19 09:46 Received CULTURE BLOOD [BC] Stat Lab 09/22/19 09:50 Received Levofloxacin/Dextrose 5%-Water [Levaquin in D5W 750 MG/ Med 09/22/19 10:10 Active 150 ML] 750 mg Premix Bag 1 bag IV ONETIME Sodium Chloride 0.9% [Normal Saline] 1,000 ml Med 09/22/19 09:38 Active IV .BOLUS Resuscitation Status Routine Resus Stat 09/22/19 10:30 Ordered Medication Orders Sodium Chloride (Normal Saline) 1,000 mls @ 1,000 mls/hr IV .BOLUS ONE Stop: 09/22/19 10:37 Last Admin: 09/22/19 09:48 Dose: 1,000 mls/hr Levofloxacin/Dextrose 750 mg/ (Premix) 150 mls @ 100 mls/hr IV ONETIME ONE Stop: 09/22/19 11:39 Last Admin: 09/22/19 10:21 Dose: 100 mls/hr Assessment/Plan Comment:: ASSESSMENT AND PLAN PNEUMONIA WITH SEPSIS- Onset of symptoms today with increased lethargy and fever. Evidence of sepsis in the emergency department with tachycardia, fever, leukocytosis. Cultures have been obtained in the emergency department and she has been given aggressive IV fluid replacement per sepsis protocol as well as initiation of antibiotic therapy -Blood cultures pending -IV fluids -IV levofloxacin and meropenum, pending culture results HYPOXIC RESPIRATORY FAILURE-secondary to pain medications and bilateral pneumonia -Supplemental oxygen as needed -Continuous pulse oximetry monitoring DECREASED LEVEL OF CONSCIOUSNESS-likely secondary to current infection with sepsis as well as pain medication -Hold pain medications INCOMPLETE PARAPLEGIA-complicated by chronic pain syndrome and muscle spasms MAINTENANCE ISSUES -DVT prophylaxis; Lovenox 40 mg subcutaneous daily -GI prophylaxis; not indicated -Olivas catheter; chronic indwelling suprapubic catheter -Nutrition; regular diet -Nicotine dependence; not required CODE STATUS-FULL CODE ADMISSION STATUS-patient will be admitted to inpatient status, expect at least a 2 night hospital stay for evaluation and management of problems as outlined above. At the time of this admission I do not reasonably expected evaluation and management of this problem will require more than a 96 hour hospital stay. DISPOSITION-anticipate discharge to home after the hospital stay. PRIMARY CARE PROVIDER- - Mortality Measure Prognosis:: Good
[2019-09-22] MEDS ORDERED: Albuterol 0.083% 2.5 MG/3 ML Neb Soln NEB PRN (11:37)
[2019-09-22] MEDS ORDERED: Polyethylene Glycol 3350 Powder 17 GM Packet PO PRN (11:37)
[2019-09-22] MEDS ORDERED: Sodium Chloride 0.9% 10 ML Syringe FLUSH PRN (11:37)
[2019-09-22] MEDS ORDERED: Ondansetron 4 MG/2 ML SDV IV PRN (11:37)
[2019-09-22] MEDS: Lactobacillus Rhamnosus GG (Probiotic) Cap PO SCH ×2 (12:34→20:00)
[2019-09-22] MEDS: Acetaminophen/oxyCODONE 325-7.5 MG Tab PO PRN ×4 (12:34→23:08)
[2019-09-22] MEDS: Enoxaparin 40 MG/0.4 ML Syringe SUBCUT SCH (12:36)
[2019-09-22] MEDS: Meropenem 1 GM in Sodium Chloride 0.9% 100 ML IV SCH ×2 (12:36→20:10)
[2019-09-22] MEDS: Pregabalin 100 MG Cap PO SCH ×2 (14:07→20:08)
[2019-09-22] MEDS: Baclofen 10 MG Tab PO SCH ×2 (14:08→20:00)
[2019-09-22] MEDS: Albuterol/Ipratropium 3.0-0.5 MG/3 ML Neb Soln NEB SCH ×2 (14:45→21:07)
[2019-09-22] MEDS: Ibuprofen 200 MG Tab PO PRN (15:35)
[2019-09-22] MEDS: Sodium Chloride 0.9% 1,000 ML IV SCH (16:54)
[2019-09-22] MEDS: buPROPion 150 MG Tab.SR PO SCH (20:00)
[2019-09-22] MEDS: Venlafaxine 75 MG Tab PO SCH (20:00)
[2019-09-22] MEDS: levETIRAcetam 250 MG Tab PO SCH (20:01)
[2019-09-22] MEDS: Formoterol/Mometasone 200-5 MCG 8.8 GM Inhaler IH SCH (20:01)
[2019-09-22] MEDS: LORazepam 1 MG Tab PO PRN (20:08)
[2019-09-22] MEDS ORDERED: Methadone 10 MG Tab PO STA (21:45)
[2019-09-23] MEDS: Sodium Chloride 0.9% 1,000 ML IV SCH ×2 (01:01→11:31)
[2019-09-23] MEDS: LORazepam 1 MG Tab PO PRN ×2 (02:25→22:49)
[2019-09-23] MEDS: Acetaminophen 325 MG Tab PO PRN ×2 (02:49→22:49)
[2019-09-23] MEDS: Meropenem 1 GM in Sodium Chloride 0.9% 100 ML IV SCH ×3 (04:23→21:22)
[2019-09-23] MEDS: Acetaminophen/oxyCODONE 325-7.5 MG Tab PO PRN ×4 (04:41→21:56)
[2019-09-23] MEDS: Albuterol/Ipratropium 3.0-0.5 MG/3 ML Neb Soln NEB SCH ×4 (07:11→21:20)
[2019-09-23] MEDS: Formoterol/Mometasone 200-5 MCG 8.8 GM Inhaler IH SCH ×2 (07:11→21:06)
[2019-09-23] MEDS: Levothyroxine 25 MCG Tab PO SCH (07:43)
[2019-09-23] MEDS: hydrOXYzine HCl 25 MG Tab PO PRN (08:24)
[2019-09-23] MEDS: buPROPion 150 MG Tab.SR PO SCH ×2 (08:24→21:08)
[2019-09-23] MEDS: Ibuprofen 200 MG Tab PO PRN ×2 (08:24→12:48)
[2019-09-23] MEDS: levETIRAcetam 250 MG Tab PO SCH ×2 (08:25→21:10)
[2019-09-23] MEDS: Baclofen 10 MG Tab PO SCH ×3 (08:25→21:10)
[2019-09-23] MEDS: Lisinopril 20 MG Tab PO SCH (08:25)
[2019-09-23] MEDS: Aspirin 325 MG Tab.EC PO SCH (08:25)
[2019-09-23] MEDS: Lactobacillus Rhamnosus GG (Probiotic) Cap PO SCH ×2 (08:25→21:08)
[2019-09-23] MEDS: Venlafaxine 75 MG Tab PO SCH ×2 (08:25→21:10)
[2019-09-23] MEDS: Enoxaparin 40 MG/0.4 ML Syringe SUBCUT SCH (08:26)
[2019-09-23] MEDS: Pregabalin 100 MG Cap PO SCH ×3 (08:34→21:17)
[2019-09-23] MEDS: Levofloxacin/Dextrose 5%-Water 750 MG in Premix Bag 1 BAG IV SCH (09:55)
--- NOTE | 2019-09-23 10:13 | PCM.PN ---
- General Info Date of Service: 09/23/19 Subjective Update: Ms. Wilde has shown some improvement since admission although she has had recurrent temperature elevation. She is more alert and interactive today continues to experience significant muscle spasms in her lower extremities. White blood cell count is improved modestly and she denies significant shortness of breath or cough. - Review of Systems General: Reports: Fever, Weakness, Chills Pulmonary: Reports: No Symptoms Cardiovascular: Reports: No Symptoms Gastrointestinal: Reports: No Symptoms - Patient Data Vitals - Most Recent: Last Vital Signs Temp 100.4 F 09/23/19 08:22 Pulse 84 09/23/19 08:22 Resp 16 09/23/19 08:22 BP 132/81 09/23/19 08:25 Pulse Ox 93 L 09/23/19 08:22 Weight - Most Recent: 150 lb I&O - Last 24 Hours: Intake & Output 09/22/19 09/23/19 09/23/19 22:59 06:59 14:59 Intake Total 1696 1525 150 Output Total 1300 Balance 1696 225 150 Lab Results Last 24 Hours: Laboratory Results - last 24 hr 09/23/19 09/23/19 Range/Units 05:50 05:50 WBC 13.4 H (4.5-11.0) K/uL RBC 4.36 (3.30-5.50) M/uL Hgb 11.5 L (12.0-15.0) g/dL Hct 36.0 (36.0-48.0) % MCV 83 (80-98) fL MCH 26 L (27-31) pg MCHC 32 (32-36) % Plt Count 306 (150-400) K/uL Neut % (Auto) 78 H (36-66) % Lymph % (Auto) 17 L (24-44) % [place] % (Auto) 6 (2-6) % Eos % (Auto) 0 L (2-4) % Baso % (Auto) 0 (0-1) % Sodium 136 L (140-148) mmol/L Potassium 3.9 (3.6-5.2) mmol/L Chloride 102 (100-108) mmol/L Carbon Dioxide 23 (21-32) mmol/L Anion Gap 14.9 H (5.0-14.0) mmol/L BUN 6 L (7-18) mg/dL Creatinine 0.7 (0.6-1.0) mg/dL Est Cr Clr Drug Dosing 92.01 mL/min Estimated GFR (MDRD) > 60 (>60) Glucose 96 (74-106) mg/dL Calcium 8.1 L (8.5-10.1) mg/dL Ignacio Results Last 24 Hours: Microbiology 09/22/19 09:46 Aerobic Blood Culture - Preliminary Blood - Arm, Left NO GROWTH AFTER 1 DAY Anaerobic Blood Culture - Preliminary NO GROWTH AFTER 1 DAY Med Orders - Current: Current Medications Acetaminophen (Tylenol) 650 mg PO Q4H PRN PRN Reason: Pain (Mild 1-3)/fever Last Admin: 09/23/19 02:49 Dose: 650 mg Albuterol (Proventil Neb Soln) 2.5 mg NEB Q4H PRN PRN Reason: Shortness Of Breath/wheezing Albuterol/Ipratropium (Duoneb 3.0-0.5 Mg/3 Ml) 3 ml NEB QIDRT [facility] Last Admin: 09/23/19 07:11 Dose: 3 ml Aspirin (Ecotrin) 325 mg PO DAILY [facility] Last Admin: 09/23/19 08:25 Dose: 325 mg Baclofen (Lioresal) 20 mg PO TID [facility] Last Admin: 09/23/19 08:25 Dose: 20 mg Bupropion HCl (Wellbutrin Sr) 150 mg PO BID [facility] Last Admin: 09/23/19 08:24 Dose: 150 mg Enoxaparin Sodium (Lovenox) 40 mg SUBCUT DAILY [facility] Last Admin: 09/23/19 08:26 Dose: 40 mg Hydroxyzine HCl (Atarax) 25 mg PO TID PRN PRN Reason: Itching Last Admin: 09/23/19 08:24 Dose: 25 mg Levofloxacin/Dextrose 750 mg/ (Premix) 150 mls @ 100 mls/hr IV Q24H [facility] Last Admin: 09/23/19 09:55 Dose: 100 mls/hr Meropenem 1 gm/ Sodium (Chloride) 100 mls @ 200 mls/hr IV Q8H [facility] Last Admin: 09/23/19 04:23 Dose: 200 mls/hr Sodium Chloride (Normal Saline) 1,000 mls @ 75 mls/hr IV ASDIRECTED [facility] Ibuprofen (Motrin) 200 mg PO Q4H PRN PRN Reason: Pain Last Admin: 09/23/19 08:24 Dose: 200 mg Lactobacillus Rhamnosus (Culturelle) 1 cap PO BID [facility] Last Admin: 09/23/19 08:25 Dose: 1 cap Levetiracetam (Keppra) 750 mg PO BID [facility] Last Admin: 09/23/19 08:25 Dose: 750 mg Levothyroxine Sodium (Levothyroxine) 75 mcg PO ACBREAKFAST [facility] Last Admin: 09/23/19 07:43 Dose: 75 mcg Lisinopril (Prinivil) 20 mg PO DAILY [facility] Last Admin: 09/23/19 08:25 Dose: 20 mg Lorazepam (Ativan) 1 mg PO Q4H PRN PRN Reason: Anxiety Last Admin: 09/23/19 02:25 Dose: 1 mg Methadone HCl (Methadone) 10 mg PO BEDTIME [facility] Methadone HCl (Methadone) 10 mg PO PCLUNCH [facility] Methadone HCl (Methadone) 15 mg PO QAM [facility] Mometasone Furoate/Formoterol Fumar (Dulera 200-5 Mcg) 1 puff IH BIDRT [facility] Last Admin: 09/23/19 07:11 Dose: 1 puff Ondansetron HCl (Zofran) 4 mg IV Q4H PRN PRN Reason: Nausea/Vomiting Oxycodone/Acetaminophen (Percocet 325-7.5 Mg) 2 tab PO Q4H PRN PRN Reason: Pain Last Admin: 09/23/19 10:03 Dose: 2 tab Polyethylene Glycol (Miralax) 17 gm PO DAILY PRN PRN Reason: Constipation Pregabalin (Lyrica) 200 mg PO TID [facility] Last Admin: 09/23/19 08:34 Dose: 200 mg Sodium Chloride (Saline Flush) 10 ml FLUSH ASDIRECTED PRN PRN Reason: Keep Vein Open Venlafaxine HCl (Effexor) 150 mg PO DAILY [facility] Last Admin: 09/23/19 08:25 Dose: 150 mg Venlafaxine HCl (Effexor) 75 mg PO BEDTIME [facility] Last Admin: 09/22/19 20:00 Dose: 75 mg Discontinued Medications Acetaminophen (Tylenol Extra Strength) 1,000 mg PO ONETIME ONE Stop: 09/22/19 09:11 Last Admin: 09/22/19 09:16 Dose: 1,000 mg Bupropion HCl (Wellbutrin Sr) 150 mg PO ONETIME ONE Stop: 09/22/19 09:27 Last Admin: 09/22/19 09:38 Dose: 150 mg Sodium Chloride (Normal Saline) 1,000 mls @ 1,000 mls/hr IV .BOLUS ONE Stop: 09/22/19 10:37 Last Admin: 09/22/19 09:48 Dose: 1,000 mls/hr Levofloxacin/Dextrose 750 mg/ (Premix) 150 mls @ 100 mls/hr IV ONETIME ONE Stop: 09/22/19 11:39 Last Admin: 09/22/19 10:21 Dose: 100 mls/hr Sodium Chloride (Normal Saline) 1,000 mls @ 125 mls/hr IV ASDIRECTED SANDI Last Admin: 09/23/19 01:01 Dose: 125 mls/hr Levetiracetam (Keppra) 750 mg PO NOW STA Stop: 09/22/19 09:26 Last Admin: 09/22/19 09:38 Dose: 750 mg Methadone HCl (Methadone) 15 mg PO NOW STA Stop: 09/22/19 09:25 Last Admin: 09/22/19 09:38 Dose: 15 mg Methadone HCl (Methadone) 10 mg PO NOW STA Stop: 09/22/19 21:46 Last Admin: 09/22/19 22:02 Dose: 10 mg - Exam General: Alert, Oriented, Cooperative, Moderate Distress Lungs: Clear to Auscultation, Normal Respiratory Effort Cardiovascular: Regular Rate, Regular Rhythm, No Murmurs GI/Abdominal Exam: Soft, Non-Tender, No Organomegaly, No Distention Extremities: Non-Tender, No Pedal Edema Sepsis Event Note - Evaluation Sepsis Screening Result: No Definite Risk - Focused Exam Vital Signs: Vital Signs Temp Temp Pulse Resp BP BP Pulse Ox 09/23/19 08:25 132/81 09/23/19 08:22 100.4 F 84 16 132/81 93 L 09/23/19 07:12 96 09/23/19 03:19 100.7 F H 09/23/19 02:49 101.3 F H 09/23/19 02:48 101.3 F H 90 20 131/70 92 L 09/22/19 22:35 99.9 F 99 20 126/61 91 L Date Exam was Performed: 09/23/19 Time Exam was Performed: 10:10 - Problem List Review Problem List Initiated/Reviewed/Updated: Yes - My Orders Last 24 Hours: My Active Orders 09/22/19 10:30 Resuscitation Status Routine 09/22/19 11:37 Patient Status [ADT] Routine Cardiac Monitoring [RC] .As Directed Height and Weight [RC] DAILY Intake and Output [RC] QSHIFT Notify Provider Vital Signs [RC] ASDIRECTED Oxygen Therapy [RC] PRN Pulse Oximetry [RC] CONTINUOUS RT Aerosol Therapy [RC] ASDIRECTED Up With Assistance [RC] ASDIRECTED Up to Chair [RC] QID VTE/DVT Education [RC] Per Unit Routine Vital Signs [RC] Q4H Acetaminophen [Tylenol] 650 mg PO Q4H PRN Acetaminophen/oxyCODONE [Percocet 325-7.5 MG] 2 tab PO Q4H PRN Albuterol [Proventil Neb Soln] 2.5 mg NEB Q4H PRN Ibuprofen [Motrin] 200 mg PO Q4H PRN Lactobacillus Rhamnosus GG [Culturelle] 1 cap PO BID Ondansetron [Zofran] 4 mg IV Q4H PRN Polyethylene Glycol 3350 [MiraLAX] 17 gm PO DAILY PRN Sodium Chloride 0.9% [Saline Flush] 10 ml FLUSH ASDIRECTED PRN hydrOXYzine HCL [Atarax] 25 mg PO TID PRN Peripheral IV Insertion Adult [OM.PC] Routine 09/22/19 12:00 Enoxaparin [Lovenox] 40 mg SUBCUT DAILY Meropenem [Merrem] 1 gm Sodium Chloride 0.9% [Normal Saline] 100 ml IV Q8H 09/22/19 14:00 Baclofen [Lioresal] 20 mg PO TID Pregabalin [Lyrica] 200 mg PO TID 09/22/19 15:00 Albuterol/Ipratropium [DuoNeb 3.0-0.5 MG/3 ML] 3 ml NEB QIDRT 09/22/19 21:00 Mometasone/Formoterol [Dulera 200-5 MCG] 1 puff IH BIDRT Venlafaxine [Effexor] 75 mg PO BEDTIME buPROPion [Wellbutrin SR] 150 mg PO BID levETIRAcetam [Keppra] 750 mg PO BID 09/22/19 Lunch Regular Diet [DIET] 09/23/19 07:30 Levothyroxine 75 mcg PO ACBREAKFAST 09/23/19 09:00 Aspirin [Ecotrin] 325 mg PO DAILY Venlafaxine [Effexor] 150 mg PO DAILY lisinopriL [Prinivil] 20 mg PO DAILY 09/23/19 10:00 Levofloxacin/Dextrose 5%-Water [Levaquin in D5W 750 MG/150 ML] 750 mg Premix Bag 1 bag IV Q24H 09/23/19 10:15 Sodium Chloride 0.9% @ 75 MLS/HR(1000ml) Sodium Chloride 0.9% [Normal Saline] 1 ,000 ml IV ASDIRECTED 09/23/19 13:00 Methadone 10 mg PO PCLUNCH 09/23/19 21:00 Methadone 10 mg PO BEDTIME 09/24/19 05:00 BASIC METABOLIC PANEL,BMP [CHEM] Timed CBC WITH AUTO DIFF [HEME] Timed 09/24/19 09:00 Methadone 15 mg PO QAM - Plan Plan:: ASSESSMENT AND PLAN PNEUMONIA WITH SEPSIS-modest improvement since admission, continues to experience fevers -Blood cultures pending -IV fluids -IV levofloxacin and meropenum, pending culture results HYPOXIC RESPIRATORY FAILURE-secondary to pain medications and bilateral pneumonia, respiratory status stable, not requiring supplemental oxygen -Supplemental oxygen as needed -Continuous pulse oximetry monitoring DECREASED LEVEL OF CONSCIOUSNESS-more alert and interactive today INCOMPLETE PARAPLEGIA-complicated by chronic pain syndrome and muscle spasms MAINTENANCE ISSUES -DVT prophylaxis; Lovenox 40 mg subcutaneous daily -GI prophylaxis; not indicated -Olivas catheter; chronic indwelling suprapubic catheter -Nutrition; regular diet -Nicotine dependence; not required CODE STATUS-FULL CODE ADMISSION STATUS-patient will be admitted to inpatient status, expect at least a 2 night hospital stay for evaluation and management of problems as outlined above. At the time of this admission I do not reasonably expected evaluation and management of this problem will require more than a 96 hour hospital stay. DISPOSITION-anticipate discharge to home after the hospital stay. PRIMARY CARE PROVIDER-
[2019-09-23] MEDS: Methadone 10 MG Tab PO SCH ×2 (12:54→21:18)
[2019-09-24] MEDS: Sodium Chloride 0.9% 1,000 ML IV SCH (00:38)
[2019-09-24] MEDS: Acetaminophen/oxyCODONE 325-7.5 MG Tab PO PRN ×4 (02:08→21:29)
[2019-09-24] MEDS: Meropenem 1 GM in Sodium Chloride 0.9% 100 ML IV SCH ×3 (04:10→21:07)
[2019-09-24] MEDS: LORazepam 1 MG Tab PO PRN (05:18)
[2019-09-24] MEDS: Albuterol/Ipratropium 3.0-0.5 MG/3 ML Neb Soln NEB SCH ×4 (07:05→21:04)
[2019-09-24] MEDS: Formoterol/Mometasone 200-5 MCG 8.8 GM Inhaler IH SCH ×2 (07:06→21:03)
[2019-09-24] MEDS: Ibuprofen 200 MG Tab PO PRN ×2 (07:57→16:07)
[2019-09-24] MEDS: Levothyroxine 25 MCG Tab PO SCH (08:00)
[2019-09-24] MEDS: Lactobacillus Rhamnosus GG (Probiotic) Cap PO SCH ×2 (08:01→21:03)
[2019-09-24] MEDS: Aspirin 325 MG Tab.EC PO SCH (08:01)
[2019-09-24] MEDS: Venlafaxine 75 MG Tab PO SCH ×2 (08:02→21:04)
[2019-09-24] MEDS: Baclofen 10 MG Tab PO SCH ×3 (08:03→21:04)
[2019-09-24] MEDS: Enoxaparin 40 MG/0.4 ML Syringe SUBCUT SCH (08:03)
[2019-09-24] MEDS: levETIRAcetam 250 MG Tab PO SCH ×2 (08:03→21:03)
[2019-09-24] MEDS: buPROPion 150 MG Tab.SR PO SCH ×2 (08:05→21:05)
[2019-09-24] MEDS: Pregabalin 100 MG Cap PO SCH ×3 (08:08→21:04)
[2019-09-24] MEDS: Lisinopril 20 MG Tab PO SCH (08:08)
[2019-09-24] MEDS: Methadone 5 MG Tab PO SCH (08:13)
[2019-09-24] MEDS ORDERED: Potassium Chloride 20 MEQ Tab.ER PO ONE ×2 (08:45→14:00)
[2019-09-24] MEDS: Levofloxacin/Dextrose 5%-Water 750 MG in Premix Bag 1 BAG IV SCH (09:31)
[2019-09-24] MEDS: Methadone 10 MG Tab PO SCH ×2 (12:05→21:04)
[2019-09-24] MEDS: Acetaminophen 325 MG Tab PO PRN (12:16)
--- NOTE | 2019-09-24 13:46 | PCM.PN ---
- General Info Date of Service: 09/24/19 Subjective Update: Ms. Wilde has been stable since yesterday with no significant temperature elevation. White blood cell count has normalized. Continues to require low level of supplemental oxygen, denies shortness of breath or significant cough. Functional Status: Reports: Tolerating Diet - Review of Systems General: Reports: Weakness. Denies: Fever, Chills Pulmonary: Reports: No Symptoms Cardiovascular: Reports: No Symptoms Gastrointestinal: Reports: No Symptoms - Patient Data Vitals - Most Recent: Last Vital Signs Temp 99.4 F 09/24/19 10:30 Pulse 68 09/24/19 10:47 Resp 18 09/24/19 10:30 BP 135/76 09/24/19 10:30 Pulse Ox 94 L 09/24/19 10:30 Weight - Most Recent: 150 lb I&O - Last 24 Hours: Intake & Output 09/23/19 09/24/19 09/24/19 22:59 06:59 14:59 Intake Total 745 100 150 Output Total 650 1600 Balance 95 -1500 150 Lab Results Last 24 Hours: Laboratory Results - last 24 hr 09/24/19 09/24/19 Range/Units 06:07 06:07 WBC 8.8 (4.5-11.0) K/uL RBC 4.03 (3.30-5.50) M/uL Hgb 10.3 L (12.0-15.0) g/dL Hct 33.4 L (36.0-48.0) % MCV 83 (80-98) fL MCH 26 L (27-31) pg MCHC 31 L (32-36) % Plt Count 264 (150-400) K/uL Neut % (Auto) 52 (36-66) % Lymph % (Auto) 41 (24-44) % [place] % (Auto) 6 (2-6) % Eos % (Auto) 1 L (2-4) % Baso % (Auto) 1 (0-1) % Sodium 139 L (140-148) mmol/L Potassium 3.2 L (3.6-5.2) mmol/L Chloride 104 (100-108) mmol/L Carbon Dioxide 25 (21-32) mmol/L Anion Gap 13.2 (5.0-14.0) mmol/L BUN 5 L (7-18) mg/dL Creatinine 0.7 (0.6-1.0) mg/dL Est Cr Clr Drug Dosing 92.01 mL/min Estimated GFR (MDRD) > 60 (>60) Glucose 94 (74-106) mg/dL Calcium 7.9 L (8.5-10.1) mg/dL Ignacio Results Last 24 Hours: Microbiology 09/22/19 09:50 Aerobic Blood Culture - Preliminary Blood - Venous NO GROWTH AFTER 2 DAYS Anaerobic Blood Culture - Preliminary NO GROWTH AFTER 2 DAYS 09/22/19 09:46 Aerobic Blood Culture - Preliminary Blood - Arm, Left NO GROWTH AFTER 2 DAYS Anaerobic Blood Culture - Preliminary NO GROWTH AFTER 2 DAYS Med Orders - Current: Current Medications Acetaminophen (Tylenol) 650 mg PO Q4H PRN PRN Reason: Pain (Mild 1-3)/fever Last Admin: 09/24/19 12:16 Dose: 650 mg Albuterol (Proventil Neb Soln) 2.5 mg NEB Q4H PRN PRN Reason: Shortness Of Breath/wheezing Albuterol/Ipratropium (Duoneb 3.0-0.5 Mg/3 Ml) 3 ml NEB QIDRT [facility] Last Admin: 09/24/19 10:46 Dose: 3 ml Aspirin (Ecotrin) 325 mg PO DAILY [facility] Last Admin: 09/24/19 08:01 Dose: 325 mg Baclofen (Lioresal) 20 mg PO TID [facility] Last Admin: 09/24/19 08:03 Dose: 20 mg Bupropion HCl (Wellbutrin Sr) 150 mg PO BID [facility] Last Admin: 09/24/19 08:05 Dose: 150 mg Enoxaparin Sodium (Lovenox) 40 mg SUBCUT DAILY [facility] Last Admin: 09/24/19 08:03 Dose: 40 mg Hydroxyzine HCl (Atarax) 25 mg PO TID PRN PRN Reason: Itching Last Admin: 09/23/19 08:24 Dose: 25 mg Levofloxacin/Dextrose 750 mg/ (Premix) 150 mls @ 100 mls/hr IV Q24H [facility] Last Admin: 09/24/19 09:31 Dose: 100 mls/hr Meropenem 1 gm/ Sodium (Chloride) 100 mls @ 200 mls/hr IV Q8H [facility] Last Admin: 09/24/19 12:14 Dose: 200 mls/hr Ibuprofen (Motrin) 200 mg PO Q4H PRN PRN Reason: Pain Last Admin: 09/24/19 07:57 Dose: 200 mg Lactobacillus Rhamnosus (Culturelle) 1 cap PO BID [facility] Last Admin: 09/24/19 08:01 Dose: 1 cap Levetiracetam (Keppra) 750 mg PO BID [facility] Last Admin: 09/24/19 08:03 Dose: 750 mg Levothyroxine Sodium (Levothyroxine) 75 mcg PO ACBREAKFAST [facility] Last Admin: 09/24/19 08:00 Dose: 75 mcg Lisinopril (Prinivil) 20 mg PO DAILY [facility] Last Admin: 09/24/19 08:08 Dose: 20 mg Lorazepam (Ativan) 1 mg PO Q4H PRN PRN Reason: Anxiety Last Admin: 09/24/19 05:18 Dose: 1 mg Methadone HCl (Methadone) 10 mg PO BEDTIME [facility] Last Admin: 09/23/19 21:18 Dose: 10 mg Methadone HCl (Methadone) 10 mg PO PCLUNCH [facility] Last Admin: 09/24/19 12:05 Dose: 10 mg Methadone HCl (Methadone) 15 mg PO QAM [facility] Last Admin: 09/24/19 08:13 Dose: 15 mg Mometasone Furoate/Formoterol Fumar (Dulera 200-5 Mcg) 1 puff IH BIDRT [facility] Last Admin: 09/24/19 07:06 Dose: 1 puff Ondansetron HCl (Zofran) 4 mg IV Q4H PRN PRN Reason: Nausea/Vomiting Oxycodone/Acetaminophen (Percocet 325-7.5 Mg) 2 tab PO Q4H PRN PRN Reason: Pain Last Admin: 09/24/19 06:07 Dose: 2 tab Polyethylene Glycol (Miralax) 17 gm PO DAILY PRN PRN Reason: Constipation Potassium Chloride (Klor-Con M20) 40 meq PO ONETIME ONE Stop: 09/24/19 13:39 Pregabalin (Lyrica) 200 mg PO TID [facility] Last Admin: 09/24/19 08:08 Dose: 200 mg Sodium Chloride (Saline Flush) 10 ml FLUSH ASDIRECTED PRN PRN Reason: Keep Vein Open Venlafaxine HCl (Effexor) 150 mg PO DAILY [facility] Last Admin: 09/24/19 08:02 Dose: 150 mg Venlafaxine HCl (Effexor) 75 mg PO BEDTIME [facility] Last Admin: 09/23/19 21:10 Dose: 75 mg Discontinued Medications Acetaminophen (Tylenol Extra Strength) 1,000 mg PO ONETIME ONE Stop: 09/22/19 09:11 Last Admin: 09/22/19 09:16 Dose: 1,000 mg Bupropion HCl (Wellbutrin Sr) 150 mg PO ONETIME ONE Stop: 09/22/19 09:27 Last Admin: 09/22/19 09:38 Dose: 150 mg Sodium Chloride (Normal Saline) 1,000 mls @ 1,000 mls/hr IV .BOLUS ONE Stop: 09/22/19 10:37 Last Admin: 09/22/19 09:48 Dose: 1,000 mls/hr Levofloxacin/Dextrose 750 mg/ (Premix) 150 mls @ 100 mls/hr IV ONETIME ONE Stop: 09/22/19 11:39 Last Admin: 09/22/19 10:21 Dose: 100 mls/hr Sodium Chloride (Normal Saline) 1,000 mls @ 125 mls/hr IV ASDIRECTED [facility] Last Admin: 09/23/19 01:01 Dose: 125 mls/hr Sodium Chloride (Normal Saline) 1,000 mls @ 75 mls/hr IV ASDIRECTED [facility] Last Admin: 09/24/19 00:38 Dose: 75 mls/hr Levetiracetam (Keppra) 750 mg PO NOW STA Stop: 09/22/19 09:26 Last Admin: 09/22/19 09:38 Dose: 750 mg Methadone HCl (Methadone) 15 mg PO NOW STA Stop: 09/22/19 09:25 Last Admin: 09/22/19 09:38 Dose: 15 mg Methadone HCl (Methadone) 10 mg PO NOW STA Stop: 09/22/19 21:46 Last Admin: 09/22/19 22:02 Dose: 10 mg Potassium Chloride (Klor-Con M20) 40 meq PO ONETIME ONE Stop: 09/24/19 08:46 Last Admin: 09/24/19 09:32 Dose: 40 meq - Exam Quality Assessment: Supplemental Oxygen, DVT Prophylaxis General: Alert, Oriented, Cooperative, Mild Distress Lungs: Clear to Auscultation, Normal Respiratory Effort Cardiovascular: Regular Rate, Regular Rhythm, No Murmurs GI/Abdominal Exam: Soft, Non-Tender, No Organomegaly, No Distention Extremities: Non-Tender, No Pedal Edema Sepsis Event Note - Evaluation Sepsis Screening Result: No Definite Risk - Focused Exam Vital Signs: Vital Signs Temp Temp Pulse Resp BP BP Pulse Ox 09/24/19 10:47 68 09/24/19 10:30 99.4 F 68 18 135/76 94 L 09/24/19 08:08 132/82 09/24/19 07:57 100.3 F 09/24/19 07:30 98 09/24/19 07:06 72 09/24/19 07:00 99.5 F 62 18 138/82 100 09/24/19 02:52 99 F 78 16 127/90 95 Date Exam was Performed: 09/24/19 Time Exam was Performed: 13:43 - Problem List Review Problem List Initiated/Reviewed/Updated: Yes - My Orders Last 24 Hours: My Active Orders 09/23/19 13:00 Methadone 10 mg PO PCLUNCH 09/23/19 21:00 Methadone 10 mg PO BEDTIME 09/24/19 09:00 Methadone 15 mg PO QAM 09/24/19 09:38 Air Mattress [Pressure Reduction Mattress] [OM.PC] Routine 09/24/19 13:38 Potassium Chloride [Klor-Con M20] 40 meq PO ONETIME ONE 09/24/19 13:39 Convert IV to Saline Lock [OM.PC] Routine 09/25/19 05:11 POTASSIUM,K [CHEM] AM - Plan Plan:: ASSESSMENT AND PLAN PNEUMONIA WITH SEPSIS-further improvement over the last 24 hours, afebrile with normalization of white blood cell count -Blood cultures pending -Saline lock IV -Discontinue meropenem -IV levofloxacin pending culture results HYPOXIC RESPIRATORY FAILURE-continues to require small amount of supplemental oxygen -Supplemental oxygen as needed -Continuous pulse oximetry monitoring DECREASED LEVEL OF CONSCIOUSNESS-more alert and interactive today INCOMPLETE PARAPLEGIA-complicated by chronic pain syndrome and muscle spasms MAINTENANCE ISSUES -DVT prophylaxis; Lovenox 40 mg subcutaneous daily -GI prophylaxis; not indicated -Olivas catheter; chronic indwelling suprapubic catheter -Nutrition; regular diet -Nicotine dependence; not required CODE STATUS-FULL CODE ADMISSION STATUS-patient will be admitted to inpatient status, expect at least a 2 night hospital stay for evaluation and management of problems as outlined above. At the time of this admission I do not reasonably expected evaluation and management of this problem will require more than a 96 hour hospital stay. DISPOSITION-anticipate discharge to home after the hospital stay. PRIMARY CARE PROVIDER-
[2019-09-24] MEDS: hydrOXYzine HCl 25 MG Tab PO PRN (16:07)
[2019-09-25] MEDS: Ibuprofen 200 MG Tab PO PRN (01:08)
[2019-09-25] MEDS: hydrOXYzine HCl 25 MG Tab PO PRN (01:09)
[2019-09-25] MEDS: Acetaminophen/oxyCODONE 325-7.5 MG Tab PO PRN ×3 (01:49→11:37)
[2019-09-25] MEDS: Meropenem 1 GM in Sodium Chloride 0.9% 100 ML IV SCH ×2 (04:15→11:35)
[2019-09-25] MEDS: Albuterol/Ipratropium 3.0-0.5 MG/3 ML Neb Soln NEB SCH ×2 (07:13→10:50)
[2019-09-25] MEDS: Formoterol/Mometasone 200-5 MCG 8.8 GM Inhaler IH SCH (07:13)
[2019-09-25] MEDS: Levothyroxine 25 MCG Tab PO SCH (07:30)
[2019-09-25] MEDS: levETIRAcetam 250 MG Tab PO SCH (09:10)
[2019-09-25] MEDS: Baclofen 10 MG Tab PO SCH (09:10)
[2019-09-25] MEDS: buPROPion 150 MG Tab.SR PO SCH (09:10)
[2019-09-25] MEDS: Lactobacillus Rhamnosus GG (Probiotic) Cap PO SCH (09:10)
[2019-09-25] MEDS: Aspirin 325 MG Tab.EC PO SCH (09:10)
[2019-09-25] MEDS: Lisinopril 20 MG Tab PO SCH (09:11)
[2019-09-25] MEDS: Enoxaparin 40 MG/0.4 ML Syringe SUBCUT SCH (09:11)
[2019-09-25] MEDS: Levofloxacin/Dextrose 5%-Water 750 MG in Premix Bag 1 BAG IV SCH (09:13)
[2019-09-25] MEDS: Methadone 5 MG Tab PO SCH (09:25)
[2019-09-25] MEDS: Venlafaxine 75 MG Tab PO SCH (09:25)
[2019-09-25] MEDS: Pregabalin 100 MG Cap PO SCH (09:25)
[2019-09-25 11:40] VITALS: BP 135/89; PULSE 73
--- NOTE | 2019-09-25 12:24 | PCM.DCSUM1 ---
Discharge Summary - Hospital Course Brief History: Ms. Wilde is a 48-year-old woman who was admitted through the emergency department with weakness, decreased level of consciousness, fever, and hypoxia, secondary to bilateral pneumonia. - Discharge Data Discharge Date: 09/25/19 Discharge Disposition: Home, Self-Care 01 Condition: Fair - Referral to Home Health Primary Care Physician: PCP None - Discharge Diagnosis/Problem(s) (1) Pneumonia SNOMED Code(s): 784026568 ICD Code: J18.9 - PNEUMONIA, UNSPECIFIED ORGANISM Status: Acute Current Visit: Yes Qualifiers: Pneumonia type: due to unspecified organism Laterality: bilateral Lung location: unspecified part of lung Qualified Code(s): J18.9 - Pneumonia, unspecified organism (2) Hyponatremia SNOMED Code(s): 26530108 ICD Code: E87.1 - HYPO-OSMOLALITY AND HYPONATREMIA Status: Acute Current Visit: Yes (3) Decubitus skin ulcer SNOMED Code(s): 288389438 ICD Code: L89.90 - PRESSURE ULCER OF UNSPECIFIED SITE, UNSPECIFIED STAGE Status: Acute Current Visit: No Qualifiers: Pressure injury location: buttock Pressure injury stage: stage 4 Laterality: unspecified laterality Qualified Code(s): L89.304 - Pressure ulcer of unspecified buttock, stage 4 (4) Paraplegia following spinal cord injury SNOMED Code(s): 92414220, 63012984 ICD Code: G82.20 - PARAPLEGIA, UNSPECIFIED Status: Chronic Current Visit : No - Patient Summary/Data Hospital Course: Ms. Wilde is a 48-year-old woman who was admitted through the emergency department with weakness, fever, hypoxia, decreased level of consciousness, secondary to bilateral pneumonia. She has a history of partial paraplegia with ongoing pain secondary to muscle spasms and is treated with methadone 3 times daily. She was hospitalized at this facility earlier this month with urinary tract infection and sepsis. Unfortunately her family is not currently available and the patient is experiencing decreased level of consciousness, unable to provide a meaningful history concerning her recent symptoms, events, or review of systems. By history from emergency department staff she was found to be very weak with decreased level of consciousness today by family and was brought into the emergency department by EMS. On evaluation in the emergency department she was noted to have patchy bilateral infiltrates consistent with pneumonia. White blood cell count was elevated and she was noted to be hypoxic , requiring supplemental oxygen. Blood cultures were obtained in the emergency department and remained negative throughout her hospital stay. She was given vigorous IV fluid replacement in the emergency department and after admission for management of associated sepsis. Broad-spectrum IV antibiotic therapy was initiated with meropenem and levofloxacin because of recent hospitalizations and exposure to antibiotic therapy. She gradually improved over the next few days of hospitalization with normalization of white blood cell count and resolution of fevers. She had been afebrile for a period of 24 hours prior to discharge. She was treated with probiotic therapy during hospitalization and will be discharged to home with ongoing probiotics. She will follow-up at the wound care clinic this afternoon concerning her chronic decubitus ulcer. She will be discharged with an additional 4 days of antibiotic therapy with levofloxacin. Activity will be as tolerated and she will resume her usual diet. Follow-up appointment will be scheduled with her primary care provider within 1 week. - Patient Instructions Diet: Usual Diet as Tolerated Activity: As Tolerated Other/Special Instructions: Follow-up with wound care clinic this afternoon. Please schedule follow-up appointment with primary care provider within 1 week. - Discharge Plan *PRESCRIPTION DRUG MONITORING PROGRAM REVIEWED*: No *COPY OF PRESCRIPTION DRUG MONITORING REPORT IN PATIENT VICTOR MANUEL: No Prescriptions/Med Rec: Lactobacillus Rhamnosus GG [Culturelle] 1 cap PO BID #60 cap levoFLOXacin [Levaquin] 750 mg PO DAILY #4 tab Home Medications: Home Meds Albuterol [Ventolin HFA] 1 puff IH QID 12/16/14 [History] Ibuprofen 200 mg PO Q4H PRN 12/16/14 [History] Multivitamins/Iron/Folic Acid [Cerovite Advanced Formula] 1 tab PO DAILY [History] Venlafaxine [Effexor] 75 mg PO BEDTIME 12/16/14 [History] Lisinopril 20 mg PO DAILY 07/04/17 [History] oxyCODONE HCl/Acetaminophen [Endocet 7.5-325 mg Tablet] 2 tab PO Q6H PRN [History] buPROPion [Wellbutrin SR] 150 tab PO BID 10/23/18 [History] Baclofen 20 mg PO TID 01/02/19 [History] Levothyroxine 75 mcg PO ACBREAKFAST 01/02/19 [History] Naloxone HCl [Narcan] 4 mg MIGUEL ASDIRECTED PRN 01/02/19 [History] Pregabalin [Lyrica] 200 mg PO TID 01/02/19 [History] Venlafaxine [Effexor] 150 mg PO DAILY 01/02/19 [History] hydrOXYzine pamoate [Hydroxyzine Pamoate] 25 mg PO TID PRN 01/02/19 [History] Aspirin 325 mg PO DAILY 09/04/19 [History] Mometasone/Formoterol [Dulera 200 MCG/5 MCG] 1 puff INH ASDIRECTED 09/04/19 [ History] Multivit-Min/FA/Lycopen/Lutein [Certavite Sr-Antioxidant Tab] 1 tab PO DAILY 07/14 [History] levETIRAcetam [Levetiracetam] 750 mg PO BID 09/04/19 [History] Methadone 10 mg PO BEDTIME #0 09/06/19 [Rx] Methadone 10 mg PO PCLUNCH #0 09/06/19 [Rx] Methadone 15 mg PO QAM #0 09/06/19 [Rx] Lactobacillus Rhamnosus GG [Culturelle] 1 cap PO BID #60 cap 09/25/19 [Rx] levoFLOXacin [Levaquin] 750 mg PO DAILY #4 tab 09/25/19 [Rx] Referrals: PCP,None [Primary Care Provider] - - Discharge Summary/Plan Comment DC Time >30 min.: No - Patient Data Vitals - Most Recent: Last Vital Signs Temp 99.6 F 09/25/19 11:38 Pulse 73 09/25/19 11:38 Resp 16 09/25/19 11:38 BP 135/89 09/25/19 11:38 Pulse Ox 95 09/25/19 11:38 Weight - Most Recent: 150 lb I&O - Last 24 hours: Intake & Output 09/24/19 09/25/19 09/25/19 22:59 06:59 14:59 Intake Total 2050 500 500 Output Total 9107 108 4086 Balance 700 -400 -1550 Lab Results - Last 24 hrs: Laboratory Results - last 24 hr 09/25/19 Range/Units 05:35 Potassium 3.7 (3.6-5.2) mmol/L [id number] Results - Last 24 hrs: Microbiology 09/22/19 09:50 Aerobic Blood Culture - Preliminary Blood - Venous NO GROWTH AFTER 3 DAYS Anaerobic Blood Culture - Preliminary NO GROWTH AFTER 3 DAYS 09/22/19 09:46 Aerobic Blood Culture - Preliminary Blood - Arm, Left NO GROWTH AFTER 3 DAYS Anaerobic Blood Culture - Preliminary NO GROWTH AFTER 3 DAYS Med Orders - Current: Current Medications Albuterol (Proventil Neb Soln) 2.5 mg NEB Q4H PRN PRN Reason: Shortness Of Breath/wheezing Albuterol/Ipratropium (Duoneb 3.0-0.5 Mg/3 Ml) 3 ml NEB QIDRT [facility] Last Admin: 09/25/19 10:50 Dose: 3 ml Aspirin (Ecotrin) 325 mg PO DAILY [facility] Last Admin: 09/25/19 09:10 Dose: 325 mg Baclofen (Lioresal) 20 mg PO TID [facility] Last Admin: 09/25/19 09:10 Dose: 20 mg Bupropion HCl (Wellbutrin Sr) 150 mg PO BID [facility] Last Admin: 09/25/19 09:10 Dose: 150 mg Enoxaparin Sodium (Lovenox) 40 mg SUBCUT DAILY [facility] Last Admin: 09/25/19 09:11 Dose: 40 mg Heparin Sodium (Porcine) (Heparin Lock Flush 100 Units/Ml) 500 units FLUSH ASDIRECTED PRN PRN Reason: IV Use Last Admin: 09/25/19 12:13 Dose: 500 units Hydroxyzine HCl (Atarax) 25 mg PO TID PRN PRN Reason: Itching Last Admin: 09/25/19 01:09 Dose: 25 mg Levofloxacin/Dextrose 750 mg/ (Premix) 150 mls @ 100 mls/hr IV Q24H [facility] Last Admin: 09/25/19 09:13 Dose: 100 mls/hr Meropenem 1 gm/ Sodium (Chloride) 100 mls @ 200 mls/hr IV Q8H [facility] Last Admin: 09/25/19 11:35 Dose: 200 mls/hr Ibuprofen (Motrin) 200 mg PO Q4H PRN PRN Reason: Pain Last Admin: 09/25/19 01:08 Dose: 200 mg Lactobacillus Rhamnosus (Culturelle) 1 cap PO BID [facility] Last Admin: 09/25/19 09:10 Dose: 1 cap Levetiracetam (Keppra) 750 mg PO BID [facility] Last Admin: 09/25/19 09:10 Dose: 750 mg Levothyroxine Sodium (Levothyroxine) 75 mcg PO ACBREAKFAST [facility] Last Admin: 09/25/19 07:30 Dose: 75 mcg Lisinopril (Prinivil) 20 mg PO DAILY [facility] Last Admin: 09/25/19 09:11 Dose: 20 mg Lorazepam (Ativan) 1 mg PO Q4H PRN PRN Reason: Anxiety Last Admin: 09/24/19 05:18 Dose: 1 mg Methadone HCl (Methadone) 10 mg PO BEDTIME [facility] Last Admin: 09/24/19 21:04 Dose: 10 mg Methadone HCl (Methadone) 10 mg PO PCLUNCH [facility] Last Admin: 09/24/19 12:05 Dose: 10 mg Methadone HCl (Methadone) 15 mg PO QAM [facility] Last Admin: 09/25/19 09:25 Dose: 15 mg Mometasone Furoate/Formoterol Fumar (Dulera 200-5 Mcg) 1 puff IH BIDRT [facility] Last Admin: 09/25/19 07:13 Dose: 1 puff Ondansetron HCl (Zofran) 4 mg IV Q4H PRN PRN Reason: Nausea/Vomiting Oxycodone/Acetaminophen (Percocet 325-7.5 Mg) 2 tab PO Q4H PRN PRN Reason: Pain Last Admin: 09/25/19 11:37 Dose: 2 tab Polyethylene Glycol (Miralax) 17 gm PO DAILY PRN PRN Reason: Constipation Pregabalin (Lyrica) 200 mg PO TID [facility] Last Admin: 09/25/19 09:25 Dose: 200 mg Sodium Chloride (Saline Flush) 10 ml FLUSH ASDIRECTED PRN PRN Reason: Keep Vein Open Venlafaxine HCl (Effexor) 150 mg PO DAILY [facility] Last Admin: 09/25/19 09:25 Dose: 150 mg Venlafaxine HCl (Effexor) 75 mg PO BEDTIME [facility] Last Admin: 09/24/19 21:04 Dose: 75 mg Discontinued Medications Acetaminophen (Tylenol Extra Strength) 1,000 mg PO ONETIME ONE Stop: 09/22/19 09:11 Last Admin: 09/22/19 09:16 Dose: 1,000 mg Acetaminophen (Tylenol) 650 mg PO Q4H PRN PRN Reason: Pain (Mild 1-3)/fever Last Admin: 09/24/19 12:16 Dose: 650 mg Bupropion HCl (Wellbutrin Sr) 150 mg PO ONETIME ONE Stop: 09/22/19 09:27 Last Admin: 09/22/19 09:38 Dose: 150 mg Sodium Chloride (Normal Saline) 1,000 mls @ 1,000 mls/hr IV .BOLUS ONE Stop: 09/22/19 10:37 Last Admin: 09/22/19 09:48 Dose: 1,000 mls/hr Levofloxacin/Dextrose 750 mg/ (Premix) 150 mls @ 100 mls/hr IV ONETIME ONE Stop: 09/22/19 11:39 Last Admin: 09/22/19 10:21 Dose: 100 mls/hr Sodium Chloride (Normal Saline) 1,000 mls @ 125 mls/hr IV ASDIRECTED [facility] Last Admin: 09/23/19 01:01 Dose: 125 mls/hr Sodium Chloride (Normal Saline) 1,000 mls @ 75 mls/hr IV ASDIRECTED [facility] Last Admin: 09/24/19 00:38 Dose: 75 mls/hr Levetiracetam (Keppra) 750 mg PO NOW STA Stop: 09/22/19 09:26 Last Admin: 09/22/19 09:38 Dose: 750 mg Methadone HCl (Methadone) 15 mg PO NOW STA Stop: 09/22/19 09:25 Last Admin: 09/22/19 09:38 Dose: 15 mg Methadone HCl (Methadone) 10 mg PO NOW STA Stop: 09/22/19 21:46 Last Admin: 09/22/19 22:02 Dose: 10 mg Potassium Chloride (Klor-Con M20) 40 meq PO ONETIME ONE Stop: 09/24/19 08:46 Last Admin: 09/24/19 09:32 Dose: 40 meq Potassium Chloride (Klor-Con M20) 40 meq PO ONETIME ONE Stop: 09/24/19 14:01 Last Admin: 09/24/19 14:34 Dose: 40 meq - Exam General: Reports: Alert, Oriented, Cooperative, No Acute Distress Lungs: Reports: Clear to Auscultation, Normal Respiratory Effort Cardiovascular: Reports: Regular Rate, Regular Rhythm, No Murmurs GI/Abdominal Exam: Soft, Non-Tender, No Organomegaly, No Distention Extremities: Other (Chronic decubitus ulcer, present on admission)
[2019-09-25] MEDS: Methadone 10 MG Tab PO SCH (12:40)
== END 2019-09-25 12:54 | disposition home or self-care (01) | DRG 871 ==
LOC: JP.ED 08:40 → JP.MS 10:26
PROVIDERS: ADMIT Hospitalist; ATTEND Hospitalist
DX: A41.9 Sepsis, unspecified organism (principal); J18.9 Pneumonia, unspecified organism; L89.304 Pressure ulcer of unspecified buttock, stage 4; J96.91 Respiratory failure, unspecified with hypoxia; E87.1 Hypo-osmolality and hyponatremia; G82.20 Paraplegia, unspecified; H54.7 Unspecified visual loss; I10 Essential (primary) hypertension; F32.9 Major depressive disorder, single episode, unspecified; E03.9 Hypothyroidism, unspecified; F17.210 Nicotine dependence, cigarettes, uncomplicated; G89.4 Chronic pain syndrome; Z99.81 Dependence on supplemental oxygen; Z79.82 Long term (current) use of aspirin; Z79.2 Long term (current) use of antibiotics; Z79.899 Other long term (current) drug therapy; Z88.0 Allergy status to penicillin; Z88.1 Allergy status to other antibiotic agents; Z79.51 Long term (current) use of inhaled steroids; Z93.3 Colostomy status
CPT/HCPCS: 36415; 71045; 80048; 81001; 83605; 84132; 85025; 85027; 87040; 94640; 94762; 96360; 97605; 99284; 99285-25; A9270-GY; C1751; J1642; J1650; J1956; J2185; J7030; J7050; J7620-GY

== ENCOUNTER 2019-11-03 12:37 | Emergency (ER) | payer MEDICAID ==
[2019-11-03 13:03] VITALS: BP 96/62; PULSE 72
--- NOTE | 2019-11-03 14:06 | EDM.PDOC ---
ED HPI GENERAL MEDICAL PROBLEM - General Chief Complaint: Genitourinary Problem Stated Complaint: INFECTION Time Seen by Provider: 11/03/19 13:57 Source of Information: Reports: Patient History Limitations: Reports: No Limitations - History of Present Illness INITIAL COMMENTS - FREE TEXT/NARRATIVE: Patient presents for evaluation of possible UTI with symptom onset today. She gets UTIs periodically, her last one being about 6 months ago. Because of her neurologic state, when she gets urinary tract infections she reports increased spasticity in her legs and abdominal pain. Those have both increased today. Earlier in the week she seemed at her usual. She denies any fever or chills. No new symptoms apart from spasticity changes. Onset: Today Duration: Hour(s): Location: Reports: Abdomen Quality: Reports: Ache Severity: Moderate Improves with: Reports: None Worsens with: Reports: None - Related Data Allergies Allergy/AdvReac Type Severity Reaction Status Date / Time clindamycin Allergy Cannot Verified 11/03/19 13:04 Remember Penicillins Allergy Cannot Verified 11/03/19 13:04 Remember Home Meds: Home Meds Albuterol [Ventolin HFA] 1 puff IH QID 12/16/14 [History] Ibuprofen 200 mg PO Q4H PRN 12/16/14 [History] Multivitamins/Iron/Folic Acid [Cerovite Advanced Formula] 1 tab PO DAILY [History] Venlafaxine [Effexor] 75 mg PO BEDTIME 12/16/14 [History] Lisinopril 20 mg PO DAILY 07/04/17 [History] oxyCODONE HCl/Acetaminophen [Endocet 7.5-325 mg Tablet] 2 tab PO Q6H PRN [History] buPROPion [Wellbutrin SR] 150 tab PO BID 10/23/18 [History] Baclofen 80 mg PO DAILY 01/02/19 [History] Levothyroxine 75 mcg PO ACBREAKFAST 01/02/19 [History] Naloxone HCl [Narcan] 4 mg MIGUEL ASDIRECTED PRN 01/02/19 [History] Pregabalin [Lyrica] 200 mg PO TID 01/02/19 [History] Venlafaxine [Effexor] 150 mg PO DAILY 01/02/19 [History] hydrOXYzine pamoate [Hydroxyzine Pamoate] 25 mg PO TID PRN 01/02/19 [History] Aspirin 325 mg PO DAILY 09/04/19 [History] Mometasone/Formoterol [Dulera 200 MCG/5 MCG] 1 puff INH ASDIRECTED 09/04/19 [ History] Multivit-Min/FA/Lycopen/Lutein [Certavite Sr-Antioxidant Tab] 1 tab PO DAILY 07/14 [History] levETIRAcetam [Levetiracetam] 750 mg PO BID 09/04/19 [History] Lactobacillus Rhamnosus GG [Culturelle] 1 cap PO BID #60 cap 09/25/19 [Rx] Methadone 20 mg PO ASDIRECTED 11/03/19 [History] Past Medical History HEENT History: Reports: Impaired Vision Cardiovascular History: Reports: Hypertension Respiratory History: Reports: SOB Other Respiratory History: PNA 6 months ago Gastrointestinal History: Reports: Other (See Below) Other Gastrointestinal History: ostomy Genitourinary History: Reports: UTI, Recurrent Other Genitourinary History: suprapubic 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: Musculoskeletal History: Reports: Back Pain, Chronic, Other (See Below) Other Musculoskeletal History: spasms Neurological History: Reports: Seizure, Other (See Below) Other Neuro History: L-4 spinal cord injury Psychiatric History: Reports: Depression, Suicide Attempt Endocrine/Metabolic History: Reports: Hypothyroidism Hematologic History: Reports: Blood Transfusion(s) Dermatologic History: Reports: Decubitus Ulcer, Eczema Other Dermatologic History: rt buttock ulcer 2013 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 - Infectious Disease History Infectious Disease History: Reports: Chicken Pox Other Infectious Disease History: 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 - Past Surgical History Head Surgeries/Procedures: Reports: None HEENT Surgical History: Reports: None Cardiovascular Surgical History: Reports: None Respiratory Surgical History: Reports: None GI Surgical History: Reports: Small Bowel Female Surgical History: Reports: Suprapubic Catheter Placement Endocrine Surgical History: Reports: None Neurological Surgical History: Reports: Lumbar Spine Musculoskeletal Surgical History: Reports: Other (See Below) Other Musculoskeletal Surgeries/Procedures:: ankle Dermatological Surgical History: Reports: None Social & Family History - Family History Family Medical History: Noncontributory - Tobacco Use Smoking Status *Q: Current Every Day Smoker Years of Tobacco use: 20 Packs/Tins Daily: 0.5 Used Tobacco, but Quit: No Second Hand Smoke Exposure: Yes - Caffeine Use Caffeine Use: Reports: Coffee, Soda Other Caffeine Use: 1 cup a day Caffeine Use Comment: unknown - Recreational Drug Use Recreational Drug Use: No ED ROS GENERAL - Review of Systems Review Of Systems: See Below GI/Abdominal: Reports: Abdominal Pain (Lower abdominal and somewhat right sided pain) : Reports: Other (She has an indwelling Olivas catheter because of urinary symptoms secondary to neurologic change. The bag is been drained and newer urine is accumulating.) Musculoskeletal: Reports: Muscle Pain (She reports increased leg muscle spasms. She has medication which she takes for this.) Neurological: Reports: Numbness, Other (Restlessness.) Psychiatric: Reports: Anxiety ED EXAM, RENAL/ - Physical Exam Exam: See Below Exam Limited By: No Limitations General Appearance: Moderate Distress (She flexes her legs periodically and winces with abdominal pain.) Respiratory/Chest: No Respiratory Distress Cardiovascular: Regular Rate, Rhythm GI/Abdominal: Soft, Non-Tender Course - Vital Signs Last Recorded V/S: Last Vital Signs Temp 36.1 C 11/03/19 13:10 Pulse 72 11/03/19 13:10 Resp 16 11/03/19 13:10 BP 96/62 11/03/19 13:10 Pulse Ox 96 11/03/19 13:10 - Orders/Labs/Meds Orders: Active Orders 24 hr Category Date Time Status CULTURE URINE [RM] Stat Lab 11/03/19 14:15 Received Labs: Laboratory Tests 11/03/19 Range/Units 14:06 Urine Color Yellow (YELLOW) Urine Appearance Slightly cloudy A (CLEAR) Urine pH 5.5 (5.0-8.0) Ur Specific [place] 1.010 (1.008-1.030) Urine Protein Negative (NEGATIVE) mg/dL Urine Glucose (UA) Negative (NEGATIVE) mg/dL Urine Ketones Negative (NEGATIVE) mg/dL Urine Occult Blood Trace-lysed H (NEGATIVE) Urine Nitrite Negative (NEGATIVE) Urine Bilirubin Negative (NEGATIVE) Urine Urobilinogen 0.2 (0.2-1.0) EU/dL Ur Leukocyte Esterase Small H (NEGATIVE) Urine RBC 0-5 (0-5) Urine WBC 5-10 H (0-5) Ur Epithelial Cells Few Amorphous Sediment Few Urine Bacteria Rare Urine Mucus Not seen - Re-Assessments/Exams Free Text/Narrative Re-Assessment/Exam: 11/03/19 21:16 Urine was collected from her Olivas catheter drainage bag and will be sent for basic urinalysis and culture. There were mild amounts of possible infection change in the urine. She is quite insistent that spasticity equals infection. Urine culture will be the most helpful part of this evaluation and she understands that. I will cover her with Macrobid 100 mg twice daily for 4 days. She can also use Pyridium 200 mg, 6 tablets; use as directed. She should contact this department for results of urine culture Tuesday or possibly as late as Tuesday. Reasons to return to emergency department reviewed. Departure - Departure Time of Disposition: 15:11 Disposition: Home, Self-Care 01 Condition: Good Clinical Impression: UTI, Urinary tract infectious disease - Discharge Information *PRESCRIPTION DRUG MONITORING PROGRAM REVIEWED*: Not Applicable *COPY OF PRESCRIPTION DRUG MONITORING REPORT IN PATIENT VICTOR MANUEL: Not Applicable Instructions: Urinary Tract Infection, Adult, [id number] Referrals: Brigitte Guy MD [Primary Care Provider] - Forms: ED Department Discharge Additional Instructions: Start Macrobid today. Continue other medications as discussed. Urine culture results will be available late Tuesday afternoon or more than likely Tuesday morning. Follow-up about culture results and have primary care team make any adjustments that are needed. Return here if feeling worse in anyway. Sepsis Event Note - Evaluation Sepsis Screening Result: No Definite Risk - Focused Exam Vital Signs: Vital Signs Temp Pulse Resp BP Pulse Ox 11/03/19 13:10 36.1 C 72 16 96/62 96 11/03/19 13:01 36.1 C 72 16 96/62 96 Date Exam was Performed: 11/03/19 Time Exam was Performed: 21:12 - My Orders Last 24 Hours: My Active Orders 11/03/19 14:15 CULTURE URINE [RM] Stat - Assessment/Plan Last 24 Hours: My Active Orders 11/03/19 14:15 CULTURE URINE [RM] Stat
== END 2019-11-03 15:31 | disposition home or self-care (01) ==
LOC: JP.ED 12:37
DX: N39.0 Urinary tract infection, site not specified (principal); I10 Essential (primary) hypertension; E03.9 Hypothyroidism, unspecified; G40.909 Epilepsy, unspecified, not intractable, without status epilepticus; F32.9 Major depressive disorder, single episode, unspecified; F17.210 Nicotine dependence, cigarettes, uncomplicated; Z88.1 Allergy status to other antibiotic agents; Z88.0 Allergy status to penicillin; Z79.899 Other long term (current) drug therapy; Z79.890 Hormone replacement therapy; Z79.82 Long term (current) use of aspirin
CPT/HCPCS: 81001; 87086; 87088; 87186; 99283

== ENCOUNTER 2019-11-05 04:20 | Inpatient (IN) | payer MEDICAID ==
[2019-11-05] MEDS ORDERED: Acetaminophen 500 MG Tab PO ONE (05:09)
--- NOTE | 2019-11-05 05:21 | EDM.PDOC ---
ED HPI GENERAL MEDICAL PROBLEM - General Chief Complaint: Fever Stated Complaint: PAIN IN LEGS Time Seen by Provider: 11/05/19 05:16 Source of Information: Reports: Patient, Old Records History Limitations: Reports: No Limitations - History of Present Illness INITIAL COMMENTS - FREE TEXT/NARRATIVE: 48 yo female was seen here 2 days ago and put on Macrodantin for a borderline UTI. Patient returns with worsening of fever and LE spasticity. Is concerned there is something more going on. Took Percocet 5 hrs ago as her last antipyretics. Is a smoker. Believes she had a flu vaccine. Has no runny nose, sore throat, diarrhea or vomiting. Has decubuti, but according to a career orientation teacher that is here there is no redness around the edges. There is a wound vacuum on this decubitus ulcer. Onset: Gradual Onset Date: 11/02/19 Duration: Day(s):, Getting Worse Location: Reports: Generalized Quality: Reports: Other (cramping of legs) Severity: Moderate Improves with: Reports: None Worsens with: Reports: Other (time) Context: Reports: Other (see HPI) Associated Symptoms: Reports: Fever/Chills. 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) (MacroBid) spasms bilateral legs Pain Score (Numeric/FACES): 4 - Related Data Allergies Allergy/AdvReac Type Severity Reaction Status Date / Time clindamycin Allergy Cannot Verified 11/05/19 04:39 Remember Penicillins Allergy Cannot Verified 11/05/19 04:39 Remember Home Meds: Home Meds Albuterol [Ventolin HFA] 1 puff IH QID 12/16/14 [History] Ibuprofen 200 mg PO Q4H PRN 12/16/14 [History] Multivitamins/Iron/Folic Acid [Cerovite Advanced Formula] 1 tab PO DAILY [History] Venlafaxine [Effexor] 75 mg PO BEDTIME 12/16/14 [History] Lisinopril 20 mg PO DAILY 07/04/17 [History] oxyCODONE HCl/Acetaminophen [Endocet 7.5-325 mg Tablet] 2 tab PO Q6H PRN [History] buPROPion [Wellbutrin SR] 150 mg PO BID 10/23/18 [History] Baclofen 20 mg PO QID 01/02/19 [History] Levothyroxine 75 mcg PO ACBREAKFAST 01/02/19 [History] Naloxone HCl [Narcan] 4 mg MIGUEL ASDIRECTED PRN 01/02/19 [History] Pregabalin [Lyrica] 200 mg PO TID 01/02/19 [History] Venlafaxine [Effexor] 150 mg PO DAILY 01/02/19 [History] hydrOXYzine pamoate [Hydroxyzine Pamoate] 25 mg PO TID PRN 01/02/19 [History] Aspirin 325 mg PO DAILY 09/04/19 [History] Mometasone/Formoterol [Dulera 200 MCG/5 MCG] 1 puff INH ASDIRECTED 09/04/19 [ History] Multivit-Min/FA/Lycopen/Lutein [Certavite Sr-Antioxidant Tab] 1 tab PO DAILY 07/14 [History] levETIRAcetam [Levetiracetam] 750 mg PO BID 09/04/19 [History] Lactobacillus Rhamnosus GG [Culturelle] 1 cap PO BID #60 cap 09/25/19 [Rx] Methadone 5 mg PO ASDIRECTED 11/03/19 [History] Sulfamethoxazole/Trimethoprim [Septra DS] 1 tab PO BID #10 tablet 11/07/19 [Rx] Past Medical History HEENT History: Reports: Impaired Vision Cardiovascular History: Reports: Hypertension Respiratory History: Reports: SOB Other Respiratory History: PNA 6 months ago Gastrointestinal History: Reports: Other (See Below) Other Gastrointestinal History: ostomy Genitourinary History: Reports: UTI, Recurrent Other Genitourinary History: 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: Musculoskeletal History: Reports: Back Pain, Chronic, Other (See Below) Other Musculoskeletal History: spasms Neurological History: Reports: Seizure, Other (See Below) Other Neuro History: L-4 spinal cord injury Psychiatric History: Reports: Depression, Suicide Attempt Endocrine/Metabolic History: Reports: Hypothyroidism Hematologic History: Reports: Blood Transfusion(s) Dermatologic History: Reports: Decubitus Ulcer, Eczema Other Dermatologic History: rt buttock ulcer 2013 on 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 - Infectious Disease History Infectious Disease History: Reports: Chicken Pox Other Infectious Disease History: 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 - Past Surgical History Head Surgeries/Procedures: Reports: None HEENT Surgical History: Reports: None Cardiovascular Surgical History: Reports: None Respiratory Surgical History: Reports: None GI Surgical History: Reports: Small Bowel Female Surgical History: Reports: Suprapubic Catheter Placement Endocrine Surgical History: Reports: None Neurological Surgical History: Reports: Lumbar Spine Musculoskeletal Surgical History: Reports: Other (See Below) Other Musculoskeletal Surgeries/Procedures:: ankle Dermatological Surgical History: Reports: None Social & Family History - Family History Family Medical History: Noncontributory - Tobacco Use Smoking Status *Q: Current Every Day Smoker Years of Tobacco use: 20 Packs/Tins Daily: 0.5 Second Hand Smoke Exposure: Yes - Caffeine Use Caffeine Use: Reports: Coffee, Soda Other Caffeine Use: 1 cup a day Caffeine Use Comment: unknown - Recreational Drug Use Recreational Drug Use: No ED ROS GENERAL - Review of Systems Review Of Systems: See Below Constitutional: Reports: Fever, Chills, Malaise HEENT: Reports: No Symptoms Respiratory: Reports: Cough (chronic, not worse than usual) Cardiovascular: Reports: No Symptoms GI/Abdominal: Reports: No Symptoms : Reports: No Symptoms Musculoskeletal: Reports: Other (increased spasticity of both legs) Skin: Reports: No Symptoms Neurological: Reports: No Symptoms Psychiatric: Reports: No Symptoms ED EXAM, GI/ABD - Physical Exam Exam: See Below Exam Limited By: No Limitations General Appearance: Alert, WD/WN, No Apparent Distress Eyes: Bilateral: Normal Appearance Ears: Normal External Exam, Normal Canal, Hearing Grossly Normal, Normal TMs, Other (increased cerumen, especially L ear) Nose: Normal Inspection, No Blood Throat/Mouth: Normal Inspection, Normal Lips, Normal Oropharynx, Normal Voice, No Airway Compromise Head: Atraumatic, Normocephalic Neck: Normal Inspection Respiratory/Chest: No Respiratory Distress, Lungs Clear, Normal Breath Sounds, No Accessory Muscle Use Cardiovascular: Regular Rate, Rhythm, No Edema GI/Abdominal Exam: Normal Bowel Sounds, Soft, Non-Tender, No Distention Back Exam: Normal Inspection. No: CVA Tenderness (R), CVA Tenderness (L) Extremities: Normal Inspection, Normal Range of Motion, Non-Tender, No Pedal Edema, Other (atrophic legs bilat.) Neurological: Alert, Oriented, CN II-XII Intact, Normal Cognition, No Motor/ Sensory Deficits Psychiatric: Normal Affect, Normal Mood Skin Exam: Warm, Dry, Intact, Normal Color, No Rash Course - Vital Signs Last Recorded V/S: Last Vital Signs Temp 36.5 C 11/07/19 08:23 Pulse 58 L 11/07/19 08:23 Resp 16 11/07/19 02:48 BP 130/72 11/07/19 08:26 Pulse Ox 99 11/07/19 08:23 - Orders/Labs/Meds Labs: Laboratory Tests 11/05/19 11/05/19 11/05/19 Range/Units 05:43 05:43 05:43 WBC 22.3 H (4.5-11.0) K/uL RBC 4.91 (3.30-5.50) M/uL Hgb 13.0 D (12.0-15.0) g/dL Hct 42.5 (36.0-48.0) % MCV 87 (80-98) fL MCH 27 (27-31) pg MCHC 31 L (32-36) % Plt Count 349 (150-400) K/uL Sodium 133 L (140-148) mmol/L Potassium 5.7 H (3.6-5.2) mmol/L Chloride 98 L (100-108) mmol/L Carbon Dioxide 26 (21-32) mmol/L Anion Gap 14.7 H (5.0-14.0) mmol/L BUN 11 D (7-18) mg/dL Creatinine 1.1 H D (0.6-1.0) mg/dL Est Cr Clr Drug Dosing 63.09 mL/min Estimated GFR (MDRD) 53 L (>60) Glucose 95 (74-106) mg/dL Lactic Acid 1.5 (0.4-2.0) mmol/L Calcium 8.5 (8.5-10.1) mg/dL Urine Color (YELLOW) Urine Appearance (CLEAR) Urine pH (5.0-8.0) Ur Specific [place] (1.008-1.030) Urine Protein (NEGATIVE) mg/dL Urine Glucose (UA) (NEGATIVE) mg/dL Urine Ketones (NEGATIVE) mg/dL Urine Occult Blood (NEGATIVE) Urine Nitrite (NEGATIVE) Urine Bilirubin (NEGATIVE) Urine Urobilinogen (0.2-1.0) EU/dL Ur Leukocyte Esterase (NEGATIVE) Urine RBC (0-5) Urine WBC (0-5) Ur Epithelial Cells Amorphous Sediment Urine Bacteria Urine Mucus Urine Other 11/05/19 Range/Units 06:37 WBC (4.5-11.0) K/uL RBC (3.30-5.50) M/uL Hgb (12.0-15.0) g/dL Hct (36.0-48.0) % MCV (80-98) fL MCH (27-31) pg MCHC (32-36) % Plt Count (150-400) K/uL Sodium (140-148) mmol/L Potassium (3.6-5.2) mmol/L Chloride (100-108) mmol/L Carbon Dioxide (21-32) mmol/L Anion Gap (5.0-14.0) mmol/L BUN (7-18) mg/dL Creatinine (0.6-1.0) mg/dL Est Cr Clr Drug Dosing mL/min Estimated GFR (MDRD) (>60) Glucose (74-106) mg/dL Lactic Acid (0.4-2.0) mmol/L Calcium (8.5-10.1) mg/dL Urine Color Yellow (YELLOW) Urine Appearance Slightly cloudy A (CLEAR) Urine pH 5.5 (5.0-8.0) Ur Specific [place] 1.020 (1.008-1.030) Urine Protein Negative (NEGATIVE) mg/dL Urine Glucose (UA) Negative (NEGATIVE) mg/dL Urine Ketones Trace H (NEGATIVE) mg/dL Urine Occult Blood Negative (NEGATIVE) Urine Nitrite Negative (NEGATIVE) Urine Bilirubin Small H (NEGATIVE) Urine Urobilinogen 0.2 (0.2-1.0) EU/dL Ur Leukocyte Esterase Small H (NEGATIVE) Urine RBC 0-5 (0-5) Urine WBC 0-5 (0-5) Ur Epithelial Cells Few Amorphous Sediment Not seen Urine Bacteria Moderate Urine Mucus Not seen Urine Other Meds: Medications Discontinued Medications Generic Name Dose Route Start Last Admin Trade Name Freq PRN Reason Stop Dose Admin Acetaminophen 1,000 mg 11/05/19 05:09 11/05/19 05:13 Tylenol Extra Strength PO 11/05/19 05:10 1,000 mg ONETIME ONE Administration Acetaminophen 650 mg 11/05/19 09:24 Tylenol PO Q4H PRN Pain (Mild 1-3)/fever Albuterol 2.5 mg 11/05/19 09:24 Proventil Neb Soln NEB Q4H PRN Shortness Of Breath/wheezing Aspirin 325 mg 11/05/19 10:15 11/07/19 08:21 Ecotrin PO 325 mg DAILY SANDI Administration Baclofen 20 mg 11/05/19 10:15 11/07/19 09:48 Lioresal PO 20 mg QID SANDI Administration Bupropion HCl 150 mg 11/05/19 10:00 11/07/19 08:21 Wellbutrin Sr PO 150 mg BID SANDI Administration Fentanyl 50 mcg 11/05/19 07:27 11/05/19 07:33 Sublimaze IVPUSH 11/05/19 07:28 50 mcg ONETIME ONE Administration Fentanyl 50 mcg 11/05/19 08:58 11/05/19 09:45 Sublimaze IVPUSH 11/05/19 08:59 50 mcg ONETIME ONE Administration Fentanyl 50 mcg 11/05/19 09:24 11/06/19 22:21 Sublimaze IVPUSH 50 mcg Q2H PRN Administration Pain (severe 7-10) Heparin Sodium (Porcine) Confirm 11/06/19 13:12 11/06/19 13:17 Heparin Lock Flush 100 Units/Ml Administered 11/06/19 13:13 500 units Dose Administration 500 units .ROUTE .STK-MED ONE Heparin Sodium (Porcine) 500 units 11/06/19 22:15 11/07/19 01:27 Heparin Lock Flush 100 Units/Ml FLUSH 500 units ASDIRECTED PRN Administration IV Use Hydroxyzine HCl 25 mg 11/05/19 10:18 Atarax PO TID PRN ITCHING Sodium Chloride 1,000 mls @ 150 mls/hr 11/05/19 06:45 11/05/19 07:10 Normal Saline IV 150 mls/hr ASDIRECTED SANDI Administration Ceftriaxone Sodium 1 gm/ 50 mls @ 100 mls/hr 11/05/19 07:15 11/05/19 07:22 Sodium Chloride IV 11/05/19 07:44 100 mls/hr ONETIME ONE Administration Ceftriaxone Sodium 1 gm/ 50 mls @ 100 mls/hr 11/06/19 06:30 11/06/19 05:43 Sodium Chloride IV 100 mls/hr Q24H SANDI Administration Sodium Chloride 1,000 mls @ 125 mls/hr 11/05/19 09:24 11/06/19 09:37 Normal Saline IV 125 mls/hr ASDIRECTED SANDI Administration Vancomycin HCl 1 gm/ Sodium 250 mls @ 166 mls/hr 11/05/19 22:00 11/06/19 11: 09 Chloride IV 166 mls/hr Q12H SANDI Administration Vancomycin HCl 1.5 gm/ Sodium 250 mls @ 166 mls/hr 11/05/19 10:00 11/05/19 10 :08 Chloride IV 11/05/19 11:30 166 mls/hr ONETIME ONE Administration Ibuprofen 600 mg 11/05/19 09:24 11/05/19 13:29 Motrin PO 600 mg Q6H PRN Administration Pain/Fever Lactobacillus Rhamnosus 1 cap 11/05/19 10:00 11/07/19 08:20 Culturelle PO 1 cap BID SANDI Administration Levetiracetam 750 mg 11/05/19 10:15 11/07/19 08:18 Keppra PO 750 mg BID SANDI Administration Levothyroxine Sodium 25 mcg/ 75 mcg 11/05/19 11:00 11/07/19 08:21 Levothyroxine Sodium 50 mcg PO 75 mcg ACBREAKFAST SANDI Administration Lisinopril 20 mg 11/05/19 10:15 11/07/19 08:26 Prinivil PO 20 mg DAILY SANDI Administration Lorazepam 1 mg 11/05/19 09:24 11/07/19 01:21 Ativan IVPUSH 1 mg Q4H PRN Administration Muscle Spasm Magnesium Hydroxide 30 ml 11/05/19 09:24 Milk Of Magnesia PO Q12H PRN Constipation Melatonin 9 mg 11/05/19 09:24 11/06/19 21:15 Melatonin PO 9 mg BEDTIME PRN Administration Sleep Methadone HCl 15 mg 11/05/19 13:00 11/06/19 21:14 Methadone PO 15 mg BID@1300,2100 SANDI Administration Methadone HCl 20 mg 11/06/19 09:00 11/07/19 08:18 Methadone PO 20 mg PCBREAKFAST SANDI Administration Nicotine 7 mg 11/05/19 10:00 11/07/19 08:21 Habitrol TRDERM Not Given DAILY [facility] Ondansetron HCl 4 mg 11/05/19 09:24 Zofran Odt PO Q6H PRN Nausea able to take PO Ondansetron HCl 4 mg 11/05/19 09:24 Zofran IV Q6H PRN Nausea/Vomiting Oxycodone/Acetaminophen 2 tab 11/05/19 09:24 11/06/19 06:38 Percocet 325-7.5 Mg PO 2 tab Q6H PRN Administration Pain Oxycodone/Acetaminophen 2 tab 11/06/19 12:00 11/07/19 05:13 Percocet 325-7.5 Mg PO 2 tab Q4H PRN Administration Pain Pregabalin 200 mg 11/05/19 10:15 11/07/19 08:18 Lyrica PO 200 mg TID SANDI Administration Senna/Docusate Sodium 1 tab 11/05/19 09:24 Senna Plus PO BID PRN Constipation Sodium Chloride 10 ml 11/05/19 05:49 11/05/19 06:26 Saline Flush FLUSH 10 ml ASDIRECTED PRN Administration Keep Vein Open Trimethoprim/Sulfamethoxazole 1 tab 11/06/19 21:00 11/07/19 08:20 Septra Ds PO 1 tab BID SANDI Administration Venlafaxine HCl 75 mg 11/05/19 21:00 11/06/19 21:13 Effexor PO 75 mg BEDTIME SANDI Administration Venlafaxine HCl 150 mg 11/05/19 10:15 11/07/19 08:20 Effexor PO 150 mg DAILY SANDI Administration - Radiology Interpretation Free Text/Narrative:: CXR one view-neg Departure - Departure Time of Disposition: 08:20 Disposition: Admitted As Inpatient 66 Condition: Fair Clinical Impression: Hyperkalemia, Hyponatremia Leukocytosis Qualifiers: Leukocytosis type: unspecified Qualified Code(s): D72.829 - Elevated white blood cell count, unspecified - Discharge Information *PRESCRIPTION DRUG MONITORING PROGRAM REVIEWED*: No *COPY OF PRESCRIPTION DRUG MONITORING REPORT IN PATIENT VICTOR MANUEL: No Sepsis Event Note - Evaluation Sepsis Screening Result: Possible Sepsis Risk - Focused Exam Date Exam was Performed: 11/08/19 Time Exam was Performed: 07:03
[2019-11-05] MEDS ORDERED: Sodium Chloride 0.9% 10 ML Syringe FLUSH PRN (05:49)
[2019-11-05] MEDS ORDERED: Sodium Chloride 0.9% 1,000 ML IV SCH (06:45)
[2019-11-05] MEDS ORDERED: cefTRIAXone 1 GM in Sodium Chloride 0.9% 50 ML IV ONE ×2 (06:57→07:15)
[2019-11-05] MEDS ORDERED: fentaNYL 100 MCG/2 ML SDV IVPUSH ONE ×2 (07:27→08:58)
--- NOTE | 2019-11-05 09:17 | PCM.HP.2 ---
H&P History of Present Illness - General Date of Service: 11/05/19 Admit Problem/Dx: Admission Diagnosis/Problem Admission Diagnosis/Problem Complicated urinary tract infection Source of Information: Patient, Provider History Limitations: Reports: No Limitations - History of Present Illness Initial Comments - Free Text/Narative: CC: theses spasms are horrible HPI: Aaliyah presents to the emergency room today with severe pain in her lower extremities from a spastic muscle contractions as well as subjective and objective fevers at home. She was here 2 days ago and diagnosed with a urinary tract infection. She was started on nitrofurantoin at that time. Despite the antibiotic therapy she has had progression of her lower extremity spasticity which is typical when she has a systemic infection. She continues to have some bladder spasms though they did initially improve after antibiotics were started. She has had subjective fevers and had a fever this morning. She has been more lethargic today per her mother's report. Her main concern is that she has severe sharp pain in both of her lower extremities with spasmodic pain. She has taken several Percocet without any improvement in the pain. Pain seems to come and go without any obvious trigger. This is very typical of her pain from infections. She does not feel short of breath and has not been coughing. Appetite has been poor the past couple of days but she has not had nausea or vomiting. No complaints of abdominal pain. No change in her bowel habits with colostomy output. She reports she has been taking her antibiotics as prescribed. Work-up in the emergency room was concerning for persistent urinary tract infection which is complicated with her chronic indwelling Olivas catheter. Urine culture from 2 days ago is growing a gram-positive cocci as well as some yeast. She will be admitted to the hospital for a urinary tract infection that is failing outpatient therapy. spasms bilateral legs Pain Score (Numeric/FACES): 4 - Related Data Allergies/Adverse Reactions: Allergies Allergy/AdvReac Type Severity Reaction Status Date / Time clindamycin Allergy Cannot Verified 11/05/19 04:39 Remember Penicillins Allergy Cannot Verified 11/05/19 04:39 Remember Home Medications: Home Meds Albuterol [Ventolin HFA] 1 puff IH QID 12/16/14 [History] Ibuprofen 200 mg PO Q4H PRN 12/16/14 [History] Multivitamins/Iron/Folic Acid [Cerovite Advanced Formula] 1 tab PO DAILY [History] Venlafaxine [Effexor] 75 mg PO BEDTIME 12/16/14 [History] Lisinopril 20 mg PO DAILY 07/04/17 [History] oxyCODONE HCl/Acetaminophen [Endocet 7.5-325 mg Tablet] 2 tab PO Q6H PRN [History] buPROPion [Wellbutrin SR] 150 mg PO BID 10/23/18 [History] Baclofen 20 mg PO QID 01/02/19 [History] Levothyroxine 75 mcg PO ACBREAKFAST 01/02/19 [History] Naloxone HCl [Narcan] 4 mg MIGUEL ASDIRECTED PRN 01/02/19 [History] Pregabalin [Lyrica] 200 mg PO TID 01/02/19 [History] Venlafaxine [Effexor] 150 mg PO DAILY 01/02/19 [History] hydrOXYzine pamoate [Hydroxyzine Pamoate] 25 mg PO TID PRN 01/02/19 [History] Aspirin 325 mg PO DAILY 09/04/19 [History] Mometasone/Formoterol [Dulera 200 MCG/5 MCG] 1 puff INH ASDIRECTED 09/04/19 [ History] Multivit-Min/FA/Lycopen/Lutein [Certavite Sr-Antioxidant Tab] 1 tab PO DAILY 07/14 [History] levETIRAcetam [Levetiracetam] 750 mg PO BID 09/04/19 [History] Lactobacillus Rhamnosus GG [Culturelle] 1 cap PO BID #60 cap 09/25/19 [Rx] Methadone 5 mg PO ASDIRECTED 11/03/19 [History] Past Medical History HEENT History: Reports: Impaired Vision Cardiovascular History: Reports: Hypertension Respiratory History: Reports: SOB Other Respiratory History: PNA 6 months ago Gastrointestinal History: Reports: Other (See Below) Other Gastrointestinal History: ostomy Genitourinary History: Reports: UTI, Recurrent Other Genitourinary History: suprapubic 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: Musculoskeletal History: Reports: Back Pain, Chronic, Other (See Below) Other Musculoskeletal History: spasms Neurological History: Reports: Seizure, Other (See Below) Other Neuro History: L-4 spinal cord injury Psychiatric History: Reports: Depression, Suicide Attempt Endocrine/Metabolic History: Reports: Hypothyroidism Hematologic History: Reports: Blood Transfusion(s) Dermatologic History: Reports: Decubitus Ulcer, Eczema Other Dermatologic History: rt buttock ulcer 2013 on going 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 by 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 - Infectious Disease History Infectious Disease History: Reports: Chicken Pox Other Infectious Disease History: 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 and 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 state nolonger the case - Past Surgical History Head Surgeries/Procedures: Reports: None HEENT Surgical History: Reports: None Cardiovascular Surgical History: Reports: None Respiratory Surgical History: Reports: None GI Surgical History: Reports: Small Bowel Female Surgical History: Reports: Suprapubic Catheter Placement Endocrine Surgical History: Reports: None Neurological Surgical History: Reports: Lumbar Spine Musculoskeletal Surgical History: Reports: Other (See Below) Other Musculoskeletal Surgeries/Procedures:: ankle Dermatological Surgical History: Reports: None Social & Family History - Family History Family Medical History: Noncontributory - Tobacco Use Smoking Status *Q: Current Every Day Smoker Years of Tobacco use: 20 Packs/Tins Daily: 0.5 Second Hand Smoke Exposure: Yes - Caffeine Use Caffeine Use: Reports: Coffee, Soda Other Caffeine Use: 1 cup a day Caffeine Use Comment: unknown - Recreational Drug Use Recreational Drug Use: No H&P Review of Systems - Review of Systems: Review Of Systems: See Below Free Text/Narrative: A complete 12 point review of systems was obtained. Pertinent positives and negatives are noted in the history of present illness. All other systems were reviewed and were negative except as noted. Exam - Exam Exam: See Below - Vital Signs Vital Signs: Last Vital Signs Temp 37.5 C 11/05/19 06:30 Pulse 77 11/05/19 09:00 Resp 19 11/05/19 09:00 BP 111/66 11/05/19 09:00 Pulse Ox 96 11/05/19 09:00 Weight: 68.039 kg - Exam Quality Assessment: No: Supplemental Oxygen General: Alert, Oriented, Cooperative, Mild Distress HEENT: Conjunctiva Clear. No: Mucosa Moist & [place] (dry), Scleral Icterus Neck: Supple, Trachea Midline Lungs: Clear to Auscultation, Normal Respiratory Effort Cardiovascular: Regular Rate, Regular Rhythm. No: Systolic Murmur GI/Abdominal Exam: Normal Bowel Sounds, Soft, Non-Tender, No Distention, Other ( Colostomy on the left side of the abdomen) Extremities: No Pedal Edema. No: Increased Warmth Peripheral Pulses: 2+: Dorsalis Pedis (L), Dorsalis Pedis (R) Skin: Warm, Dry, Wound (2 large wounds on her back. There is a wound VAC in place which was removed. This was draining an 4 cm wide long x 12 cm and 2 cm deep ulceration on the lower back near the midline. There is no obvious drainage or surrounding erythema. There is also a very large wound over the right lower back, right buttocks which is chronic and appears to be healing. There is a foul odor but no obvious drainage or exudate.) Neuro Extensive - Mental Status: Alert, Oriented x3, Nl Response to Commands Neuro Extensive - Motor, Sensory, Reflexes: No: Dysarthria, Abnormal Motor, Tremor Psychiatric: Alert, Normal Affect - Patient Data Lab Results Last 24 hrs: Laboratory Results - last 24 hr 11/05/19 11/05/19 11/05/19 Range/Units 05:43 05:43 05:43 WBC 22.3 H (4.5-11.0) K/uL RBC 4.91 (3.30-5.50) M/uL Hgb 13.0 D (12.0-15.0) g/dL Hct 42.5 (36.0-48.0) % MCV 87 (80-98) fL MCH 27 (27-31) pg MCHC 31 L (32-36) % Plt Count 349 (150-400) K/uL Sodium 133 L (140-148) mmol/L Potassium 5.7 H (3.6-5.2) mmol/L Chloride 98 L (100-108) mmol/L Carbon Dioxide 26 (21-32) mmol/L Anion Gap 14.7 H (5.0-14.0) mmol/L BUN 11 D (7-18) mg/dL Creatinine 1.1 H D (0.6-1.0) mg/dL Est Cr Clr Drug Dosing 63.09 mL/min Estimated GFR (MDRD) 53 L (>60) Glucose 95 (74-106) mg/dL Lactic Acid 1.5 (0.4-2.0) mmol/L Calcium 8.5 (8.5-10.1) mg/dL Urine Color (YELLOW) Urine Appearance (CLEAR) Urine pH (5.0-8.0) Ur Specific [place] (1.008-1.030) Urine Protein (NEGATIVE) mg/dL Urine Glucose (UA) (NEGATIVE) mg/dL Urine Ketones (NEGATIVE) mg/dL Urine Occult Blood (NEGATIVE) Urine Nitrite (NEGATIVE) Urine Bilirubin (NEGATIVE) Urine Urobilinogen (0.2-1.0) EU/dL Ur Leukocyte Esterase (NEGATIVE) Urine RBC (0-5) Urine WBC (0-5) Ur Epithelial Cells Amorphous Sediment Urine Bacteria Urine Mucus Urine Other 11/05/19 Range/Units 06:37 WBC (4.5-11.0) K/uL RBC (3.30-5.50) M/uL Hgb (12.0-15.0) g/dL Hct (36.0-48.0) % MCV (80-98) fL MCH (27-31) pg MCHC (32-36) % Plt Count (150-400) K/uL Sodium (140-148) mmol/L Potassium (3.6-5.2) mmol/L Chloride (100-108) mmol/L Carbon Dioxide (21-32) mmol/L Anion Gap (5.0-14.0) mmol/L BUN (7-18) mg/dL Creatinine (0.6-1.0) mg/dL Est Cr Clr Drug Dosing mL/min Estimated GFR (MDRD) (>60) Glucose (74-106) mg/dL Lactic Acid (0.4-2.0) mmol/L Calcium (8.5-10.1) mg/dL Urine Color Yellow (YELLOW) Urine Appearance Slightly cloudy A (CLEAR) Urine pH 5.5 (5.0-8.0) Ur Specific [place] 1.020 (1.008-1.030) Urine Protein Negative (NEGATIVE) mg/dL Urine Glucose (UA) Negative (NEGATIVE) mg/dL Urine Ketones Trace H (NEGATIVE) mg/dL Urine Occult Blood Negative (NEGATIVE) Urine Nitrite Negative (NEGATIVE) Urine Bilirubin Small H (NEGATIVE) Urine Urobilinogen 0.2 (0.2-1.0) EU/dL Ur Leukocyte Esterase Small H (NEGATIVE) Urine RBC 0-5 (0-5) Urine WBC 0-5 (0-5) Ur Epithelial Cells Few Amorphous Sediment Not seen Urine Bacteria Moderate Urine Mucus Not seen Urine Other Result Diagrams: 11/05/19 05:43 11/05/19 05:43 Ignacio Results Last 24 hrs: Microbiology 11/05/19 05:00 Influenza Type A Antigen Screen - Final Nasal, Unspecified NEGATIVE INFLUENZA A VIRUS AG REFERENCE RANGE: NEGATIVE Influenza Type B Antigen Screen - Final NEGATIVE INFLUENZA B VIRUS AG REFERENCE RANGE: NEGATIVE Imaging Impressions Last 24 hrs: Chest [id number] personally reviewed-lungs are clear with no obvious mass, consolidation or effusion. Heart size appears normal. Sepsis Event Note - Evaluation Sepsis Screening Result: Possible Sepsis Risk - Focused Exam Vital Signs: Vital Signs Temp Pulse Resp BP Pulse Ox 11/05/19 09:00 77 19 111/66 96 11/05/19 08:20 83 15 106/70 11/05/19 06:30 37.5 C 75 15 111/57 L 96 11/05/19 06:22 37.9 C 77 12 114/47 L 95 11/05/19 04:44 38.4 C H 93 17 111/63 94 L 11/05/19 04:42 38.4 C H 93 17 111/63 94 L Date Exam was Performed: 11/05/19 Time Exam was Performed: 16:21 *Q Meaningful Use (ADM) - VTE Risk Assess *Q Each Risk Factor Represents 1 Point: Age 41 - 59 years Total Score 1 Point Risk Factors: 1 Each Risk Factor Represents 2 Points: None Total Score 2 Point Risk Factors: 0 Each Risk Factor Represents 3 Points: None Total Score 3 Point Risk Factors: 0 Each Risk Factor Represents 5 Points: None Total Score 5 Point Risk Factors: 0 Venous Thromboembolism Risk Factor Score *Q: 1 - Problem List (1) Complicated urinary tract infection SNOMED Code(s): 24990501 ICD Code: N39.0 - URINARY TRACT INFECTION, SITE NOT SPECIFIED Status: Acute Current Visit: Yes (2) Paraplegia following spinal cord injury SNOMED Code(s): 66664933, 82347411 ICD Code: G82.20 - PARAPLEGIA, UNSPECIFIED Status: Chronic Current Visit : No (3) Decubitus ulcer SNOMED Code(s): 239160120 ICD Code: L89.90 - PRESSURE ULCER OF UNSPECIFIED SITE, UNSPECIFIED STAGE Status: Chronic Current Visit: No Problem Details: Chronic, present on admission (4) Chronic pain syndrome SNOMED Code(s): 231072309 ICD Code: G89.4 - CHRONIC PAIN SYNDROME Status: Chronic Current Visit: No (5) Tobacco dependence SNOMED Code(s): 87783110 ICD Code: F17.200 - NICOTINE DEPENDENCE, UNSPECIFIED, UNCOMPLICATED Status : Chronic Current Visit: No Problem List Initiated/Reviewed/Updated: Yes Orders Last 24hrs: Active Orders 24 hr Category Date Time Status Patient Status Manage Transfer [TRANSFER] Routine ADT 11/05/19 09:00 Ordered Chest 1V Frontal [CR] Stat Exams 11/05/19 05:49 Taken CULTURE BLOOD [BC] Stat Lab 11/05/19 06:18 Ordered CULTURE BLOOD [BC] Stat Lab 11/05/19 06:18 Ordered Sodium Chloride 0.9% [Normal Saline] 1,000 ml Med 11/05/19 06:45 Active IV ASDIRECTED Sodium Chloride 0.9% [Saline Flush] Med 11/05/19 05:49 Active 10 ml FLUSH ASDIRECTED PRN Vancomycin 1.5 gm Med 11/05/19 09:15 Active Sodium Chloride 0.9% [Normal Saline] 250 ml IV ONETIME Saline Lock Insert [OM.PC] Routine Oth 11/05/19 05:49 Ordered Resuscitation Status Routine Resus Stat 11/05/19 09:08 Ordered Medication Orders Sodium Chloride (Normal Saline) 1,000 mls @ 150 mls/hr IV ASDIRECTED SANDI Last Admin: 11/05/19 07:10 Dose: 150 mls/hr Vancomycin HCl 1.5 gm/ Sodium (Chloride) 250 mls @ 150 mls/hr IV ONETIME ONE Stop: 11/05/19 10:54 Sodium Chloride (Saline Flush) 10 ml FLUSH ASDIRECTED PRN PRN Reason: Keep Vein Open Last Admin: 11/05/19 06:26 Dose: 10 ml Assessment/Plan Comment:: ASSESSMENT AND PLAN - Complicated urinary tract infection-worsening despite outpatient therapy. Urine culture growing a gram-positive cocci and yeast with final identification pending. Severe pain due to the muscle spasms which is typical for her infections. No evidence for sepsis at this point. -Antibiotic coverage with vancomycin and ceftriaxone -Follow-up urine culture -IV fluids -Pain control Paraplegia secondary to spinal cord injury-complicated by neurogenic bladder with chronic indwelling catheter as well as colostomy formation. She has chronic difficulties with pain and spasticity in her lower extremities. Otherwise is stable. -Continue home pain and spasm medications Large chronic decubitus ulcers-she has 2 very large areas of wound on her lower back and buttocks. The more cranial lesion has a wound VAC in place. Distal wound covered by protective dressing. -Continue wound VAC -Continue usual home wound care Tobacco dependence-patient reports she smokes about 2 cigarettes/day. -Nicotine patch -Encourage cessation Maintenance issues - - DVT prophylaxis -OZIEL stockings - GI prophylaxis -not indicated - Nutrition -regular - Olivas catheter -chronic indwelling catheter CODE STATUS -full code Admission justification -this patient will be admitted for inpatient services and is medically appropriate meeting medical necessity for inpatient admission as outlined in my documentation. I reasonably expect the patient will require inpatient services that span a period time over 2 midnights. I reasonably expect this patient to be discharged or transferred within 96 hours [facility]. Disposition -I would anticipate discharge home after the hospital stay Primary care physician - [facility] Omari Fink M.D. - Mortality Measure Prognosis:: Good
[2019-11-05] MEDS ORDERED: Acetaminophen 325 MG Tab PO PRN (09:24)
[2019-11-05] MEDS ORDERED: Formoterol/Mometasone 200-5 MCG 8.8 GM Inhaler IH SCH (09:24)
[2019-11-05] MEDS ORDERED: Ibuprofen 600 MG Tab PO PRN (09:24)
[2019-11-05] MEDS ORDERED: Ondansetron 4 MG Tab.DIS PO PRN (09:24)
[2019-11-05] MEDS ORDERED: Non-Formulary Medication 1 Each (Aspirin [Aspirin] 325 MG) PO SCH (09:24)
[2019-11-05] MEDS ORDERED: Albuterol 0.083% 2.5 MG/3 ML Neb Soln NEB PRN (09:24)
[2019-11-05] MEDS ORDERED: PREGABALIN 200 MG PO SCH (09:24)
[2019-11-05] MEDS ORDERED: Melatonin 3 MG Tab PO PRN (09:24)
[2019-11-05] MEDS ORDERED: Non-Formulary Medication 1 Each (Hydroxyzine Pamoate [Hydroxyzine Pamoate] 25 MG) PO PRN (09:24)
[2019-11-05] MEDS ORDERED: Non-Formulary Medication 1 Each (Levetiracetam [Levetiracetam] 750 MG) PO SCH (09:24)
[2019-11-05] MEDS ORDERED: Ondansetron 4 MG/2 ML SDV IV PRN (09:24)
[2019-11-05] MEDS ORDERED: Magnesium Hydroxide 400 MG/5 ML Susp 30 ML Cup PO PRN (09:24)
[2019-11-05] MEDS ORDERED: Non-Formulary Medication 1 Each (Baclofen [Baclofen] 20 MG) PO SCH (10:00)
[2019-11-05] MEDS: LORazepam 2 MG/ML SDV IVPUSH PRN (10:02)
[2019-11-05] MEDS: Sodium Chloride 0.9% 1,000 ML IV SCH ×2 (10:11→16:01)
[2019-11-05] MEDS ORDERED: hydrOXYzine HCl 25 MG Tab PO PRN (10:18)
[2019-11-05] MEDS: Aspirin 325 MG Tab.EC PO SCH (10:41)
[2019-11-05] MEDS: Levothyroxine 25 MCG, Levothyroxine 50 MCG PO SCH ×2 (10:41)
[2019-11-05] MEDS: Nicotine 7 MG/24 Hr Patch TRDERM SCH (10:42)
[2019-11-05] MEDS: Acetaminophen/oxyCODONE 325-7.5 MG Tab PO PRN ×2 (10:42→18:40)
[2019-11-05] MEDS: Pregabalin 100 MG Cap PO SCH ×3 (10:43→20:44)
[2019-11-05] MEDS: levETIRAcetam 250 MG Tab PO SCH ×2 (10:44→20:48)
[2019-11-05] MEDS: Venlafaxine 75 MG Tab PO SCH ×3 (10:44→20:48)
[2019-11-05] MEDS: Baclofen 10 MG Tab PO SCH ×3 (10:45→21:03)
[2019-11-05] MEDS: Lisinopril 20 MG Tab PO SCH (10:45)
[2019-11-05] MEDS: buPROPion 150 MG Tab.SR PO SCH ×2 (10:45→20:51)
[2019-11-05] MEDS: Lactobacillus Rhamnosus GG (Probiotic) Cap PO SCH ×2 (10:45→20:48)
--- NOTE | 2019-11-05 11:37 | CR ---
CHEST: Portable 11/05/2019 at 06 18 CLINICAL HISTORY:Leukocytosis COMPARISON:09/22/2019 FINDINGS: Heart size and pulmonary vascularity are normal. Patient has an [id number] catheter from the left subclavian approach. Lungs are clear. There no effusions Impression: No acute cardiopulmonary process [id number]-Lnar catheter in place
[2019-11-05] MEDS: Methadone 5 MG Tab PO SCH ×2 (13:28→20:44)
[2019-11-05] MEDS: fentaNYL 100 MCG/2 ML SDV IVPUSH PRN ×2 (13:48→22:23)
[2019-11-06] MEDS: Acetaminophen/oxyCODONE 325-7.5 MG Tab PO PRN ×5 (00:31→21:15)
[2019-11-06] MEDS: LORazepam 2 MG/ML SDV IVPUSH PRN ×2 (03:27→11:08)
[2019-11-06] MEDS: Baclofen 10 MG Tab PO SCH ×4 (05:43→21:14)
[2019-11-06] MEDS ORDERED: cefTRIAXone 1 GM in Sodium Chloride 0.9% 50 ML IV SCH (06:30)
[2019-11-06] MEDS ORDERED: Non-Formulary Medication 1 Each (Levothyroxine [Levothyroxine] 75 MCG) PO SCH (07:30)
[2019-11-06] MEDS: Pregabalin 100 MG Cap PO SCH ×3 (08:11→21:13)
[2019-11-06] MEDS: Venlafaxine 75 MG Tab PO SCH ×2 (08:12→21:13)
[2019-11-06] MEDS: Methadone 10 MG Tab PO SCH (08:12)
[2019-11-06] MEDS: Levothyroxine 25 MCG, Levothyroxine 50 MCG PO SCH ×2 (08:13)
[2019-11-06] MEDS: buPROPion 150 MG Tab.SR PO SCH ×2 (08:13→21:14)
[2019-11-06] MEDS: levETIRAcetam 250 MG Tab PO SCH ×2 (08:13→21:13)
[2019-11-06] MEDS: Lactobacillus Rhamnosus GG (Probiotic) Cap PO SCH ×2 (08:13→21:13)
[2019-11-06] MEDS: Aspirin 325 MG Tab.EC PO SCH (08:13)
[2019-11-06] MEDS: Nicotine 7 MG/24 Hr Patch TRDERM SCH (08:13)
[2019-11-06] MEDS: Lisinopril 20 MG Tab PO SCH (08:15)
[2019-11-06] MEDS ORDERED: Methadone 5 MG Tab PO SCH (09:00)
[2019-11-06] MEDS: Sodium Chloride 0.9% 1,000 ML IV SCH (09:37)
--- NOTE | 2019-11-06 11:50 | PCM.PN ---
- General Info Date of Service: 11/06/19 Subjective Update: There were no acute events overnight but the patient reports ongoing difficulty with moderately severe pain. Pain remains in her lower extremities with spastic pain and intermittent severe pain. Medications do help some but pain still is intolerable at times. Urine culture from a couple of days ago is growing a small quantity of staph aureus as well as moderate yeast. She did not have fevers. She is feeling better today and is more alert. Functional Status: Reports: Tolerating Diet - Review of Systems General: Denies: Fever Musculoskeletal: Reports: Leg Pain - Patient Data Vitals - Most Recent: Last Vital Signs Temp 37.3 C 11/06/19 10:45 Pulse 83 11/06/19 10:45 Resp 20 11/06/19 10:45 BP 116/70 11/06/19 10:45 Pulse Ox 95 11/06/19 10:45 Weight - Most Recent: 80.467 kg I&O - Last 24 Hours: Intake & Output 11/05/19 11/06/19 11/06/19 22:59 06:59 14:59 Intake Total 847 250 Output Total 1500 1800 1000 Balance -653 -1800 -750 Lab Results Last 24 Hours: Laboratory Results - last 24 hr 11/06/19 11/06/19 Range/Units 05:30 05:30 WBC 10.2 (4.5-11.0) K/uL RBC 4.47 (3.30-5.50) M/uL Hgb 12.2 (12.0-15.0) g/dL Hct 38.6 (36.0-48.0) % MCV 86 (80-98) fL MCH 27 (27-31) pg MCHC 32 (32-36) % Plt Count 189 (150-400) K/uL Sodium 140 (140-148) mmol/L Potassium 4.6 (3.6-5.2) mmol/L Chloride 106 (100-108) mmol/L Carbon Dioxide 23 (21-32) mmol/L Anion Gap 10.6 (5.0-14.0) mmol/L BUN 9 (7-18) mg/dL Creatinine 0.9 (0.6-1.0) mg/dL Est Cr Clr Drug Dosing 77.11 mL/min Estimated GFR (MDRD) > 60 (>60) Glucose 76 (74-106) mg/dL Calcium 8.1 L (8.5-10.1) mg/dL Ignacio Results Last 24 Hours: Microbiology 11/05/19 06:10 Aerobic Blood Culture - Preliminary Blood - Venous NO GROWTH AFTER 1 DAY Anaerobic Blood Culture - Preliminary NO GROWTH AFTER 1 DAY 11/05/19 06:00 Aerobic Blood Culture - Preliminary Blood - Arm, Left NO GROWTH AFTER 1 DAY Anaerobic Blood Culture - Preliminary NO GROWTH AFTER 1 DAY Med Orders - Current: Current Medications Albuterol (Proventil Neb Soln) 2.5 mg NEB Q4H PRN PRN Reason: Shortness Of Breath/wheezing Aspirin (Ecotrin) 325 mg PO DAILY [facility] Last Admin: 11/06/19 08:13 Dose: 325 mg Baclofen (Lioresal) 20 mg PO QID [facility] Last Admin: 11/06/19 09:36 Dose: 20 mg Bupropion HCl (Wellbutrin Sr) 150 mg PO BID [facility] Last Admin: 11/06/19 08:13 Dose: 150 mg Fentanyl (Sublimaze) 50 mcg IVPUSH Q2H PRN PRN Reason: Pain (severe 7-10) Last Admin: 11/05/19 22:23 Dose: 50 mcg Hydroxyzine HCl (Atarax) 25 mg PO TID PRN PRN Reason: ITCHING Ceftriaxone Sodium 1 gm/ (Sodium Chloride) 50 mls @ 100 mls/hr IV Q24H [facility] Last Admin: 11/06/19 05:43 Dose: 100 mls/hr Sodium Chloride (Normal Saline) 1,000 mls @ 125 mls/hr IV ASDIRECTED [facility] Last Admin: 11/06/19 09:37 Dose: 125 mls/hr Vancomycin HCl 1 gm/ Sodium (Chloride) 250 mls @ 166 mls/hr IV Q12H [facility] Last Admin: 11/06/19 11:09 Dose: 166 mls/hr Ibuprofen (Motrin) 600 mg PO Q6H PRN PRN Reason: Pain/Fever Last Admin: 11/05/19 13:29 Dose: 600 mg Lactobacillus Rhamnosus (Culturelle) 1 cap PO BID [facility] Last Admin: 11/06/19 08:13 Dose: 1 cap Levetiracetam (Keppra) 750 mg PO BID [facility] Last Admin: 11/06/19 08:13 Dose: 750 mg Levothyroxine Sodium 25 mcg/ (Levothyroxine Sodium 50 mcg) 75 mcg PO ACBREAKFAST [facility] Last Admin: 11/06/19 08:13 Dose: 75 mcg Lisinopril (Prinivil) 20 mg PO DAILY [facility] Last Admin: 11/06/19 08:15 Dose: 20 mg Lorazepam (Ativan) 1 mg IVPUSH Q4H PRN PRN Reason: Muscle Spasm Last Admin: 11/06/19 11:08 Dose: 1 mg Magnesium Hydroxide (Milk Of Magnesia) 30 ml PO Q12H PRN PRN Reason: Constipation Melatonin (Melatonin) 9 mg PO BEDTIME PRN PRN Reason: Sleep Methadone HCl (Methadone) 15 mg PO BID@1300,2100 [facility] Last Admin: 11/05/19 20:44 Dose: 15 mg Methadone HCl (Methadone) 20 mg PO PCBREAKFAST [facility] Last Admin: 11/06/19 08:12 Dose: 20 mg Mometasone Furoate/Formoterol Fumar (Dulera 200-5 Mcg) 1 puff IH ASDIRECTED [facility] Nicotine (Habitrol) 7 mg TRDERM DAILY [facility] Last Admin: 11/06/19 08:13 Dose: 7 mg Ondansetron HCl (Zofran Odt) 4 mg PO Q6H PRN PRN Reason: Nausea able to take PO Ondansetron HCl (Zofran) 4 mg IV Q6H PRN PRN Reason: Nausea/Vomiting Pregabalin (Lyrica) 200 mg PO TID [facility] Last Admin: 11/06/19 08:11 Dose: 200 mg Senna/Docusate Sodium (Senna Plus) 1 tab PO BID PRN PRN Reason: Constipation Sodium Chloride (Saline Flush) 10 ml FLUSH ASDIRECTED PRN PRN Reason: Keep Vein Open Last Admin: 11/05/19 06:26 Dose: 10 ml Venlafaxine HCl (Effexor) 75 mg PO BEDTIME [facility] Last Admin: 11/05/19 20:48 Dose: 75 mg Venlafaxine HCl (Effexor) 150 mg PO DAILY [facility] Last Admin: 11/06/19 08:12 Dose: 150 mg Discontinued Medications Acetaminophen (Tylenol Extra Strength) 1,000 mg PO ONETIME ONE Stop: 11/05/19 05:10 Last Admin: 11/05/19 05:13 Dose: 1,000 mg Acetaminophen (Tylenol) 650 mg PO Q4H PRN PRN Reason: Pain (Mild 1-3)/fever Fentanyl (Sublimaze) 50 mcg IVPUSH ONETIME ONE Stop: 11/05/19 07:28 Last Admin: 11/05/19 07:33 Dose: 50 mcg Fentanyl (Sublimaze) 50 mcg IVPUSH ONETIME ONE Stop: 11/05/19 08:59 Last Admin: 11/05/19 09:45 Dose: 50 mcg Sodium Chloride (Normal Saline) 1,000 mls @ 150 mls/hr IV ASDIRECTED [facility] Last Admin: 11/05/19 07:10 Dose: 150 mls/hr Ceftriaxone Sodium 1 gm/ (Sodium Chloride) 50 mls @ 100 mls/hr IV ONETIME ONE Stop: 11/05/19 07:44 Last Admin: 11/05/19 07:22 Dose: 100 mls/hr Vancomycin HCl 1.5 gm/ Sodium (Chloride) 250 mls @ 166 mls/hr IV ONETIME ONE Stop: 11/05/19 11:30 Last Admin: 11/05/19 10:08 Dose: 166 mls/hr Oxycodone/Acetaminophen (Percocet 325-7.5 Mg) 2 tab PO Q6H PRN PRN Reason: Pain Last Admin: 11/06/19 06:38 Dose: 2 tab - Exam Quality Assessment: No: Supplemental Oxygen General: Alert, Oriented, Cooperative, No Acute Distress Lungs: Normal Respiratory Effort Cardiovascular: Regular Rate, Regular Rhythm GI/Abdominal Exam: Soft, No Distention Extremities: No Pedal Edema Psy/Mental Status: Alert, Normal Affect Sepsis Event Note - Evaluation Sepsis Screening Result: No Definite Risk - Focused Exam Vital Signs: Vital Signs Temp Pulse Resp BP BP Pulse Ox 11/06/19 10:45 37.3 C 83 20 116/70 95 11/06/19 08:15 115/59 L 11/06/19 07:00 38.0 C 74 16 115/59 L 97 11/06/19 03:00 36.6 C 71 16 93/52 L 95 Date Exam was Performed: 11/06/19 Time Exam was Performed: 13:29 - Problem List & Annotations (1) Complicated urinary tract infection SNOMED Code(s): 78207597 Code(s): N39.0 - URINARY TRACT INFECTION, SITE NOT SPECIFIED Status: Acute Current Visit: Yes (2) Paraplegia following spinal cord injury SNOMED Code(s): 50961637, 03176619 Code(s): G82.20 - PARAPLEGIA, UNSPECIFIED Status: Chronic Current Visit: No (3) Decubitus ulcer SNOMED Code(s): 720296151 Code(s): L89.90 - PRESSURE ULCER OF UNSPECIFIED SITE, UNSPECIFIED STAGE Status: Chronic Current Visit: No Annotation/Comment:: Chronic, present on admission (4) Chronic pain syndrome SNOMED Code(s): 126600252 Code(s): G89.4 - CHRONIC PAIN SYNDROME Status: Chronic Current Visit: No (5) Tobacco dependence SNOMED Code(s): 04002895 Code(s): F17.200 - NICOTINE DEPENDENCE, UNSPECIFIED, UNCOMPLICATED Status: Chronic Current Visit: No - Problem List Review Problem List Initiated/Reviewed/Updated: Yes - My Orders Last 24 Hours: My Active Orders 11/05/19 11:00 Levothyroxine [Synthroid] 75 mcg PO ACBREAKFAST 11/05/19 13:00 Methadone 15 mg PO BID@1300,2100 11/05/19 21:00 Venlafaxine [Effexor] 75 mg PO BEDTIME 11/05/19 Lunch Regular Diet [DIET] 11/06/19 09:00 Methadone 20 mg PO PCBREAKFAST 11/06/19 11:48 Communication Order [RC] ROUTINE 11/06/19 12:00 Acetaminophen/oxyCODONE [Percocet 325-7.5 MG] 2 tab PO Q4H PRN 11/06/19 21:00 Sulfamethoxazole/Trimethoprim [Septra DS] 1 tab PO BID - Plan Plan:: ASSESSMENT AND PLAN - Complicated urinary tract infection-worsening despite outpatient therapy. Urine culture growing small quantity of MRSA and yeast. -Antibiotic coverage with Bactrim starting tonight -Change Olivas catheter -Discontinue IV fluids -Pain control Paraplegia secondary to spinal cord injury-complicated by neurogenic bladder with chronic indwelling catheter as well as colostomy formation. She has chronic difficulties with pain and spasticity in her lower extremities which are much worse with the acute infection. -Continue home pain and spasm medications -Continue fentanyl and lorazepam as needed for severe/breakthrough pain Large chronic decubitus ulcers-she has 2 very large areas of wound on her lower back and buttocks. The more cranial lesion has a wound VAC in place. Distal wound covered by protective dressing. -Continue wound VAC -Continue usual home wound care -Outpatient follow-up Tobacco dependence-patient reports she smokes about 2 cigarettes/day. -Nicotine patch -Encourage cessation Maintenance issues - - DVT prophylaxis -OZIEL stockings - GI prophylaxis -not indicated - Nutrition -regular - Olivas catheter -chronic indwelling catheter Disposition -I would anticipate discharge home after the hospital stay Omari Fink M.D.
[2019-11-06] MEDS: Methadone 5 MG Tab PO SCH ×2 (13:07→21:14)
[2019-11-06] MEDS: Sulfamethoxazole/Trimethoprim 800-160 MG Tab PO SCH (21:14)
[2019-11-06] MEDS: fentaNYL 100 MCG/2 ML SDV IVPUSH PRN (22:21)
[2019-11-07] MEDS: LORazepam 2 MG/ML SDV IVPUSH PRN (01:21)
[2019-11-07] MEDS: Acetaminophen/oxyCODONE 325-7.5 MG Tab PO PRN ×2 (01:23→05:13)
[2019-11-07] MEDS: Baclofen 10 MG Tab PO SCH ×2 (05:12→09:48)
[2019-11-07] MEDS: Methadone 10 MG Tab PO SCH (08:18)
[2019-11-07] MEDS: Pregabalin 100 MG Cap PO SCH (08:18)
[2019-11-07] MEDS: levETIRAcetam 250 MG Tab PO SCH (08:18)
[2019-11-07] MEDS: Lactobacillus Rhamnosus GG (Probiotic) Cap PO SCH (08:20)
[2019-11-07] MEDS: Venlafaxine 75 MG Tab PO SCH (08:20)
[2019-11-07] MEDS: Sulfamethoxazole/Trimethoprim 800-160 MG Tab PO SCH (08:20)
[2019-11-07] MEDS: buPROPion 150 MG Tab.SR PO SCH (08:21)
[2019-11-07] MEDS: Nicotine 7 MG/24 Hr Patch TRDERM SCH (08:21)
[2019-11-07] MEDS: Aspirin 325 MG Tab.EC PO SCH (08:21)
[2019-11-07] MEDS: Levothyroxine 25 MCG, Levothyroxine 50 MCG PO SCH ×2 (08:21)
[2019-11-07 08:26] VITALS: BP 130/72; PULSE 58
[2019-11-07] MEDS: Lisinopril 20 MG Tab PO SCH (08:26)
--- NOTE | 2019-11-07 10:20 | PCM.DCSUM1 ---
Discharge Summary - Hospital Course Brief History: 48-year-old female with history of paraplegia secondary to spinal cord injury, chronic suprapubic catheter, chronic pain and tobacco dependence who presented with weakness, fever and lethargy despite outpatient management of her urinary tract infection. She was admitted for management of a complicated urinary tract infection that was worsening despite outpatient antibiotics. Diagnosis: Stroke: No - Discharge Data Discharge Date: 11/07/19 Discharge Disposition: Home, W Home Health Agency 06 Condition: Good - Referral to Home Health Date of Face to Face Encounter: 11/07/19 Reason for Homebound Status: paraplegia Primary Care Physician: Brigitte Guy MD Skilled Need: Nursing - Discharge Diagnosis/Problem(s) (1) Complicated urinary tract infection SNOMED Code(s): 51927354 ICD Code: N39.0 - URINARY TRACT INFECTION, SITE NOT SPECIFIED Status: Acute Current Visit: Yes (2) Paraplegia following spinal cord injury SNOMED Code(s): 46574241, 14909426 ICD Code: G82.20 - PARAPLEGIA, UNSPECIFIED Status: Chronic Current Visit : No (3) Decubitus ulcer SNOMED Code(s): 667326225 ICD Code: L89.90 - PRESSURE ULCER OF UNSPECIFIED SITE, UNSPECIFIED STAGE Status: Chronic Current Visit: No Problem Details: Chronic, present on admission (4) Chronic pain syndrome SNOMED Code(s): 665650167 ICD Code: G89.4 - CHRONIC PAIN SYNDROME Status: Chronic Current Visit: No (5) Tobacco dependence SNOMED Code(s): 77956069 ICD Code: F17.200 - NICOTINE DEPENDENCE, UNSPECIFIED, UNCOMPLICATED Status : Chronic Current Visit: No - Patient Summary/Data Hospital Course: Aaliyah presented to the emergency room with fever, weakness and lethargy. She was being treated for a suspected urinary tract infection with nitrofurantoin. She was having severe pain in her lower extremities from spasticity. She developed fevers despite the antibiotics. In the emergency room there was no evidence for sepsis but she was in significant distress because of her spasticity which is often much worse when she has infections. Because she was getting worse with the oral antibiotic she was admitted to the hospital and started on IV antibiotics. We chose ceftriaxone and vancomycin to cover most recent organisms from her recent urinary tract cultures and organisms did include MRSA. At the time of admission her urine culture from the emergency room visit 2 days prior was growing yeast and a gram-positive cocci. There was no evidence for sepsis. She did require fairly large doses of both narcotics and benzodiazepines to stabilize her spasticity while the antibiotics were taking effect. By the morning after admission she was moderately better but still having a fair amount of pain and spasticity. Her urine culture had returned positive for MRSA sensitive to Bactrim as well as yeast. With the yeast we did remove her old suprapubic catheter in place a new one. Antibiotics were transitioned to Bactrim. Overnight during the second night of admission she had a good night with return of her spasticity to baseline and a significant decrease in her pain. She has been afebrile. Her white count is normal. She feels well and is back to her baseline. She is safe for discharge home at this time. She will be on Bactrim for 5 more days. She can follow-up as needed. - Patient Instructions Diet: Regular Diet as Tolerated Activity: As Tolerated Showering/Bathing: May Shower Notify Provider of: Fever, Increased Pain Other/Special Instructions: 1. You were in the hospital for management of a complicated urinary tract infection. Your urine culture grew out MRSA which is sensitive to Bactrim. I do recommend additional antibiotic therapy after hospital discharge. Please take Bactrim 1 tablet twice daily for 10 more doses. Your first dose outside of the hospital will be due tonight. Your urine culture did also grow out yeast and to treat this we replaced your catheter. You may resume your usual catheter replacement schedule. 2. Continue your usual home medications as previously prescribed. 3. Follow up as needed if your symptoms do not continue to get better or if they get worse. 4. Resume your previous home health care orders.. - Discharge Plan *PRESCRIPTION DRUG MONITORING PROGRAM REVIEWED*: No *COPY OF PRESCRIPTION DRUG MONITORING REPORT IN PATIENT VICTOR MANUEL: No Prescriptions/Med Rec: Sulfamethoxazole/Trimethoprim [Septra DS] 1 tab PO BID #10 tablet Home Medications: Home Meds Albuterol [Ventolin HFA] 1 puff IH QID 12/16/14 [History] Ibuprofen 200 mg PO Q4H PRN 12/16/14 [History] Multivitamins/Iron/Folic Acid [Cerovite Advanced Formula] 1 tab PO DAILY [History] Venlafaxine [Effexor] 75 mg PO BEDTIME 12/16/14 [History] Lisinopril 20 mg PO DAILY 07/04/17 [History] oxyCODONE HCl/Acetaminophen [Endocet 7.5-325 mg Tablet] 2 tab PO Q6H PRN [History] buPROPion [Wellbutrin SR] 150 mg PO BID 10/23/18 [History] Baclofen 20 mg PO QID 01/02/19 [History] Levothyroxine 75 mcg PO ACBREAKFAST 01/02/19 [History] Naloxone HCl [Narcan] 4 mg MIGUEL ASDIRECTED PRN 01/02/19 [History] Pregabalin [Lyrica] 200 mg PO TID 01/02/19 [History] Venlafaxine [Effexor] 150 mg PO DAILY 01/02/19 [History] hydrOXYzine pamoate [Hydroxyzine Pamoate] 25 mg PO TID PRN 01/02/19 [History] Aspirin 325 mg PO DAILY 09/04/19 [History] Mometasone/Formoterol [Dulera 200 MCG/5 MCG] 1 puff INH ASDIRECTED 09/04/19 [ History] Multivit-Min/FA/Lycopen/Lutein [Certavite Sr-Antioxidant Tab] 1 tab PO DAILY 07/14 [History] levETIRAcetam [Levetiracetam] 750 mg PO BID 09/04/19 [History] Lactobacillus Rhamnosus GG [Culturelle] 1 cap PO BID #60 cap 09/25/19 [Rx] Methadone 5 mg PO ASDIRECTED 11/03/19 [History] Sulfamethoxazole/Trimethoprim [Septra DS] 1 tab PO BID #10 tablet 11/07/19 [Rx] Oxygen Therapy Mode: Room Air Patient Handouts: Urinary Tract Infection, Adult, Sulfamethoxazole; Trimethoprim, SMX-TMP tablets Referrals: Brigitte Guy MD [Primary Care Provider] - (f/u as needed ) - Discharge Summary/Plan Comment DC Time >30 min.: No - Patient Data Vitals - Most Recent: Last Vital Signs Temp 36.5 C 11/07/19 08:23 Pulse 58 L 11/07/19 08:23 Resp 16 11/07/19 02:48 BP 130/72 11/07/19 08:26 Pulse Ox 99 11/07/19 08:23 Weight - Most Recent: 80.467 kg I&O - Last 24 hours: Intake & Output 11/06/19 11/07/19 11/07/19 22:59 06:59 14:59 Intake Total 620 830 Output Total 600 1400 Balance 20 -570 [id number] Results - Last 24 hrs: Microbiology 11/05/19 06:10 Aerobic Blood Culture - Preliminary Blood - Venous NO GROWTH AFTER 2 DAYS Anaerobic Blood Culture - Preliminary NO GROWTH AFTER 2 DAYS 11/05/19 06:00 Aerobic Blood Culture - Preliminary Blood - Arm, Left NO GROWTH AFTER 2 DAYS Anaerobic Blood Culture - Preliminary NO GROWTH AFTER 2 DAYS Med Orders - Current: Current Medications Albuterol (Proventil Neb Soln) 2.5 mg NEB Q4H PRN PRN Reason: Shortness Of Breath/wheezing Aspirin (Ecotrin) 325 mg PO DAILY [facility] Last Admin: 11/07/19 08:21 Dose: 325 mg Baclofen (Lioresal) 20 mg PO QID [facility] Last Admin: 11/07/19 09:48 Dose: 20 mg Bupropion HCl (Wellbutrin Sr) 150 mg PO BID [facility] Last Admin: 11/07/19 08:21 Dose: 150 mg Fentanyl (Sublimaze) 50 mcg IVPUSH Q2H PRN PRN Reason: Pain (severe 7-10) Last Admin: 11/06/19 22:21 Dose: 50 mcg Heparin Sodium (Porcine) (Heparin Lock Flush 100 Units/Ml) 500 units FLUSH ASDIRECTED PRN PRN Reason: IV Use Last Admin: 11/07/19 01:27 Dose: 500 units Hydroxyzine HCl (Atarax) 25 mg PO TID PRN PRN Reason: ITCHING Ibuprofen (Motrin) 600 mg PO Q6H PRN PRN Reason: Pain/Fever Last Admin: 11/05/19 13:29 Dose: 600 mg Lactobacillus Rhamnosus (Culturelle) 1 cap PO BID [facility] Last Admin: 11/07/19 08:20 Dose: 1 cap Levetiracetam (Keppra) 750 mg PO BID [facility] Last Admin: 11/07/19 08:18 Dose: 750 mg Levothyroxine Sodium 25 mcg/ (Levothyroxine Sodium 50 mcg) 75 mcg PO ACBREAKFAST [facility] Last Admin: 11/07/19 08:21 Dose: 75 mcg Lisinopril (Prinivil) 20 mg PO DAILY [facility] Last Admin: 11/07/19 08:26 Dose: 20 mg Lorazepam (Ativan) 1 mg IVPUSH Q4H PRN PRN Reason: Muscle Spasm Last Admin: 11/07/19 01:21 Dose: 1 mg Magnesium Hydroxide (Milk Of Magnesia) 30 ml PO Q12H PRN PRN Reason: Constipation Melatonin (Melatonin) 9 mg PO BEDTIME PRN PRN Reason: Sleep Last Admin: 11/06/19 21:15 Dose: 9 mg Methadone HCl (Methadone) 15 mg PO BID@1300,2100 [facility] Last Admin: 11/06/19 21:14 Dose: 15 mg Methadone HCl (Methadone) 20 mg PO PCBREAKFAST [facility] Last Admin: 11/07/19 08:18 Dose: 20 mg Nicotine (Habitrol) 7 mg TRDERM DAILY [facility] Last Admin: 11/07/19 08:21 Dose: Not Given Ondansetron HCl (Zofran Odt) 4 mg PO Q6H PRN PRN Reason: Nausea able to take PO Ondansetron HCl (Zofran) 4 mg IV Q6H PRN PRN Reason: Nausea/Vomiting Oxycodone/Acetaminophen (Percocet 325-7.5 Mg) 2 tab PO Q4H PRN PRN Reason: Pain Last Admin: 11/07/19 05:13 Dose: 2 tab Pregabalin (Lyrica) 200 mg PO TID [facility] Last Admin: 11/07/19 08:18 Dose: 200 mg Senna/Docusate Sodium (Senna Plus) 1 tab PO BID PRN PRN Reason: Constipation Sodium Chloride (Saline Flush) 10 ml FLUSH ASDIRECTED PRN PRN Reason: Keep Vein Open Last Admin: 11/05/19 06:26 Dose: 10 ml Trimethoprim/Sulfamethoxazole (Septra Ds) 1 tab PO BID [facility] Last Admin: 11/07/19 08:20 Dose: 1 tab Venlafaxine HCl (Effexor) 75 mg PO BEDTIME [facility] Last Admin: 11/06/19 21:13 Dose: 75 mg Venlafaxine HCl (Effexor) 150 mg PO DAILY [facility] Last Admin: 11/07/19 08:20 Dose: 150 mg Discontinued Medications Acetaminophen (Tylenol Extra Strength) 1,000 mg PO ONETIME ONE Stop: 11/05/19 05:10 Last Admin: 11/05/19 05:13 Dose: 1,000 mg Acetaminophen (Tylenol) 650 mg PO Q4H PRN PRN Reason: Pain (Mild 1-3)/fever Fentanyl (Sublimaze) 50 mcg IVPUSH ONETIME ONE Stop: 11/05/19 07:28 Last Admin: 11/05/19 07:33 Dose: 50 mcg Fentanyl (Sublimaze) 50 mcg IVPUSH ONETIME ONE Stop: 11/05/19 08:59 Last Admin: 11/05/19 09:45 Dose: 50 mcg Heparin Sodium (Porcine) (Heparin Lock Flush 100 Units/Ml) Confirm Administered Dose 500 units .ROUTE .STK-MED ONE Stop: 11/06/19 13:13 Last Admin: 11/06/19 13:17 Dose: 500 units Sodium Chloride (Normal Saline) 1,000 mls @ 150 mls/hr IV ASDIRECTED [facility] Last Admin: 11/05/19 07:10 Dose: 150 mls/hr Ceftriaxone Sodium 1 gm/ (Sodium Chloride) 50 mls @ 100 mls/hr IV ONETIME ONE Stop: 11/05/19 07:44 Last Admin: 11/05/19 07:22 Dose: 100 mls/hr Ceftriaxone Sodium 1 gm/ (Sodium Chloride) 50 mls @ 100 mls/hr IV Q24H [facility] Last Admin: 11/06/19 05:43 Dose: 100 mls/hr Sodium Chloride (Normal Saline) 1,000 mls @ 125 mls/hr IV ASDIRECTED [facility] Last Admin: 11/06/19 09:37 Dose: 125 mls/hr Vancomycin HCl 1 gm/ Sodium (Chloride) 250 mls @ 166 mls/hr IV Q12H [facility] Last Admin: 11/06/19 11:09 Dose: 166 mls/hr Vancomycin HCl 1.5 gm/ Sodium (Chloride) 250 mls @ 166 mls/hr IV ONETIME ONE Stop: 11/05/19 11:30 Last Admin: 11/05/19 10:08 Dose: 166 mls/hr Oxycodone/Acetaminophen (Percocet 325-7.5 Mg) 2 tab PO Q6H PRN PRN Reason: Pain Last Admin: 11/06/19 06:38 Dose: 2 tab
== END 2019-11-07 10:45 | disposition home health service (06) | DRG 699 ==
LOC: JP.ED 04:20 → JP.ICU 09:00 → JP.MS 18:58
PROVIDERS: ADMIT Internal Medicine; ATTEND Internal Medicine
DX: T83.511A Infection and inflammatory reaction due to indwelling urethral catheter, initial encounter (principal); G82.20 Paraplegia, unspecified; E87.1 Hypo-osmolality and hyponatremia; N39.0 Urinary tract infection, site not specified; G89.4 Chronic pain syndrome; B95.62 Methicillin resistant Staphylococcus aureus infection as the cause of diseases classified elsewhere; L89.329 Pressure ulcer of left buttock, unspecified stage; L89.319 Pressure ulcer of right buttock, unspecified stage; L89.109 Pressure ulcer of unspecified part of back, unspecified stage; F17.210 Nicotine dependence, cigarettes, uncomplicated; I10 Essential (primary) hypertension; E03.9 Hypothyroidism, unspecified; Z88.1 Allergy status to other antibiotic agents; Z88.0 Allergy status to penicillin; Z79.82 Long term (current) use of aspirin; Z79.890 Hormone replacement therapy; Z79.899 Other long term (current) drug therapy
CPT/HCPCS: 36415; 51702; 71045; 71045-26; 80048; 81001; 83605; 85027; 87040; 87804; 87804-59; 96361; 96365; 96375; 97605; 99284; 99285-25; A9270-GY; J0696; J1642; J2060; J3010; J3370; J7030; J7050

== ENCOUNTER 2019-12-30 21:54 | Inpatient (IN) | payer MEDICAID ==
--- NOTE | 2019-12-30 22:09 | EDM.PDOC ---
ED HPI GENERAL MEDICAL PROBLEM - General Stated Complaint: MEDICAL VIA [facility] Time Seen by Provider: 12/30/19 22:00 Source of Information: Reports: Patient, EMS History Limitations: Reports: Altered Mental Status - History of Present Illness INITIAL COMMENTS - FREE TEXT/NARRATIVE: 49-year-old female who lives with her mother and is a chronic paraplegic, does become ill from time to time and over the past day she has had increased spasms and that means she is "sick". Tonight she fell out of bed, the mom was trying to get her back in bed and was struggling so called the ambulance for assistance. When they sat the patient on the edge of the bed she just said I need to go to the hospital "I am sick ". When asked specifically what is wrong she can't say she just says something is not right. Her vitals are stable but she is very somnolent but arousable and answers questions appropriately. Her only specific complaint is she is more spastic than usual, denies any shortness of breath, chest pain, abdominal pain or headache. She does have an occasional cough. Onset: Unknown/Unsure Associated Symptoms: Reports: Cough, Malaise, Other (Very tired). Denies: Chest Pain, Fever/Chills, Headaches, Shortness of Breath - Related Data Allergies Allergy/AdvReac Type Severity Reaction Status Date / Time clindamycin Allergy Cannot Verified 11/05/19 04:39 Remember Penicillins Allergy Cannot Verified 11/05/19 04:39 Remember Home Meds: Home Meds Albuterol [Ventolin HFA] 1 puff IH QID 12/16/14 [History] Ibuprofen 200 mg PO Q4H PRN 12/16/14 [History] Multivitamins/Iron/Folic Acid [Cerovite Advanced Formula] 1 tab PO DAILY [History] Venlafaxine [Effexor] 75 mg PO BEDTIME 12/16/14 [History] Lisinopril 20 mg PO DAILY 07/04/17 [History] oxyCODONE HCl/Acetaminophen [Endocet 7.5-325 mg Tablet] 2 tab PO Q6H PRN [History] buPROPion [Wellbutrin SR] 150 mg PO BID 10/23/18 [History] Baclofen 20 mg PO QID 01/02/19 [History] Levothyroxine 75 mcg PO ACBREAKFAST 01/02/19 [History] Naloxone HCl [Narcan] 4 mg MIGUEL ASDIRECTED PRN 01/02/19 [History] Pregabalin [Lyrica] 200 mg PO TID 01/02/19 [History] Venlafaxine [Effexor] 150 mg PO DAILY 01/02/19 [History] hydrOXYzine pamoate [Hydroxyzine Pamoate] 25 mg PO TID PRN 01/02/19 [History] Aspirin 325 mg PO DAILY 09/04/19 [History] Mometasone/Formoterol [Dulera 200 MCG/5 MCG] 1 puff INH ASDIRECTED 09/04/19 [ History] Multivit-Min/FA/Lycopen/Lutein [Certavite Sr-Antioxidant Tab] 1 tab PO DAILY 07/14 [History] levETIRAcetam [Levetiracetam] 750 mg PO BID 09/04/19 [History] Lactobacillus Rhamnosus GG [Culturelle] 1 cap PO BID #60 cap 09/25/19 [Rx] Methadone 5 mg PO ASDIRECTED 11/03/19 [History] Sulfamethoxazole/Trimethoprim [Septra DS] 1 tab PO BID #10 tablet 11/07/19 [Rx] Past Medical History HEENT History: Reports: Impaired Vision Cardiovascular History: Reports: Hypertension Respiratory History: Reports: SOB Other Respiratory History: PNA 6 months ago Gastrointestinal History: Reports: Other (See Below) Other Gastrointestinal History: ostomy Genitourinary History: Reports: UTI, Recurrent Other Genitourinary History: suprapubic Cath [employer] History: Reports: Musculoskeletal History: Reports: Back Pain, Chronic, Other (See Below) Other Musculoskeletal History: spasms Neurological History: Reports: Seizure, Other (See Below) Other Neuro History: L-4 spinal cord injury Psychiatric History: Reports: Depression, Suicide Attempt Endocrine/Metabolic History: Reports: Hypothyroidism Hematologic History: Reports: Blood Transfusion(s) Dermatologic History: Reports: Decubitus Ulcer, Eczema Other Dermatologic History: rt buttock ulcer 2013 on going care by aged or disabled carer - Infectious Disease History Infectious Disease History: Reports: Chicken Pox Other Infectious Disease History: 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 and aged or disabled carer state nolonger the case - Past Surgical History Head Surgeries/Procedures: Reports: None HEENT Surgical History: Reports: None Cardiovascular Surgical History: Reports: None Respiratory Surgical History: Reports: None GI Surgical History: Reports: Small Bowel Female Surgical History: Reports: Suprapubic Catheter Placement Endocrine Surgical History: Reports: None Neurological Surgical History: Reports: Lumbar Spine Musculoskeletal Surgical History: Reports: Other (See Below) Other Musculoskeletal Surgeries/Procedures:: ankle Dermatological Surgical History: Reports: None Social & Family History - Family History Family Medical History: Noncontributory - Caffeine Use Caffeine Use: Reports: Coffee, Soda Other Caffeine Use: 1 cup a day Caffeine Use Comment: unknown ED ROS GENERAL - Review of Systems Review Of Systems: See Below Constitutional: Reports: Malaise. Denies: Fever, Chills HEENT: Reports: No Symptoms Respiratory: Reports: Cough. Denies: Shortness of Breath, Pleuritic Chest Pain Cardiovascular: Denies: Chest Pain GI/Abdominal: Denies: Abdominal Pain, Nausea, Vomiting : Reports: Other (Chronic indwelling catheter) Musculoskeletal: Reports: Other (Lower extremity paralysis due to spinal cord injury, she does have sensation to the legs) ED EXAM, GENERAL - Physical Exam Exam: See Below Exam Limited By: No Limitations General Appearance: Alert, Lethargic Eye Exam: Bilateral Eye: EOMI, PERRL Head: Atraumatic Respiratory/Chest: No Respiratory Distress, Lungs Clear Cardiovascular: Regular Rate, Rhythm GI/Abdominal: Non-Tender Neurological: Slow to Respond, Other (Acts sedated, lethargic) Psychiatric: Depressed Mood, Flat Affect Skin Exam: Warm, Dry Course - Vital Signs Last Recorded V/S: Last Vital Signs Temp 97.3 F 12/31/19 00:06 Pulse 71 12/31/19 00:06 Resp 18 12/31/19 00:06 BP 103/65 12/31/19 00:06 Pulse Ox 94 L 12/31/19 00:06 - Orders/Labs/Meds Orders: Active Orders 24 hr Category Date Time Status Chest 1V Frontal [CR] Stat Exams 12/30/19 22:09 Taken CULTURE URINE [RM] Stat Lab 12/30/19 22:55 Received Medication Orders Sodium Chloride (Normal Saline) 1,000 mls @ 125 mls/hr IV ASDIRECTED [facility] Last Admin: 12/31/19 01:29 Dose: 125 mls/hr Ceftriaxone Sodium 1 gm/ (Sodium Chloride) 50 mls @ 100 mls/hr IV Q24H SANDI Non-Formulary Medication (Albuterol [Ventolin Hfa]) 1 puff IH QID SANDI Non-Formulary Medication (Aspirin [Aspirin]) 325 mg PO DAILY SANDI Non-Formulary Medication (Baclofen [Baclofen]) 20 mg PO QID SANDI Non-Formulary Medication (Bupropion [Wellbutrin Sr]) 150 mg PO BID SANDI Non-Formulary Medication (Hydroxyzine Pamoate [Hydroxyzine Pamoate]) 25 mg PO TID PRN PRN Reason: Itching Non-Formulary Medication (Ibuprofen [Ibuprofen]) 200 mg PO Q4H PRN PRN Reason: Pain Non-Formulary Medication (Lactobacillus Rhamnosus Gg [Culturelle]) 1 cap PO BID SANDI Non-Formulary Medication (Levetiracetam [Levetiracetam]) 750 mg PO BID SANDI Non-Formulary Medication (Levothyroxine [Levothyroxine]) 75 mcg PO ACBREAKFAST SANDI Non-Formulary Medication (Lisinopril [Lisinopril]) 20 mg PO DAILY SANDI Non-Formulary Medication (Mometasone/Formoterol [Dulera 200 Mcg/5 Mcg]) 1 puff INH ASDIRECTED SANDI Non-Formulary Medication (Multivit-Min/Fa/Lycopen/Lutein [Certavite Sr- Antioxidant Tab]) 1 tab PO DAILY SANDI Non-Formulary Medication (Multivitamins/Iron/Folic Acid [Cerovite Advanced Formula]) 1 tab PO DAILY SANDI Non-Formulary Medication (Pregabalin [Lyrica]) 200 mg PO TID SANDI Non-Formulary Medication (Venlafaxine [Effexor]) 75 mg PO BEDTIME SANDI Non-Formulary Medication (Venlafaxine [Effexor]) 150 mg PO DAILY SANDI Labs: Laboratory Tests 12/30/19 12/30/19 12/30/19 Range/Units 22:04 22:05 22:17 WBC 11.0 (4.5-11.0) K/uL RBC 4.95 (3.30-5.50) M/uL Hgb 13.5 (12.0-15.0) g/dL Hct 42.8 (36.0-48.0) % MCV 87 (80-98) fL MCH 27 (27-31) pg MCHC 32 (32-36) % Plt Count 332 (150-400) K/uL Neut % (Auto) 54 (36-66) % Lymph % (Auto) 36 (24-44) % [place] % (Auto) 6 (2-6) % Eos % (Auto) 2 (2-4) % Baso % (Auto) 2 H (0-1) % Sodium (140-148) mmol/L Potassium (3.6-5.2) mmol/L Chloride (100-108) mmol/L Carbon Dioxide (21-32) mmol/L Anion Gap (5.0-14.0) mmol/L BUN (7-18) mg/dL Creatinine (0.6-1.0) mg/dL Est Cr Clr Drug Dosing mL/min Estimated GFR (MDRD) (>60) Glucose (74-106) mg/dL Lactic Acid (0.4-2.0) mmol/L Calcium (8.5-10.1) mg/dL Total Bilirubin (0.2-1.0) mg/dL AST (15-37) U/L ALT (12-78) U/L Alkaline Phosphatase (46-116) U/L Total Protein (6.4-8.2) g/dL Albumin (3.4-5.0) g/dL Globulin (2.3-3.5) g/dL Albumin/Globulin Ratio (1.2-2.2) Urine Color Yellow (YELLOW) Urine Appearance Turbid A (CLEAR) Urine pH 7.0 (5.0-8.0) Ur Specific [place] 1.015 (1.008-1.030) Urine Protein Negative (NEGATIVE) mg/dL Urine Glucose (UA) Negative (NEGATIVE) mg/dL Urine Ketones Negative (NEGATIVE) mg/dL Urine Occult Blood Negative (NEGATIVE) Urine Nitrite Positive H (NEGATIVE) Urine Bilirubin Negative (NEGATIVE) Urine Urobilinogen 0.2 (0.2-1.0) EU/dL Ur Leukocyte Esterase Moderate H (NEGATIVE) Urine RBC 0-5 (0-5) Urine WBC 10-20 H (0-5) Ur Epithelial Cells Not seen Amorphous Sediment Many Urine Bacteria Many Urine Mucus Not seen Urine Opiates Screen Negative (NEGATIVE) Ur Oxycodone Screen Presumptive positive H (NEGATIVE) Urine Methadone Screen Presumptive positive H (NEGATIVE) Ur Propoxyphene Screen Negative (NEGATIVE) Ur Barbiturates Screen Negative (NEGATIVE) Ur Tricyclics Screen Negative (NEGATIVE) Ur Phencyclidine Scrn Negative (NEGATIVE) Ur Amphetamine Screen Negative (NEGATIVE) U Methamphetamines Scrn Negative (NEGATIVE) Urine MDMA Screen Negative (NEGATIVE) U Benzodiazepines Scrn Negative (NEGATIVE) U Cocaine Metab Screen Negative (NEGATIVE) U Marijuana (THC) Screen Negative (NEGATIVE) 12/30/19 12/30/19 Range/Units 22:17 22:17 WBC (4.5-11.0) K/uL RBC (3.30-5.50) M/uL Hgb (12.0-15.0) g/dL Hct (36.0-48.0) % MCV (80-98) fL MCH (27-31) pg MCHC (32-36) % Plt Count (150-400) K/uL Neut % (Auto) (36-66) % Lymph % (Auto) (24-44) % [place] % (Auto) (2-6) % Eos % (Auto) (2-4) % Baso % (Auto) (0-1) % Sodium 138 L (140-148) mmol/L Potassium 5.7 H (3.6-5.2) mmol/L Chloride 102 (100-108) mmol/L Carbon Dioxide 28 (21-32) mmol/L Anion Gap 13.7 (5.0-14.0) mmol/L BUN 23 H D (7-18) mg/dL Creatinine 2.6 H D (0.6-1.0) mg/dL Est Cr Clr Drug Dosing 26.51 mL/min Estimated GFR (MDRD) 20 L (>60) Glucose 104 (74-106) mg/dL Lactic Acid 1.2 (0.4-2.0) mmol/L Calcium 8.3 L (8.5-10.1) mg/dL Total Bilirubin 0.3 (0.2-1.0) mg/dL AST 14 L (15-37) U/L ALT 19 (12-78) U/L Alkaline Phosphatase 119 H (46-116) U/L Total Protein 7.6 (6.4-8.2) g/dL Albumin 2.9 L (3.4-5.0) g/dL Globulin 4.7 H (2.3-3.5) g/dL Albumin/Globulin Ratio 0.6 L (1.2-2.2) Urine Color (YELLOW) Urine Appearance (CLEAR) Urine pH (5.0-8.0) Ur Specific [place] (1.008-1.030) Urine Protein (NEGATIVE) mg/dL Urine Glucose (UA) (NEGATIVE) mg/dL Urine Ketones (NEGATIVE) mg/dL Urine Occult Blood (NEGATIVE) Urine Nitrite (NEGATIVE) Urine Bilirubin (NEGATIVE) Urine Urobilinogen (0.2-1.0) EU/dL Ur Leukocyte Esterase (NEGATIVE) Urine RBC (0-5) Urine WBC (0-5) Ur Epithelial Cells Amorphous Sediment Urine Bacteria Urine Mucus Urine Opiates Screen (NEGATIVE) Ur Oxycodone Screen (NEGATIVE) Urine Methadone Screen (NEGATIVE) Ur Propoxyphene Screen (NEGATIVE) Ur Barbiturates Screen (NEGATIVE) Ur Tricyclics Screen (NEGATIVE) Ur Phencyclidine Scrn (NEGATIVE) Ur Amphetamine Screen (NEGATIVE) U Methamphetamines Scrn (NEGATIVE) Urine MDMA Screen (NEGATIVE) U Benzodiazepines Scrn (NEGATIVE) U Cocaine Metab Screen (NEGATIVE) U Marijuana (THC) Screen (NEGATIVE) Meds: Medications Generic Name Dose Route Start Last Admin Trade Name Freq PRN Reason Stop Dose Admin Sodium Chloride 1,000 mls @ 125 mls/hr 12/30/19 23:30 12/31/19 01:29 Normal Saline IV 125 mls/hr ASDIRECTED SANDI Administration Ceftriaxone Sodium 1 gm/ 50 mls @ 100 mls/hr 12/31/19 23:00 Sodium Chloride IV Q24H SANDI Non-Formulary Medication 1 puff 12/31/19 06:00 Albuterol [Ventolin Hfa] IH QID SANDI Non-Formulary Medication 325 mg 12/31/19 09:00 Aspirin [Aspirin] PO DAILY SANDI Non-Formulary Medication 20 mg 12/31/19 06:00 Baclofen [Baclofen] PO QID SANDI Non-Formulary Medication 150 mg 12/31/19 09:00 Bupropion [Wellbutrin Sr] PO BID SANDI Non-Formulary Medication 25 mg 12/30/19 23:43 Hydroxyzine Pamoate [Hydroxyzine Pamoate] PO TID PRN Itching Non-Formulary Medication 200 mg 12/30/19 23:43 Ibuprofen [Ibuprofen] PO Q4H PRN Pain Non-Formulary Medication 1 cap 12/31/19 09:00 Lactobacillus Rhamnosus Gg [Culturelle] PO BID SANDI Non-Formulary Medication 750 mg 12/31/19 09:00 Levetiracetam [Levetiracetam] PO BID SANDI Non-Formulary Medication 75 mcg 12/31/19 07:30 Levothyroxine [Levothyroxine] PO ACBREAKFAST SANDI Non-Formulary Medication 20 mg 12/31/19 09:00 Lisinopril [Lisinopril] PO DAILY SADNI Non-Formulary Medication 1 puff 12/30/19 23:45 Mometasone/Formoterol [Dulera 200 Mcg/5 Mcg] INH ASDIRECTED SANDI Non-Formulary Medication 1 tab 12/31/19 09:00 Multivit-Min/Fa/Lycopen/Lutein [Certavite Sr-Antioxidant Tab] PO DAILY SANDI Non-Formulary Medication 1 tab 12/31/19 09:00 Multivitamins/Iron/Folic Acid [Cerovite Advanced Formula] PO DAILY SANDI Non-Formulary Medication 200 mg 12/31/19 09:00 Pregabalin [Lyrica] PO TID SANDI Non-Formulary Medication 75 mg 12/31/19 21:00 Venlafaxine [Effexor] PO BEDTIME SANDI Non-Formulary Medication 150 mg 12/31/19 09:00 Venlafaxine [Effexor] PO DAILY SANDI Discontinued Medications Generic Name Dose Route Start Last Admin Trade Name Freq PRN Reason Stop Dose Admin Sodium Chloride 1,000 mls @ 150 mls/hr 12/30/19 22:45 Normal Saline IV ASDIRECTED SANDI Sodium Chloride 1,000 mls @ 500 mls/hr 12/30/19 23:00 12/30/19 22:58 Normal Saline IV 500 mls/hr ASDIRECTED SANDI Administration Ceftriaxone Sodium 1 gm/ 50 mls @ 100 mls/hr 12/30/19 22:58 12/30/19 23:06 Sodium Chloride IV 12/30/19 23:27 100 mls/hr ONETIME ONE Administration - Re-Assessments/Exams Free Text/Narrative Re-Assessment/Exam: 12/30/19 22:19 Patient does have a history of sepsis although her vital signs are all normal. Chest x-ray was obtained due to the cough, CBC, CMP, lactic acid, UA and urine drug screen were obtained. Patient remained stable. 12/30/19 22:40 Chest x-ray is negative. Patient remained very somnolent but stable. UA was nitrite positive, culture initiated. 12/30/19 22:41 White count and hemoglobin are normal, urine drug screen is positive for methadone and oxycodone. Patient has been overmedicated in the past and Narcan has made her very agitated so this will be avoided as long as she is stable. A [employer] search does show she probably picked up new prescriptions in the last few days. 12/30/19 23:05 Lactic acid is normal, vitals remained stable but creatinine return 2.6 and GFR 20 which is significant compared to past levels. I asked Dr. Alegre to consider admission for hydration and she will be given 1 g of Rocephin IV to cover her UTI pending culture. I would anticipate her to improve overnight as the narcotic medications wear off. Her kidney function can be reassessed tomorrow. Departure - Departure Time of Disposition: 23:49 Disposition: Admitted As Inpatient 66 Clinical Impression: UTI (urinary tract infection) Qualifiers: Urinary tract infection type: catheter-associated UTI Indwelling urinary catheter type: indwelling urethral catheter Encounter type: initial encounter Qualified Code(s): T83.511A - Infection and inflammatory reaction due to indwelling urethral catheter, initial encounter Change in mental status Qualifiers: Altered mental status type: somnolence Qualified Code(s): R40.0 - Somnolence - Discharge Information Sepsis Event Note - Focused Exam Vital Signs: Vital Signs Temp Pulse Resp BP Pulse Ox 12/30/19 22:54 59 L 90/60 96 12/30/19 22:31 96.1 F L 74 16 103/55 L 97 12/30/19 22:01 96.1 F L 74 16 103/55 L 97 Date Exam was Performed: 12/31/19 Time Exam was Performed: 02:21 - My Orders Last 24 Hours: My Active Orders 12/30/19 22:09 Chest 1V Frontal [CR] Stat 12/30/19 22:55 CULTURE URINE [RM] Stat - Assessment/Plan Last 24 Hours: My Active Orders 12/30/19 22:09 Chest 1V Frontal [CR] Stat 12/30/19 22:55 CULTURE URINE [] Stat
[2019-12-30] MEDS ORDERED: Sodium Chloride 0.9% 1,000 ML IV SCH ×2 (22:45→23:00)
[2019-12-30] MEDS ORDERED: cefTRIAXone 1 GM in Sodium Chloride 0.9% 50 ML IV ONE (22:58)
[2019-12-30] MEDS ORDERED: Ibuprofen 200 MG Tab PO PRN (23:43)
[2019-12-30] MEDS ORDERED: hydrOXYzine HCl 25 MG Tab PO PRN (23:43)
[2019-12-30] MEDS ORDERED: MOMETASONE INH SCH (23:45)
[2019-12-30] MEDS ORDERED: FORMOTEROL INH SCH (23:45)
--- NOTE | 2019-12-31 00:54 | HP ---
CHIEF COMPLAINT: Lethargy. HISTORY OF PRESENT ILLNESS: A 49-year-old who has a history of paraplegia and lives with her mother. Apparently, she fell out of bed, and ambulance was called for assist to get her up, which they apparently did help her with. But then said that she felt sick and wanted to go into the ER for further evaluation. She was brought in by ambulance, was noted to be quite lethargic, but arousable, answered questions appropriately. Complaint was that she was more spastic than usual. Apparently, she had occasional cough, but denied any chest or abdominal pain, or headache. No report of any fever. Apparently, she has been hospitalized with urinary tract infection with sepsis in the past. The patient was evaluated by emergency room physician, was noted to have slight abnormal urine. Urine culture was obtained. The patient was started on IV Rocephin. She was noted to have elevated creatinine, which is not her baseline. She was felt to be dehydrated and was started on IV fluids. I was asked to admit the patient for further evaluation and treatment. When I arrived, the patient was arousable, but I was not able to get really much of any history out of her. PAST MEDICAL HISTORY: 1. Paraplegia. 2. Hypertension. 3. History of admission for pneumonia. 4. She does have an ostomy. 5. Recurrent urinary tract infection. 6. Suprapubic catheter. 7. Chronic back pain with spasms. 8. History of seizure. 9. L4 spinal cord injury. 10.Depression with suicidal attempt in the past. 11.Hypothyroidism. 12.Decubitus ulcer. 13.History of MRSA in the wound in the past. MEDICATIONS: 1. Albuterol inhaler q.i.d. 2. Ibuprofen 200 mg q.4 hours p.r.n. 3. Multiple vitamin. 4. Iron. 5. Folic acid 1 daily. 6. Effexor 75 mg at bedtime. 7. Lisinopril 20 mg daily. 8. Oxycodone/acetaminophen 7.5/325, 2 tablets q.6 hours p.r.n. 9. Bupropion SR 150 mg b.i.d. 10.Baclofen 20 mg q.i.d. 11.Levothyroxine 75 mcg. 12.Naloxone 4 mg nasally as directed p.r.n. 13.Lyrica 200 mg t.i.d. 14.Effexor 150 mg daily. 15.Hydroxyzine 25 mg t.i.d. p.r.n. 16.Aspirin 325 mg daily. 17.Dulera inhaler as directed. 18.Multivitamin lycopene lutein daily. 19. 750 mg b.i.d. 20.Lactobacillus 1 b.i.d. 21.Methadone 5 mg as directed. 22.Was treated with Bactrim back in October. PAST SURGICAL HISTORY: Small-bowel surgery. She has had lumbar spine surgery. SOCIAL HISTORY: Nonsmoker. FAMILY HISTORY: Unknown. ALLERGIES: CLINDAMYCIN AND PENICILLIN. REVIEW OF SYSTEMS: Not able to get really much of anything out of her; but in the emergency room there was no report of any chest pain or trouble breathing. A little bit of a cough. No nausea or vomiting. She does have a colostomy and suprapubic catheter. No fever. She does have the lethargy. PHYSICAL EXAMINATION: VITAL SIGNS: Estimated weight 80 kg, temp 35.6, pulse 74, blood pressure 103/55, respirations 16, and O2 saturation 97% on room air. GENERAL: The patient lethargic. I am able to get her to arouse, but really not able to get much of a conversation out of her right now. HEENT: Pharynx, slightly dry mucous membranes. NECK: Supple. No significant adenopathy or masses. LUNGS: Clear. HEART: Regular without murmurs. ABDOMEN: Soft. She did not appear to cause any tenderness. She does have the ostomy in the left lower quadrant and stool in her bag. Suprapubic catheter. EXTREMITIES: No edema. SKIN: Negative. I did look at her bottom. She had trouble with decubitus ulcers, but unable to look at this time. NEUROLOGIC: Other than the lethargy, it is difficult to assess. LABORATORY DATA: White count 11.0, hemoglobin 13.5, and platelets 333,000. Sodium 138; potassium 5.7; chloride 102; BUN was 23; creatinine 2.6, which apparently is not her baseline; glucose 104; lactic acid 1.2; and calcium was low at 8.3. Liver functions normal other than alkaline phosphatase slightly elevated at 119. Urinalysis was positive for nitrite and 10 to 20 white cells. Urine drug screen positive for oxycodone and methadone, negative for everything else. ASSESSMENT: 1. Lethargy with history of sepsis in the past with admissions for urinary tract infection with her suprapubic catheter. She does have a slight pyuria. Cultures are pending. The patient has been started by the emergency room physician on IV Rocephin, which we will continue. They elected not to give Narcan because when she has had this in the past she does get quite agitated from her nerve pain, and we will just hold her narcotics for now and restart when able. We will admit her under observation status and transfer care to the Hospitalist Service in the morning. 2. Paraplegia, spinal cord injury, previous back surgery. 3. Hypothyroidism. 4. Colostomy. 5. Suprapubic catheter. 6. Renal insufficiency. We will continue with IV fluids and recheck this in the morning. Jerad Alegre MD /[id number]
[2019-12-31] MEDS: Sodium Chloride 0.9% 1,000 ML IV SCH ×2 (01:29→09:35)
[2019-12-31] MEDS: Levothyroxine 25 MCG Tab PO SCH (10:18)
[2019-12-31] MEDS: Aspirin 325 MG Tab.EC PO SCH (10:19)
[2019-12-31] MEDS: levETIRAcetam 250 MG Tab PO SCH ×2 (10:19→20:35)
[2019-12-31] MEDS: Baclofen 10 MG Tab PO SCH ×3 (10:19→21:43)
[2019-12-31] MEDS: Multivitamins with Iron/Calcium/Folic Acid/Minerals Tab PO SCH (10:20)
[2019-12-31] MEDS: Venlafaxine 75 MG Tab PO SCH (10:20)
[2019-12-31] MEDS: Lisinopril 20 MG Tab PO SCH (10:20)
[2019-12-31] MEDS: buPROPion 150 MG Tab.SR PO SCH ×2 (10:21→20:37)
--- NOTE | 2019-12-31 10:21 | CR ---
CHEST: Portable 12/30/2019 at 10:23 PM CLINICAL HISTORY:Cough COMPARISON:11/05/2019 FINDINGS: Heart size and pulmonary vascularity are normal. Patient has an [id number]-Paji catheter from the left subclavian approach. Tip is in the superior vena cava atrial junction region. No infiltrates are seen. There are no effusions Impression: No acute cardiopulmonary process or significant change from 11/05/2019.
[2019-12-31] MEDS: Pregabalin 100 MG Cap PO SCH ×3 (10:26→20:32)
[2019-12-31] MEDS: Lactobacillus Rhamnosus GG (Probiotic) Cap PO SCH ×2 (10:26→20:35)
[2019-12-31] MEDS: Albuterol 8 GM Inhaler INH SCH ×3 (12:19→20:39)
--- NOTE | 2019-12-31 12:37 | PCM.PN ---
- General Info Date of Service: 12/31/19 Subjective Update: No acute events overnight following admission. Patient is more alert and interactive this morning. No significant spasticity pain as of yet. No fevers. No complaints of abdominal pain. Creatinine slightly better but still significantly elevated from baseline. No complaints of cough or shortness of breath. Functional Status: Reports: Pain Controlled, Tolerating Diet - Review of Systems General: Denies: Fever - Patient Data Vitals - Most Recent: Last Vital Signs Temp 36.3 C 12/31/19 10:07 Pulse 75 12/31/19 10:07 Resp 18 12/31/19 10:07 BP 111/56 L 12/31/19 10:20 Pulse Ox 100 12/31/19 10:07 Weight - Most Recent: 81.647 kg I&O - Last 24 Hours: Intake & Output 12/30/19 12/31/19 12/31/19 22:59 06:59 14:59 Intake Total 1426 500 Output Total 1550 Balance -124 500 Lab Results Last 24 Hours: Laboratory Results - last 24 hr 12/30/19 12/30/19 12/30/19 Range/Units 22:04 22:05 22:17 WBC 11.0 (4.5-11.0) K/uL RBC 4.95 (3.30-5.50) M/uL Hgb 13.5 (12.0-15.0) g/dL Hct 42.8 (36.0-48.0) % MCV 87 (80-98) fL MCH 27 (27-31) pg MCHC 32 (32-36) % Plt Count 332 (150-400) K/uL Neut % (Auto) 54 (36-66) % Lymph % (Auto) 36 (24-44) % Grimes % (Auto) 6 (2-6) % Eos % (Auto) 2 (2-4) % Baso % (Auto) 2 H (0-1) % Sodium (140-148) mmol/L Potassium (3.6-5.2) mmol/L Chloride (100-108) mmol/L Carbon Dioxide (21-32) mmol/L Anion Gap (5.0-14.0) mmol/L BUN (7-18) mg/dL Creatinine (0.6-1.0) mg/dL Est Cr Clr Drug Dosing mL/min Estimated GFR (MDRD) (>60) Glucose (74-106) mg/dL Lactic Acid (0.4-2.0) mmol/L Calcium (8.5-10.1) mg/dL Total Bilirubin (0.2-1.0) mg/dL AST (15-37) U/L ALT (12-78) U/L Alkaline Phosphatase (46-116) U/L Total Protein (6.4-8.2) g/dL Albumin (3.4-5.0) g/dL Globulin (2.3-3.5) g/dL Albumin/Globulin Ratio (1.2-2.2) Urine Color Yellow (YELLOW) Urine Appearance Turbid A (CLEAR) Urine pH 7.0 (5.0-8.0) Ur Specific Fidelity 1.015 (1.008-1.030) Urine Protein Negative (NEGATIVE) mg/dL Urine Glucose (UA) Negative (NEGATIVE) mg/dL Urine Ketones Negative (NEGATIVE) mg/dL Urine Occult Blood Negative (NEGATIVE) Urine Nitrite Positive H (NEGATIVE) Urine Bilirubin Negative (NEGATIVE) Urine Urobilinogen 0.2 (0.2-1.0) EU/dL Ur Leukocyte Esterase Moderate H (NEGATIVE) Urine RBC 0-5 (0-5) Urine WBC 10-20 H (0-5) Ur Epithelial Cells Not seen Amorphous Sediment Many Urine Bacteria Many Urine Mucus Not seen Urine Opiates Screen Negative (NEGATIVE) Ur Oxycodone Screen Presumptive positive H (NEGATIVE) Urine Methadone Screen Presumptive positive H (NEGATIVE) Ur Propoxyphene Screen Negative (NEGATIVE) Ur Barbiturates Screen Negative (NEGATIVE) Ur Tricyclics Screen Negative (NEGATIVE) Ur Phencyclidine Scrn Negative (NEGATIVE) Ur Amphetamine Screen Negative (NEGATIVE) U Methamphetamines Scrn Negative (NEGATIVE) Urine MDMA Screen Negative (NEGATIVE) U Benzodiazepines Scrn Negative (NEGATIVE) U Cocaine Metab Screen Negative (NEGATIVE) U Marijuana (THC) Screen Negative (NEGATIVE) 12/30/19 12/30/19 12/31/19 Range/Units 22:17 22:17 05:35 WBC 13.6 H (4.5-11.0) K/uL RBC 4.74 (3.30-5.50) M/uL Hgb 12.8 (12.0-15.0) g/dL Hct 41.1 (36.0-48.0) % MCV 87 (80-98) fL MCH 27 (27-31) pg MCHC 31 L (32-36) % Plt Count 326 (150-400) K/uL Neut % (Auto) (36-66) % Lymph % (Auto) (24-44) % Grimes % (Auto) (2-6) % Eos % (Auto) (2-4) % Baso % (Auto) (0-1) % Sodium 138 L (140-148) mmol/L Potassium 5.7 H (3.6-5.2) mmol/L Chloride 102 (100-108) mmol/L Carbon Dioxide 28 (21-32) mmol/L Anion Gap 13.7 (5.0-14.0) mmol/L BUN 23 H D (7-18) mg/dL Creatinine 2.6 H D (0.6-1.0) mg/dL Est Cr Clr Drug Dosing 26.51 mL/min Estimated GFR (MDRD) 20 L (>60) Glucose 104 (74-106) mg/dL Lactic Acid 1.2 (0.4-2.0) mmol/L Calcium 8.3 L (8.5-10.1) mg/dL Total Bilirubin 0.3 (0.2-1.0) mg/dL AST 14 L (15-37) U/L ALT 19 (12-78) U/L Alkaline Phosphatase 119 H (46-116) U/L Total Protein 7.6 (6.4-8.2) g/dL Albumin 2.9 L (3.4-5.0) g/dL Globulin 4.7 H (2.3-3.5) g/dL Albumin/Globulin Ratio 0.6 L (1.2-2.2) Urine Color (YELLOW) Urine Appearance (CLEAR) Urine pH (5.0-8.0) Ur Specific Fidelity (1.008-1.030) Urine Protein (NEGATIVE) mg/dL Urine Glucose (UA) (NEGATIVE) mg/dL Urine Ketones (NEGATIVE) mg/dL Urine Occult Blood (NEGATIVE) Urine Nitrite (NEGATIVE) Urine Bilirubin (NEGATIVE) Urine Urobilinogen (0.2-1.0) EU/dL Ur Leukocyte Esterase (NEGATIVE) Urine RBC (0-5) Urine WBC (0-5) Ur Epithelial Cells Amorphous Sediment Urine Bacteria Urine Mucus Urine Opiates Screen (NEGATIVE) Ur Oxycodone Screen (NEGATIVE) Urine Methadone Screen (NEGATIVE) Ur Propoxyphene Screen (NEGATIVE) Ur Barbiturates Screen (NEGATIVE) Ur Tricyclics Screen (NEGATIVE) Ur Phencyclidine Scrn (NEGATIVE) Ur Amphetamine Screen (NEGATIVE) U Methamphetamines Scrn (NEGATIVE) Urine MDMA Screen (NEGATIVE) U Benzodiazepines Scrn (NEGATIVE) U Cocaine Metab Screen (NEGATIVE) U Marijuana (THC) Screen (NEGATIVE) 12/31/19 Range/Units 05:35 WBC (4.5-11.0) K/uL RBC (3.30-5.50) M/uL Hgb (12.0-15.0) g/dL Hct (36.0-48.0) % MCV (80-98) fL MCH (27-31) pg MCHC (32-36) % Plt Count (150-400) K/uL Neut % (Auto) (36-66) % Lymph % (Auto) (24-44) % Grimes % (Auto) (2-6) % Eos % (Auto) (2-4) % Baso % (Auto) (0-1) % Sodium 136 L (140-148) mmol/L Potassium 5.5 H (3.6-5.2) mmol/L Chloride 105 (100-108) mmol/L Carbon Dioxide 27 (21-32) mmol/L Anion Gap 9.5 (5.0-14.0) mmol/L BUN 22 H (7-18) mg/dL Creatinine 2.4 H (0.6-1.0) mg/dL Est Cr Clr Drug Dosing 28.72 mL/min Estimated GFR (MDRD) 21 L (>60) Glucose 82 (74-106) mg/dL Lactic Acid (0.4-2.0) mmol/L Calcium 8.3 L (8.5-10.1) mg/dL Total Bilirubin (0.2-1.0) mg/dL AST (15-37) U/L ALT (12-78) U/L Alkaline Phosphatase (46-116) U/L Total Protein (6.4-8.2) g/dL Albumin (3.4-5.0) g/dL Globulin (2.3-3.5) g/dL Albumin/Globulin Ratio (1.2-2.2) Urine Color (YELLOW) Urine Appearance (CLEAR) Urine pH (5.0-8.0) Ur Specific Fidelity (1.008-1.030) Urine Protein (NEGATIVE) mg/dL Urine Glucose (UA) (NEGATIVE) mg/dL Urine Ketones (NEGATIVE) mg/dL Urine Occult Blood (NEGATIVE) Urine Nitrite (NEGATIVE) Urine Bilirubin (NEGATIVE) Urine Urobilinogen (0.2-1.0) EU/dL Ur Leukocyte Esterase (NEGATIVE) Urine RBC (0-5) Urine WBC (0-5) Ur Epithelial Cells Amorphous Sediment Urine Bacteria Urine Mucus Urine Opiates Screen (NEGATIVE) Ur Oxycodone Screen (NEGATIVE) Urine Methadone Screen (NEGATIVE) Ur Propoxyphene Screen (NEGATIVE) Ur Barbiturates Screen (NEGATIVE) Ur Tricyclics Screen (NEGATIVE) Ur Phencyclidine Scrn (NEGATIVE) Ur Amphetamine Screen (NEGATIVE) U Methamphetamines Scrn (NEGATIVE) Urine MDMA Screen (NEGATIVE) U Benzodiazepines Scrn (NEGATIVE) U Cocaine Metab Screen (NEGATIVE) U Marijuana (THC) Screen (NEGATIVE) Med Orders - Current: Current Medications Albuterol (Ventolin Hfa) 0 gm INH QIDRT [facility] Last Admin: 12/31/19 12:19 Dose: Not Given Aspirin (Ecotrin) 325 mg PO DAILY [facility] Last Admin: 12/31/19 10:19 Dose: 325 mg Baclofen (Lioresal) 20 mg PO QID [facility] Last Admin: 12/31/19 10:19 Dose: 20 mg Bupropion HCl (Wellbutrin Sr) 150 mg PO BID [facility] Last Admin: 12/31/19 10:21 Dose: 150 mg Hydroxyzine HCl (Atarax) 25 mg PO TID PRN PRN Reason: Itching Ceftriaxone Sodium 1 gm/ (Sodium Chloride) 50 mls @ 100 mls/hr IV Q24H [facility] Vancomycin HCl 1.5 gm/ Sodium (Chloride) 250 mls @ 150 mls/hr IV Q24H [facility] Last Admin: 12/31/19 10:38 Dose: 150 mls/hr Sodium Chloride (Normal Saline) 1,000 mls @ 50 mls/hr IV ASDIRECTED [facility] Ibuprofen (Motrin) 200 mg PO Q4H PRN PRN Reason: Pain Lactobacillus Rhamnosus (Culturelle) 1 cap PO BID [facility] Last Admin: 12/31/19 10:26 Dose: 1 cap Levetiracetam (Keppra) 750 mg PO BID [facility] Last Admin: 12/31/19 10:19 Dose: 750 mg Levothyroxine Sodium (Levothyroxine) 75 mcg PO ACBREAKFAST [facility] Last Admin: 12/31/19 10:18 Dose: 75 mcg Lisinopril (Prinivil) 20 mg PO DAILY [facility] Last Admin: 12/31/19 10:20 Dose: 20 mg Methadone HCl (Methadone) 5 mg PO TID [facility] Multivitamins/Minerals (Thera M Plus) 1 tab PO DAILY [facility] Last Admin: 12/31/19 10:20 Dose: 1 tab Oxycodone/Acetaminophen (Percocet 325-7.5 Mg) 2 tab PO Q6H PRN PRN Reason: Pain Pregabalin (Lyrica) 200 mg PO TID [facility] Last Admin: 12/31/19 10:26 Dose: 200 mg Venlafaxine HCl (Effexor) 75 mg PO BEDTIME [facility] Venlafaxine HCl (Effexor) 150 mg PO DAILY [facility] Last Admin: 12/31/19 10:20 Dose: 150 mg Discontinued Medications Sodium Chloride (Normal Saline) 1,000 mls @ 150 mls/hr IV ASDIRECTED [facility] Sodium Chloride (Normal Saline) 1,000 mls @ 500 mls/hr IV ASDIRECTED [facility] Last Admin: 12/30/19 22:58 Dose: 500 mls/hr Ceftriaxone Sodium 1 gm/ (Sodium Chloride) 50 mls @ 100 mls/hr IV ONETIME ONE Stop: 12/30/19 23:27 Last Admin: 12/30/19 23:06 Dose: 100 mls/hr Sodium Chloride (Normal Saline) 1,000 mls @ 125 mls/hr IV ASDIRECTED [facility] Last Admin: 12/31/19 09:35 Dose: 125 mls/hr - Exam Quality Assessment: No: Supplemental Oxygen General: Alert, Oriented, Cooperative, No Acute Distress Lungs: Normal Respiratory Effort Cardiovascular: Regular Rate, Regular Rhythm GI/Abdominal Exam: Soft, No Distention Extremities: No Pedal Edema Psy/Mental Status: Alert, Normal Affect Sepsis Event Note - Evaluation Sepsis Screening Result: No Definite Risk - Focused Exam Vital Signs: Vital Signs Temp Pulse Resp BP BP BP Pulse Ox 12/31/19 10:20 111/56 L 12/31/19 10:07 36.3 C 75 18 111/56 L 100 12/31/19 02:55 36.6 C 72 18 124/93 H 99 Date Exam was Performed: 12/31/19 Time Exam was Performed: 14:16 - Problem List Review Problem List Initiated/Reviewed/Updated: Yes - My Orders Last 24 Hours: My Active Orders 12/31/19 08:46 Admission Status [Patient Status] [ADT] Routine 12/31/19 10:00 Vancomycin 1.5 gm Sodium Chloride 0.9% [Normal Saline] 250 ml IV Q24H 12/31/19 12:32 Acetaminophen/oxyCODONE [Percocet 325-7.5 MG] 2 tab PO Q6H PRN 12/31/19 12:35 Antiembolic Devices [RC] .Routine SCD [Sequential Compression Device] [OM.PC] Routine 12/31/19 12:36 Discontinue Telemetry Monitoring [Cardiac Monitoring Discontinue] [RC] Click to Edit 12/31/19 13:00 Sodium Chloride 0.9% [Normal Saline] 1,000 ml IV ASDIRECTED 12/31/19 14:00 Methadone 5 mg PO TID 01/01/20 05:00 BASIC METABOLIC PANEL,BMP [CHEM] Timed CBC W/O DIFF,HEMOGRAM [HEME] Timed (1) - Plan Plan:: ASSESSMENT AND PLAN - Complicated urinary tract infection-chronic suprapubic catheter secondary to 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 History of recurrent infections and often grows out MRSA from the cultures. Mental status has been improving. Vital signs are stable. -Antibiotic coverage with ceftriaxone and vancomycin -Follow-up cultures -Continue gentle IV fluids Acute kidney injury-likely secondary to significant dehydration due to her lethargy. Level slightly better today. -Continue IV fluids -Labs in the morning Paraplegia secondary to spinal cord injury-complicated by neurogenic bladder with suprapubic catheter as well as colostomy formation and chronic pain issues. This all seems to be stable at this point. -Continue home medications Chronic decubitus ulcers-large ulcers that have been in various stages of healing over the years. These are present on admission and have been present for some time. Seem to be moving in the right direction. Wound care recommendations currently include a referral to a plastic surgeon but because of the COVID19 virus all of the outpatient appointments are delayed. -Local wound cares Tobacco dependence-encourage cessation Maintenance issues - - DVT prophylaxis -mechanical - GI prophylaxis -not indicated - Nutrition -regular - Olivas catheter -chronic suprapubic Admission justification -patient initially admitted to observation status but will be transition to inpatient status with complicated urinary tract infection , acute kidney injury. Disposition -I would anticipate discharge home with home care Omari Fink M.D.
[2019-12-31] MEDS ORDERED: Methadone 10 MG Tab PO SCH (13:00)
[2019-12-31] MEDS ORDERED: Sodium Chloride 0.9% 1,000 ML IV SCH (13:00)
[2019-12-31] MEDS: Methadone 10 MG Tab PO SCH ×2 (13:20→20:32)
[2019-12-31] MEDS: Methadone 5 MG Tab PO SCH ×2 (13:21→20:33)
[2019-12-31] MEDS: Acetaminophen/oxyCODONE 325-7.5 MG Tab PO PRN ×3 (13:22→20:44)
[2019-12-31] MEDS ORDERED: Venlafaxine 75 MG Tab PO SCH (21:00)
[2019-12-31] MEDS ORDERED: cefTRIAXone 1 GM in Sodium Chloride 0.9% 50 ML IV SCH (21:00)
[2020-01-01] MEDS: Acetaminophen/oxyCODONE 325-7.5 MG Tab PO PRN ×2 (02:42→08:51)
[2020-01-01] MEDS: Baclofen 10 MG Tab PO SCH ×2 (06:02→10:09)
[2020-01-01] MEDS: Levothyroxine 25 MCG Tab PO SCH (07:35)
[2020-01-01] MEDS: Pregabalin 100 MG Cap PO SCH (08:51)
[2020-01-01] MEDS: Aspirin 325 MG Tab.EC PO SCH (08:53)
[2020-01-01] MEDS: levETIRAcetam 250 MG Tab PO SCH (08:53)
[2020-01-01] MEDS: Lisinopril 20 MG Tab PO SCH (08:54)
[2020-01-01] MEDS: Multivitamins with Iron/Calcium/Folic Acid/Minerals Tab PO SCH (08:54)
[2020-01-01] MEDS: Venlafaxine 75 MG Tab PO SCH (08:55)
[2020-01-01] MEDS: Lactobacillus Rhamnosus GG (Probiotic) Cap PO SCH (08:55)
[2020-01-01] MEDS: buPROPion 150 MG Tab.SR PO SCH (08:55)
[2020-01-01] MEDS ORDERED: Methadone 10 MG Tab PO SCH (09:00)
[2020-01-01] MEDS: Albuterol 8 GM Inhaler INH SCH ×2 (10:15→10:32)
--- NOTE | 2020-01-01 10:55 | PCM.DCSUM1 ---
Discharge Summary - Hospital Course Brief History: 49-year-old female with history of paraplegia following spinal cord injury with resulting neurogenic bladder and chronic decubitus ulcers who presented with weakness and lethargy. She was admitted for management of suspected recurrent urinary tract infection and acute kidney injury. Diagnosis: Stroke: No - Discharge Data Discharge Date: 01/01/20 Discharge Disposition: Home, W Home Health Agency 06 Condition: Good - Referral to Home Health Date of Face to Face Encounter: 01/01/20 Reason for Homebound Status: paraplegia Primary Care Physician: PCP None Skilled Need: Nursing - Discharge Diagnosis/Problem(s) (1) Complicated urinary tract infection SNOMED Code(s): 86864269 ICD Code: N39.0 - URINARY TRACT INFECTION, SITE NOT SPECIFIED Status: Acute Problem Details: recurrent MRSA UTI (2) Acute kidney injury SNOMED Code(s): 55180118, 18051729 ICD Code: N17.9 - ACUTE KIDNEY FAILURE, UNSPECIFIED Status: Acute (3) Paraplegia following spinal cord injury SNOMED Code(s): 37056637, 43526073 ICD Code: G82.20 - PARAPLEGIA, UNSPECIFIED Status: Chronic (4) Tobacco dependence SNOMED Code(s): 02554755 ICD Code: F17.200 - NICOTINE DEPENDENCE, UNSPECIFIED, UNCOMPLICATED Status : Chronic (5) Decubitus ulcer SNOMED Code(s): 741774861 ICD Code: L89.90 - PRESSURE ULCER OF UNSPECIFIED SITE, UNSPECIFIED STAGE Status: Chronic Problem Details: Chronic, present on admission - Patient Summary/Data Labs Pending at D/C: Final results of the urine culture which is pending at the time of discharge. She is currently growing a gram-positive cocci. Hospital Course: Aaliyah presented to the emergency room with weakness and lethargy after falling out of bed at home. Work-up in the emergency room was concerning for a recurrent urinary tract infection in the setting of a chronic suprapubic catheter. She was also noted to have acute kidney injury with a creatinine of 2.6 and mild hyperkalemia with a potassium of 5.7. She was given some fluids and started on ceftriaxone and admitted to the hospital. The morning after admission she remained fairly lethargic. I noted that she did have a history of MRSA infections in her urine and added vancomycin to the treatment regimen. By the morning after admission her creatinine and potassium had improved slightly but remained fairly elevated. After some additional fluids and the vancomycin patient did wake up and return to her baseline other than some weakness. Her vital signs have all been stable. She has not had significant difficulty with her spastic pain in the lower extremities. Her urine culture is growing a gram-positive cocci which I suspect will be her usual MRSA. She is feeling well and back to her baseline at this time. Her creatinine is much improved but not quite back to baseline yet. Vital signs have remained stable. She is eating well. I believe that she is safe for discharged home at this time. We will be utilizing doxycycline to treat the infection as I suspect this will be her usual MRSA which is resistant only to oxacillin. I will contact her if the urine culture grows out something resistant to the doxycycline. I encouraged her to push fluids and suspect that her kidney function will return to normal over the next day or 2 if she is able to retain and improve her hydration. - Patient Instructions Diet: Regular Diet as Tolerated Activity: As Tolerated Showering/Bathing: May Shower Notify Provider of: Fever, Increased Pain, Nausea and/or Vomiting Other/Special Instructions: 1. You were in the hospital for management of a recurrent urinary tract infection. Your condition has been improving with antibiotic therapy. I do recommend ongoing antibiotic therapy with doxycycline. Please take 100 mg twice daily with food for 10 more doses. Your first dose outside of the hospital will be due tonight. Please be sure to drink plenty of water to keep the urinary track flushed out to help clear the current infection and reduce the risk of future infections. 2. Continue your other home medications as previously prescribed. - Discharge Plan *PRESCRIPTION DRUG MONITORING PROGRAM REVIEWED*: No *COPY OF PRESCRIPTION DRUG MONITORING REPORT IN PATIENT VICTOR MANUEL: No Prescriptions/Med Rec: Doxycycline Hyclate 100 mg PO BID #10 capsule Home Medications: Home Meds Albuterol [Ventolin HFA] 1 puff IH QID 12/16/14 [History] Ibuprofen 200 mg PO Q4H PRN 12/16/14 [History] Multivitamins/Iron/Folic Acid [Cerovite Advanced Formula] 1 tab PO DAILY [History] Venlafaxine [Effexor] 75 mg PO BEDTIME 12/16/14 [History] Lisinopril 20 mg PO DAILY 07/04/17 [History] oxyCODONE HCl/Acetaminophen [Endocet 7.5-325 mg Tablet] 2 tab PO Q6H PRN [History] buPROPion [Wellbutrin SR] 150 mg PO BID 10/23/18 [History] Baclofen 20 mg PO QID 01/02/19 [History] Levothyroxine 75 mcg PO ACBREAKFAST 01/02/19 [History] Pregabalin [Lyrica] 200 mg PO TID 01/02/19 [History] Venlafaxine [Effexor] 150 mg PO DAILY 01/02/19 [History] hydrOXYzine pamoate [Hydroxyzine Pamoate] 25 mg PO TID PRN 01/02/19 [History] Aspirin 325 mg PO DAILY 09/04/19 [History] Multivit-Min/FA/Lycopen/Lutein [Certavite Sr-Antioxidant Tab] 1 tab PO DAILY 07/14 [History] levETIRAcetam [Levetiracetam] 750 mg PO BID 09/04/19 [History] Methadone 5 mg PO ASDIRECTED 11/03/19 [History] Doxycycline Hyclate 100 mg PO BID #10 capsule 01/01/20 [Rx] Oxygen Therapy Mode: Room Air Patient Handouts: Doxycycline tablets or capsules, Urinary Tract Infection, Adult Referrals: PCP,None [Primary Care Provider] - (f/u as needed ) - Discharge Summary/Plan Comment DC Time >30 min.: No - Patient Data Vitals - Most Recent: Last Vital Signs Temp 36.0 C L 01/01/20 06:00 Pulse 54 L 01/01/20 06:00 Resp 18 01/01/20 06:00 BP 136/75 01/01/20 08:54 Pulse Ox 97 01/01/20 06:00 Weight - Most Recent: 81.647 kg I&O - Last 24 hours: Intake & Output 12/31/19 01/01/20 01/01/20 22:59 06:59 14:59 Intake Total 1270 940 Output Total 600 1700 Balance 670 -760 Lab Results - Last 24 hrs: Laboratory Results - last 24 hr 01/01/20 01/01/20 Range/Units 05:49 05:49 WBC 8.8 (4.5-11.0) K/uL RBC 4.36 (3.30-5.50) M/uL Hgb 11.8 L (12.0-15.0) g/dL Hct 37.8 (36.0-48.0) % MCV 87 (80-98) fL MCH 27 (27-31) pg MCHC 31 L (32-36) % Plt Count 291 (150-400) K/uL Sodium 141 (140-148) mmol/L Potassium 4.6 (3.6-5.2) mmol/L Chloride 108 (100-108) mmol/L Carbon Dioxide 22 (21-32) mmol/L Anion Gap 10.7 (5.0-14.0) mmol/L BUN 18 (7-18) mg/dL Creatinine 1.8 H (0.6-1.0) mg/dL Est Cr Clr Drug Dosing 38.29 mL/min Estimated GFR (MDRD) 30 L (>60) Glucose 85 (74-106) mg/dL Calcium 7.9 L (8.5-10.1) mg/dL [id number] Results - Last 24 hrs: Microbiology 12/30/19 22:55 Urine Culture - Preliminary Urine, Catheterized Med Orders - Current: Current Medications Albuterol (Ventolin Hfa) 0 gm INH QIDRT [facility] Last Admin: 01/01/20 10:32 Dose: Not Given Aspirin (Ecotrin) 325 mg PO DAILY [facility] Last Admin: 01/01/20 08:53 Dose: 325 mg Baclofen (Lioresal) 20 mg PO QID [facility] Last Admin: 01/01/20 10:09 Dose: 20 mg Bupropion HCl (Wellbutrin Sr) 150 mg PO BID [facility] Last Admin: 01/01/20 08:55 Dose: 150 mg Hydroxyzine HCl (Atarax) 25 mg PO TID PRN PRN Reason: Itching Ceftriaxone Sodium 1 gm/ (Sodium Chloride) 50 mls @ 100 mls/hr IV Q24H [facility] Last Admin: 12/31/19 20:31 Dose: 100 mls/hr Vancomycin HCl 1.5 gm/ Sodium (Chloride) 250 mls @ 150 mls/hr IV Q24H [facility] Last Admin: 01/01/20 10:10 Dose: 150 mls/hr Sodium Chloride (Normal Saline) 1,000 mls @ 50 mls/hr IV ASDIRECTED [facility] Last Admin: 12/31/19 18:12 Dose: 50 mls/hr Ibuprofen (Motrin) 200 mg PO Q4H PRN PRN Reason: Pain Lactobacillus Rhamnosus (Culturelle) 1 cap PO BID [facility] Last Admin: 01/01/20 08:55 Dose: 1 cap Levetiracetam (Keppra) 750 mg PO BID [facility] Last Admin: 01/01/20 08:53 Dose: 750 mg Levothyroxine Sodium (Levothyroxine) 75 mcg PO ACBREAKFAST [facility] Last Admin: 01/01/20 07:35 Dose: 75 mcg Lisinopril (Prinivil) 20 mg PO DAILY [facility] Last Admin: 01/01/20 08:54 Dose: 20 mg Methadone HCl (Methadone) 5 mg PO BID@1300,2100 [facility] Last Admin: 12/31/19 20:33 Dose: 5 mg Methadone HCl (Methadone) 10 mg PO BID@1300,2100 [facility] Last Admin: 12/31/19 20:32 Dose: 10 mg Methadone HCl (Methadone) 20 mg PO DAILY [facility] Last Admin: 01/01/20 08:50 Dose: 20 mg Multivitamins/Minerals (Thera M Plus) 1 tab PO DAILY [facility] Last Admin: 01/01/20 08:54 Dose: 1 tab Oxycodone/Acetaminophen (Percocet 325-7.5 Mg) 2 tab PO Q6H PRN PRN Reason: Pain Last Admin: 01/01/20 08:51 Dose: 2 tab Pregabalin (Lyrica) 200 mg PO TID [facility] Last Admin: 01/01/20 08:51 Dose: 200 mg Venlafaxine HCl (Effexor) 75 mg PO BEDTIME [facility] Last Admin: 12/31/19 20:37 Dose: 75 mg Venlafaxine HCl (Effexor) 150 mg PO DAILY [facility] Last Admin: 01/01/20 08:55 Dose: 150 mg Discontinued Medications Sodium Chloride (Normal Saline) 1,000 mls @ 150 mls/hr IV ASDIRECTED [facility] Sodium Chloride (Normal Saline) 1,000 mls @ 500 mls/hr IV ASDIRECTED [facility] Last Admin: 12/30/19 22:58 Dose: 500 mls/hr Ceftriaxone Sodium 1 gm/ (Sodium Chloride) 50 mls @ 100 mls/hr IV ONETIME ONE Stop: 12/30/19 23:27 Last Admin: 12/30/19 23:06 Dose: 100 mls/hr Sodium Chloride (Normal Saline) 1,000 mls @ 125 mls/hr IV ASDIRECTED [facility] Last Admin: 12/31/19 09:35 Dose: 125 mls/hr - Exam Quality Assessment: Denies: Supplemental Oxygen General: Reports: Alert, Oriented, Cooperative, No Acute Distress Lungs: Reports: Normal Respiratory Effort Cardiovascular: Reports: Regular Rate, Regular Rhythm GI/Abdominal Exam: Soft, No Distention Extremities: No Pedal Edema Psy/Mental Status: Reports: Alert, Normal Affect
[2020-01-01 11:06] VITALS: BP 133/76; PULSE 63
[2020-01-01] MEDS: Methadone 5 MG Tab PO SCH (13:14)
[2020-01-01] MEDS: Methadone 10 MG Tab PO SCH (13:16)
== END 2020-01-01 13:32 | disposition home health service (06) | DRG 699 ==
LOC: JP.ED 21:54 → JP.MS 23:28 → OBSVTOIN 12-31 08:46
PROVIDERS: ADMIT Family Medicine; ATTEND Internal Medicine
DX: T83.511A Infection and inflammatory reaction due to indwelling urethral catheter, initial encounter (principal); N17.9 Acute kidney failure, unspecified; G82.20 Paraplegia, unspecified; N39.0 Urinary tract infection, site not specified; F17.200 Nicotine dependence, unspecified, uncomplicated; E87.5 Hyperkalemia; I10 Essential (primary) hypertension; G89.29 Other chronic pain; F32.9 Major depressive disorder, single episode, unspecified; E03.9 Hypothyroidism, unspecified; H54.7 Unspecified visual loss; M54.9 Dorsalgia, unspecified; Y84.6 Urinary catheterization as the cause of abnormal reaction of the patient, or of later complication, without mention of misadventure at the time of the procedure; L89.319 Pressure ulcer of right buttock, unspecified stage; N31.9 Neuromuscular dysfunction of bladder, unspecified; E86.0 Dehydration; Z71.6 Tobacco abuse counseling; Z98.890 Other specified postprocedural states; Z88.0 Allergy status to penicillin; Z88.1 Allergy status to other antibiotic agents; Z93.3 Colostomy status; Z87.01 Personal history of pneumonia (recurrent); Z86.14 Personal history of Methicillin resistant Staphylococcus aureus infection; Z79.82 Long term (current) use of aspirin; Z79.899 Other long term (current) drug therapy; Z99.81 Dependence on supplemental oxygen
CPT/HCPCS: 36415; 71045; 71045-26; 80048; 80053; 80305-QW; 81001; 83605; 85025; 85027; 87077; 87086; 87186; 94640; 96361; 96365; 99283; 99284-25; A9270-GY; G0378; J0696; J3370; J7030; J7050

== ENCOUNTER 2020-05-17 14:14 | Emergency (ER) | payer MEDICAID ==
[2020-05-17] MEDS ORDERED: Sodium Chloride 0.9% 10 ML Syringe FLUSH PRN (16:27)
[2020-05-17] MEDS ORDERED: HYDROmorphone 0.5 MG/0.5 ML Syringe IVPUSH ONE ×3 (16:27→21:05)
[2020-05-17] MEDS ORDERED: Ondansetron 4 MG/2 ML SDV IVPUSH ONE (16:27)
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
[2020-05-17] MEDS ORDERED: Sodium Chloride 0.9% 1,000 ML IV SCH (16:30)
[2020-05-17] MEDS ORDERED: Sodium Chloride 0.9% 10 ML Syringe FLUSH ONE (17:21)
[2020-05-17] MEDS ORDERED: Sodium Chloride 0.9% 80 ML IV SCH (17:30)
[2020-05-17] MEDS ORDERED: Iopamidol 612 MG/ML 100 ML Bottle IV SCH (17:30)
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
[2020-05-17] MEDS ORDERED: Ciprofloxacin in D5W 400 MG in Premix Bag 1 BAG IV ONE ×2 (19:50)
[2020-05-17] MEDS ORDERED: Baclofen 10 MG Tab PO ONE (19:50)
[2020-05-17] MEDS ORDERED: Pregabalin 100 MG Cap PO SCH (20:00)
[2020-05-17 20:10] VITALS: BP 108/58; PULSE 73
--- NOTE | 2020-05-19 09:51 | CR ---
CHEST: Portable 05/17/2020 at 4:52 PM CLINICAL HISTORY:Pain and bloating COMPARISON:12/30/2019 FINDINGS: Patient has an [id number] catheter from the left subclavian approach. The heart size, pulmonary vascularity and hilar structures are normal. No infiltrate effusion or pneumothorax is seen. IMPRESSION: No acute cardiopulmonary process.
== END 2020-05-17 21:14 ==
LOC: JP.ED 14:14
DX: K80.60 Calculus of gallbladder and bile duct with cholecystitis, unspecified, without obstruction (principal); D72.829 Elevated white blood cell count, unspecified; I10 Essential (primary) hypertension; F32.9 Major depressive disorder, single episode, unspecified; E03.9 Hypothyroidism, unspecified; R56.9 Unspecified convulsions; F17.210 Nicotine dependence, cigarettes, uncomplicated; Z88.1 Allergy status to other antibiotic agents; Z88.0 Allergy status to penicillin
CPT/HCPCS: 36415; 71045; 74177; 80053; 81001; 82150; 83605; 83690; 84145; 85025; 86140; 96361; 96365; 96375; 96376; 99285; A9270; J0744; J1170; J2405; J7030; J7050; Q9967

== ENCOUNTER 2021-08-05 12:32 | Emergency (ER) | payer MEDICAID ==
[2021-08-05 14:08] VITALS: BP 115/74; PULSE 75
[2021-08-05] MEDS ORDERED: cefTRIAXone 1 GM, Lidocaine 1% 4.2 ML IM ONE ×2 (14:34)
--- NOTE | 2021-08-05 14:40 | EDM.PDOC ---
ED HPI GENERAL MEDICAL PROBLEM - General Chief Complaint: General Stated Complaint: SPASMS Time Seen by Provider: 08/05/21 14:30 Source of Information: Reports: Patient, Family, RN Notes Reviewed History Limitations: Reports: No Limitations - History of Present Illness INITIAL COMMENTS - FREE TEXT/NARRATIVE: 50-year-old female presents emergency department day concerned about increased muscle spasms she has a known spinal cord injury she states usually when this happened she has a urinary tract infection so she is suspicious about her urine and would like to have that checked. No fevers no nausea vomiting Bilateral Leg Pain Score (Numeric/FACES): 8 - Related Data Allergies Allergy/AdvReac Type Severity Reaction Status Date / Time clindamycin Allergy Cannot Verified 05/17/20 15:17 Remember Penicillins Allergy Cannot Verified 05/17/20 15:17 Remember Home Meds: Home Meds Albuterol [Ventolin HFA] 1 puff IH QID 12/16/14 [History] Ibuprofen 200 mg PO Q4H PRN 12/16/14 [History] Multivitamins/Iron/Folic Acid [Cerovite Advanced Formula] 1 tab PO DAILY 12/16/14 [History] Venlafaxine [Effexor] 75 mg PO BEDTIME 12/16/14 [History] Lisinopril 20 mg PO DAILY 07/04/17 [History] oxyCODONE HCl/Acetaminophen [Endocet 7.5-325 mg Tablet] 2 tab PO Q6H PRN [History] buPROPion [Wellbutrin SR] 150 mg PO BID 10/23/18 [History] Baclofen 20 mg PO QID 01/02/19 [History] Levothyroxine 75 mcg PO ACBREAKFAST 01/02/19 [History] Pregabalin [Lyrica] 200 mg PO TID 01/02/19 [History] Venlafaxine [Effexor] 150 mg PO DAILY 01/02/19 [History] hydrOXYzine pamoate [Hydroxyzine Pamoate] 25 mg PO TID PRN 01/02/19 [History] Aspirin 325 mg PO DAILY 09/04/19 [History] Multivit-Min/FA/Lycopen/Lutein [Certavite Senior Tablet] 1 tab PO DAILY 09/04/19 [History] levETIRAcetam [Levetiracetam] 750 mg PO BID 09/04/19 [History] Methadone 10 mg PO Q6HR 11/03/19 [History] Past Medical History HEENT History: Reports: Impaired Vision Cardiovascular History: Reports: Hypertension Respiratory History: Reports: Asthma, SOB Other Respiratory History: PNA 6 months ago Gastrointestinal History: Reports: Other (See Below) Other Gastrointestinal History: ostomy Genitourinary History: Reports: UTI, Recurrent Other Genitourinary History: suprapubic 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: Musculoskeletal History: Reports: Back Pain, Chronic, Other (See Below) Other Musculoskeletal History: spasms Neurological History: Reports: Seizure, Other (See Below) Other Neuro History: L-4 spinal cord injury Psychiatric History: Reports: Depression, Suicide Attempt Endocrine/Metabolic History: Reports: Hypothyroidism Hematologic History: Reports: Blood Transfusion(s) Dermatologic History: Reports: Decubitus Ulcer, Eczema Other Dermatologic History: rt buttock ulcer 2013 on going care by respiratory care instructor - Infectious Disease History Infectious Disease History: Reports: Chicken Pox Other Infectious Disease History: 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 and respiratory care instructor state nolonger the case - Past Surgical History Head Surgeries/Procedures: Reports: None HEENT Surgical History: Reports: None Cardiovascular Surgical History: Reports: None Respiratory Surgical History: Reports: None GI Surgical History: Reports: Small Bowel Female Surgical History: Reports: Suprapubic Catheter Placement Endocrine Surgical History: Reports: None Neurological Surgical History: Reports: Lumbar Spine Musculoskeletal Surgical History: Reports: Other (See Below) Other Musculoskeletal Surgeries/Procedures:: ankle Dermatological Surgical History: Reports: None Social & Family History - Family History Family Medical History: No Pertinent Family History - Tobacco Use Tobacco Use Status *Q: Current Every Day Tobacco User Years of Tobacco use: 10 Packs/Tins Daily: 1 - Caffeine Use Caffeine Use: Reports: Coffee, Soda Other Caffeine Use: 1 cup a day Caffeine Use Comment: unknown - Recreational Drug Use Recreational Drug Use: No ED ROS GENERAL - Review of Systems Review Of Systems: See Below Constitutional: Reports: No Symptoms Respiratory: Reports: No Symptoms Cardiovascular: Reports: No Symptoms GI/Abdominal: Reports: No Symptoms Musculoskeletal: Reports: Other (Muscle spasms) ED EXAM, GENERAL - Physical Exam Exam: See Below Exam Limited By: No Limitations General Appearance: Alert, WD/WN, No Apparent Distress Respiratory/Chest: No Respiratory Distress GI/Abdominal: Soft, Non-Tender Back Exam: No: CVA Tenderness (R), CVA Tenderness (L) Course - Vital Signs Last Recorded V/S: Last Vital Signs Temp 97.8 F 08/05/21 13:35 Pulse 75 08/05/21 14:07 Resp 16 08/05/21 13:35 BP 115/74 08/05/21 14:07 Pulse Ox 94 L 08/05/21 14:07 - Orders/Labs/Meds Orders: Active Orders 24 hr Category Date Time Status cefTRIAXone [Rocephin] 1 gm Med 08/05/21 14:34 Ordered Lidocaine 1% [Xylocaine-MPF 1%] 4.2 ml IM ONETIME Labs: Laboratory Tests 08/05/21 Range/Units 13:49 Urine Color Yellow (YELLOW) Urine Appearance Slightly cloudy A (CLEAR) Urine pH 5.5 (5.0-8.0) Ur Specific [place] >= 1.030 (1.008-1.030) Urine Protein Negative (NEGATIVE) mg/dL Urine Glucose (UA) Negative (NEGATIVE) mg/dL Urine Ketones Negative (NEGATIVE) mg/dL Urine Occult Blood Trace-lysed H (NEGATIVE) Urine Nitrite Positive H (NEGATIVE) Urine Bilirubin Negative (NEGATIVE) Urine Urobilinogen 0.2 (0.2-1.0) EU/dL Ur Leukocyte Esterase Negative (NEGATIVE) Urine RBC 0-5 (0-5) Urine WBC 0-5 (0-5) Ur Epithelial Cells Rare Amorphous Sediment Not seen Urine Bacteria Moderate Urine Mucus Not seen Departure - Departure Time of Disposition: 14:39 Disposition: Home, Self-Care 01 Condition: Fair Clinical Impression: Urinary tract infection Qualifiers: Urinary tract infection type: site unspecified Hematuria presence: without hematuria Qualified Code(s): N39.0 - Urinary tract infection, site not specified - Discharge Information Instructions: Urinary Tract Infection, Adult Referrals: PCP,None [Primary Care Provider] - Additional Instructions: Take full course of antibiotics, use oxycodone as needed for pain and muscle spasms Sepsis Event Note (ED) - Evaluation Sepsis Screening Result: No Definite Risk - Focused Exam Vital Signs: Vital Signs Temp Pulse Resp BP Pulse Ox 08/05/21 14:07 75 115/74 94 L 08/05/21 13:35 97.8 F 77 16 129/80 93 L 08/05/21 12:54 97.8 F 77 16 129/80 93 L - My Orders Last 24 Hours: My Active Orders 08/05/21 14:34 cefTRIAXone [Rocephin] 1 gm Lidocaine 1% [Xylocaine-MPF 1%] 4.2 ml IM ONETIME - Assessment/Plan Last 24 Hours: My Active Orders 08/05/21 14:34 cefTRIAXone [Rocephin] 1 gm Lidocaine 1% [Xylocaine-MPF 1%] 4.2 ml IM ONETIME Plan: Assessment Acuity = acute Site and laterality = urinary tract infection Etiology = probable bacterial cause Manifestations = muscle spasms Location of injury = Home Lab values = urinalysis positive for nitrates cultures pending Plan Elected to treat empirically Rocephin 1 g now followed by Bactrim DS 1 tab p.o. twice daily x10 days prescription written for hydrocodone 1 tab p.o. 3 times daily as needed total #10 This note was dictated using [employer] voice recognition software please call with any questions on syntax or grammar.
[2021-08-05] MEDS ORDERED: HYDROmorphone 1 MG/ML Syringe IM ONE (14:42)
== END 2021-08-05 15:26 | disposition home or self-care (01) ==
LOC: JP.ED 12:32
DX: N39.0 Urinary tract infection, site not specified (principal); I10 Essential (primary) hypertension; J45.909 Unspecified asthma, uncomplicated; E03.9 Hypothyroidism, unspecified; Z79.899 Other long term (current) drug therapy; Z88.1 Allergy status to other antibiotic agents; Z88.0 Allergy status to penicillin; Z79.82 Long term (current) use of aspirin; Z72.0 Tobacco use
CPT/HCPCS: 81001; 87086; 96372; 99283; J0696; J1170

== ENCOUNTER 2021-11-06 20:05 | Emergency (ER) | payer MEDICAID ==
[2021-11-06] MEDS: Sodium Chloride 0.9% 1,000 ML IV SCH (22:25)
[2021-11-06] MEDS: Naloxone 0.4 MG/ML SDV IVPUSH ONE (22:35)
[2021-11-06] MEDS: LORazepam 2 MG/ML SDV IVPUSH ONE ×2 (22:57→23:18)
[2021-11-06] MEDS: LORazepam 2 MG/ML SDV ONE (23:18)
[2021-11-06] MEDS: OLANZapine 10 MG Vial IM ONE (23:52)
[2021-11-07] MEDS: Sodium Chloride 0.9% 1,000 ML IV SCH (01:56)
[2021-11-07] MEDS: HYDROmorphone 0.5 MG/0.5 ML Syringe IVPUSH ONE (03:14)
[2021-11-07 07:19] VITALS: PULSE 84
[2021-11-07 07:20] VITALS: BP 138/75
== END 2021-11-07 09:05 | disposition home or self-care (01) ==
LOC: JP.ED 20:05
DX: R40.4 Transient alteration of awareness (principal); J45.909 Unspecified asthma, uncomplicated; I10 Essential (primary) hypertension; Z88.0 Allergy status to penicillin; Z88.1 Allergy status to other antibiotic agents; Z79.82 Long term (current) use of aspirin; Z72.0 Tobacco use
CPT/HCPCS: 36415; 80053; 80305-QW; 81001; 83605; 84132; 85025; 96372; 96374; 96375; 96376; 99283; 99284-25; J1170; J2060; J2310; J3490; J7030

== ENCOUNTER 2022-01-07 00:26 | Emergency (ER) | payer MEDICAID ==
[2022-01-07] MEDS ORDERED: Naloxone 0.4 MG/ML SDV IVPUSH PRN (00:37)
[2022-01-07] MEDS ORDERED: Sodium Chloride 0.9% 10 ML Syringe FLUSH PRN (00:39)
[2022-01-07] MEDS ORDERED: Ondansetron 4 MG/2 ML SDV ONE (00:57)
[2022-01-07] MEDS ORDERED: Metoclopramide 10 MG/2 ML SDV IV ONE (01:04)
[2022-01-07] MEDS ORDERED: Magnesium Sulfate/Water 2 GM in Premix Bag 1 BAG IV ONE (01:55)
[2022-01-07] MEDS ORDERED: Sodium Chloride 0.9% 500 ML IV ONE ×2 (01:56→03:48)
[2022-01-07 06:36] VITALS: BP 98/46; PULSE 68
== END 2022-01-07 09:19 | disposition home or self-care (01) ==
LOC: JP.ED 00:26
DX: T40.2X1A Poisoning by other opioids, accidental (unintentional), initial encounter (principal); T14.8XXA Other injury of unspecified body region, initial encounter; N18.31 Chronic kidney disease, stage 3a; G89.4 Chronic pain syndrome; F17.200 Nicotine dependence, unspecified, uncomplicated; D72.829 Elevated white blood cell count, unspecified; Z43.3 Encounter for attention to colostomy; Z88.1 Allergy status to other antibiotic agents; Z88.0 Allergy status to penicillin; Z79.82 Long term (current) use of aspirin; Z79.899 Other long term (current) drug therapy
CPT/HCPCS: 36415; 80053; 80143; 80179; 80305-QW; 80307; 81001; 82140; 82803; 83605; 84145; 84484; 85025; 86140; 93005; 93010; 96365; 96366; 96375; 99285; 99285-25; J1642; J2310; J2765; J3475; J7030

== ENCOUNTER 2022-08-04 16:22 | Emergency (ER) | payer MEDICAID ==
[2022-08-04 18:21] VITALS: BP 116/66; PULSE 86
[2022-08-04 19:40] LABS: ESTIMATED GFR 68 mL/min (>60)
[2022-08-04] MEDS ORDERED: Sodium Chloride 0.9% 100 ML ONE (19:52)
== END 2022-08-04 21:33 | disposition home or self-care (01) ==
LOC: JP.ED 16:22
DX: N31.9 Neuromuscular dysfunction of bladder, unspecified (principal); N39.0 Urinary tract infection, site not specified; G82.20 Paraplegia, unspecified; T14.8XXA Other injury of unspecified body region, initial encounter; I12.9 Hypertensive chronic kidney disease with stage 1 through stage 4 chronic kidney disease, or unspecified chronic kidney disease; N18.31 Chronic kidney disease, stage 3a; Z79.82 Long term (current) use of aspirin; Z79.899 Other long term (current) drug therapy
CPT/HCPCS: 36415; 80053; 85025; 96365; 99283; J1580; J1642; J3490

== ENCOUNTER 2023-06-21 21:31 | Emergency (ER) | payer MEDICAID ==
[2023-06-21 22:51] LABS: BASOPHILS ABSOLUTE AUTO 0.12 K/uL (0.00-0.10); BASOPHILS PERCENT AUTO 0.6 % (0.1-1.3); EOSINOPHILS ABSOLUTE AUTO 0.21 K/uL (0.00-0.40); HEMATOCRIT 43.6 % (34.3-46.0); HEMOGLOBIN 14.2 g/dL (11.2-15.5); IMMATURE GRAN ABSOLUTE AUTO 0.08 K/uL (0.00-0.23); IMMATURE GRAN PERCENT AUTO 0.4 % (0.0-0.7); LYMPHOCYTES ABSOLUTE AUTO 3.84 K/uL (0.8-3.3); LYMPHOCYTES PERCENT AUTO 19.1 % (11.4-47.7); MEAN CORPUSCULAR HEMOGLOBIN 28.6 pg (31.6-35.5); MEAN CORPUSCULAR HGB CONC 32.6 g/dL (31.6-35.5); MEAN CORPUSCULAR VOLUME 87.7 fL (81.4-99.0); MONOCYTES ABSOLUTE AUTO 1.13 K/uL (0.20-0.90); MONOCYTES PERCENT AUTO 5.6 % (3.3-12.6); NEUTROPHILS ABSOLUTE AUTO 14.75 K/uL (1.0-7.6); NEUTROPHILS PERCENT AUTO 73.3 % (40.0-78.1); PLATELET COUNT,PLT 334 K/uL (130-375); RED BLOOD CELL COUNT 4.97 M/uL (3.77-5.24); WHITE BLOOD CELL COUNT,WBC 20.1 K/uL (3.2-11.0)
[2023-06-21] MEDS ORDERED: fentaNYL 50 MCG/ML SDV IVPUSH ONE (22:55)
[2023-06-21 23:11] LABS: C-REACTIVE PROTEIN 7.83 mg/dL (0.0-0.3); CALCIUM 8.6 mg/dL (8.5-10.1); CREATININE 1.2 mg/dL (0.6-1.0); EST CRCL DRUG DOSING (CG) 55.32 mL/min
[2023-06-21] MEDS ORDERED: Sodium Chloride 0.9% 1,000 ML IV ONE (23:13)
[2023-06-22 00:01] LABS: AMORPHOUS SEDIMENT,URINE NOT SEEN; APPEARANCE,URINE SLIGHTLY CLOUDY (CLEAR); BACTERIA,URINE MANY; BILIRUBIN,URINE NEGATIVE (NEGATIVE); COLOR,URINE YELLOW (YELLOW); EPITHELIAL CELLS,URINE FEW; GLUCOSE,URINE NEGATIVE (NEGATIVE); KETONES,URINE NEGATIVE (NEGATIVE); LEUKOCYTE ESTERASE,URINE SMALL (NEGATIVE); MUCUS,URINE FEW; NITRITE,URINE POSITIVE (NEGATIVE); OCCULT BLOOD,URINE TRACE-INTACT (NEGATIVE); PROTEIN,URINE NEGATIVE (NEGATIVE); RBC,URINE 0-5 (0-5); UROBILINOGEN,URINE 0.2 EU/dL (0.2-1.0)
[2023-06-22] MEDS ORDERED: cefTRIAXone 1 GM in Sodium Chloride 0.9% 50 ML IV ONE (00:04)
[2023-06-22] MEDS ORDERED: Albuterol/Ipratropium 3.0-0.5 MG/3 ML Neb Soln NEB ONE (00:32)
[2023-06-22] MEDS ORDERED: Cyclobenzaprine 10 MG Tab PO ONE (00:39)
[2023-06-22] MEDS ORDERED: oxyCODONE 5 MG Tab PO ONE ×2 (00:51→04:40)
[2023-06-22] MEDS ORDERED: Levofloxacin 250 MG Tab PO ONE (01:41)
[2023-06-22 04:31] LABS: BASE EXCESS VENOUS 3.4 mm/L; BICARBONATE,VENOUS 28.7 mmol/L; CARBOXYHEMOGLOBIN 8.5 % (0.0-1.6); METHEMOGLOBIN 0.8 %; O2 SATURATION VENOUS 54.1; OXYHEMOGLOBIN 49.1 %; PCO2 VENOUS 48.4 mm/Hg; TOTAL HEMOGLOBIN 14.3 g/dL (12.0-16.0)
[2023-06-22 08:19] VITALS: BP 135/68; PULSE 92
== END 2023-06-22 09:37 | disposition home or self-care (01) ==
LOC: JP.ED 21:31
DX: J18.9 Pneumonia, unspecified organism (principal); N39.0 Urinary tract infection, site not specified; I10 Essential (primary) hypertension; Z88.1 Allergy status to other antibiotic agents; Z88.0 Allergy status to penicillin; Z88.2 Allergy status to sulfonamides; Z79.899 Other long term (current) drug therapy
CPT/HCPCS: 36415; 71045; 71250; 80048; 81001; 82803; 83605; 84145; 85025; 86140; 87086; 87088; 87186; 94640; 96361; 96365; 96375; 99285; A9270; J0696; J3010; J3490; J7030; J7620

== ENCOUNTER 2024-01-12 22:06 | Emergency (ER) | payer MEDICAID ==
[2024-01-12 22:23] VITALS: BP 105/69; PULSE 97
[2024-01-12 22:58] LABS: APPEARANCE,URINE CLEAR (CLEAR); BILIRUBIN,URINE NEGATIVE (NEGATIVE); COLOR,URINE YELLOW (YELLOW); GLUCOSE,URINE NEGATIVE (NEGATIVE); KETONES,URINE NEGATIVE (NEGATIVE); LEUKOCYTE ESTERASE,URINE NEGATIVE (NEGATIVE); NITRITE,URINE POSITIVE (NEGATIVE); OCCULT BLOOD,URINE TRACE-INTACT (NEGATIVE); PH,URINE 5.5 (5.0-8.0); PROTEIN,URINE 100 mg/dL (NEGATIVE)
[2024-01-12 23:05] LABS: RBC,URINE 0-5 (0-5)
[2024-01-12 23:06] LABS: AMORPHOUS SEDIMENT,URINE FEW; BACTERIA,URINE MODERATE; EPITHELIAL CELLS,URINE RARE; MUCUS,URINE NOT SEEN
[2024-01-12] MEDS: Phenazopyridine 95 MG Tab PO ONE (23:10)
[2024-01-12] MEDS ORDERED: Lidocaine 1% 5 ML VIAL ONE (23:42)
[2024-01-12] MEDS: cefTRIAXone 1 GM Vial IM ONE (23:45)
[2024-01-12] MEDS: Baclofen 10 MG Tab PO ONE (23:45)
[2024-01-12] MEDS: Lidocaine 1% 5 ML VIAL INJECT ONE (23:45)
[2024-01-13] MEDS: Acetaminophen/oxyCODONE 325-10 MG Tab PO ONE (00:18)
== END 2024-01-13 00:29 | disposition home or self-care (01) ==
LOC: JP.ED 22:06
DX: N39.0 Urinary tract infection, site not specified (principal); I10 Essential (primary) hypertension; J45.909 Unspecified asthma, uncomplicated; E03.9 Hypothyroidism, unspecified; Z79.899 Other long term (current) drug therapy; Z79.51 Long term (current) use of inhaled steroids; Z88.1 Allergy status to other antibiotic agents; Z88.0 Allergy status to penicillin; Z88.2 Allergy status to sulfonamides
CPT/HCPCS: 81001; 87086; 96372; 99284; A9270; J0696; 87088; 87186

== ENCOUNTER 2024-02-05 05:26 | Emergency (ER) | payer MEDICAID ==
[2024-02-05 05:36] VITALS: BP 114/64; PULSE 63
[2024-02-05 05:41] LABS: APPEARANCE,URINE SLIGHTLY CLOUDY (CLEAR); BILIRUBIN,URINE NEGATIVE (NEGATIVE); COLOR,URINE YELLOW (YELLOW); GLUCOSE,URINE NEGATIVE (NEGATIVE); KETONES,URINE NEGATIVE (NEGATIVE); LEUKOCYTE ESTERASE,URINE SMALL (NEGATIVE); NITRITE,URINE NEGATIVE (NEGATIVE); OCCULT BLOOD,URINE TRACE-INTACT (NEGATIVE); PH,URINE 5.5 (5.0-8.0); PROTEIN,URINE NEGATIVE (NEGATIVE); UROBILINOGEN,URINE 0.2 EU/dL (0.2-1.0)
[2024-02-05] MEDS: Naloxone 0.4 MG/ML SDV IVPUSH PRN (05:51)
[2024-02-05 05:56] LABS: AMORPHOUS SEDIMENT,URINE RARE; BACTERIA,URINE RARE; EPITHELIAL CELLS,URINE NOT SEEN; MUCUS,URINE NOT SEEN; RBC,URINE 0-5 (0-5); WBC,URINE 0-5 (0-5)
[2024-02-05] MEDS: HYDROmorphone 0.5 MG/0.5 ML Syringe IVPUSH ONE (06:12)
[2024-02-05] MEDS: HYDROmorphone 1 MG/ML Syringe IVPUSH ONE (06:16)
[2024-02-05 06:33] LABS: AMPHETAMINES SCREEN, URINE NEGATIVE (NEGATIVE); BARBITURATE SCREEN,URINE NEGATIVE (NEGATIVE); BENZODIAZEPINES SCREEN,URINE NEGATIVE (NEGATIVE); METHADONE SCREEN, URINE PRESUMPTIVE POSITIVE (NEGATIVE); METHAMPHETAMINES SCREEN, URINE NEGATIVE (NEGATIVE); OXYCODONE SCREEN,URINE PRESUMPTIVE POSITIVE (NEGATIVE); PROPOXYPHENE SCREEN,URINE NEGATIVE (NEGATIVE); THC SCREEN,URINE 50 NG/ML NEGATIVE (NEGATIVE)
[2024-02-05 06:46] LABS: BASOPHILS ABSOLUTE AUTO 0.09 K/uL (0.00-0.10); BASOPHILS PERCENT AUTO 0.6 % (0.1-1.3); EOSINOPHILS ABSOLUTE AUTO 0.13 K/uL (0.00-0.40); EOSINOPHILS PERCENT AUTO 0.9 % (0.0-5.4); HEMATOCRIT 40.2 % (34.3-46.0); HEMOGLOBIN 13.4 g/dL (11.2-15.5); IMMATURE GRAN ABSOLUTE AUTO 0.07 K/uL (0.00-0.23); IMMATURE GRAN PERCENT AUTO 0.5 % (0.0-0.7); LYMPHOCYTES ABSOLUTE AUTO 3.63 K/uL (0.8-3.3); LYMPHOCYTES PERCENT AUTO 24.8 % (11.4-47.7); MEAN CORPUSCULAR HEMOGLOBIN 28.2 pg (31.6-35.5); MEAN CORPUSCULAR HGB CONC 33.3 g/dL (31.6-35.5); MEAN CORPUSCULAR VOLUME 84.5 fL (81.4-99.0); MONOCYTES ABSOLUTE AUTO 0.61 K/uL (0.20-0.90); MONOCYTES PERCENT AUTO 4.2 % (3.3-12.6); NEUTROPHILS ABSOLUTE AUTO 10.09 K/uL (1.0-7.6); PLATELET COUNT,PLT 379 K/uL (130-375); RED BLOOD CELL COUNT 4.76 M/uL (3.77-5.24); WHITE BLOOD CELL COUNT,WBC 14.6 K/uL (3.2-11.0)
[2024-02-05 07:08] LABS: A/G RATIO 0.5 (1.2-2.2); ALANINE AMINOTRANSFERASE,ALT 15 U/L (12-78); ALBUMIN 2.6 g/dL (3.4-5.0); ALKALINE PHOSPHATASE 113 U/L (46-116); ASPARTATE AMNIOTRANSFERASE,AST 13 U/L (15-37); BILIRUBIN TOTAL 0.3 mg/dL (0.2-1.0); BLOOD UREA NITROGEN,BUN 15 mg/dL (7-18); CARBON DIOXIDE,CO2 27 mmol/L (21-32); CHLORIDE,CL 93 mmol/L (100-108); CREATININE 1.5 mg/dL (0.6-1.0); EST CRCL DRUG DOSING (CG) 43.93 mL/min; ESTIMATED GFR 41 mL/min (>60); GLUCOSE RANDOM 113 mg/dL (74-106); POTASSIUM,K 4.7 mmol/L (3.6-5.2); PROTEIN TOTAL,TP 7.6 g/dL (6.4-8.2); SODIUM,NA 129 mmol/L (140-148)
[2024-02-05 07:09] LABS: ANION GAP 13.7 mmol/L (5.0-14.0)
== END 2024-02-05 07:47 | disposition home or self-care (01) ==
LOC: JP.ED 05:26
DX: E87.1 Hypo-osmolality and hyponatremia (principal); I10 Essential (primary) hypertension; J45.909 Unspecified asthma, uncomplicated; E03.9 Hypothyroidism, unspecified; F17.210 Nicotine dependence, cigarettes, uncomplicated; Z79.899 Other long term (current) drug therapy; Z88.0 Allergy status to penicillin; Z88.2 Allergy status to sulfonamides; Z88.1 Allergy status to other antibiotic agents
CPT/HCPCS: 36415; 80053; 80305; 81001; 83735; 85025; 96374; 96375; 96376; 99285; J1170; J2310

== ENCOUNTER 2024-03-07 18:33 | Emergency (ER) | payer MEDICAID ==
[2024-03-07 18:46] VITALS: PULSE 88
[2024-03-07 19:22] VITALS: BP 97/62
== END 2024-03-07 20:33 | disposition home or self-care (01) ==
LOC: JP.ED 18:33
DX: G89.4 Chronic pain syndrome (principal); I10 Essential (primary) hypertension; J45.909 Unspecified asthma, uncomplicated; E03.9 Hypothyroidism, unspecified; F17.210 Nicotine dependence, cigarettes, uncomplicated; Z79.899 Other long term (current) drug therapy; Z88.0 Allergy status to penicillin; Z88.1 Allergy status to other antibiotic agents; Z88.2 Allergy status to sulfonamides
CPT/HCPCS: 99283

== ENCOUNTER 2024-04-17 17:15 | Emergency (ER) | payer MEDICAID ==
[2024-04-17 18:22] VITALS: BP 116/64; PULSE 113
== END 2024-04-17 19:31 | disposition home or self-care (01) ==
LOC: JP.ED 17:15
DX: L89.300 Pressure ulcer of unspecified buttock, unstageable (principal); I10 Essential (primary) hypertension; J45.909 Unspecified asthma, uncomplicated; E03.9 Hypothyroidism, unspecified; F17.210 Nicotine dependence, cigarettes, uncomplicated; Z88.0 Allergy status to penicillin; Z88.2 Allergy status to sulfonamides; Z88.1 Allergy status to other antibiotic agents; Z88.8 Allergy status to other drugs, medicaments and biological substances; Z79.899 Other long term (current) drug therapy; Z90.49 Acquired absence of other specified parts of digestive tract
CPT/HCPCS: 87070; 87077; 87205; 99283

== ENCOUNTER 2024-04-20 08:29 | Emergency (ER) | payer MEDICAID ==
[2024-04-20 08:58] LABS: HEMATOCRIT 32.4 % (34.3-46.0); HEMOGLOBIN 10.9 g/dL (11.2-15.5); MEAN CORPUSCULAR HGB CONC 33.6 g/dL (31.6-35.5); MEAN CORPUSCULAR VOLUME 77.1 fL (81.4-99.0); PLATELET COUNT,PLT 577 K/uL (130-375); WHITE BLOOD CELL COUNT,WBC 24.5 K/uL (3.2-11.0)
[2024-04-20 08:59] LABS: BASE EXCESS VENOUS -6.7 mm/L; BICARBONATE,VENOUS 18.2 mmol/L; CARBOXYHEMOGLOBIN 4.8 % (0.0-1.6); METHEMOGLOBIN 0.9 %; OXYHEMOGLOBIN 69.8 %; PCO2 VENOUS 35.9 mm/Hg; PH,VENOUS 7.324 (7.350-7.450); TOTAL HEMOGLOBIN 11.4 g/dL (12.0-16.0)
[2024-04-20 09:15] LABS: ATYPICAL LYMPHOCYTES MODERATE; BAND ABSOLUTE MAN 0.25 K/uL; BAND PERCENT MAN 1 % (5-11); LYMPHOCYTES ABSOLUTE MAN 5.39 K/uL (0.8-3.3); LYMPHOCYTES PERCENT MAN 22 % (24-44); MONOCYTES ABSOLUTE MAN 0.74 K/uL (0.20-0.90); MONOCYTES PERCENT MAN 3 % (2-6); NEUTROPHILS ABSOLUTE MAN 18.13 K/uL (1.0-7.6); SEG NEUTROPHILS PERCENT MAN 74 % (36-66)
[2024-04-20 09:38] LABS: A/G RATIO 0.4 (1.2-2.2); ALANINE AMINOTRANSFERASE,ALT 29 U/L (12-78); ALBUMIN 2.1 g/dL (3.4-5.0); ALKALINE PHOSPHATASE 110 U/L (46-116); ANION GAP 18.2 mmol/L (5.0-14.0); ASPARTATE AMNIOTRANSFERASE,AST 28 U/L (15-37); BILIRUBIN TOTAL 0.4 mg/dL (0.2-1.0); BLOOD UREA NITROGEN,BUN 33 mg/dL (7-18); CALCIUM 8.7 mg/dL (8.5-10.1); CARBON DIOXIDE,CO2 20 mmol/L (21-32); CHLORIDE,CL 103 mmol/L (100-108); CREATININE 1.9 mg/dL (0.6-1.0); EST CRCL DRUG DOSING (CG) 34.54 mL/min; ESTIMATED GFR 31 mL/min (>60); GLUCOSE RANDOM 113 mg/dL (74-106); MAGNESIUM 1.1 mg/dL (1.8-2.4); POTASSIUM,K 4.2 mmol/L (3.6-5.2); PROTEIN TOTAL,TP 7.2 g/dL (6.4-8.2); SODIUM,NA 137 mmol/L (140-148)
[2024-04-20 09:45] LABS: APPEARANCE,URINE CLOUDY (CLEAR); BILIRUBIN,URINE NEGATIVE (NEGATIVE); COLOR,URINE YELLOW (YELLOW); GLUCOSE,URINE NEGATIVE (NEGATIVE); KETONES,URINE TRACE mg/dL (NEGATIVE); LEUKOCYTE ESTERASE,URINE SMALL (NEGATIVE); NITRITE,URINE POSITIVE (NEGATIVE); OCCULT BLOOD,URINE MODERATE (NEGATIVE); PH,URINE 5.5 (5.0-8.0); PROTEIN,URINE 100 mg/dL (NEGATIVE); UROBILINOGEN,URINE 0.2 EU/dL (0.2-1.0)
[2024-04-20 09:49] LABS: BACTERIA,URINE MANY; EPITHELIAL CELLS,URINE NOT SEEN; RBC,URINE 50-75 (0-5); WBC,URINE 30-40 (0-5)
[2024-04-20 09:50] LABS: AMORPHOUS SEDIMENT,URINE MODERATE; MUCUS,URINE MODERATE
[2024-04-20 09:52] LABS: OXYCODONE SCREEN,URINE PRESUMPTIVE POSITIVE (NEGATIVE)
[2024-04-20 09:53] LABS: AMPHETAMINES SCREEN, URINE PRESUMPTIVE POSITIVE (NEGATIVE); BARBITURATE SCREEN,URINE NEGATIVE (NEGATIVE); BENZODIAZEPINES SCREEN,URINE NEGATIVE (NEGATIVE); METHADONE SCREEN, URINE NEGATIVE (NEGATIVE); METHAMPHETAMINES SCREEN, URINE NEGATIVE (NEGATIVE); PROPOXYPHENE SCREEN,URINE NEGATIVE (NEGATIVE); THC SCREEN,URINE 50 NG/ML NEGATIVE (NEGATIVE)
[2024-04-20] MEDS: Sodium Chloride 0.9% 1,000 ML IV ONE (09:53)
[2024-04-20] MEDS: Magnesium Sulfate/Water 2 GM in Premix Bag 1 BAG IV ONE (10:19)
[2024-04-20] MEDS ORDERED: Acetaminophen 1,000 MG in Premix Bag 1 BAG IV ONE (11:19)
[2024-04-20] MEDS: Sodium Chloride 0.9% 100 ML ONE (12:09)
[2024-04-20] MEDS: Sodium Chloride 0.9% 1,000 ML IV SCH (12:10)
[2024-04-20] MEDS: Piperacillin/Tazobactam 4.5 GM in Sodium Chloride 0.9% 100 ML IV ONE (12:10)
[2024-04-20] MEDS: Acetaminophen 1,000 MG in Premix Bag 1 BAG IV ONE (12:44)
[2024-04-20] MEDS: Norepinephrine Bit/D5W Premix 4 MG in Premix Bag 1 BAG IV SCH (13:38)
[2024-04-20] MEDS ORDERED: VANCOMYCIN IV ONE (14:42)
[2024-04-20] MEDS ORDERED: SODIUM CHLORIDE 0.9% IV ONE (14:42)
[2024-04-20] MEDS: Vancomycin 1.8 GM in Sodium Chloride 0.9% 250 ML IV ONE (15:05)
[2024-04-20 15:11] VITALS: BP 100/41; PULSE 66
[2024-04-20] MEDS ORDERED: Sodium Chloride 0.9% 1,000 ML IV ONE (15:30)
== END 2024-04-20 16:07 | disposition critical access hospital (66) ==
LOC: JP.ED 08:29
DX: R41.0 Disorientation, unspecified (principal); A40.1 Sepsis due to streptococcus, group B; I95.9 Hypotension, unspecified; L89.329 Pressure ulcer of left buttock, unspecified stage; L89.629 Pressure ulcer of left heel, unspecified stage; I10 Essential (primary) hypertension; J45.909 Unspecified asthma, uncomplicated; E03.9 Hypothyroidism, unspecified; Z90.49 Acquired absence of other specified parts of digestive tract; F17.210 Nicotine dependence, cigarettes, uncomplicated; Z79.899 Other long term (current) drug therapy; Z88.2 Allergy status to sulfonamides; Z88.0 Allergy status to penicillin; Z88.1 Allergy status to other antibiotic agents
CPT/HCPCS: 36415; 72192; 72192-26; 80053; 80305-QW; 80307; 81001; 82803; 83605; 83735; 84443; 84484; 85025; 87040; 93005; 93010; 96361; 96365; 96366; 96367; 96368; 96375; 99285; 99285-25; J0131; J2543; J3360; J3370; J3475; J3490; J7030; J7050

== ENCOUNTER 2024-05-04 22:29 | Emergency (ER) | payer MEDICAID ==
[2024-05-04 22:48] VITALS: BP 125/62; PULSE 119
[2024-05-04 23:56] LABS: BASOPHILS ABSOLUTE AUTO 0.14 K/uL (0.00-0.10); BASOPHILS PERCENT AUTO 0.8 % (0.1-1.3); EOSINOPHILS ABSOLUTE AUTO 0.23 K/uL (0.00-0.40); EOSINOPHILS PERCENT AUTO 1.4 % (0.0-5.4); HEMATOCRIT 36.9 % (34.3-46.0); HEMOGLOBIN 11.5 g/dL (11.2-15.5); IMMATURE GRAN ABSOLUTE AUTO 0.06 K/uL (0.00-0.23); IMMATURE GRAN PERCENT AUTO 0.4 % (0.0-0.7); LYMPHOCYTES ABSOLUTE AUTO 3.82 K/uL (0.8-3.3); LYMPHOCYTES PERCENT AUTO 22.7 % (11.4-47.7); MEAN CORPUSCULAR HEMOGLOBIN 26.7 pg (31.6-35.5); MEAN CORPUSCULAR HGB CONC 31.2 g/dL (31.6-35.5); MEAN CORPUSCULAR VOLUME 85.6 fL (81.4-99.0); MONOCYTES ABSOLUTE AUTO 0.88 K/uL (0.20-0.90); MONOCYTES PERCENT AUTO 5.2 % (3.3-12.6); NEUTROPHILS PERCENT AUTO 69.5 % (40.0-78.1); PLATELET COUNT,PLT 474 K/uL (130-375); RED BLOOD CELL COUNT 4.31 M/uL (3.77-5.24); WHITE BLOOD CELL COUNT,WBC 16.8 K/uL (3.2-11.0)
[2024-05-05 00:04] LABS: LACTIC ACID 1.6 mmol/L (0.4-2.0)
[2024-05-05 01:06] LABS: APPEARANCE,URINE CLEAR (CLEAR); BILIRUBIN,URINE NEGATIVE (NEGATIVE); COLOR,URINE YELLOW (YELLOW); GLUCOSE,URINE NEGATIVE (NEGATIVE); KETONES,URINE NEGATIVE (NEGATIVE); LEUKOCYTE ESTERASE,URINE TRACE (NEGATIVE); NITRITE,URINE NEGATIVE (NEGATIVE); OCCULT BLOOD,URINE NEGATIVE (NEGATIVE); PROTEIN,URINE NEGATIVE (NEGATIVE); UROBILINOGEN,URINE 0.2 EU/dL (0.2-1.0)
[2024-05-05 01:15] LABS: AMORPHOUS SEDIMENT,URINE FEW; BACTERIA,URINE RARE; EPITHELIAL CELLS,URINE RARE; MUCUS,URINE NOT SEEN; RBC,URINE 0-5 (0-5); WBC,URINE 0-5 (0-5)
[2024-05-05 01:55] LABS: ANION GAP 10.5 mmol/L (5.0-14.0); C-REACTIVE PROTEIN 9.48 mg/dL (<0.50); CALCIUM 8.7 mg/dL (8.5-10.1); CREATININE 1.2 mg/dL (0.6-1.0); EST CRCL DRUG DOSING (CG) 54.69 mL/min; POTASSIUM,K 4.5 mmol/L (3.6-5.2)
== END 2024-05-05 02:40 | disposition home or self-care (01) ==
LOC: JP.ED 22:29
DX: R25.2 Cramp and spasm (principal); L89.309 Pressure ulcer of unspecified buttock, unspecified stage; L89.209 Pressure ulcer of unspecified hip, unspecified stage; I10 Essential (primary) hypertension; J45.909 Unspecified asthma, uncomplicated; E03.9 Hypothyroidism, unspecified; Z90.49 Acquired absence of other specified parts of digestive tract; F17.210 Nicotine dependence, cigarettes, uncomplicated; Z88.5 Allergy status to narcotic agent; Z79.899 Other long term (current) drug therapy; Z88.0 Allergy status to penicillin; Z88.1 Allergy status to other antibiotic agents
CPT/HCPCS: 36415; 80048; 81001; 83605; 85025; 86140; 99283